=== PATIENT | female | born 1930 | race Caucasian/White ===

== ENCOUNTER 2019-05-15 09:00 | Emergency (ER) | payer MEDICARE ==
[~2019-05-15] VITALS: Ht 154.9 cm; Wt 45.1 kg
--- NOTE | 2019-05-15 09:11 | ED Fall/Injury ---
General Stated Complaint: FALL - RT HIP PAIN Source: patient, EMS Exam Limitations: no limitations History of Present Illness Date Seen by Provider: May 15, 2019 Time Seen by Provider: 09:07 Initial Comments Fell at home this morning injuring her Right hip....unable to move or bear weight. Called 911, given 75mcg Fentanyl, feeling better but still doesn't want to move hip on arrival. Denies Hx of hip fx. Denies other pain or injury. Lives alone at home. Hx dementia. Allergies and Home Medications Allergies Coded Allergies: Sulfa (Sulfonamide Antibiotics) (Verified Allergy, Unknown, 05/15/19) adhesive tape (Verified Allergy, Unknown, 05/15/19) iodine (Verified Allergy, Unknown, 05/15/19) latex (Verified Allergy, Unknown, 05/15/19) Patient Home Medication List Home Medication List Reviewed: Yes Review of Systems Review of Systems Constitutional: no symptoms reported Respiratory: no symptoms reported Cardiovascular: no symptoms reported Gastrointestinal: no symptoms reported Musculoskeletal: No back pain; joint pain; No neck pain Past Aoabckw-Ppfbjt-Fkihba Hx Past Med/Social Hx: Reviewed Nursing Past Med/Soc Hx Physical Exam Vital Signs Vital Signs - First Documented Capillary Refill : Height, Weight, BMI Height: '" Weight: lbs. oz. kg; BMI Method: General Appearance: WD/WN, no apparent distress Cardiovascular: regular rate, rhythm, no edema, no JVD Respiratory: chest non-tender, lungs clear Gastrointestinal: normal bowel sounds, non tender, soft Extremities: other (R hip held in 30 flex. not ext rotated. tenderness R hip joint without gross deformity. no knee, leg, ankle or foot pain.) Neurologic/Psychiatric: no motor/sensory deficits, normal mood/affect Skin: normal color, warm/dry Progress/Results/Core Measures Results/Orders My Orders Orders - ADRIANAVENSTJUDI DE LA ROSA DO Pelvis With Right Hip 2-3 View (05/15/19 09:08) Fentanyl Injection (Sublimaze Injection (05/15/19 10:45) Medications Given in ED Current Medications Medications Dose Ordered Sig/Alice Route Start Time Stop Time Status Last Admin Dose Admin Fentanyl Citrate 25 mcg ONCE ONCE IVP 05/15/19 10:45 05/15/19 10:46 DC 05/15/19 10:52 25 MCG Vital Signs/I&O 05/15/19 05/15/1905/14/20 09:02 09:02 11:48 Temp 37.0 37.0 37.0 Pulse 88 88 75 Resp 16 16 16 B/P (MAP) 168/60 (96) 168/60 (96) 99/41 (96) Pulse Ox 94 94 98 O2 Delivery Nasal Cannula Nasal Cannula Nasal Cannula O2 Flow Rate 2.00 2.00 Diagnostic Imaging Diagonstic Imaging: Xray Plain Films/CT/US/NM/MRI: hip Comments R InterTroch Fx, minimally displaced Departure Impression Primary Impression: Hip fracture, right Qualified Codes: S72.001A - Fracture of unspecified part of neck of right femur, initial encounter for closed fracture Disposition: XFER SHT-TRM HOSP Condition: Stable Transfer Transfer Reason: Exceeds level of care (No Ortho services @ [place] or [place] for the weekend.) Time Spoke to Accepting Phy: 10:00 Transfer Progress Notes Called [place] and left message @ [phone], Benoit Slaughter. Called [facility] @ [address] Horn (ER), will transfer ER to ER for Ortho eval per their protocol. Pt stable, no distress, pain adequately controlled and pt declines further pain medication at this time. JUDI ADDISON DO May 15, 2019 09:11
--- OUTSIDE RECORDS SUMMARY | 2019-05-15 09:23 | XMS REPORT | Continuity of Care Document ---
Author Organization Unknown Address Unknown Phone Unavailable Allergies There is no data. Medications There is no data. Problems Date Dx Coded Attending Type Code Diagnosis Diagnosed By 11/23/2018 MARIALUISA MARKHAM APRN Ot G47.33 OBSTRUCTIVE SLEEP APNEA (ADULT) (PEDIATR 11/25/2018 MARIALUISA MARKHAM APRN Ot G47.33 OBSTRUCTIVE SLEEP APNEA (ADULT) (PEDIATR 11/25/2018 MARIALUISA MARKHAM APRN Ot G47.33 OBSTRUCTIVE SLEEP APNEA (ADULT) (PEDIATR Procedures There is no data. Results There is no data. Encounters ACCT No. Visit Date/Time Discharge Status Pt. Type Provider Facility Loc./Unit Complaint [id number] 11/30/2018 20:00:00 019 23:59:59 CLS Preadmit MARIALUISA MARKHAM APRN [facility] SLEEP CLIVE G47.33
--- NOTE | 2019-05-15 09:46 | Diagnostic Imaging Report ---
INDICATION: Pain after fall. FINDINGS: There is a minimally displaced intertrochanteric fracture of the right femur. There is no other fracture or dislocation. Soft tissues are unremarkable. IMPRESSION: Minimally displaced intertrochanteric fracture of the right femur. Dictated by: Dictated on workstation # [id number]
[2019-05-15] MEDS ORDERED: Potassium (10:08)
[2019-05-15] MEDS ORDERED: SERT100T8 (10:08)
[2019-05-15] MEDS ORDERED: LOSA50TA63 PO (10:08)
[2019-05-15] MEDS ORDERED: aspirin (10:08)
[2019-05-15] MEDS ORDERED: OLAN2.5T27 PO (10:08)
[2019-05-15] MEDS ORDERED: MIRT30TA6 (10:08)
[2019-05-15] MEDS ORDERED: ROSU10TA28 (10:08)
--- NOTE | 2019-05-15 10:25 | NUR ---
Report called to [facility] VEGA
--- NOTE | 2019-05-15 10:36 | NUR ---
Page for [facility] for transfer, Code CRISTHIAN bautista
[2019-05-15] MEDS ORDERED: fentaNYL INJECTION 100 MCG/2 ML AMP IVP ONE (10:45)
--- NOTE | 2019-05-15 10:45 | NUR ---
EMS was arriving
--- NOTE | 2019-05-15 10:47 | NUR ---
[facility] paged out on a 911 call, delay for transfer
--- NOTE | 2019-05-15 11:10 | NUR ---
Patient's dgt called to speak with
--- NOTE | 2019-05-15 11:20 | NUR ---
EMS on scene in ER with add'l patient brought, preparing to go on transfer now. Report to Kristine, Immigration Paralegal.
[2019-05-15 11:48] VITALS: BP 99/41
--- NOTE | 2019-05-15 11:48 | NUR ---
Departing ER for Ariadne [facility] ER-ER transfer. No orthopedic coverage in [place] [facility]. See transfer form and discharge screen.
== END 2019-05-15 11:48 | disposition short-term general hospital (02) ==
LOC: EDUNIT# 09:00 → ER FS 09:01
DX: S72.141A Displaced intertrochanteric fracture of right femur, initial encounter for closed fracture (principal); W19.XXXA Unspecified fall, initial encounter
CPT/HCPCS: 73502

== ENCOUNTER 2019-05-18 15:10 | Inpatient (IN) | payer MEDICARE ==
[~2019-05-18] VITALS: Ht 157.5 cm; Wt 47.0 kg
[~2019-05-18 15:10] MED LIST: LOSA50TA63 PO; MIRT30TA6; OLAN2.5T27 PO; Potassium; ROSU10TA28; SERT100T8; aspirin
[2019-05-18] MEDS ORDERED: ONDANSETRON 4 MG (ZOFRAN) ORAL DISSOLVE TAB PO PRN (15:30)
[2019-05-18] MEDS ORDERED: CALCIUM CARBONATE 500 MG (TUMS) TAB.CHEW PO PRN (15:30)
[2019-05-18] MEDS ORDERED: ENOXAPARIN 40 MG/0.4 ML (LOVENOX) SYR SC SCH (15:30)
[2019-05-18] MEDS ORDERED: diphenhydrAMINE 25 MG TAB (BENADRYL) PO PRN (15:30)
[2019-05-18] MEDS ORDERED: LACTULOSE SYRUP 10GM/15ML (ENULOSE) 30ML UDC PO PRN (15:30)
[2019-05-18] MEDS ORDERED: FLEET ENEMA ADULT 1 EA BTL PR PRN (15:30)
[2019-05-18] MEDS ORDERED: DOCUSATE SODIUM 100 MG (COLACE) CAP PO PRN (15:30)
[2019-05-18] MEDS ORDERED: BISACODYL 10 MG SUPP (DULCOLAX) PR PRN (15:30)
[2019-05-18] MEDS ORDERED: LOPERAMIDE 2 MG (IMODIUM) TABLET PO PRN (15:30)
[2019-05-18] MEDS ORDERED: guaiFENesin/CODEINE (ROBITUSSIN AC) 10ML UDC PO PRN (15:30)
[2019-05-18] MEDS ORDERED: ALPRAZolam 0.25 MG (XANAX) TAB PO PRN (15:30)
--- NOTE | 2019-05-18 15:44 | PM&R Post Admission Assessment ---
PM&R HP Date of Visit: May 18, 2019 Time of Visit: 18:00 History of Present Illness CC: Debility following right femur fracture POD # 2 HPI: This is an 88yoWF clinic patient of Dr Strange who presents to IRF in need of recovery following a right femur fracture and uncomplicated repair by Dr Daniel at [facility] on 05/16/19 after she sustained a fall at home while getting out of bed at night. She lives with her who recently had a toe amputated. She ambulates with a cane most of the time. Patient received 1 unit of blood yesterday and currently she is stable clinically. Daughter is involved in her care. She had a medium BM yesterday and currently she has not urinated since Nunez DC prior to transfer to [facility] from [facility] so may need to bladder scan and replace nunez if she can't void. Patient is very frail but denies pain and overall is ready to begin her recovery. Her Telecommunication Tower Technician is in [place]. 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 They had 5 children and 1 passed and 2 daughters and 2 sons and her daughter who brought her to [facility] lives in [place]. Coreg and Ranexa have both been stopped so will need to evaluate these two meds with Dr Forte tomorrow and he is aware of the consultation request. UTI completing on PO abx in 4 days. Per [facility] notes: MEDICAL: Patienthas a past medical history of Acute angina, Anxiety, CAD (coronary artery disease), Colon polyps, CVD (cerebrovascular disease), Dementia, Dementia, Depression, Diverticulitis, Diverticulosis, Dyspnea on exertion, GERD (gastroesophageal reflux disease), Heart disease, unspecified, Hiatal hernia, HTN (hypertension), Hyperlipidemia, Hyponatremia, Osteopenia, Osteoporosis, and TIA (transient ischemic attack). SURGICAL: Patienthas a past surgical history that includes hx heart catheterization; hx temporal artery biopsy / ligation; hx sigmoidoscopy; hx colonoscopy; hx colon polypectomy; hx appendectomy; hx blepharoplasty; hx cataract removal; and hx hysterectomy. FAMILY: Patient'sfamily history includes Emphysema in her father; Heart Disease in her mother. SOCIAL: reports that she quit smoking about 58 years ago. Her smoking use included cigarettes. She has never used smokeless tobacco. She reports previous alcohol use. She reports that she does not use drugs. Abbey Hilliard a 88 y.o.femaleadmitted for Closed fracture of right femur. I was asked to consult for medical management. Patient lives at home with her who recently had toe amputation. She was walking tohelp her dress the surgical wound but the room was dark, she lost her balance and fell on her right side. She was unable to walk or move her right leg since then because of pain. She was initially brought to [facility] for evaluation. She was noted to have right femur fracture, intertrochanteric and was transferred to [facility]. Patient has been admitted to orthopedic surgery and internal medicine was consultedfor medical management. History obtained from patient and paperwork received from [facility]. Family members were not present to assist with patient's history. Patient reports history of CAD status post 3 stents, last stent about 5 years ago. She also reports history of a "leaky valve".Per records received from outside facility patient also has a history of dementia. Patient denies history of diabetes mellitus and states she was never on any medication for it. She also denies history of congestive heart failure or CKD. Patient reports she is normally very good at taking her medications daily but did not take any of her medicines today. Patient denieschest pain,palpitations, loss of consciousness, shortness of breath, nausea, vomiting, diarrhea, cough, bleeding.She denies history of TIA or stroke. She lives with her and uses a cane occasionally to help her ambulate. Ortho note 05/18/19: Patient resting in bed without family at bedside. She sustained a right intertrochanteric femur fracture and underwent right long TFN on 05/16/[address] Fraser. The patientwas able to work with physical therapy yesterday but did not ambulate. She received one unit PRBC yesterday. Heather mendez 88 y.o.femalewith right intertrochanteric femur fracture s/p right long TFN done 05/16/2019, POD #2. 1. Doing well postoperatively. 2. DVT prophylaxsis with lovenox x 14 days followed by aspirin 325mg BID x 14 days if tolerated. 3. Weight Bearing Status: WBAT RLE 4. PT/OT for mobility, ROM, gait training and ADLs. Please advise home vs SNF vs Inpatient rehab. 5. Pain control with Tylenol, oxycodone, and fentanyl. 6. PRBC completed yesterday In-patient meds: sennosides-docusate sodium, 1 Tablet, BID enoxaparin, 30 mg, q 24 hour naloxone, 0.1 mg, See Admin Notes calcium carbonate + vitamin D, 1 Tablet, Daily cetirizine, 10 mg, Daily OLANZapine, 2.5 mg, Daily BEDTIME pantoprazole, 40 mg, Daily rosuvastatin, 10 mg, Daily BEDTIME sertraline, 50 mg, Daily losartan, 50 mg, Daily sodium chloride, 5 mL, q 12 hour sodium chloride, 5 mL, See Admin Notes sodium chloride 0.9 %, 25 mL, See Admin Notes dextrose 5 % in water, 25 mL, See Admin Notes cefTRIAXone, 1,000 mg, q 24 hour (daily) Hospital Course:Abbey Hilliard a 88 y.o.femalewho was admitted to [facility]/15/2019and found to have a principle diagnosis of right intertrochanteric femur fracture.The injury occurred from a fall while trying to ambulate to her in the fiscal analyst in the dark. She was admitted to the hospital and proceeded to the OR for right long TFN 05/16/[address] Fraser. On postop day #1 the patient was found to have a low hemoglobin and appeared symptomatic with tachycardia and a dropping blood pressure for which she received 1 unit PRBC and tolerated very well. Following surgery she was able to work with physical therapy as WBAT RLE with a walker but did not ambulate until this morning. She has tolerated a regular diet and p.o. medication. Upon admission to the hospital she was found to have a UTI and has been treated with Rocephin with plans to discharge on p.o. antibiotic. The patient is ready to discharge to [facility] inpatient rehab today. 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) Alcohol Use: Denies Use Smoking Status: Never a Smoker Former Smoker, Quit: Feb 17, 1961 Type Used: Cigarettes 2nd Hand Smoke Exposure: No Recent Hopitalizations: No Seasonal Allergies Seasonal Allergies: Yes Past Medical History Surgeries: Appendectomy, Cardiac, Coronary Stent, Hysterectomy, Orthopedic (rigth femur fracture 05/16/19) Cardiac: Angina, Coronary Artery Disease, Heart Attack, High Cholesterol, Hypertension Neurological: Dementia, TIA Hysterectomy Gastrointestinal: Gastroesophageal Reflux, Diverticulosis, Hiatal Hernia Musculoskeletal: Osteoporosis HEENT: Cataract Loss of Vision: Denies Psychosocial: Anxiety, Depression History of Blood Disorders: No Family History Hypertension PM&R Allergy/Meds/Data Review Allergies Coded Allergies: Sulfa (Sulfonamide Antibiotics) (Verified Allergy, Unknown, 05/15/19) adhesive tape (Verified Allergy, Unknown, 05/15/19) iodine (Verified Allergy, Unknown, 05/15/19) latex (Verified Allergy, Unknown, 05/15/19) Home Medications Scheduled Aspirin (Aspirin EC), 81 MG PO DAILY, (Reported) Ca Carbonate/Vitamin D3/Vit K (Calcium + Vit D & K Chew Tab), 1 EACH PO DAILY, (Reported) Cetirizine HCl (Cetirizine HCl), 10 MG PO DAILY, (Reported) Ciprofloxacin HCl (Cipro), 500 MG PO BID, (Reported) Enoxaparin Sodium (Enoxaparin Sodium), 30 MG SQ DAILY, (Reported) Fluticasone Propionate (Flonase Allergy Relief), 2 SPRAY NSEACH DAILY, (Reported) Losartan Potassium (Losartan Potassium), 50 MG PO DAILY, (Reported) Multivitamin (Daily Brian), 1 EACH PO DAILY, (Reported) Nebivolol HCl (Bystolic), 5 MG PO DAILY, (Reported) Olanzapine (Olanzapine), 2.5 MG PO HS, (Reported) Omeprazole (Omeprazole), 20 MG PO DAILY, (Reported) Papaya (Papaya Enzyme), 1 EACH PO DAILY, (Reported) Potassium Gluconate (Potassium Gluconate), 99 MG PO DAILY, (Reported) Ranolazine (Ranexa), 500 MG PO Q12H, (Reported) Rosuvastatin Calcium (Rosuvastatin Calcium), 20 MG PO HS, (Reported) Sertraline HCl (Sertraline HCl), 100 MG PO DAILY, (Reported) Triamcinolone Acetonide (Nasacort), 1 SPRAY NSEACH DAILY, (Reported) Vancomycin HCl (Vancomycin HCl), 250 MG PO Q6H, (Reported) Scheduled PRN Acetaminophen (Tylenol), 650 MG PO Q6H PRN for PAIN-MILD (1-4), (Reported) Albuterol Sulfate (Proair Hfa), 2 PUFF IH Q6H PRN for SHORTNESS OF BREATH, (Re ported) Alprazolam (Xanax), 0.25 MG PO HS PRN for ANXIETY, (Reported) Hydrocodone/Acetaminophen ([place] 10-325 Tablet), 1 TAB PO Q4H PRN for PAIN- MODERATE (5-7), (Reported) Hydrocodone/Acetaminophen (Hydrocodone-Acetamin 5-325 mg), 1 EACH PO Q4H PRN for PAIN-MODERATE (5-7), (Reported) Naloxone HCl (Narcan), 4 MG NS UD PRN for OVERDOSE, (Reported) Nitroglycerin (Nitroglycerin), 0.4 MG SL UD PRN for CHEST PAIN, (Reported) Polyethylene Glycol 3350 (Miralax), 17 GM PO DAILY PRN for CONSTIPATION-2ND LINE, (Reported) Promethazine HCl (Promethazine Tablet), 25 MG PO Q6H PRN for NAUSEA/VOMITING, (Reported) Sennosides/Docusate Sodium (Senna S Tablet), 1 EACH PO Q12H PRN for CONSTIPATION-6TH LINE, (Reported) Discontinued Medications Mirtazapine (Mirtazapine), (Reported) Discontinued Reason: No Longer Taking Rosuvastatin Calcium (Rosuvastatin Calcium), (Reported) Discontinued Reason: Prescription changed Sertraline HCl (Sertraline HCl), (Reported) Discontinued Reason: Prescription changed Sertraline HCl (Sertraline HCl), 50 MG PO DAILY, (Reported) Discontinued Reason: Duplicate Order [Potassium], (Reported) Discontinued Reason: Prescription changed [aspirin], (Reported) Discontinued Reason: Prescription changed Current Medications Current Medications Reviewed Review of Systems Constitutional: see HPI, weakness EENTM: no symptoms reported Respiratory: no symptoms reported Cardiovascular: no symptoms reported Gastrointestinal: constipation Genitourinary: no symptoms reported Musculoskeletal: joint pain (right hip and leg) Skin: no symptoms reported Psychiatric/Neurological: No Symptoms Reported All Other Systems Reviewed Negative Unless Noted: Yes Physical Exam Physical Exam Vital Signs Capillary Refill : Height, Weight, BMI Height: '" Weight: lbs. oz. kg; 18.00 BMI Method: General Appearance: No Apparent Distress, Chronically ill, Thin, Other (frail, fatigued) Eyes: Bilateral Eye Normal Inspection, Bilateral Eye PERRL HEENT: PERRL/EOMI, Normal ENT Inspection, Pharynx Normal Neck: Full Range of Motion, Normal Inspection, Non Tender, Supple, Carotid Bruit Respiratory: Chest Non Tender, Lungs Clear, Normal Breath Sounds, No Accessory Muscle Use, No Respiratory Distress, Decreased Breath Sounds Cardiovascular: Regular Rate, Rhythm, No Edema, No Gallop, No JVD, No Murmur, Normal Peripheral Pulses Gastrointestinal: Normal Bowel Sounds, No Organomegaly, No Pulsatile Mass, Non Tender, Soft Back: Normal Inspection, No CVA Tenderness, No Vertebral Tenderness Extremity: Normal Capillary Refill, Normal Inspection, Normal Range of Motion (except right leg due to op site), Non Tender, No Calf Tenderness, No Pedal Edema Neurologic/Psychiatric: Alert, Oriented x3, No Motor/Sensory Deficits, Normal Mood/Affect, 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 Norm as Tested, Abnormal Gait Skin: Normal Color, Warm/Dry Lymphatic: No Adenopathy PM&R Medical Assessment & Plan REHAB/MEDICAL ASSESSMENT AND PLAN: REHAB IMPAIRMENT GROUP: Right femur fracture ETIOLOGIC DIAGNOSIS: Right femur fracture The comorbidities that impact the patients function and/or functional outcome by: advanced age, dementia, CAD, frail status, TIA hx, HTN, post op anemia acute blood loss REHAB PLAN: The patient is being admitted to our comprehensive inpatient rehabilitation facility and can tolerate the intensity of service consisting of at least: 180 minutes of therapy a day, 5 out of 7 days a week Rehab treatment will consist of: PT OT and ST will focus on ambulatory skills with pain control and building stamina and clearing cognition in order to return home with her The patient/family has a good understanding of our discharge process and will benefit from an interdisciplinary inpatient rehabilitation program. The patient has potential to make improvement and is in need of at least two of the following multidisciplinary therapies including but not limited to physical, occupational, speech, and prosthetics and orthotics. Additionally the patient will need services from respiratory, nutritional services, wound care, psychology, etc. (Customize this to each patient). Given the patients complex condition and risk of further medical complications, rehabilitation services cannot be safely or effectively provided at a lower level of care such as a correction facility. BARRIERS TO DISCHARGE: advanced age, cognitive deficit ESTIMATED LOS: 7 days DISPOSITION: Home with HH RELEVANT CHANGES SINCE PREADMISSION SCREENING: I have compared the patients medical and functional status at the time of the preadmission screening and there are: no changes PROGNOSIS: Good REHABILITATION GOALS: 1. PT OT and ST will focus on ambulatory skills with pain control and building stamina and clearing cognition in order to return home with her All the above goals were reviewed with the patient and he/she is in agreement. By signing this document, I acknowledge that I have personally performed a full physical examination on this patient within 24 hours of admission to this [facility] rehabilitation facility and have determined the patient to be able to tolerate the above course of treatment at an intensive level for a reasonable period of time. I will be completing a detailed individualized Plan of Care for this patient by day #4 of the patients stay based upon the Preadmission Screen, the Post-Admission Evaluation, and the therapy evaluations. Admission Dx/Comorbidities: (1) Right femoral fracture ICD Codes: S72.91XA - Unspecified fracture of right femur, initial encounter for closed fracture (2) Fall ICD Codes: W19.XXXA - Unspecified fall, initial encounter (3) History of TIAs ICD Codes: Z86.73 - Personal history of transient ischemic attack (TIA), and cerebral infarction without residual deficits (4) Dementia ICD Codes: F03.90 - Unspecified dementia without behavioral disturbance (5) Hypertension ICD Codes: I10 - Essential (primary) hypertension (6) Anemia due to acute blood loss ICD Codes: D62 - Acute posthemorrhagic anemia (7) Iron deficiency ICD Codes: E61.1 - Iron deficiency (8) Diverticulosis ICD Codes: K57.90 - Diverticulosis of intestine, part unspecified, without perforation or abscess without bleeding (9) Advanced age ICD Codes: R54 - Age-related physical debility (10) History of UTI ICD Codes: Z87.440 - Personal history of urinary (tract) infections (11) DVT prophylaxis ICD Codes: Z29.9 - Encounter for prophylactic measures, unspecified (12) Anxiety ICD Codes: F41.9 - Anxiety disorder, unspecified (13) Hyponatremia ICD Codes: E87.1 - Hypo-osmolality and hyponatremia (14) GERD (gastroesophageal reflux disease) ICD Codes: K21.9 - Gastro-esophageal reflux disease without esophagitis (15) Hiatal hernia ICD Codes: K44.9 - Diaphragmatic hernia without obstruction or gangrene (16) Hyperlipidemia ICD Codes: E78.5 - Hyperlipidemia, unspecified Assessment/Plan Assessment and Plan Assess & Plan/Chief Complaint Assessment: Right femur fracture POD # 2 Acute blood loss anemia s/p 1 unit of blood transfusion 3 hgb 8.8 this am at [facility] Chronic angina Anxiety CAD (coronary artery disease) Colon polyps CVD (cerebrovascular disease) Dementia Depression Diverticulitis Diverticulosis Dyspnea on exertion GERD (gastroesophageal reflux disease) Heart disease Hiatal hernia HTN Hyperlipidemia Hyponatremia Osteopenia, Osteoporosis TIA (transient ischemic attack) Urinary retention? Plan: IRF protocol Check labs in am Lovenox for DVT PPx Check iron level Pain control Monitor for delirium Home meds Monitor voiding MARTIN LEAL DO May 18, 2019 15:44
[2019-05-18] MEDS ORDERED: NITR0.4T39 SL (16:09)
[2019-05-18] MEDS ORDERED: ACET325T38 PO (16:09)
[2019-05-18] MEDS ORDERED: VANC250C5 PO (16:09)
[2019-05-18] MEDS ORDERED: POTA99TA18 PO (16:09)
[2019-05-18] MEDS ORDERED: RT-ALBUINH IH (16:09)
[2019-05-18] MEDS ORDERED: ENOX30DI4 SQ (16:09)
[2019-05-18] MEDS ORDERED: NALO4SPR NS (16:09)
[2019-05-18] MEDS ORDERED: ROSU20TA32 PO (16:09)
[2019-05-18] MEDS ORDERED: CETI10TA17 PO (16:09)
[2019-05-18] MEDS ORDERED: POLY17PO6 PO (16:09)
[2019-05-18] MEDS ORDERED: PROM25TA14 PO (16:09)
[2019-05-18] MEDS ORDERED: SERT50TA9 PO (16:09)
[2019-05-18] MEDS ORDERED: CIPR-225 PO (16:09)
[2019-05-18] MEDS ORDERED: NEBI5TAB8 PO (16:09)
[2019-05-18] MEDS ORDERED: SENN-145 PO (16:09)
[2019-05-18] MEDS ORDERED: TRIA10.8 NSEACH (16:09)
[2019-05-18] MEDS ORDERED: HYDR-4196 PO (16:09)
[2019-05-18] MEDS ORDERED: OMEP20CA18 PO (16:09)
[2019-05-18] MEDS ORDERED: CA C1TAB66 PO (16:09)
[2019-05-18] MEDS ORDERED: PAPA1TAB10 PO (16:09)
[2019-05-18] MEDS ORDERED: FLUT9.9S NSEACH (16:09)
[2019-05-18] MEDS ORDERED: HYDR-83 PO (16:09)
[2019-05-18] MEDS ORDERED: RANO500T3 PO (16:09)
[2019-05-18] MEDS ORDERED: MULT1TAB65 PO (16:09)
[2019-05-18] MEDS ORDERED: ASPI-983 PO (16:09)
[2019-05-18] MEDS ORDERED: ALPR0.25 PO (16:11)
--- NOTE | 2019-05-18 16:14 | NUR ---
ENTERED THE MED REC USING THE DISCHARGE SUMMARY FROM [facility]: 50MG IS THE STRENGTH SHOWN ON THE DISCHARGE SUMMARY (IN THE SECTION WHERE IT SHOWS MEDS PRIOR TO ADMISSION IT SAYS 50MG) HOWEVER IT SHOWS 100MG IN THE EXT MED HISTORY (AND SEEMS TO BE CURRENT) I AM GOING TO INCLUDE THE 100MG ON THE MED REC PER THE PHARMACISTS ADVICE. I WILL INTERVIEW THE PT AFTER THE MEDS HAVE BEEN CONTINUED AND UPDATE THE MED REC AND NOTES NEEDED Addendum: 05/19/19 at 1439 by KIRILL SALAZAR CPhT ON 05-19-2019 MIRTAZAPINE 30MG WAS ADDED TO THE MED REC- [facility] DISCHARGE ORDERS DID NOT INCLUDE THIS MEDICATION. I HAVE QUESTIONS ABOUT THE TIMING OF THIS MEDICATIONS- THE EXT MED HISTORY SAYS 1 TAB DAILY- THE NURSE RECEIVED INFORMATION FROM THE PT'S DAUGHTER THAT IMPLIED SHE GAVE IT DURING THE DAY- HOWEVER I HAVE TRIED TO CALL THE DAUGHTER TWICE (LEFT A MESSAGE ONCE) TO ASK SPECIFIC QUESTIONS FOR CLARIFICATION, BUT I HAVE NOT HEARD BACK. IF/WHEN I GET DIFFERENT INFORMATION I WILL UPDATE THIS MEDICATION IF NEEDED. I WILL ALSO UPDATE THE MED REC WITH ALL OTHER CHANGES AFTER I SPEAK WITH THE DAUGHTER Addendum: 05/20/19 at 1118 by KIRILL SALAZAR CPhT When I spoke with the pt said indicated I should speak with her daughter to get more information. I was able to get ahold of her today (05-20-2019 @4007) to verify medications. According to Shabana (pts daughter) the discharge orders from [facility] had medications that were outdated. Ranexa- the pt has not had this medication in several years Bystolic- pt had been switched to coreg 3.125mg 1 tab bid in May 2018- however when I spoke with the pts daughter she revealed that she had not given the med to the pt since February 2019 due to pt's weight loss and weakness. Rosuvastatin- This was listed as 20mg on the discharge but the pt has been getting rosuvastatin 10mg since May 2018 and the discharge orders do not say anything about increasing her dose. The following medications were removed from the Med Rec since the pt was not taking them prior to her [facility] stay: Cipro Lovenox Hydrocodone 5-325 and 10-325 Naloxone Promethazine Vancomycin Otc meds that the patients daughter says she takes: Tylenol prn Aspirin 81 Viactiv Zyrtec Flonase Mtv Papaya Enzyme Addendum: 05/21/19 at 1037 by KIRILL SALAZAR CPhT I ALSO REMOVED MIRALAX AND SENNA S THE PT DOES NOT TAKE THESE AT HOME. OLANZAPINE: [facility] HAD HER TAKING 2.5MG HS BUT THE PT WAS TAKING 2.5MG 2 TABS HS BEFORE HER HOSPITAL STAY. I HAVE UPDATED THIS MEDICATION TO REFLECT THAT
[2019-05-18] MEDS ORDERED: SERT100T8 PO (16:22)
[2019-05-18] MEDS ORDERED: RT-ALBUTEROL SULF 2.5 MG/3 ML PRE-MIX VIAL IH PRN (17:00)
[2019-05-18] MEDS ORDERED: SENNA W/DOCUSATE (SENOKOT S) TABLET PO PRN (17:00)
[2019-05-18] MEDS ORDERED: NITROGLYCERIN 0.4 MG SL TABS BTL 25'S SL PRN (17:00)
[2019-05-18] MEDS ORDERED: PROMETHAZINE 25 MG (PHENERGAN) TAB PO PRN (17:00)
[2019-05-18] MEDS ORDERED: polyethylene glycoL POWDER 17 GM (MIRALAX) PACK PO PRN (17:00)
--- NOTE | 2019-05-18 17:45 | NUR ---
Abbey Hgih admitted to room 225-1, with an admitting diagnosis of Right Hip Fracture, on 05/18/19 from [facility]) via private vehicle, accompanied by staff. ABBEY HIGH introduced to surroundings, call light, bed controls, phone, TV, temperature control, lights, meal times, smoking policy, visitor policy, side rail policy, bathrooms and showers. Patient Rights given to patient in the handbook.ABBEY HIGH verbalizes understanding that [facility] is not responsible for the loss or damage to any personal effects or valuables that are kept in the patients posession during their hospitalization. The following Patient Care Plans were discussed with the patient: Discharge Planning, Fractures, Impaired mobility, and Falls. ABBEY HIGH verbalizes understanding of Interdisciplinary Patient Education. Patient received Patient Rights Booklet, which includes Privacy Act Statement and Data Collection Information Summary. Patient bartolome pain, only compliant is tired.
[2019-05-18 18:02] VITALS: BP 152/79
[2019-05-18 18:03] VITALS: BP 152/79
[2019-05-18] MEDS ORDERED: ENOXAPARIN 30 MG/0.3 ML (LOVENOX) SYR SC SCH (18:30)
--- OUTSIDE RECORDS SUMMARY | 2019-05-18 19:21 | XMS REPORT ---
Author Author Abbey ESPINOZA Organization [facility] Address [address] [address] Care Team Providers Care Jailkeeper Name Role Phone OLGAANANTY Unavailable PROBLEMS Type Condition ICD9-CM Code UIX35-PF Code Onset Dates Condition S tatus SNOMED Code Problem Essential hypertension I10 Active 20696016 Problem Acquired hypothyroidism E03.9 Active 901440965 Problem Recurrent major depressive disorder, in full remission F33.42 Active 96312049 Problem Hypercholesteremia E78.00 Active 2 24731957 Problem Type 2 diabetes mellitus wit hout complication, without long-term current use of insulin E11.9 Active 047987515 ALLERGIES No Information ENCOUNTERS Encounter Location Date Diagnosis [place] [address] [place] [id number] [address] [address] [address] Mar Acquired hypothyroidism E03.9 ; Essential hypertension I10 and Recurrent major depressive disorder, in full remission F33.[address] [address] [address] Mar Essential hypertension I10 ; Hypercholesteremia E78.00 ; Type 2 diabetes mellitus without complication, without long-term current use of insulin E11.9 and Acquired hypothyroidism E03.9 IMMUNIZATIONS No Known Immunizations SOCIAL HISTORY Never Assessed REASON FOR VISIT Refill request PLAN OF CARE VITAL SIGNS MEDICATIONS Unknown Medications RESULTS No Results PROCEDURES No Known procedures INSTRUCTIONS MEDICATIONS ADMINISTERED No Known Medications MEDICAL (GENERAL) HISTORY Type Description Date Medical History hypertension Medical History hyperlipidemia Medical History anxiety
--- OUTSIDE RECORDS SUMMARY | 2019-05-18 19:21 | XMS REPORT | Continuity of Care Document ---
Author Organization Unknown Address Unknown Phone Unavailable Allergies Active Description Code Type Severity Reaction Onset Reported/Identified Relationship to Patient Clinical Status Yes adhesive tape [id number] Antwan g Allergy Unknown N/A 05/15/2019 Yes iodine [id number] Drug Allergy Unknown N/A 05/15/2019 Yes latex [id number] Drug Allergy Unknown N/A 05/15/2019 Yes Sulfa (Sulfonamide Antibiotics) Q74029 0491 Drug Allergy Unknown N/A 020 Medications There is no data. Problems Date Dx Coded Attending Type Code Diagnosis Diagnosed By 11/23/2018 MARIALUISA MARKHAM APRN Ot G47.33 OBSTRUCTIVE SLEEP APNEA (ADULT) (PEDIATR 11/25/2018 MARIALUISA MARKHAM APRN Ot G47.33 OBSTRUCTIVE SLEEP APNEA (ADULT) (PEDIATR 11/25/2018 MARIALUISA MARKHAM APRN Ot G47.33 OBSTRUCTIVE SLEEP APNEA (ADULT) (PEDIATR Procedures There is no data. Results Test Result Range LIPID PANEL - 07/29/18 08:41 CHOLESTEROL, TOTAL 152 mg/dL <200 HDL CHOLESTEROL 59 mg/dL >50 TRIGLYCERIDES 94 mg/dL <150 LDL-CHOLESTEROL 75 mg/dL (calc) NRG CHOL/HDLC RATIO 2.6 (calc) <5.0 NON HDL CHOLESTEROL 93 mg/dL (calc) <130 CMP - 07/29/18 08:41 GLUCOSE 77 mg/dL 65-99 UREA NITROGEN (BUN) 19 mg/dL 7-25 CREATININE 0.89 mg/dL 0.60-0.88 eGFR NON-AFR. PORTUGUESE 58 mL/min/1.73m2 > OR = 60 eGFR 68 mL/min/1.73m2 > OR = 60 BUN/CREATININE RATIO 21 (calc) 6-22 SODIUM 138 mmol/L 135-146 POTASSIUM 4.6 mmol/L 3.5-5.3 CHLORIDE 103 mmol/L 98-110 CARBON DIOXIDE 28 mmol/L 20-32 CALCIUM 9.4 mg/dL 8.6-10.4 PROTEIN, TOTAL 6.6 g/dL 6.1-8.1 ALBUMIN 3.8 g/dL 3.6-5.1 GLOBULIN 2.8 g/dL (calc) 1.9-3.7 ALBUMIN/GLOBULIN RATIO 1.4 (calc) 1.0-2. 5 BILIRUBIN, TOTAL 0.6 mg/dL 0.2-1.2 ALKALINE PHOSPHATASE 101 U/L 33-130 AST 29 U/L 10-35 ALT 23 U/L 6-29 CBC w/MANUAL DIFF - 07/29/18 08:41 WHITE BLOOD CELL COUNT 5.4 Thousand/uL 3 .8-10.8 RED BLOOD CELL COUNT 4.29 Million/uL 3.8 0-5.10 HEMOGLOBIN 12.4 g/dL 11.7-15.5 HEMATOCRIT 38.1 % 35.0-45.0 MCV 88.8 fL 80.0-100.0 MCH 28.9 pg 27.0-33.0 MCHC 32.5 g/dL 32.0-36.0 RDW 13.1 % 11.0-15.0 PLATELET COUNT 151 Thousand/uL 140-400 MPV 10.6 fL 7.5-12.5 ABSOLUTE NEUTROPHILS 3548 cells/uL 1500- 7800 ABSOLUTE MONOCYTES 54 cells/uL 200-950 ABSOLUTE EOSINOPHILS 162 cells/uL 15-500 ABSOLUTE BASOPHILS 162 cells/uL 0-200 NEUTROPHILS 65.7 % NRG LYMPHOCYTES 27.3 % NRG MONOCYTES 1.0 % NRG EOSINOPHILS 3.0 % NRG BASOPHILS 3.0 % NRG ABSOLUTE LYMPHOCYTES 1474 cells/uL 850-3 900 COMMENT(S) NRG CBC w/MANUAL DIFF - 10/28/18 09:02 WHITE BLOOD CELL COUNT 7.7 Thousand/uL 3 .8-10.8 RED BLOOD CELL COUNT 4.19 Million/uL 3.8 0-5.10 HEMOGLOBIN 12.1 g/dL 11.7-15.5 HEMATOCRIT 36.9 % 35.0-45.0 MCV 88.1 fL 80.0-100.0 MCH 28.9 pg 27.0-33.0 MCHC 32.8 g/dL 32.0-36.0 RDW 12.9 % 11.0-15.0 PLATELET COUNT 187 Thousand/uL 140-400 MPV 10.5 fL 7.5-12.5 ABSOLUTE NEUTROPHILS 4543 cells/uL 1500- 7800 ABSOLUTE MONOCYTES 385 cells/uL 200-950 ABSOLUTE EOSINOPHILS 462 cells/uL 15-500 ABSOLUTE BASOPHILS 154 cells/uL 0-200 NEUTROPHILS 59.0 % NRG LYMPHOCYTES 28.0 % NRG MONOCYTES 5.0 % NRG EOSINOPHILS 6.0 % NRG BASOPHILS 2.0 % NRG ABSOLUTE LYMPHOCYTES 2156 cells/uL 850-3 900 PLATELET ESTIMATION ADEQUATE ADEQUATE COMMENT(S) NRG CLOSTRIDIUM DIFFICILE TOXINB,QL REAL LONA E PCR - 12/21/18 09:42 CLOSTRIDIUM DIFFICILE TOXINB,QL REAL TIME PCR DETE CTED NOT DETECTED CULTURE, STOOL - 02/03/19 08:48 SALMONELLA AND SHIGELLA, CULTURE SEE NOTE NRG TSH w/ FREE T4 - 04/02/19 10:58 TSH 4.44 mIU/L 0.40-4.50 T4, FREE 1.0 ng/dL 0.8-1.8 LIPID PANEL - 04/02/19 10:58 CHOLESTEROL, TOTAL 187 mg/dL <200 HDL CHOLESTEROL 82 mg/dL > OR = 50 TRIGLYCERIDES 97 mg/dL <150 LDL-CHOLESTEROL 86 mg/dL (calc) NRG CHOL/HDLC RATIO 2.3 (calc) <5.0 NON HDL CHOLESTEROL 105 mg/dL (calc) <13 0 CMP - 04/02/19 10:58 GLUCOSE 78 mg/dL 65-99 UREA NITROGEN (BUN) 15 mg/dL 7-25 CREATININE 0.87 mg/dL 0.60-0.88 eGFR NON-AFR. PORT[place]UESE 59 mL/min/1.73m2 > OR = 60 eGFR 69 mL/min/1.73m2 > OR = 60 BUN/CREATININE RATIO NOT APPLICABLE (calc) 6-22 SODIUM 138 mmol/L 135-146 POTASSIUM 4.7 mmol/L 3.5-5.3 CHLORIDE 100 mmol/L 98-110 CARBON DIOXIDE 29 mmol/L 20-32 CALCIUM 9.5 mg/dL 8.6-10.4 PROTEIN, TOTAL 7.3 g/dL 6.1-8.1 ALBUMIN 4.1 g/dL 3.6-5.1 GLOBULIN 3.2 g/dL (calc) 1.9-3.7 ALBUMIN/GLOBULIN RATIO 1.3 (calc) 1.0-2. 5 BILIRUBIN, TOTAL 0.5 mg/dL 0.2-1.2 ALKALINE PHOSPHATASE 119 U/L 37-153 AST 36 U/L 10-35 ALT 22 U/L 6-29 CBC w/MANUAL DIFF - 04/02/19 10:58 WHITE BLOOD CELL COUNT 6.2 Thousand/uL 3 .8-10.8 RED BLOOD CELL COUNT 4.75 Million/uL 3.8 0-5.10 HEMOGLOBIN 13.6 g/dL 11.7-15.5 HEMATOCRIT 41.7 % 35.0-45.0 MCV 87.8 fL 80.0-100.0 MCH 28.6 pg 27.0-33.0 MCHC 32.6 g/dL 32.0-36.0 RDW 13.7 % 11.0-15.0 PLATELET COUNT 205 Thousand/uL 140-400 MPV 10.4 fL 7.5-12.5 ABSOLUTE NEUTROPHILS 3968 cells/uL 1500- 7800 ABSOLUTE MONOCYTES 310 cells/uL 200-950 ABSOLUTE EOSINOPHILS 186 cells/uL 15-500 ABSOLUTE BASOPHILS 0 cells/uL 0-200 NEUTROPHILS 64.0 % NRG LYMPHOCYTES 28.0 % NRG MONOCYTES 5.0 % NRG EOSINOPHILS 3.0 % NRG BASOPHILS 0 % NRG ABSOLUTE LYMPHOCYTES 1736 cells/uL 850-3 900 PLATELET ESTIMATION ADEQUATE ADEQUATE CBC MORPHOLOGY NORMAL COMMENT(S) NRG Encounters ACCT No. Visit Date/Time Discharge Status Pt. Type Provider Facility Loc./Unit Complaint [id number] 01/15/2019 10:00:00 01/15/2019 23:59: 59 CLS Outpatient RONNIE ESPINOZA [facility] [id number] 04/02/2019 11:00:00 Document Registration [id number] 02/03/2019 09:20:00 Document Registration [id number] 12/21/2018 09:40:00 Document Registration [id number] 10/28/2018 10:40:00 Document Registration [id number] 07/29/2018 08:40:00 Document Registration [id number] 05/15/2019 09:01:00 020 11:48:00 DIS Emergency ADRIANAVENJUDI MESA DO [facility] ER FS FALL - RT HIP P AIN [id number] 11/30/2018 20:00:00 019 23:59:59 CLS Preadmit MARIALUISA MARKHAM ORIENTAL RUG STRETCHER [facility] SLEEP CLIVE G47.33
--- OUTSIDE RECORDS SUMMARY | 2019-05-18 19:21 | XMS REPORT ---
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 Active 32652464 Problem Hypercholesteremia E78.00 Active 2 98549555 Problem Type 2 diabetes mellitus wit hout complication, without long-term current use of insulin E11.9 Active 273093245 ALLERGIES No Information ENCOUNTERS Encounter Location Date Diagnosis [place] [address] [place] [id number] [address] [address] [address] Mar Acquired hypothyroidism E03.9 ; Essential hypertension I10 and Recurrent major depressive disorder, in full remission F33.[address] [address] [address] [address] Mar Essential hypertension I10 ; Hypercholesteremia E78.00 ; Type 2 diabetes mellitus without complication, without long-term current use of insulin E11.9 and Acquired hypothyroidism E03.9 IMMUNIZATIONS No Known Immunizations SOCIAL HISTORY Never Assessed REASON FOR VISIT PLAN OF CARE VITAL SIGNS MEDICATIONS Medication Instructions Dosage Frequency Start Date End Date Duration S tatus Nitroglycerin 0.4 mg Sublingual PRN as directed Apr, 30 days Active RESULTS No Results PROCEDURES No Known procedures INSTRUCTIONS MEDICATIONS ADMINISTERED No Known Medications MEDICAL (GENERAL) HISTORY Type Description Date Medical History hypertension Medical History hyperlipidemia Medical History anxiety
[2019-05-18] MEDS: CIPROFLOXACIN 500 MG (CIPRO) TABLET PO SCH (19:41)
[2019-05-18] MEDS ORDERED: RANOLAZINE ER 500 MG TAB (RANEXA) PO SCH (21:00)
[2019-05-18] MEDS: OLANZapine 2.5 MG (ZyPREXA) TAB PO SCH (22:23)
[2019-05-18] MEDS: SENNA W/DOCUSATE (SENOKOT S) TABLET PO SCH (22:24)
[2019-05-18] MEDS: ROSUVASTATIN 20 MG (CRESTOR) TABLET PO SCH (22:24)
[2019-05-18] MEDS: polyethylene glycoL POWDER 17 GM (MIRALAX) PACK PO SCH (22:25)
[2019-05-19 05:34] LABS: BASOPHILS % (AUTO) 0 % (0-10); EOSINOPHILS # (AUTO) 0.1 10^3/uL (0.0-0.3); EOSINOPHILS % (AUTO) 1 % (0-10); HEMATOCRIT 25 % (35-52); HEMOGLOBIN 8.1 G/DL (11.5-16.0); LYMPHOCYTES # (AUTO) 1.5 X 10^3 (1.0-4.0); LYMPHOCYTES % (AUTO) 16 % (12-44); MEAN CORPUSCULAR HEMOGLOBIN 29 PG (25-34); MEAN CORPUSCULAR HGB CONC 33 G/DL (32-36); MEAN CORPUSCULAR VOLUME 88 FL (80-99); MEAN PLATELET VOLUME 10.1 FL (7.4-10.4); MONOCYTES # (AUTO) 0.6 X 10^3 (0.0-1.0); MONOCYTES % (AUTO) 6 % (0-12); NEUTROPHILS # (AUTO) 7.3 X 10^3 (1.8-7.8); NEUTROPHILS % (AUTO) 77 % (42-75); PLATELET COUNT 128 10^3/uL (130-400); WHITE BLOOD COUNT 9.4 10^3/uL (4.3-11.0)
[2019-05-19 05:50] VITALS: BP 139/70
[2019-05-19 06:10] LABS: ALANINE AMINOTRANSFERASE 19 U/L (0-55); ALBUMIN 3.2 GM/DL (3.2-4.5); ALKALINE PHOSPHATASE 77 U/L (40-136); BILIRUBIN,TOTAL 0.7 MG/DL (0.1-1.0); BUN/CREATININE RATIO 35; CALCIUM 8.4 MG/DL (8.5-10.1); CARBON DIOXIDE 21 MMOL/L (21-32); CHLORIDE 104 MMOL/L (98-107); CREATININE SERUM 0.81 MG/DL (0.60-1.30); GFR ESTIMATED > 60; GLUCOSE 98 MG/DL (70-105); POTASSIUM 4.4 MMOL/L (3.6-5.0); SODIUM 135 MMOL/L (135-145); TOTAL PROTEIN 5.9 GM/DL (6.4-8.2)
[2019-05-19] MEDS: CIPROFLOXACIN 500 MG (CIPRO) TABLET PO SCH ×2 (06:27→17:07)
[2019-05-19 08:00] VITALS: BP 126/73
--- NOTE | 2019-05-19 08:54 | ST Cognitive Linguistic Eval ---
Speech Evaluation-General Medical Diagnosis Right Femur Fracture Onset Date: May 19, 2019 Therapy Diagnosis Therapy Diagnosis: Cognitive-communication Referral Referring Physician: Dr. Zamudio Medical History Pertinent Medical History: CAD, CVA, Dementia, Diverticulitis, GERD, HTN Reviewed History: Yes Social History Current Living Status: Spouse Speech PLF-Current Status Prior Level of Function Patient lived at home with her and was independent for much of her daily needs. Subjective Patient was pleasant and cooperative with the cognitive assessment. Language Eval: Auditory Comprehends Simple Yes/No Ques: Functional Indent/Objects Multiple Valdez: Functional Ident/Pics in Multiple Valdez: Functional Follows 1-Step Commands: Functional Follows Complex Directions: Mild Follows General Conversations: Functional Language Eval: Verbal Language Completes Spontaneous Greeting: Functional Produces Auto, Serial Info: Functional Imitates Simple Words/Phrases: Functional Word Finding: Functional Requests Basic Needs: Functional States Basic Personal Info: Functional Expresses Complex Ideas: Mild Objective Cognitive Domain Attention: WNL Memory: Mild Problem Solving: Mild Executive Functions: WNL Visuospatial Skills: WNL Composite Severity Rating: WNL Clock Drawing Severity Rating: WNL Objective Formal/Standardized Tests [facility] Status ([facility]) Results , Mild Neurocognitive Disorder Oral Motor/Speech Production Within Normal Limits Impression Patient is a pleasant 88 year old female who was admitted to the ARU s/p right femur fracture from a fall. Patient was given the SLUMS at bedside with a score of 24/30 obtained. This score is within the MNCD range of function. The patient will receive cognitive therapy with focus on safety awareness and independence to return home safely. Speech Patient Assess Expression of Ideas/Wants: Exhibits (3) Understanding Verbal Content: Usually Understands (3) Brief Interview-Mental Status: Yes Repetition of Three Words: Three (3) Temporal Orientation: Year: Correct (3) Temporal Orientation: Month: Accurate within 5 days(2) Temporal Orientation: Day: Correct (1) Recall : Wear to say "Sock": Yes,after cueing (1) Recall : Color: No, could not recall (0) Recall : Bed: Yes,after cueing (1) Memory/Recall Ability: Current season, That he or she is in a hsp/hsp unit Speech Short Term Goals Short Term Goals Short Term Goals 1) The patient will complete memory tasks related to her daily needs at 90% or greater with minimal cues. 2) The patient will complete safety awareness tasks related to her daily needs at 90% or greater with minimal cues. 3) The patient will complete problem solving tasks related to her daily needs at 90% or greater with minimal cues. Speech Wind Field Manager Goals Wind Field Manager Goals The patient will improve cognitive-communication necessary for safety and daily living tasks with minimal assist. Speech-Plan Patient/Family Goals Patient/Family Goals: The patient plans on returning to her home where she lives with her . Treatment Plan Speech Therapy Treatment Plan: Continue Plan of Care Treatment Duration: May 28, 2019 Frequency: 5 times per week Estimated Hrs Per Day: .5 hour per day Rehab Potential: Fair Barriers to Learning: Patient has dementia, mild cognitive deficits Pt/Family Agrees to Plan: Yes Safety Risks/Education Teaching Recipient: Patient Teaching Methods: Discussion Response to Teaching: Verbalize Understanding Education Topics Provided: Safety within her room and communication of wants/needs Time Speech Therapy Time In: 08:30 Speech Therapy Time Out: 08:45 Total Billed Time: 15 Billed Treatment Time 1, LAURA Lance May 19, 2019 08:54
[2019-05-19] MEDS ORDERED: NON-FORMULARY MEDICATION 1 EA EA (Fluticasone Propionate (Flonase Allergy Relief) 2 SPRAY) NSEACH SCH (09:00)
[2019-05-19] MEDS ORDERED: OMEPRAZOLE 20 MG (PriLOSEC) CAP NON-FORMULARY PO SCH (09:00)
[2019-05-19] MEDS ORDERED: NON-FORMULARY MEDICATION 1 EA EA (Multivitamin (Daily Vite) 1 EACH) PO SCH (09:00)
[2019-05-19] MEDS ORDERED: NEBIVOLOL 5 MG TAB (NON-FORMULARY) PO SCH (09:00)
[2019-05-19] MEDS ORDERED: TRIAMCINOLONE ACETONIDE NSEACH SCH (09:00)
[2019-05-19] MEDS ORDERED: CARVEDILOL 12.5 MG (COREG) TABLET PO SCH (09:00)
[2019-05-19] MEDS ORDERED: NON-FORMULARY MEDICATION 1 EA EA (Cetirizine HCl 10 MG) PO SCH (09:00)
--- NOTE | 2019-05-19 09:34 | Consultation-Cardiology ---
HPI-Cardiology Cardiology Consultation Date of Consultation 05/19/19 Date of Admission Time Seen by Provider: 09:29 Indication: Hx CAD HPI Patient is an 88 year old female with history of CAD, HTN, HLP. Sustained a fall at home resulting in right femur fracture and underwent repair on . Was transferred to IRF at [facility] for PT. Denies any chest pain, dyspnea, dizziness, or lightheadedness. Denies any syncope. Reports hx of CAD with 2 stents, last one done approx 5 years ago. Was following with plaster whittler from [facility], but unsure of who. c/o right leg pain, no other complaints at this time. 88-year-old lady with history of coronary artery disease, hypertension hyperlipidemia, questionable history of atrial fibrillation, patient reported that she was told at one time in the past that she had atrial fibrillation but not sure who told her about it or when it was done, currently in acute rehabilitation receiving physical therapy, she is a poor historian. Most of the history was obtained by reviewing her record, followed with a plaster whittler in [facility], no records unavailable at this time. 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) Alcohol Use: Denies Use Recreational Drug Use: No Smoking Status: Former Smoker Type Used: Cigarettes 2nd Hand Smoke Exposure: No Recent Foreign Travel: No Recent Infectious Disease Expo: No Recent Hopitalizations: No Physical Abuse Screen: No Sexual Abuse: No Immunizations Up To Date Date of Pneumonia Vaccine: Dec 18, 2018 Past Medical History CAD, HTN, HLP Family Medical History Significant Family History: No Pertinent Family Hx, Hypertension Family Medical Hx Noncontributory Review of Systems-General Review of Systems Constitutional: see HPI; No dizziness, No fever; weakness EENTM: see HPI, no symptoms reported; No blurred vision, No double vision, No vision loss, No epistaxis Respiratory: no symptoms reported; No cough, No dyspnea on exertion, No hemoptysis, No orthopnea Cardiovascular: no symptoms reported, see HPI; No chest pain; Hx of Intervention; No palpitations, No syncope; vascular heart diseas Gastrointestinal: No abdominal pain; constipation Genitourinary: no symptoms reported; No dysuria, No frequency, No hematuria Musculoskeletal: joint pain (right hip and leg) Skin: no symptoms reported Psychiatric/Neurological: No Symptoms Reported All Other Systems Reviewed Negative Unless Noted: Yes Reviewed Test Results Reviewed Test Results Lab Laboratory Tests 05/19/19 05:15: White Blood Count 9.4, Red Blood Count 2.78L, Hemoglobin 8.1L, Hematocrit 25L, Mean Corpuscular Volume 88, Mean Corpuscular Hemoglobin 29, Mean Corpuscular Hemoglobin Concent 33, Red Cell Distribution Width 15.0H, Platelet Count 128L, Mean Platelet Volume 10.1, Neutrophils (%) (Auto) 77H, Lymphocytes (%) (Auto) 1 6, Monocytes (%) (Auto) 6, Eosinophils (%) (Auto) 1, Basophils (%) (Auto) 0, Neutrophils # (Auto) 7.3, Lymphocytes # (Auto) 1.5, Monocytes # (Auto) 0.6, Eosinophils # (Auto) 0.1, Basophils # (Auto) 0.0, Sodium Level 135, Potassium Level 4.4, Chloride Level 104, Carbon Dioxide Level 21, Anion Gap 10, Blood Urea Nitrogen 28H, Creatinine 0.81, Estimat Glomerular Filtration Rate > 60, BUN/Creatinine Ratio 35, Glucose Level 98, Calcium Level 8.4L, Corrected Calcium 9.0, Total Bilirubin 0.7, Aspartate Amino Transf (AST/SGOT) 41H, Alanine Aminotransferase (ALT/SGPT) 19, Alkaline Phosphatase 77, Total Protein 5.9L, Albumin 3.2 Physical Exam Physical Exam Vital Signs Vital Signs - First Documented 05/18/19 18:02 Temp 37.4 Pulse 102 Resp 16 B/P (MAP) 152/79 (103) Pulse Ox 95 O2 Delivery Room Air Capillary Refill : Less Than 3 SecondsLess Than 3 Seconds Height, Weight, BMI Height: '" Weight: lbs. oz. kg; 18.94 BMI Method: General Appearance: No Apparent Distress, Chronically ill, Thin, Other (frail, fatigued) Eyes: Bilateral Eye Normal Inspection, Bilateral Eye PERRL HEENT: PERRL/EOMI, Normal ENT Inspection, Pharynx Normal Neck: Full Range of Motion, Normal Inspection, Non Tender, Supple Respiratory: Chest Non Tender, Lungs Clear, Normal Breath Sounds, No Accessory Muscle Use, No Respiratory Distress Cardiovascular: No Edema, No Gallop, No JVD, No Murmur, Normal Peripheral Pulses, Tachycardia Gastrointestinal: Normal Bowel Sounds, No Organomegaly, No Pulsatile Mass, Non Tender, Soft Back: Normal Inspection, No CVA Tenderness, No Vertebral Tenderness Extremity: Normal Capillary Refill, Normal Inspection, Normal Range of Motion (except right leg due to op site), Non Tender, No Calf Tenderness, No Pedal Edema Neurologic/Psychiatric: Alert, Oriented x3, No Motor/Sensory Deficits, Normal Mood/Affect, home care coordinator II-XII Norm as Tested, Abnormal Gait Skin: Normal Color, Warm/Dry Lymphatic: No Adenopathy A/P-Cardiology Admission Diagnosis Right femur fracture, s/p repair CAD HTN HLP Assessment/Plan Right femur fracture, s/p repair, continue PT/OT. CAD- reports history of 2 stents in the past with most recent one done approx 5 years ago. States previously followed with [facility] plaster whittler who came to [place], but has not seen plaster whittler recently. Patient appears to be clinically stable at this time. Continue to monitor. Tachycardia, unknown etiology, questionable atrial fibrillation, appear to have regular rhythm, I placed her on telemetry and gave her one dose of Lopressor IV, restart Bystolic and monitor tolerance and response. Patient was started on Eliquis 2.5 mg twice daily for possible underlying atrial fibrillation/flutter, continue to monitor on telemetry at this time and monitor tolerance and response Anemia, hemoglobin of 8, questionable chronic anemia versus acute. Starting oral anticoagulation, I will monitor H&H closely EKG showed left bundle branch block, probably chronic, no acute changes. Continue to monitor Hypertension, was on Bystolic as an outpatient, I'll restart the medication monitor tolerance and response HLP- maintained on statin. Continue to monitor. Ex tobaccoism Thank you for allowing us to participate in the management of Ms. High. This is Karena Calle PA-C, as a scribe for Dr. Wells. Patient was seen and evaluated with Karena, examination performed, management plan was discussed, agree with the current scribed note, I made few changes to the note using Italic font Patient was seen at bedside, sitting comfortably in chair, poor historian as described above Noted to be tachycardic, EKG showing left bundle branch block with arrhythmia, questionable atrial fibrillation, I started oral anticoagulation and we'll monitor tolerance and response Restarted beta blockers from her home medication Clinical Quality Measures DVT/VTE Risk/Contraindication: Risk Factor Score Per Nursin RFS Level Per Nursing on Admit: 4+=Very High KARENA JAMES May 19, 2019 9:34 am BERLIN WELLS MD May 19, 2019 1:15 pm
--- NOTE | 2019-05-19 10:00 | NUR ---
HEART RATE 72 AND REGULAR THIS AM, BUT TACHYCARDIA NOTED NOW BY HATTIE AND EKG DONE. PIC OF EKG SENT TO HER. AFEBRILE THIS AM.
[2019-05-19] MEDS: LOSARTAN 50 MG (COZAAR) TAB PO SCH (10:03)
[2019-05-19] MEDS: SENNA W/DOCUSATE (SENOKOT S) TABLET PO SCH ×2 (10:03→20:14)
[2019-05-19] MEDS: MULTIVIT W/MINERALS TAB (THERAGRAN M) PO SCH (10:03)
[2019-05-19] MEDS: PANTOPRAZOLE 20 MG TABLET (PROTONIX) PO SCH (10:03)
[2019-05-19] MEDS: CALCIUM CARB + VIT D 600 MG (CALCARB + D) TAB PO SCH (10:03)
[2019-05-19] MEDS: ASPIRIN E.C. 81 MG (ECOTRIN) TAB PO SCH (10:03)
[2019-05-19] MEDS: LORATADINE (CLARITIN) 10 MG TAB PO SCH (10:03)
[2019-05-19] MEDS: SERTRALINE 100 MG (ZOLOFT) TAB PO SCH (10:03)
[2019-05-19] MEDS: polyethylene glycoL POWDER 17 GM (MIRALAX) PACK PO SCH ×2 (10:04→20:25)
[2019-05-19] MEDS: FLUTICASONE NASAL SPRAY (FLONASE) 16 GM BTL NS SCH (10:11)
--- NOTE | 2019-05-19 10:24 | PM&R Progress Note ---
Subjective HPI/CC On Admission Date Seen by Provider: May 19, 2019 Time Seen by Provider: 10:30 Subjective/Events-last exam Appreciate Cardiology consultation given the fact of a few questions regarding some of her meds of Coreg and Ranexa but now they uncovered new onset AF so placed her on Tely and gave her a dose of Metoprolol IV and will monitor that closely and started Eliquis for CVA PPX and DC Lovenox 30mg dosing she was on for DVT PPx Temp was 100.4 so IS discussed Decreased short term memory noted and ST will continue to work with her to help with that Bystolic was started and holding Coreg Bed alarm now Remeron question of daughter giving it to her in the morning? Pharmacy will evaluate that Urinated for the first time at 0800 and urinated a lot since enrique DOUGLAS when she left [facility] yesterday afternoon at 1500 BM treatment given Midline was placed and Venofer given Conferred with RN Reviewed therapy notes Checked meds and labs Review of Systems General: Fatigue Cardiovascular: Palpitations Musculoskeletal: leg pain Neurological: Weakness Objective Exam Vital Signs Vital Signs Date Time Temp Pulse Resp B/P (MAP) Pulse Ox O2 Delivery O2 Flow Rate FiO2 05/19/19 13:04 95 05/19/19 10:10 Room Air 05/19/19 05:50 38.0 18 139/70 (93) 90 Capillary Refill : Less Than 3 SecondsLess Than 3 Seconds General Appearance: No Apparent Distress, Chronically ill, Thin, Other (frail, fatigued) HEENT: PERRL/EOMI, Normal ENT Inspection, Pharynx Normal Neck: Full Range of Motion, Normal Inspection, Non Tender, Supple Respiratory: Chest Non Tender, Lungs Clear, Normal Breath Sounds, No Accessory Muscle Use, No Respiratory Distress Cardiovascular: No Edema, No Gallop, No JVD, No Murmur, Normal Peripheral Pulses, Tachycardia Gastrointestinal: Normal Bowel Sounds, No Organomegaly, No Pulsatile Mass, Non Tender, Soft Back: Normal Inspection, No CVA Tenderness, No Vertebral Tenderness Extremity: Normal Capillary Refill, Normal Inspection, Normal Range of Motion (except right leg due to op site), Non Tender, No Calf Tenderness, No Pedal Edema Neurologic/Psychiatric: Alert, Oriented x3, No Motor/Sensory Deficits, Normal M ood/Affect, silvering applicator II-XII Norm as Tested, Abnormal Gait Skin: Normal Color, Warm/Dry Lymphatic: No Adenopathy Results/Procedures Lab Laboratory Tests 05/19/19 05:15 Patient resulted labs reviewed. FIM Transfers Therapy Code Descriptions/Definitions Functional [place] Measure: 0=Not Assessed/NA 4=Minimal Assistance 1=Total Assistance 5=Supervision or Setup 2=Maximal Assistance 6=Modified [place] 3=Moderate Assistance 7=Complete IndependenceSCALE: Activities may be completed with or without assistive devices. 0-Dwavatsmew-gjusukj completes the activity by him/herself with no assistance from a helper. 5-Set-up or Clean-up Assistance-helper sets up or cleans up; patient completes activity. [place] assists only prior to or following the activity. 4-Supervision or Touching Assistance-helper provides verbal cues and/or touching/steadying and/or contact guard assistance as patient completes activity. Assistance may be provided throughout the activity or intermittently. 3-Partial/Moderate Assistance-helper does LESS THAN HALF the effort. [place] lifts, holds or supports trunk or limbs, but provides less than half the effort. 2-Substantial/Maximal Assistance-helper does MORE THAN HALF the effort. [place] lifts or holds trunk or limbs and provides more than half the effort. 1-Zxklwrhgq-jtqcjr does ALL the effort. Patient does none of the effort to complete the activity. Or, the assistance of 2 or more helpers is required for the patient to complete the activity. If activity was not attempted, code reason: 7-Patient Refused. 9-Not Applicable-not attempted and the patient did not perform the activity before the current illness, exacerbation or injury. 10-Not Attempted due to Environmental Limitations-(lack of equipment, weather restraints, etc.). 88-Not Attempted due to Medical Conditions or Safety Concerns. Assessment/Plan Assessment and Plan Assess & Plan/Chief Complaint Assessment: Right femur fracture POD # 3 Acute blood loss anemia s/p 1 unit of blood transfusion 05/17/19 hgb 8.[address] [facility] now 8.1 here at [facility] this morning New onset AF w/mild RVR dx by Dr Wells team appreciate their expertise Chronic angina Anxiety CAD (coronary artery disease) Colon polyps CVD (cerebrovascular disease) Dementia Depression Diverticulitis Diverticulosis Dyspnea on exertion GERD (gastroesophageal reflux disease) Heart disease Hiatal hernia HTN Hyperlipidemia Hyponatremia Osteopenia, Osteoporosis TIA (transient ischemic attack) Urinary retention sporadic Plan: IRF protocol Lovenox DC for DVT PPx since placed on Eliquis for CVA PPx due to new onset AF Checked iron level ordered Venofer after midline placed Pain control Monitor for delirium Home meds (1) Right femoral fracture (2) Fall (3) History of TIAs (4) Dementia (5) Hypertension (6) Anemia due to acute blood loss (7) Iron deficiency (8) Diverticulosis (9) Advanced age (10) History of UTI (11) DVT prophylaxis (12) Anxiety (13) Hyponatremia (14) GERD (gastroesophageal reflux disease) (15) Hiatal hernia (16) Hyperlipidemia (17) Atrial fibrillation with rapid ventricular response MARTIN LEAL DO May 19, 2019 10:24
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
--- NOTE | 2019-05-19 11:00 | NUR ---
STARTED ON TELEMETRY
--- NOTE | 2019-05-19 11:06 | Occupational Therapy Eval ---
OT Evaluation-General/PLF Medical Diagnosis Admission Date May 18, 2019 at 17:45 Medical Diagnosis: Right Femur Fracture Onset Date: May 19, 2019 Therapy Diagnosis Therapy Diagnosis: Decreased ADL status Precautions Precautions/Isolations: Fall Prevention, Standard Precautions Safety Interventions: Bed Exit Alarm, Reorient-PRN Weight Bear Status Weight Bearing Restriction: Weight Bearing/Tolerated Location Restriction: R LE Referral Physician: Deborah Zamudio DO Referral Reason: Activity Tolerance, Self Care, Evaluation/Treatment, Strengthening/ROM Medical History Pertinent Medical History: CAD, CVA, Dementia, Diverticulitis, GERD, HTN Additional Medical History See nursing. Current History Pt fell from bedroom (missed a step per pt) and fractured R femur. Nail placed 05/15. Pt admits on 05/17. Reviewed History: Yes Social History Home: Single Level Current Living Status: Spouse Entry Into Home: Ramp ADL-Prior Level of Function SCALE: Activities may be completed with or without assistive devices. 5-Wdjwzvrydu-ewephkr completes the activity by him/herself with no assistance from a helper. 5-Set-up or Clean-up Assistance-helper sets up or cleans up; patient completes activity. [place] assists only prior to or following the activity. 4-Supervision or Touching Assistance-helper provides verbal cues and/or touching/steadying and/or contact guard assistance as patient completes activity. Assistance may be provided throughout the activity or intermittently. 3-Partial/Moderate Assistance-helper does LESS THAN HALF the effort. [place] lifts, holds or supports trunk or limbs, but provides less than half the effort. 2-Substantial/Maximal Assistance-helper does MORE THAN HALF the effort. [place] lifts or holds trunk or limbs and provides more than half the effort. 6-Ddgyugmfm-imkkss does ALL the effort. Patient does none of the effort to complete the activity. Or, the assistance of 2 or more helpers is required for the patient to complete the activity. If activity was not attempted, code reason: 7-Patient Refused. 9-Not Applicable-not attempted and the patient did not perform the activity before the current illness, exacerbation or injury. 10-Not Attempted due to Environmental Limitations-(lack of equipment, weather restraints, etc.). 88-Not Attempted due to Medical Conditions or Safety Concerns. 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 Pt agreeable to OT eval/ treat with plans for bathing. Pt denies pain, states pain only in movement. Mental Status/Objective Patient Orientation: Person, Place, Situation Current Glasses/Contacts: Yes Hearing Aids: No Dentures/Partials: Yes Hand Dominance: Right Upper Extremity ROM WFL BUE Upper Extremity Coordination WFL BUE Upper Extremity Sensation WFL BUE Upper Extremity Strength Decreased BUE ADL-Treatment Eating (QC): 6 (Pt completes drinking with IND. States eating with IND.) Oral Hygiene (QC): 6 (per pt) Shower/Bathe Self (QC): 3 (s/u for sponge bath. Pt completes in recliner. Pt requires assist with bottom and back, denies hair washing. Pt requires mod A sit to stand from recliner during last sit to stand. ) Upper Body Dressing (QC): 5 Lower Body Dressing (QC): 2 (mod A- threading of L foot for breif, pt requires min A to maintain balance in stance to bring breifs up over hips. after break, pt requires max A for pant donning as she is very fatigued. ) On/Off Footwear (QC): 2 (Pt doffs with cues. Pt dons with max A) Toileting Hygiene (QC): 2 (max A. Pt able to complete dick hygiene with min A in stance to right balance. Pt requires max A for bottom hygiene) Other Treatments [id number]: (60) Pt introduced to OT, educated OT roles and ARU. Pt Ox3. Agrees to ADLs, completes bed mob with max A (pt able to bring legs EOB with mod A- legs held in gravity eliminated), max A to EOB. Pt requests toilet (BSC placed to L side). Pt sit to stand with bed raised with CGA, stands to gain balance and takes~4 steps in front of BSC. Pt transfers toilet to chair with min A. Pt completes ADLs (above) in recliner chair. Pt provides own encouraging words to motivate her; pt states she is "slow" multiple times- pt reminded of slow progress through session. Pt provides hx, only states pain upon sock donning/ when pt flexes knee. During this time DO/ scouring train operator chief visit/ IV site placed (- min tx from session). Pt left in room with staff during this time. [id number] (24) Post-midline placement, pt completes remainder of ADLs. Pt requires max A to sit to stand from chair as she is fatigued. Pt requires additional minutes/ breaks for recovery of energy. Pt completes LB (pants) with max A due to fatigue and states eating/ oral hygiene with IND. Pt left in room with warm blankets on and pillows for comfort in chair, call light in reach, all needs met. Education OT Patient Education: Correct positioning, Modified ADL techniques, Purpose of tx/functional activities, Rehab process, Safety issues, Transfer techniques Teaching Recipient: Patient Teaching Methods: Demonstration, Discussion Response to Teaching: Verbalize Understanding, Return Demonstration, Reinforcement Needed OT Short Term Goals Short Term Goals Toileting hygiene: 4 Shower/bathe self: 4 OT Senior Living Goals Senior Living Goals Time Frame: Jun 02, 2019 Eating (QC): 6 Oral Hygiene (QC): 6 Toileting Hygiene (QC): 6 Shower/Bathe Self (QC): 6 Upper Body Dressing (QC): 6 Lower Body Dressing (QC): 6 On/Off Footwear (QC): 6 Additional Goals: 1-Demonstrate ADL Tasks, 2-Verbalize Understanding, 3- ImproveStrength/Deanne 1=Demonstrate adherence to instructed precautions during ADL tasks. 2=Patient will verbalize/demonstrate understanding of assistive devices /modifications for ADL. 3=Patient will improve strength/tolerance for activity to enable patient to perform ADL's. OT Education/Plan Problem List/Assessment Assessment: Decreased Activ Tolerance, Decreased UE Strength, Dependent Transfers, Edema, Impaired Bed Mobility, Impaired Funct Balance, Impaired I ADL's, Impaired Self-Care Skills Discharge Recommendations Plan/Recommendations: Continue POC Therapy Discharge Recommendati: Scheduled Assistance, Home & Family, Post Acute OT Treatment Plan/Plan of Care Treatment,Training & Education: Yes Patient would benefit from OT for education, treatment and training to promote independence in ADL's, mobility, safety and/or upper extremity function for ADL's. Plan of Care: ADL Retraining, Caregiver Training, Functional Mobility, Group Exercise/Act as Ind, UE Funct Exercise/Act Treatment Duration: Jun 02, 2019 Frequency: At least 5 of 7 days/Wk (IRF) Estimated Hrs Per Day: 1.5 hours per day Agreement: Yes Rehab Potential: Fair Time/GCodes Start Time: 10:00 (96113) Stop Time: 11:00 (1152) Total Time Billed (hr/min): 84 Billed Treatment Time [id number](60) 1, EVM, ADL3 [id number] (24) 1, ADL 2 total time: 84 min DAVID AVILES OTR May 19, 2019 11:06
--- NOTE | 2019-05-19 11:13 | Physical Therapy Evaluation ---
PT Evaluation-General Medical Diagnosis Admission Date May 18, 2019 at 17:45 Medical Diagnosis: Right Femur Fracture Onset Date: May 19, 2019 Therapy Diagnosis Therapy Diagnosis: decreased mobility, general weakness Precautions Precautions/Isolations: Fall Prevention, Standard Precautions Weight Bear Status Right Lower Extremity: Right Weight Bearing/Tolerated Left Lower Extremity: Left Full Weight Bearing Referral Physician: Dr. Zamudio Reason for Referral: Evaluation/Treatment Medical History Pertinent Medical History: CAD, CVA, Dementia, Diverticulitis, GERD, HTN Current History Pt. fell at home, sustained R femur fracture with pinning. Reviewed History: Yes Social History Home: Single Level Current Living Status: Spouse Entry Into Home: Ramp Prior Prior Level of Function SCALE: Activities may be completed with or without assistive devices. 3-Adjgutpsaq-fhawapr completes the activity by him/herself with no assistance from a helper. 5-Set-up or Clean-up Assistance-helper sets up or cleans up; patient completes activity. [place] assists only prior to or following the activity. 4-Supervision or Touching Assistance-helper provides verbal cues and/or touching/steadying and/or contact guard assistance as patient completes activity. Assistance may be provided throughout the activity or intermittently. 3-Partial/Moderate Assistance-helper does LESS THAN HALF the effort. [place] lifts, holds or supports trunk or limbs, but provides less than half the effort. 2-Substantial/Maximal Assistance-helper does MORE THAN HALF the effort. [place] lifts or holds trunk or limbs and provides more than half the effort. 2-Wmcqcejya-rosktx does ALL the effort. Patient does none of the effort to complete the activity. Or, the assistance of 2 or more helpers is required for the patient to complete the activity. If activity was not attempted, code reason: 7-Patient Refused. 9-Not Applicable-not attempted and the patient did not perform the activity before the current illness, exacerbation or injury. 10-Not Attempted due to Environmental Limitations-(lack of equipment, weather restraints, etc.). 88-Not Attempted due to Medical Conditions or Safety Concerns. Bed Mobility: 6 Transfers (B,C,W/C): 6 Gait: 6 Stairs: 6 Indoor Mobility (Ambulation): Independent Prior Devices Use: None PT Evaluation-Current Subjective Pt. in bed and agrees to therapy. States she hasn't been able to walk since surgery. Pt. denies pain at present time. Frequently during session patient states "I'm not a quitter but I'd sure like to." Pt/Family Goals home with spouse; children live nearby Objective Patient Orientation: Person, Situation Attachments: SCD's ROM/Strength ROM Upper Extremities See OT ROM Lower Extremities Pt. is guarded with L LE AROM but full motion obtained passively. Limited R hip ROM, WFL R knee and ankle. Strength Upper Extremities See OT Strength Lower Extremities Grossly 3/5 L hip, 3+/5 L knee and ankle; N/t R LE Integumentary/Posture Integumentary bandages covering R hip from recent procedure with swelling evident R LE Bowel Incontinence: No Bladder Incontinence: No Posture kyphotic Neuromuscular (Tone, Coordination, Reflexes) unremarkable Sensory Vision: Functional Hearing: Functional Sensation Right Upper Extremit: Intact Sensation Left Upper Extremity: Intact Sensation Right Lower Extremit: Intact Sensation Left Lower Extremity: Intact Transfers Roll Left to Right (QC): 1 Sit to Lying (QC): 2 Lying to Sitting/Side of Bed(Q: 2 Sit to Stand (QC): 3 Chair/Vvk-op-Ncwah Xfer(QC): 4 Toilet Transfer (QC): 4 Car Transfer (QC): 88 very slow with transfers and needs constant cuing for walker placement and LE movements Gait Does the Patient Walk?: No and Walking Goal IS indicated Mode of Locomotion: Walk Anticipated Mode of Locomotion: Walk Walk 10 feet (QC): 88 Walk 50 ft with 2 Turns(QC): 88 Walk 150 ft (QC): 88 Walking 10ft/uneven surface-QC: 88 Wheelchair Training Does the Pt Use a Wheelchair?: No Wheel 50 ft with 2 turns (QC): 9 Wheel 150 ft (QC): 9 Stairs 1 Step (curb) (QC): 88 4 Steps (QC): 88 12 Steps (QC): 88 Balance Sitting Static: Good Sitting Dynamic: Good Standing Static: Fair Standing Dynamic: Fair Picking up an Object (QC): 88 Assessment/Needs Pt. is an 88 y.o. female with decreased mobility and general weakness following R femur fracture with pinning. Pt. would benefit from skilled PT to improve mobility and strength for return home with spouse. Rehab Potential: Fair PT Senior Living Goals Senior Living Goals PT Volumetric Weigher Goals Time Frame: Jun 09, 2019 Roll Left & Right (QC): 6 Sit to Lying (QC): 6 Lying-Sitting on Side/Bed(QC): 6 Sit to Stand (QC): 6 Chair/Ocs-hi-Ujpjr Xfer(QC): 6 Toilet Transfer (QC): 6 Car Transfer (QC): 6 Does the Patient Walk: Yes Walk 10 feet (QC): 6 Walk 50ft with 2 Turns (QC): 6 Walk 150 ft (QC): 6 Walking 10ft on Uneven Surface: 6 1 Step (curb) (QC): 4 4 Steps (QC): 4 12 Steps (QC): 4 Picking up an Object (QC): 4 Wheel 50 feet with 2 turns (QC: 9 Wheel 150 feet: 9 PT Plan Problem List Problem List: Activity Tolerance, Functional Strength, Safety, Balance, Gait, T ransfer, Bed Mobility, ROM Treatment/Plan Treatment Plan: Continue Plan of Care Treatment Plan: Bed Mobility, Concurrent Therapy, Education, Functional Activity Deanne, Functional Strength, Group Therapy, Gait, Safety, Therapeutic Exercise, Transfers Treatment Duration: Jun 09, 2019 Frequency: 6 times per week Estimated Hrs Per Day: 1.5 hours per day Patient and/or Family Agrees t: Yes Time/GCodes Time In: 845 Time Out: 945 Total Billed Treatment Time: 60 Total Billed Treatment 1, EVC 30', FA 30' KEREN BRANNON PT May 19, 2019 11:13
[2019-05-19] MEDS ORDERED: meTOprolol 5 MG/5 ML (LOPRESSOR) VIAL IV NR (11:15)
--- NOTE | 2019-05-19 12:00 | NUR ---
MIDLINE PUT IN LEFT UPPER ARM BY DAY SURG NURSE. GOOD BLOOD RETURN AND FLUSHES WELL. ECHO DONE.
[2019-05-19 12:15] VITALS: BP 134/74
--- NOTE | 2019-05-19 12:15 | NUR ---
HEART RATE 134 AND BP 134/74. MEDICATED WITH IV LOPRESSOR. 5 MINUTES LATER BP 125/72 AND HR 93. STARTED ON ELIQUIS. STARTED ON VENOFER. PATIENT IS FRAIL AND WEAK. VERY POOR APPETITE. ON ENSURE SUPPLEMENTS. HAD SOFTENERS/LAXATIVES THIS AM - NO RESULTS YET.
[2019-05-19 12:20] VITALS: BP 125/72
[2019-05-19] MEDS: IRON SUCROSE 200 MG/10 ML (VENOFER) VIAL IV SCH (12:32)
[2019-05-19] MEDS: APIXABAN 2.5 MG (ELIQUIS) TABLET PO SCH ×2 (12:32→20:14)
[2019-05-19] MEDS: CATHETER FLUSH 10 ML SYR IV SCH ×2 (12:39→20:25)
[2019-05-19] MEDS: CARVEDILOL 12.5 MG (COREG) TABLET PO SCH ×2 (12:39→20:24)
[2019-05-19] MEDS ORDERED: CATHETER FLUSH 10 ML SYR IV PRN (12:45)
--- NOTE | 2019-05-19 13:21 | Physical Therapy Daily Note ---
PT Daily Note-Current Subjective Pt. rates pain 8/10 in the R distal thigh. Reports it mostly occurs with movement. Pt. up in chair and agrees to therapy, "I'll do what I can." Mental Status Patient Orientation: Person Transfers SCALE: Activities may be completed with or without assistive devices. 1-Ifejfxerll-dnltvnn completes the activity by him/herself with no assistance from a helper. 5-Set-up or Clean-up Assistance-helper sets up or cleans up; patient completes activity. [place] assists only prior to or following the activity. 4-Supervision or Touching Assistance-helper provides verbal cues and/or touching/steadying and/or contact guard assistance as patient completes activity. Assistance may be provided throughout the activity or intermittently. 3-Partial/Moderate Assistance-helper does LESS THAN HALF the effort. [place] lifts, holds or supports trunk or limbs, but provides less than half the effort. 2-Substantial/Maximal Assistance-helper does MORE THAN HALF the effort. [place] lifts or holds trunk or limbs and provides more than half the effort. 4-Qvjudyehn-plibay does ALL the effort. Patient does none of the effort to complete the activity. Or, the assistance of 2 or more helpers is required for the patient to complete the activity. If activity was not attempted, code reason: 7-Patient Refused. 9-Not Applicable-not attempted and the patient did not perform the activity before the current illness, exacerbation or injury. 10-Not Attempted due to Environmental Limitations-(lack of equipment, weather restraints, etc.). 88-Not Attempted due to Medical Conditions or Safety Concerns. Sit to Stand (QC): 3 Weight Bearing Right Lower Extremity: Right Weight Bearing/Tolerated Left Lower Extremity: Left Full Weight Bearing Exercises Seated Therapy Exercises: Ankle pumps, Long arc quads (min A on R), Hamstring Curls, Hip abd/add, Glut set Seated Reps: 20 Standing Reps: 5 worked on TKE on R and weightshifting to R Treatments LE exercises Assessment Current Status: Fair Progress Pt. repeats herself on 3 occasions stating "I just don't know why it hurts right here" as she rubs the R distal thigh despite therapist education of femur fracture. Pt. did fair with LE exercises and continues to require mod A to stand. She has minimal ability to move LE's while standing, especially on the L. Pt. returned to bedside chair, call light in reach and all needs met. PT Casing Tester Goals Assisted Goals PT Assisted Goals Time Frame: Jun 09, 2019 Roll Left & Right (QC): 6 Sit to Lying (QC): 6 Lying-Sitting on Side/Bed(QC): 6 Sit to Stand (QC): 6 Chair/Dje-hv-Ptxby Xfer(QC): 6 Toilet Transfer (QC): 6 Car Transfer (QC): 6 Does the Patient Walk: Yes Walk 10 feet (QC): 6 Walk 50ft with 2 Turns (QC): 6 Walk 150 ft (QC): 6 Walking 10ft on Uneven Surface: 6 1 Step (curb) (QC): 4 4 Steps (QC): 4 12 Steps (QC): 4 Picking up an Object (QC): 4 Wheel 50 feet with 2 turns (QC: 9 Wheel 150 feet: 9 PT Plan Treatment/Plan Treatment Plan: Continue Plan of Care Treatment Plan: Bed Mobility, Concurrent Therapy, Education, Functional Activity Deanne, Functional Strength, Group Therapy, Gait, Safety, Therapeutic Exercise, Transfers Treatment Duration: Jun 09, 2019 Frequency: 6 times per week Estimated Hrs Per Day: 1.5 hours per day Patient and/or Family Agrees t: Yes Time/GCodes Time In: 1300 Time Out: 1326 Total Billed Treatment Time: 26 Total Billed Treatment 1, Ex 16', FA 10' KEREN BRANNON PT May 19, 2019 13:21
--- NOTE | 2019-05-19 13:57 | NUR ---
RD ASSESSMENT PMHx: CAD; HTN; HLP; GERD; GERD; dementia; s/p repair R femur fracture PT INTERACTION: Pt was awake and pleasant during consult for MST score. Note pt has dementia, per chart review. Pt states current appetite is poor and has been for some time. Note avg PO intake <50% x2meal, per chart review. Pt states following a regular diet at home, and has some issues with chewing d/t poor fitting dentures. Pt states no recent issues with n/v/c/d at this time, and states that she doesn't know when her last BM was. Note pt currently on bowel regimen of Miralax BID; and Senna BID, per chart review. Pt states unsure of any recent wt changes, "but I have probably lost some." Note unable to determine recent wt hx, per chart review. Upon visual exam, pt appears very frail with some visible signs of muscle/fat wasting in the temporal region that may or may not be from pt's advanced age. Note pt has BMI of 18.9, which for pt's age is classified at Underweight. Given poor PO intake and visual exam, pt meets criteria for malnutrition per ASPEN guidelines. ABNORMAL NUTRITION-RELATED LAB VALUES LOW: Ca 8.4; Pro 5.9 HIGH: BUN 28; AST 41 Est. kcal needs: 8557-3887 kcal | 30-35 kcal/kg Est. Pro needs: 47-56 g Pro | 1.0-1.2 g Pro/kg PES STATEMENT: Inadequate oral intake (NI-2.1) related to loss of appetite as evidenced by pt interview | avg PO intake <50% x2meal Underweight (NC-3.1) related to inadequate energy intake as evidenced by BMI 18.9 | malnutrition | dementia | estimated intake of food less than estimated needs INTERVENTION: Continue with current diet order of Regular diet. Add Ensure Enlive with meals TID, for increased kcal intake. Provides 350 kcal and 13 g Pro per serving. Will continue to follow and reassess as pt needs, intake, and status change. MONITOR/EVALUATE: PO Intake; Plan of Care; Hydration Status; Weight Status; Lab Values Viky Garcia, MS, RD, LD
[2019-05-19] MEDS ORDERED: MIRT30TA6 PO (14:27)
--- NOTE | 2019-05-19 15:20 | NUR ---
REQUEST FOR INFO FAXED TO DR. MENENDEZ, MAINTENANCE TEAM MEMBER [employer] RECORDS.
[2019-05-19] MEDS ORDERED: ENOXAPARIN 40 MG/0.4 ML (LOVENOX) SYR SC SCH (15:30)
--- NOTE | 2019-05-19 16:20 | Individualized Plan of Care ---
Individualized Plan of Care Rehab Nursing IPOC Order Admission Date May 18, 2019 at 17:45 Current Orders Orders Admission Order(Inpt,Obs,Sdc) (05/18/19 15:30) Vital Signs: Per Unit Policy ( 08,16,00 (05/18/19 15:30) Garcia Cuellar 09,21 (05/18/19 15:30) Sequential Compression Device Q4H (05/18/19 15:30) Principal Architectural Firm-Inpt Rehab Con (05/18/19 15:30) Rehab Nursing Orders-Ipoc (05/18/19 15:30) Physical Therapy Rehab Orders (05/18/19 15:30) Occupational Therapy Rehab Ord (05/18/19 15:30) Speech Therapy Rehab Orders (05/18/19 15:30) Cbc With Automated Diff (05/19/19 06:00) Comprehensive Metabolic Panel (05/19/19 06:00) Intake & Output 06,14,22 (05/18/19 15:30) Precautions (Aru) (05/18/19 15:30) Weekly Weight WEEK (05/18/19 15:30) Rehab-Intensity Of Therapy (05/18/19 15:30) Initiate Admission Nursing Pro .admission (05/18/19 15:30) Alprazolam Tablet (Xanax Tablet) (05/18/19 15:30) Calcium Carbonate Chew Tablet (Antacid C (05/18/19 15:30) Diphenhydramine Tablet (Benadryl Tablet) (05/18/19 15:30) Docusate Sodium Capsule (Colace Capsule) (05/18/19 15:30) Bisacodyl Suppository (Dulcolax Supposit (05/18/19 15:30) Lactulose Oral Solution (Enulose Oral So (05/18/19 15:30) Na Phos/Na Biphos Enema (Fleet Enema Andrzej (05/18/19 15:30) Guaifenesin/Codeine Syrup (Robitussin Ac (05/18/19 15:30) Loperamide Tablet (Imodium Tablet) (05/18/19 15:30) Enoxaparin Injection (Lovenox Injection) (05/18/19 15:30) Melatonin Tablet (Melatonin Tablet) (05/18/19 15:30) Polyethylene Glycol Powder Pkt (Miralax (05/18/19 21:00) Ondansetron Oral Dissolve Tab (Zofran (05/18/19 15:30) Senna S Tablet (Senokot S Tablet) (05/18/19 21:00) Initiate Admission Nursing Pro .admission (05/18/19 15:30) Iron Test (Fe) (05/19/19 06:00) Acetaminophen Tablet/Caplet (Tylenol T (05/18/19 17:00) Albuterol Pre-Mix Nebs (Rt) (Proventil (05/18/19 17:00) Alprazolam Tablet (Xanax Tablet) (05/18/19 17:00) Aspirin Enteric Coated Tablet (Ecotrin T (05/19/19 09:00) Ciprofloxacin Tablet (Cipro Tablet) (05/18/19 18:30) Losartan Tablet (Cozaar Tablet) (05/19/19 09:00) Nebivolol (Non-Formulary) (Bystolic (Non (05/19/19 09:00) Nitroglycerin 0.4 Mg Btl 25's (Nitrostat (05/18/19 17:00) Olanzapine Tablet (Zyprexa Tablet) (05/18/19 21:00) Omeprazole (Non-Formulary) (Prilosec (No (05/19/19 09:00) Polyethylene Glycol Powder Pkt (Miralax (05/18/19 17:00) Promethazine Tablet (Phenergan Tablet) (05/18/19 17:00) Ranolazine Er Tablet (Ranexa Er Tablet) (05/18/19 21:00) Rosuvastatin Tablet (Crestor Tablet) (05/18/19 21:00) Senna S Tablet (Senokot S Tablet) (05/18/19 17:00) Sertraline Tablet (Zoloft Tablet) (05/19/19 09:00) (Nf) Ca Carbonate/Vitamin D3/Vit K (Calc (05/19/19 09:00) (Nf) Cetirizine Hcl (05/19/19 09:00) (Nf) Fluticasone Propionate (Flonase All (05/19/19 09:00) (Nf) Multivitamin (Daily Brian) (05/19/19 09:00) (Nf) Triamcinolone Acetonide (Nasacort) (05/19/19 09:00) Enoxaparin Injection (Lovenox Injection) (05/19/19 15:30) Incentive Spirometry Initial (05/18/19 16:51) Incentive Spirometry (Nursing) Q2H (05/18/19 16:51) Hydrocodone/Apap 10/325 Tablet (Lortab 1 (05/18/19 17:00) Consult Cardiology (05/18/19 16:52) Admission Arrival Bed Request (05/18/19 17:52) Therapeutic Multivitamin Tab (Vitamins, (05/19/19 07:00) Enoxaparin Injection (Lovenox Injection) (05/18/19 18:30) Loratadine Tablet (Claritin Tablet) (05/19/19 09:00) Pantoprazole Tablet (Protonix Tablet) (05/19/19 09:00) Fluticasone Nasal [place] (Flonase Nasal S (05/19/19 09:00) Calcium Carbonate W/Vitamin D3 (Calcarb (05/19/19 08:00) Ensure Enlive (05/19/19 Breakfast) Nursing Communication (Order) (05/18/19 19:43) Physical Therapy Order (05/18/19 19:43) Occupational Therapy Order (05/18/19 19:43) Dressing Order (Intervention) UD (05/18/19 19:43) Follow-Up Appointment (05/18/19 19:43) Nursing Communication (Order) (05/18/19 19:43) Catheter(Uri) To Dependent Maryellen (05/18/19 19:51) Ambulate 08,12,20 (05/19/19 03:15) Sequential Compression Device Q4H (05/19/19 03:15) Dvt/Vte Risk - Notifiy Physici Q4H (05/19/19 03:15) General/Regular (05/19/19 Breakfast) Ekg Tracing (05/19/19 09:47) Venous Access Request Order (05/19/19 10:19) Iron Sucrose Injection (Venofer Injectio (05/19/19 10:30) Metoprolol Tartrate Injection (Lopressor (05/19/19 11:15) Apixaban Tablet (Eliquis Tablet) (05/19/19 11:15) Telemetry (05/19/19 11:13) Telemetry Nursing Assessment ( (05/19/19 11:13) Echo W Doppler/Color Flow (05/19/19 11:47) Carvedilol Tablet (Coreg Tablet) (05/19/19 12:00) Sodium Chloride Flush (Catheter Flush Sy (05/19/19 12:45) Sodium Chloride Flush (Catheter Flush Sy (05/19/19 14:00) Cbc No Diff (05/20/19 05:00) Comprehensive Metabolic Panel (05/20/19 05:00) Patient Visit (05/19/19 ) Pt Eval High Complexity (05/19/19 ) Functional Activities, Ea 15 (05/19/19 ) Exercise Therap, Ea 15 Min (05/19/19 ) Patient Visit (05/19/19 ) Speech Sound Lang Comp (05/19/19 ) Amb Us Guide Vascular Access (05/19/19 ) Rehab Nursing Orders: Ongoing Assess. of Cognitive Status, Ongoing Assess. of Function Status, Bladder Management, Bladder Scan, Bladder Training, Bowel Management, Bowel Training, Disease Management & Educaiton, DVT Prophylaxis, Fall Prevention, Fluid/Electrolyte/Nutrition Mgmt, Infection Prevention, Medication Management & Education, Management of Risks & Complications, Management of Skin Intergrity, Nutrition Management, Pain Management, Patien t/Family Support, Safety Management Intensity of Therapy to be met Patient to be seen: Min.3h per day/5 of 7d PT IPOC Problem List: Activity Tolerance, Functional Strength, Safety, Balance, Gait, Transfer, Bed Mobility, ROM Treatment Plan: Continue Plan of Care Bed Mobility, Concurrent Therapy, Education, Functional Activity Deanne, Functional Strength, Group Therapy, Gait, Safety, Therapeutic Exercise, Transfers Treatment Duration: Jun 09, 2019 Frequency: 6 times per week Estimated Hrs Per Day: 1.5 hours per day OT IPOC Problems: Decreased Activ Tolerance, Decreased UE Strength, Dependent Transfers, Edema, Impaired Bed Mobility, Impaired Funct Balance, Impaired I ADL's, Impaired Self-Care Skills OT Treatment, Training and Edu: Yes Plan of Care: ADL Retraining, Caregiver Training, Functional Mobility, Group Exercise/Act as Ind, UE Funct Exercise/Act Treatment Duration: Jun 02, 2019 Frequency: At least 5 of 7 days/Wk (IRF) Estimated Hrs Per Day: 1.[address] IPOC Speech Therapy Treatment Plan: Continue Plan of Care Treatment Duration: May 28, 2019 Frequency: 5 times per week Estimated Hrs Per Day: .5 hour per day [employer] Architect[employer]/Case Mgmt Principal Architectural Firm/Case Managemen: Discharge Planning Dietitian/Hotel Attendant Dietitian/Hotel Attendant to monitor nutritional status and make changes and/or recommendations as needed and work with speech pathology on dietary upgrades as the occur. Physician IPOC Medical Issues being managed closely and that require the 24 hour availability of a physician: dementia at Complex medical issues with new onset AF dx today by Cardiology requiring IV Lopressor along with Tely and dementia at hig risk for delirium. Medical Issues: Bowel/Bladder Function, DVT Prophylaxis, Falls Precautions, Fluid/Electrolyte/Nutrition Balance, Infection Protection, Pain Management Brief Synthesis of Preadmission Screen, Post-Admission Evaluation, and Therapy Evaluations: PT OT ST will all focus on optimizing cognitive capabilities and teach fall prevention and increase stamina Medical Prognosis: Good Anticipated Length of Stay: 7 days MARTIN LEAL DO May 19, 2019 16:19
[2019-05-19] MEDS: ACETAMINOPHEN 325 MG TABLET PO PRN (17:54)
--- NOTE | 2019-05-19 18:00 | NUR ---
NO BM YET SO WAS MEDICATED WITH DULCOLAX SUPPOSITORY. UP TO COMMODE NOW AND DID EXPEL A BM. VERY FATIGUED THIS EVENING. NEEDED 2 PEOPLE TO GET UP. STATES "NOT USED TO WORKING HARD I DID TODAY". HEART RATE STABLE. HYPOTENSIVE THIS EVEN AFTER STARTED ON COREG AND GETTING IV LOPRESSOR. WILL CONTINUE TO MONITOR.
[2019-05-19 18:12] VITALS: BP 92/48
[2019-05-19] MEDS: ROSUVASTATIN 20 MG (CRESTOR) TABLET PO SCH (20:14)
[2019-05-19] MEDS: OLANZapine 2.5 MG (ZyPREXA) TAB PO SCH (20:14)
[2019-05-20] MEDS: HYDROcodone/APAP 10 MG/325 MG (LORTAB) TAB PO PRN ×2 (00:18→08:32)
[2019-05-20] MEDS: CIPROFLOXACIN 500 MG (CIPRO) TABLET PO SCH ×2 (05:17→18:03)
[2019-05-20] MEDS: CATHETER FLUSH 10 ML SYR IV SCH ×3 (05:19→21:12)
[2019-05-20 05:29] LABS: HEMOGLOBIN 7.3 G/DL (11.5-16.0); MEAN PLATELET VOLUME 9.8 FL (7.4-10.4); RED CELL DISTRIBUTION WIDTH 15.2 % (10.0-14.5); WHITE BLOOD COUNT 10.4 10^3/uL (4.3-11.0)
[2019-05-20 05:39] VITALS: BP 128/67
[2019-05-20 05:51] LABS: ALANINE AMINOTRANSFERASE 23 U/L (0-55); ALBUMIN 3.1 GM/DL (3.2-4.5); ALKALINE PHOSPHATASE 70 U/L (40-136); BILIRUBIN,TOTAL 0.6 MG/DL (0.1-1.0); BUN/CREATININE RATIO 38; CALCIUM 8.2 MG/DL (8.5-10.1); CARBON DIOXIDE 22 MMOL/L (21-32); CHLORIDE 103 MMOL/L (98-107); CREATININE SERUM 0.86 MG/DL (0.60-1.30); GFR ESTIMATED > 60; GLUCOSE 93 MG/DL (70-105); POTASSIUM 4.3 MMOL/L (3.6-5.0); SODIUM 134 MMOL/L (135-145); TOTAL PROTEIN 5.7 GM/DL (6.4-8.2)
[2019-05-20] MEDS: SENNA W/DOCUSATE (SENOKOT S) TABLET PO SCH ×2 (08:31→21:08)
[2019-05-20] MEDS: CALCIUM CARB + VIT D 600 MG (CALCARB + D) TAB PO SCH (08:31)
[2019-05-20] MEDS: ASPIRIN E.C. 81 MG (ECOTRIN) TAB PO SCH (08:31)
[2019-05-20] MEDS: LOSARTAN 50 MG (COZAAR) TAB PO SCH (08:31)
[2019-05-20] MEDS: SERTRALINE 100 MG (ZOLOFT) TAB PO SCH (08:32)
[2019-05-20] MEDS: PANTOPRAZOLE 20 MG TABLET (PROTONIX) PO SCH (08:32)
[2019-05-20] MEDS: LORATADINE (CLARITIN) 10 MG TAB PO SCH (08:32)
[2019-05-20] MEDS: APIXABAN 2.5 MG (ELIQUIS) TABLET PO SCH (08:32)
[2019-05-20] MEDS: FLUTICASONE NASAL SPRAY (FLONASE) 16 GM BTL NS SCH (08:33)
[2019-05-20] MEDS: MULTIVIT W/MINERALS TAB (THERAGRAN M) PO SCH (08:38)
--- NOTE | 2019-05-20 08:44 | PM&R Progress Note ---
Subjective HPI/CC On Admission Date Seen by Provider: May 20, 2019 Time Seen by Provider: 10:45 Subjective/Events-last exam Appreciate Cardiology consultation and we conferred and they have stopped the ASA and Eliquis due to profound anemia and recommended checking the occult blood bowel testing so I placed those orders Temp slight elevation resolved Decreased short term memory noted and ST will continue to work with her to help with that Spoke to pharmacy teacher who reviewed the meds and it was confirmed that she has not been on Ranexa for 3 years but she was being given Remeron 30mg in the morning instead of evening so I did restart that at a lower dose 7.5mg at night to help with appetite Bed alarm tolerated well Voiding well BM x 2 today Midline was placed and Venofer on scheduled every other day Conferred with RN Reviewed therapy notes Checked meds and labs Review of Systems General: Fatigue Musculoskeletal: leg pain Neurological: Weakness, Confusion Objective Exam Vital Signs Vital Signs Date Time Temp Pulse Resp B/P (MAP) Pulse Ox O2 Delivery O2 Flow Rate FiO2 05/20/19 13:00 87 05/20/19 09:00 Room Air 05/20/19 05:39 36.7 18 128/67 (87) 91 Capillary Refill : Less Than 3 SecondsLess Than 3 Seconds General Appearance: No Apparent Distress, Chronically ill, Thin, Other (frail, fatigued) HEENT: PERRL/EOMI, Normal ENT Inspection, Pharynx Normal Neck: Full Range of Motion, Normal Inspection, Non Tender, Supple Respiratory: Chest Non Tender, Lungs Clear, Normal Breath Sounds, No Accessory Muscle Use, No Respiratory Distress Cardiovascular: No Edema, No Gallop, No JVD, No Murmur, Normal Peripheral Pulses, Tachycardia Gastrointestinal: Normal Bowel Sounds, No Organomegaly, No Pulsatile Mass, Non Tender, Soft Back: Normal Inspection, No CVA Tenderness, No Vertebral Tenderness Extremity: Normal Capillary Refill, Normal Inspection, Normal Range of Motion (except right leg due to op site), Non Tender, No Calf Tenderness, No Pedal Edema Neurologic/Psychiatric: Alert, Oriented x3, No Motor/Sensory Deficits, Normal Mood/Affect, humidifier 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 FIM Transfers Therapy Code Descriptions/Definitions Functional [place] Measure: 0=Not Assessed/NA 4=Minimal Assistance 1=Total Assistance 5=Supervision or Setup 2=Maximal Assistance 6=Modified [place] 3=Moderate Assistance 7=Complete IndependenceSCALE: Activities may be completed with or without assistive devices. 4-Noxwsvxobc-rxmrecd completes the activity by him/herself with no assistance from a helper. 5-Set-up or Clean-up Assistance-helper sets up or cleans up; patient completes activity. [place] assists only prior to or following the activity. 4-Supervision or Touching Assistance-helper provides verbal cues and/or touching/steadying and/or contact guard assistance as patient completes acti vity. Assistance may be provided throughout the activity or intermittently. 3-Partial/Moderate Assistance-helper does LESS THAN HALF the effort. [place] lifts, holds or supports trunk or limbs, but provides less than half the effort. 2-Substantial/Maximal Assistance-helper does MORE THAN HALF the effort. [place] lifts or holds trunk or limbs and provides more than half the effort. 0-Tpeqkfhcd-ckqikp does ALL the effort. Patient does none of the effort to complete the activity. Or, the assistance of 2 or more helpers is required for the patient to complete the activity. If activity was not attempted, code reason: 7-Patient Refused. 9-Not Applicable-not attempted and the patient did not perform the activity before the current illness, exacerbation or injury. 10-Not Attempted due to Environmental Limitations-(lack of equipment, weather restraints, etc.). 88-Not Attempted due to Medical Conditions or Safety Concerns. Roll Left to Right (QC): 1 Sit to Lying (QC): 2 Sit to Stand (QC): 3 Chair/Icc-mh-Sejku Xfer(QC): 4 Car Transfer (QC): 88 Gait Training Does the Patient Walk?: No and Walking Goal IS indicated Walk 10 feet (QC): 88 Walk 50 ft with 2 Turns(QC): 88 Walk 150 ft (QC): 88 Walking 10ft/uneven surface-QC: 88 Wheelchair Training Does the Pt Use a Wheelchair?: No Wheel 50 ft with 2 turns (QC): 9 Wheel 150 ft (QC): 9 Stair Training 1 Step (curb) (QC): 88 4 Steps (QC): 88 12 Steps (QC): 88 Balance Picking up an Object (QC): 88 ADL-Treatment Eating (QC): 6 (Pt completes drinking with IND. States eating with IND.) Oral Hygiene (QC): 6 (per pt) Shower/Bathe Self (QC): 3 (s/u for sponge bath. Pt completes in recliner. Pt requires assist with bottom and back, denies hair washing. Pt requires mod A sit to stand from recliner during last sit to stand. ) Upper Body Dressing (QC): 5 Lower Body Dressing (QC): 2 (mod A- threading of L foot for breif, pt requires min A to maintain balance in stance to bring breifs up over hips. after break, pt requires max A for pant donning as she is very fatigued. ) On/Off Footwear (QC): 2 (Pt doffs with cues. Pt dons with max A) Toileting Hygiene (QC): 2 (max A. Pt able to complete dick hygiene with min A in stance to right balance. Pt requires max A for bottom hygiene) Assessment/Plan Assessment and Plan Assess & Plan/Chief Complaint Assessment: Right femur fracture POD # 4 Acute blood loss anemia s/p 1 unit of blood transfusion 3 hgb low requiring holding ASA and Eliquis for now New onset AF w/mild RVR dx by Dr Wells team appreciate their expertise now rate controlled on Coreg Chronic angina Anxiety CAD (coronary artery disease) Colon polyps CVD (cerebrovascular disease) Dementia Depression Diverticulitis Diverticulosis Dyspnea on exertion GERD (gastroesophageal reflux disease) Heart disease Hiatal hernia HTN Hyperlipidemia Hyponatremia Osteopenia, Osteoporosis TIA (transient ischemic attack) Urinary retention sporadic Plan: IRF protocol Lovenox DC for DVT PPx since placed on Eliquis for CVA PPx due to new onset AF but now on hold due to profound anemia may need transfusion tomorrow Checked iron level ordered Venofer after midline placed and confirmed low level Pain control Monitor for delirium Home meds Remeron 7.5mg dose at night starting tonight (1) Right femoral fracture (2) Fall (3) History of TIAs (4) Dementia (5) Hypertension (6) Anemia due to acute blood loss (7) Iron deficiency (8) Diverticulosis (9) Advanced age (10) History of UTI (11) DVT prophylaxis (12) Anxiety (13) Hyponatremia (14) GERD (gastroesophageal reflux disease) (15) Hiatal hernia (16) Hyperlipidemia (17) Atrial fibrillation with rapid ventricular response MARTIN LEAL DO May 20, 2019 08:44
[2019-05-20] MEDS: polyethylene glycoL POWDER 17 GM (MIRALAX) PACK PO SCH ×2 (09:00→21:13)
[2019-05-20] MEDS: CARVEDILOL 12.5 MG (COREG) TABLET PO SCH ×2 (09:00→21:12)
--- NOTE | 2019-05-20 10:05 | Occupational Ther Daily Note ---
OT Current Status-Daily Note Subjective [id number]: Pt seen in bed, agreeable to OT tx session. Pt states min pain at the moment in R hip. [id number]: Pt seen in bed asleep, easily wakes. Hesitantly agreeable to therapy. Pt states mod pain in R medial knee area. Mental Status/Objective Patient Orientation: Person, Place, Situation ADL-Treatment Therapy Code Descriptions/Definitions Functional [place] Measure: 0=Not Assessed/NA 4=Minimal Assistance 1=Total Assistance 5=Supervision or Setup 2=Maximal Assistance 6=Modified [place] 3=Moderate Assistance 7=Complete IndependenceSCALE: Activities may be completed with or without assistive devices. 0-Sctblbdqht-rffwqit completes the activity by him/herself with no assistance from a helper. 5-Set-up or Clean-up Assistance-helper sets up or cleans up; patient completes activity. [place] assists only prior to or following the activity. 4-Supervision or Touching Assistance-helper provides verbal cues and/or touching/steadying and/or contact guard assistance as patient completes activity. Assistance may be provided throughout the activity or intermittently. 3-Partial/Moderate Assistance-helper does LESS THAN HALF the effort. [place] lifts, holds or supports trunk or limbs, but provides less than half the effort. 2-Substantial/Maximal Assistance-helper does MORE THAN HALF the effort. [place] lifts or holds trunk or limbs and provides more than half the effort. 4-Oodxgdtgb-mrryvq does ALL the effort. Patient does none of the effort to complete the activity. Or, the assistance of 2 or more helpers is required for the patient to complete the activity. If activity was not attempted, code reason: 7-Patient Refused. 9-Not Applicable-not attempted and the patient did not perform the activity before the current illness, exacerbation or injury. 10-Not Attempted due to Environmental Limitations-(lack of equipment, weather restraints, etc.). 88-Not Attempted due to Medical Conditions or Safety Concerns. Eating (QC): 6 Oral Hygiene (QC): 6 (completes sitting in front of sink.) Upper Body Dressing (QC): 5 Lower Body Dressing (QC): 3 (Pt threads BLE into both LE garments with CGA on BSC. Pt requires min A to hike over hips and min A for sit to stands/ righting in stance.) Toileting Hygiene (QC): 3 (CGA to min A to right in stance.) Toilet Transfer (QC): 3 (min A) Other Treatment [id number]: Pt completes bed mob with max A, sit to stand from EOB with CGA. Pt requires added assist for sit to stands through session due to fatigue. Pt completes toileting/ transfers to w/c with cues for walker positioning and placement of BUE on walker prior to movement. Pt agrees. Pt positioned in front of sink to complete oral hygiene/ face washing/ hair cap and hair grooming activities with IND/ s/u. Pt requires added time for all activities. Pt requests to remain in w/c, pt then educated on HEP with use of yellow therabands; pt completes 5 reps bilaterally of the following exercises: forward flexion, back flies, external shoulder rotation, and back pulls/ extensions. Pt remains in chair post-session, all needs met, call light within reach. [id number]: Pt completes bed mob with max A. Pt sit to stand with CGA and walks with increased time to w/c with min A. Pt sits in w/c, pushed to therapy gym. Pt completes resistive clothes pins 2x (able to follow multi-step directions with min cues). Pt left in gym with PT post-session. Education OT Patient Education: Correct positioning, Exercise program, Home exercise program, Modified ADL techniques, Safety issues, Transfer techniques, Use of adapted equipment Teaching Recipient: Patient Teaching Methods: Demonstration, Discussion Response to Teaching: Verbalize Understanding, Return Demonstration, Reinforcement Needed OT Short Term Goals Short Term Goals Toileting hygiene: 4 Shower/bathe self: 4 OT Flight Engineer Inspector Goals Flight Engineer Inspector Goals Time Frame: Jun 02, 2019 Eating (QC): 6 (met) Oral Hygiene (QC): 6 (m et) Toileting Hygiene (QC): 6 Shower/Bathe Self (QC): 6 Upper Body Dressing (QC): 6 Lower Body Dressing (QC): 6 On/Off Footwear (QC): 6 Additional Goals: 1-Demonstrate ADL Tasks, 2-Verbalize Understanding, 3- ImproveStrength/Deanne 1=Demonstrate adherence to instructed precautions during ADL tasks. 2=Patient will verbalize/demonstrate understanding of assistive devices/modifications for ADL. 3=Patient will improve strength/tolerance for activity to enable patient to perform ADL's. OT Education/Plan Problem List/Assessment Assessment: Decreased Activ Tolerance, Decreased UE Strength, Dependent Transfers, Edema, Impaired Bed Mobility, Impaired Funct Balance, Impaired I ADL's, Impaired Self-Care Skills Discharge Recommendations Plan/Recommendations: Continue POC Therapy Discharge Recommendati: 24 Hour Supervision, Scheduled Assistance, Home & Family, Post Acute OT Treatment Plan/Plan of Care Treatment,Training & Education: Yes Patient would benefit from OT for education, treatment and training to promote independence in ADL's, mobility, safety and/or upper extremity function for ADL's. Plan of Care: ADL Retraining, Caregiver Training, Functional Mobility, Group Exercise/Act as Ind, UE Funct Exercise/Act Treatment Duration: Jun 02, 2019 Frequency: At least 5 of 7 days/Wk (IRF) Estimated Hrs Per Day: 1.5 hours per day Agreement: Yes Rehab Potential: Fair Time/GCodes Start Time: 09:00 (1300) Stop Time: 10:00 (1315) Total Time Billed (hr/min): 75 Billed Treatment Time [id number]: 1, ADL 3, EX (60) [id number]: 1, EX (15) total: 75 DAVID AVILES OTR May 20, 2019 10:05
--- NOTE | 2019-05-20 10:15 | Cardiology Progress Note ---
Subjective Date Seen by Provider: May 20, 2019 Time Seen by Provider: 09:20 Subjective/Events-last exam Patient is with PT, c/o generalized weakness. Denies any chest pain, dyspnea, dizziness or lightheadedness. Noted to be hypotensive this morning. Review of Systems General: No Chills, No Night Sweats, No Fatigue, No Malaise, No Appetite, No Other HEENT: No Head Aches, No Visual Changes, No Eye Pain, No Ear Pain, No Dysphasia, No Sinus Congestion, No Post Nasal Drip, No Sore Throat, No Other Pulmonary: No Dyspnea, No Cough, No Pleuritic Chest Pain, No Other Cardiovascular: No: Chest Pain, Palpitations, Orthopnea, Paroxysmal Noc. Dyspnea, Edema, Lt Headedness, Other Objective-Cardiology Exam Last Set of Vital Signs Vital Signs 05/20/19 05/20/19 05:39 07:00 Temp 36.7 Pulse 83 Resp 18 B/P (MAP) 128/67 (87) Pulse Ox 91 O2 Delivery Room Air Capillary Refill : Less Than 3 SecondsLess Than 3 Seconds I&O Intake and Output 05/20/19 00:00 Intake Total 1550 ml Output Total 1200 ml Balance 350 ml Intake Oral 1550 ml Output Urine Total 1200 ml # Voids 1 # Bowel Movements 2 General: Alert, Oriented X3, Cooperative HEENT: Atraumatic, PERRLA Neck: Supple, No JVD, No Thyromegaly Lungs: Clear to Auscultation, Normal Air Movement Heart: Normal S1, Normal S2, Other (irregularly irregular) Abdomen: Normal Bowel Sounds, Soft, No Tenderness, No Hepatosplenomegaly, No Masses Extremities: No Clubbing, No Cyanosis, No Edema, Normal Pulses, No Tenderness/Swelling Skin: No Rashes, No Breakdown, No Significant Lesion Neuro: Normal Speech, Cranial Nerves 3-12 NL Psych/Mental Status: Mental Status NL, Mood NL Results Lab Laboratory Tests 05/20/19 05:20 A/P-Cardiology Admission Diagnosis Right femur fracture, s/p repair CAD HTN HLP Assessment/Plan Right femur fracture, s/p repair, continue PT/OT. CAD- history of PCI to RCA. Previously followed with Dr. Grey in [place]. Most recent stress test done September 2016 revealed no ischemia or infarct. Clinincally stable, continue on current medications and continue to monitor. Atrial fibrillation- telemetry reveals rate controlled afib, currently maintained on Coreg and Eliquis. Continue to monitor telemetry. 2D echo done yesterday revealed EF 40-45%, mod TR, no change to previous echo done at outlying facility in 2017. Anemia, hemoglobin of 8, questionable chronic anemia versus acute. Drop in Hgb this morning to 7.3, continue to monitor closely. . Chronic LBBB Hypertension, patient noted to be hypotensive this morning. I will discontinue Cozaar, continue Coreg, continue to monitor. HLP- maintained on statin. Continue to monitor. HTP- PA 50-55mmHg. Ex tobaccoism Patient was seen and evaluated with Karena, examination performed, management plan was discussed, agree with the current scribed note, I made few changes to the note using Italic font Paroxysmal atrial fibrillation, rate is better controlled, questionable history of A. fib in the past. I started her on Eliquis yesterday, it appear that she has worsening of her hemoglobin, will hold for now Monitor H&H and evaluate stool for occult blood She probably will need to be on oral anticoagulation if she can tolerate it on the long-term Clinical Quality Measures DVT/VTE Risk/Contraindication: Risk Factor Score Per Nursin RFS Level Per Nursing on Admit: 4+=Very High KARENA JAMES May 20, 2019 10:15 am BERLIN CHOWDARY MD May 20, 2019 12:10 pm
[2019-05-20] MEDS ORDERED: CARV3.12 PO (11:02)
[2019-05-20] MEDS ORDERED: ROSU10TA28 PO (11:02)
--- NOTE | 2019-05-20 11:03 | Physical Therapy Daily Note ---
PT Daily Note-Current Subjective Pt. says "nothing that I can't stand" re: pain. During session she states "I'm not a quitter but I'd like to." Mental Status Patient Orientation: Person Transfers SCALE: Activities may be completed with or without assistive devices. 2-Sbbzjvyjkm-antyrai completes the activity by him/herself with no assistance from a helper. 5-Set-up or Clean-up Assistance-helper sets up or cleans up; patient completes activity. [place] assists only prior to or following the activity. 4-Supervision or Touching Assistance-helper provides verbal cues and/or touching/steadying and/or contact guard assistance as patient completes activity. Assistance may be provided throughout the activity or intermittently. 3-Partial/Moderate Assistance-helper does LESS THAN HALF the effort. [place] lifts, holds or supports trunk or limbs, but provides less than half the effort. 2-Substantial/Maximal Assistance-helper does MORE THAN HALF the effort. [place] lifts or holds trunk or limbs and provides more than half the effort. 8-Hfzoviysl-duahha does ALL the effort. Patient does none of the effort to complete the activity. Or, the assistance of 2 or more helpers is required for the patient to complete the activity. If activity was not attempted, code reason: 7-Patient Refused. 9-Not Applicable-not attempted and the patient did not perform the activity before the current illness, exacerbation or injury. 10-Not Attempted due to Environmental Limitations-(lack of equipment, weather restraints, etc.). 88-Not Attempted due to Medical Conditions or Safety Concerns. Sit to Lying (QC): 3 Sit to Stand (QC): 3 Chair/Mei-yp-Tmqev Xfer(QC): 3 pt. ranges from min to mod A with sit to stand, requires more assist when fatigued Weight Bearing Right Lower Extremity: Right Weight Bearing/Tolerated Left Lower Extremity: Left Full Weight Bearing Gait Training Does the Patient Walk?: Yes Distance: 2 x 8 ft, 2 x 15 ft Walk 10 feet (QC): 4 Gait Persons Needed: 1 Gait Assistive Device: FWW 2 x 8 ft in // bars, 2 x 15 ft with FWW; therapist assist with advancing FWW and verbal cues for step sequence Exercises Supine Ex: Ankle pumps, Short Arc Quads Supine Reps: 15 Seated Therapy Exercises: Ankle pumps, Long arc quads, Hip abd/add Seated Reps: 15 NuStep Minutes: 12 NuStep Workload: 3 Treatments gait training, LE exercises, transfers Assessment Current Status: Good Progress Pt. able to ambulate short distances this date. She has an antalgic gait on the R and unable to fully straighten knee during stance phase. Pt. needs cuing for full motion with exercises, remains guarded with movement on the R LE although is improved from yesterday. Pt. also needs encouragement to increase activity level. Pt. in bed post session with call light and all needs met. PT Online Marketing Specialist Goals Senior Care Goals PT Online Marketing Specialist Goals Time Frame: Jun 09, 2019 Roll Left & Right (QC): 6 Sit to Lying (QC): 6 Lying-Sitting on Side/Bed(QC): 6 Sit to Stand (QC): 6 Chair/Dyl-gf-Vidsn Xfer(QC): 6 Toilet Transfer (QC): 6 Car Transfer (QC): 6 Does the Patient Walk: Yes Walk 10 feet (QC): 6 Walk 50ft with 2 Turns (QC): 6 Walk 150 ft (QC): 6 Walking 10ft on Uneven Surface: 6 1 Step (curb) (QC): 4 4 Steps (QC): 4 12 Steps (QC): 4 Picking up an Object (QC): 4 Wheel 50 feet with 2 turns (QC: 9 Wheel 150 feet: 9 PT Plan Treatment/Plan Treatment Plan: Continue Plan of Care Treatment Plan: Bed Mobility, Concurrent Therapy, Education, Functional Activity Deanne, Functional Strength, Group Therapy, Gait, Safety, Therapeutic Exercise, Transfers Treatment Duration: Jun 09, 2019 Frequency: 6 times per week Estimated Hrs Per Day: 1.5 hours per day Patient and/or Family Agrees t: Yes Time/GCodes Time In: 1015 Time Out: 1115 Total Billed Treatment Time: 60 Total Billed Treatment 1, GT 25', Ex 20', FA 15' KEREN BRANNON PT May 20, 2019 11:03
--- NOTE | 2019-05-20 12:56 | NUR ---
CM/SS PATIENT CARE CONFERENCE Visited with patient and then with daughter/DPOAHC Benoit Slaughter by phone about Conference summary. Patient admitted 05/18/19, both understand she will be reevaluated next Friday and that no target discharge date has been suggested. Patient will return home with spouse. Family continues to explore more long range plans per radio script writer's previous notes. Barriers are that both patient and her spouse have differing levels of dementia, patient apparently more advanced. Both aged late 80's. Family oversight, monitor, assistance will be required post hospital. Patient seems to have appropriate DME for needs, but will continue to partner with therapy team re same.
--- NOTE | 2019-05-20 13:45 | Speech Therapy Daily Note ---
Speech Daily Progress Note Subjective Date Seen by Provider: May 20, 2019 Time Seen by Provider: 00:30 Patient was resting in her bed after finishing her breakfast when I entered her room. Objective Patient completed a series of problem solving tasks with one word responses at 75% with moderate cues. Assessment Assessment Current Status: Fair Progress Treatment Plan Continue Plan of Care Speech Short Term Goals Short Term Goals Short Term Goals 1) The patient will complete memory tasks related to her daily needs at 90% or greater with minimal cues. 2) The patient will complete safety awareness tasks related to her daily needs at 90% or greater with minimal cues. 3) The patient will complete problem solving tasks related to her daily needs at 90% or greater with minimal cues. Speech Design Studio Consultant Goals Half-Way Goals The patient will improve cognitive-communication necessary for safety and daily living tasks with minimal assist. Speech-Plan Patient/Family Goals Patient/Family Goals: Patient plans on returning to living in her home with her with son living very closely. Treatment Plan Speech Therapy Treatment Plan: Continue Plan of Care Treatment Duration: May 28, 2019 Frequency: 5 times per week Estimated Hrs Per Day: .5 hour per day Rehab Potential: Fair Barriers to Learning: Patient's dementia Pt/Family Agrees to Plan: Yes Safety Risks/Education Teaching Recipient: Patient Teaching Methods: Demonstration, Discussion Response to Teaching: Verbalize Understanding, Return Demonstration Education Topics Provided: Safety within her room and communication of wants/needs Time Speech Therapy Time In: 08:30 Speech Therapy Time Out: 09:00 Total Billed Time: 30 Billed Treatment Time 1KHARI BETHAN[address] ST May 20, 2019 13:45
--- NOTE | 2019-05-20 13:59 | Physical Therapy Daily Note ---
PT Daily Note-Current Subjective Pt. up in w/c in gym, just completed OT and agrees to PT stating "I guess." Mental Status Patient Orientation: Person Transfers SCALE: Activities may be completed with or without assistive devices. 3-Lcfwezcrga-ekhlmrb completes the activity by him/herself with no assistance from a helper. 5-Set-up or Clean-up Assistance-helper sets up or cleans up; patient completes activity. [place] assists only prior to or following the activity. 4-Supervision or Touching Assistance-helper provides verbal cues and/or touching/steadying and/or contact guard assistance as patient completes activity. Assistance may be provided throughout the activity or intermittently. 3-Partial/Moderate Assistance-helper does LESS THAN HALF the effort. [place] lifts, holds or supports trunk or limbs, but provides less than half the effort. 2-Substantial/Maximal Assistance-helper does MORE THAN HALF the effort. [place] lifts or holds trunk or limbs and provides more than half the effort. 9-Efwtqpdls-uaztoe does ALL the effort. Patient does none of the effort to complete the activity. Or, the assistance of 2 or more helpers is required for the patient to complete the activity. If activity was not attempted, code reason: 7-Patient Refused. 9-Not Applicable-not attempted and the patient did not perform the activity before the current illness, exacerbation or injury. 10-Not Attempted due to Environmental Limitations-(lack of equipment, weather restraints, etc.). 88-Not Attempted due to Medical Conditions or Safety Concerns. Sit to Lying (QC): 3 Sit to Stand (QC): 4 Weight Bearing Right Lower Extremity: Right Weight Bearing/Tolerated Left Lower Extremity: Left Full Weight Bearing Gait Training Does the Patient Walk?: Yes Distance: 2 x 8 ft Gait Persons Needed: 1 Gait Assistive Device: Parallel Bars cues needed for step sequence and to increase WB on R LE in order to advance L LE. Slight blocking of R knee during stance phase to improve TKE on R. Treatments gait training in // bars, transfers Assessment Current Status: Good Progress Pt. continues to have difficulty with clearing LE's from floor to ambulate but does improve following verbal cues. She has improved knee extension on R with slight blocking of knee for tactile cuing and more easily advances L LE. Pt. continues to be mod A with getting into bed. Pt. in bed post session with call light and all needs met. PT Skilled Nursing Goals Skilled Nursing Goals PT Skilled Nursing Goals Time Frame: Jun 09, 2019 Roll Left & Right (QC): 6 Sit to Lying (QC): 6 Lying-Sitting on Side/Bed(QC): 6 Sit to Stand (QC): 6 Chair/Bgb-ay-Ggqcu Xfer(QC): 6 Toilet Transfer (QC): 6 Car Transfer (QC): 6 Does the Patient Walk: Yes Walk 10 feet (QC): 6 Walk 50ft with 2 Turns (QC): 6 Walk 150 ft (QC): 6 Walking 10ft on Uneven Surface: 6 1 Step (curb) (QC): 4 4 Steps (QC): 4 12 Steps (QC): 4 Picking up an Object (QC): 4 Wheel 50 feet with 2 turns (QC: 9 Wheel 150 feet: 9 PT Plan Treatment/Plan Treatment Plan: Continue Plan of Care Treatment Plan: Bed Mobility, Concurrent Therapy, Education, Functional Activity Deanne, Functional Strength, Group Therapy, Gait, Safety, Therapeutic Exercise, Transfers Treatment Duration: Jun 09, 2019 Frequency: 6 times per week Estimated Hrs Per Day: 1.5 hours per day Patient and/or Family Agrees t: Yes Time/GCodes Time In: 1315 Time Out: 1330 Total Billed Treatment Time: 15 Total Billed Treatment 1, GT 10' (FA 5') KEREN BRANNON PT May 20, 2019 13:59
[2019-05-20 16:30] VITALS: BP 131/73
[2019-05-20] MEDS: ACETAMINOPHEN 325 MG TABLET PO PRN (21:07)
[2019-05-20] MEDS: MIRTAZAPINE 15 MG (REMERON) TAB PO SCH (21:07)
[2019-05-20] MEDS: ROSUVASTATIN 20 MG (CRESTOR) TABLET PO SCH (21:08)
[2019-05-20] MEDS: OLANZapine 2.5 MG (ZyPREXA) TAB PO SCH (21:08)
[2019-05-21] VITALS (12 sets, daily range): BP systolic 80–142; BP diastolic 44–84
[2019-05-21 05:49] LABS: BASOPHILS % (AUTO) 0 % (0-10); EOSINOPHILS # (AUTO) 0.3 10^3/uL (0.0-0.3); EOSINOPHILS % (AUTO) 3 % (0-10); LYMPHOCYTES # (AUTO) 1.7 X 10^3 (1.0-4.0); LYMPHOCYTES % (AUTO) 19 % (12-44); MEAN CORPUSCULAR HEMOGLOBIN 29 PG (25-34); MEAN CORPUSCULAR HGB CONC 32 G/DL (32-36); MEAN CORPUSCULAR VOLUME 90 FL (80-99); MEAN PLATELET VOLUME 9.9 FL (7.4-10.4); MONOCYTES # (AUTO) 0.6 X 10^3 (0.0-1.0); MONOCYTES % (AUTO) 7 % (0-12); NEUTROPHILS # (AUTO) 6.2 X 10^3 (1.8-7.8); NEUTROPHILS % (AUTO) 71 % (42-75); PLATELET COUNT 171 10^3/uL (130-400); RED CELL DISTRIBUTION WIDTH 14.9 % (10.0-14.5); WHITE BLOOD COUNT 8.8 10^3/uL (4.3-11.0)
[2019-05-21 05:50] LABS: HEMOGLOBIN 6.3 G/DL (11.5-16.0)
[2019-05-21 05:51] LABS: HEMATOCRIT 20 % (35-52)
[2019-05-21] MEDS ORDERED: NS IV 500 ML 500 ML IV SCH (06:00)
[2019-05-21 06:04] LABS: ALANINE AMINOTRANSFERASE 23 U/L (0-55); ALBUMIN 2.7 GM/DL (3.2-4.5); ALKALINE PHOSPHATASE 66 U/L (40-136); BILIRUBIN,TOTAL 0.6 MG/DL (0.1-1.0); BUN/CREATININE RATIO 38; CALCIUM 7.7 MG/DL (8.5-10.1); CARBON DIOXIDE 22 MMOL/L (21-32); CHLORIDE 104 MMOL/L (98-107); GFR ESTIMATED > 60; GLUCOSE 90 MG/DL (70-105); POTASSIUM 3.8 MMOL/L (3.6-5.0); SODIUM 135 MMOL/L (135-145)
--- NOTE | 2019-05-21 08:15 | NUR ---
PT STATES THAT SHE HASN'T HAD MUCH OF AN APPETITE FOR YEARS. PT ASKED IF SHE COULOD HAVE BISCUITS & GRAVY FOR LUNCH ? cALLED DIETARY, & THEY WILL DO THIS
[2019-05-21] MEDS: PANTOPRAZOLE 20 MG TABLET (PROTONIX) PO SCH (09:22)
[2019-05-21] MEDS: CALCIUM CARB + VIT D 600 MG (CALCARB + D) TAB PO SCH (09:22)
[2019-05-21] MEDS: LORATADINE (CLARITIN) 10 MG TAB PO SCH (09:23)
[2019-05-21] MEDS: SERTRALINE 100 MG (ZOLOFT) TAB PO SCH (09:23)
[2019-05-21] MEDS: CARVEDILOL 12.5 MG (COREG) TABLET PO SCH ×2 (09:30→21:03)
[2019-05-21] MEDS: LOSARTAN 50 MG (COZAAR) TAB PO SCH (09:30)
[2019-05-21] MEDS: FLUTICASONE NASAL SPRAY (FLONASE) 16 GM BTL NS SCH (09:31)
[2019-05-21] MEDS: ACETAMINOPHEN 325 MG TABLET PO PRN ×2 (09:34→16:57)
--- NOTE | 2019-05-21 09:48 | Speech Therapy Daily Note ---
Speech Daily Progress Note Subjective Date Seen by Provider: May 21, 2019 Time Seen by Provider: 00:30 Patient was much more alert and reported no pain this morning. Objective Patient completed safety awareness tasks at 80% with moderate cues. Assessment Assessment Current Status: Good Progress Treatment Plan Continue Plan of Care Speech Short Term Goals Short Term Goals Short Term Goals 1) The patient will complete memory tasks related to her daily needs at 90% or greater with minimal cues. 2) The patient will complete safety awareness tasks related to her daily needs at 90% or greater with minimal cues. 3) The patient will complete problem solving tasks related to her daily needs at 90% or greater with minimal cues. Speech Photonics Engineering Technician Goals Photonics Engineering Technician Goals The patient will improve cognitive-communication necessary for safety and daily living tasks with minimal assist. Speech-Plan Patient/Family Goals Patient/Family Goals: Patient plans on returning to her home where she lives with her . She has family support as well. Treatment Plan Speech Therapy Treatment Plan: Continue Plan of Care Treatment Duration: May 28, 2019 Frequency: 5 times per week Estimated Hrs Per Day: .5 hour per day Rehab Potential: Fair Barriers to Learning: Patient's dementia, decreased recall of information Pt/Family Agrees to Plan: Yes Safety Risks/Education Teaching Recipient: Patient Teaching Methods: Demonstration, Discussion Response to Teaching: Verbalize Understanding, Return Demonstration Education Topics Provided: Continued safety and communication of wants/needs Time Speech Therapy Time In: 08:30 Speech Therapy Time Out: 09:00 Total Billed Time: 30 Billed Treatment Time 1KHARI BETHANIA ST May 21, 2019 09:48
--- NOTE | 2019-05-21 09:58 | Cardiology Progress Note ---
Subjective Date Seen by Provider: May 21, 2019 Time Seen by Provider: 09:10 Subjective/Events-last exam Patient sitting up at bedside, c/o weakness. Denies any chest pain or dyspnea. Review of Systems General: No Chills, No Night Sweats; Fatigue, Malaise; No Appetite, No Other HEENT: No Head Aches, No Visual Changes, No Eye Pain, No Ear Pain, No Dysphasia, No Sinus Congestion, No Post Nasal Drip, No Sore Throat, No Other Pulmonary: No Dyspnea, No Cough, No Pleuritic Chest Pain, No Other Cardiovascular: No: Chest Pain, Palpitations, Orthopnea, Paroxysmal Noc. Dyspnea, Edema, Lt Headedness, Other Objective-Cardiology Exam Last Set of Vital Signs Vital Signs 05/21/19 11:54 Temp 37.6 Pulse 81 Resp 16 B/P (MAP) 86/53 Pulse Ox 94 O2 Delivery Room Air O2 Flow Rate 0.00 Capillary Refill : Less Than 3 SecondsLess Than 3 Seconds I&O Intake and Output 05/21/19 00:00 Intake Total 1120 ml Output Total 650 ml Balance 470 ml Intake Oral 1120 ml Output Urine Total 650 ml # Bowel Movements 1 General: Alert, Oriented X3, Cooperative HEENT: Atraumatic, PERRLA Neck: Supple, No JVD, No Thyromegaly Lungs: Clear to Auscultation, Normal Air Movement Heart: Normal S1, Normal S2, Other (irregularly irregular) Abdomen: Normal Bowel Sounds, Soft, No Tenderness, No Hepatosplenomegaly, No Masses Extremities: No Clubbing, No Cyanosis, No Edema, Normal Pulses, No Tenderness/Swelling Skin: No Rashes, No Breakdown, No Significant Lesion Neuro: Normal Speech, Cranial Nerves 3-12 NL Psych/Mental Status: Mental Status NL, Mood NL Results Lab Laboratory Tests 05/21/19 05:30 A/P-Cardiology Admission Diagnosis Right femur fracture, s/p repair CAD HTN HLP Assessment/Plan Right femur fracture, s/p repair, continue PT/OT. CAD- history of PCI to RCA. Previously followed with Dr. Grey in [place]. Most recent stress test done September 2016 revealed no ischemia or infarct. Clinincally stable, continue on current medications and continue to monitor. Atrial fibrillation- telemetry reveals rate controlled afib, currently maintained on Coreg and Eliquis. Continue to monitor telemetry. 2D echo done yesterday revealed EF 40-45%, mod TR, no change to previous echo done at outlying facility in 2017. Anemia, questionable chronic anemia versus acute. Worsening H/H. Eliquis was discontinued yesterday, planning for blood transfusion this morning. Chronic LBBB Hypertension, patient noted to be hypotensive this morning. I will discontinue Cozaar, continue Coreg, continue to monitor. HLP- maintained on statin. Continue to monitor. HTP- PA 50-55mmHg. Ex tobaccoism Patient was seen and evaluated with Karena, examination performed, management plan was discussed, agree with the current scribed note, I made few changes to the note using Italic font Patient is laying down in bed, daily of fatigue and loss of energy, hypotensive Still in atrial fibrillation Anemia is significantly worse, receiving blood transfusion today Discussed with Dr. Zamudio management plan, she will need to have endoscopy Once her bleeding is controlled we will resumeoral anticoagulation Clinical Quality Measures DVT/VTE Risk/Contraindication: Risk Factor Score Per Nursin RFS Level Per Nursing on Admit: 4+=Very High KARENA JAMES May 21, 2019 09:58 BERLIN CHOWDARY MD May 21, 2019 12:00
--- NOTE | 2019-05-21 10:16 | Occupational Ther Daily Note ---
OT Current Status-Daily Note Subjective [id number]: Pt seen in bed. Pt agreeable for toileting/ sponge bath. Pt denies dizziness/ lightheadedness. Pt educated on low hemoglobin and nursing's recommendation of sponge bath rather than shower. Pt agrees. Pt later states 10/10 pain in R leg. [id number]: Pt seen in bed. Pt states no pain while sitting. Pt hesitantly agreeable to OT, states tired and desires nap. Agreeable to bed ex. Mental Status/Objective Patient Orientation: Person, Place, Situation Attachments: Telemetry ADL-Treatment Therapy Code Descriptions/Definitions Functional [place] Measure: 0=Not Assessed/NA 4=Minimal Assistance 1=Total Assistance 5=Supervision or Setup 2=Maximal Assistance 6=Modified [place] 3=Moderate Assistance 7=Complete IndependenceSCALE: Activities may be completed with or without assistive devices. 0-Lqhkvbuemr-lqovlhr completes the activity by him/herself with no assistance from a helper. 5-Set-up or Clean-up Assistance-helper sets up or cleans up; patient completes activity. [place] assists only prior to or following the activity. 4-Supervision or Touching Assistance-helper provides verbal cues and/or touching/steadying and/or contact guard assistance as patient completes activity. Assistance may be provided throughout the activity or intermittently. 3-Partial/Moderate Assistance-helper does LESS THAN HALF the effort. [place] lifts, holds or supports trunk or limbs, but provides less than half the effort. 2-Substantial/Maximal Assistance-helper does MORE THAN HALF the effort. [place] lifts or holds trunk or limbs and provides more than half the effort. 1-Hieyccdlt-mapvnv does ALL the effort. Patient does none of the effort to complete the activity. Or, the assistance of 2 or more helpers is required for the patient to complete the activity. If activity was not attempted, code reason: 7-Patient Refused. 9-Not Applicable-not attempted and the patient did not perform the activity before the current illness, exacerbation or injury. 10-Not Attempted due to Environmental Limitations-(lack of equipment, weather restraints, etc.). 88-Not Attempted due to Medical Conditions or Safety Concerns. Eating (QC): 6 Oral Hygiene (QC): 6 Bathing Location: L Arm, R Arm, L Upper Leg, R Upper Leg, Chest, Abdomen, Per ineal Area Shower/Bathe Self (QC): 3 (Pt requires mod A (assist with bottom/ LE's and min A to right self in stance) Upper Body Dressing (QC): 5 Lower Body Dressing (QC): 3 (mod A- pt able to thread BLE in breifs/ pants (use of riveter hand at times), pt then pulls to hips, requires max A to hand assembler for puller over hips and maintain balance. ) On/Off Footwear: 3 (mod A- pt able to doff with IND, pt dons with min A/ education of sock aide use. ) Toileting Hygiene (QC): 2 (max A bottom hygiene. Pt able to wipe dick area with min A (balance) and max A bottom) Toilet Transfer (QC): 3 (min A for sit to stand and transferring with safety to BSC placed to L side of pt's bed. ) Other Treatment 0900-1000Pt educated on bed mob with leg electric blanket packer. Pt still requires max A to reach EOB, but demonstrates increased IND with mobilizing RLE toward EOB. Pt sit to stand with min A. transfers to BSC with increased time. Pt begins sponge bath on BSC, completes all in recliner. Pt requires multiple attempts for standing, requires rest breaks after ~15 sec in stance, and requires added assist to maintain balance during stance/ LB dressing tasks. Pt educated on AE for LB dressing tasks to conserve energy and increase IND. Pt able to return demonstrate ability to use. Pt sits in recliner, all needs met, LEs slightly elevated per pt comfort, call light in reach. Pt denies pain in rest, stated 10/10 pain in stance/ during movement. [id number]: Pt completes oral hygiene with IND, able to manipulate dentures and complete while in bed with items handed to pt. Pt then educated on HEP with use of diagram; pt able to complete 5 reps bilaterally of 4/4 exercises (shoulder scaption, internal/ external shoulder rotation, and back flies). Pt able to demonstrate once more with use of diagrams with min cues for 1/4 exercises. Pt educated to complete 2x per day, 5 reps bilaterally this weekend. Pt agrees. All needs met, call light in reach, Dr Bradford present end of session. Education OT Patient Education: Correct positioning, Modified ADL techniques, Purpose of tx/functional activities, Safety issues, Transfer techniques, Use of adapted equ ipment Teaching Recipient: Patient Teaching Methods: Demonstration, Discussion Response to Teaching: Verbalize Understanding, Return Demonstration, Reinforcement Needed OT Short Term Goals Short Term Goals Toileting hygiene: 4 Shower/bathe self: 4 OT Running Rigger Goals Running Rigger Goals Time Frame: Jun 02, 2019 Eating (QC): 6 (met) Oral Hygiene (QC): 6 (m et) Toileting Hygiene (QC): 6 Shower/Bathe Self (QC): 6 Upper Body Dressing (QC): 6 Lower Body Dressing (QC): 6 On/Off Footwear (QC): 6 Additional Goals: 1-Demonstrate ADL Tasks, 2-Verbalize Understanding, 3- ImproveStrength/Deanne 1=Demonstrate adherence to instructed precautions during ADL tasks. 2=Patient will verbalize/demonstrate understanding of assistive devices/modifications for ADL. 3=Patient will improve strength/tolerance for activity to enable patient to perform ADL's. OT Education/Plan Problem List/Assessment Assessment: Decreased Activ Tolerance, Decreased UE Strength, Dependent Transfers, Edema, Impaired Bed Mobility, Impaired Funct Balance, Impaired I ADL's, Impaired Self-Care Skills Discharge Recommendations Plan/Recommendations: Continue POC Therapy Discharge Recommendati: 24 Hour Supervision, Scheduled Assistance, Post Acute OT Treatment Plan/Plan of Care Treatment,Training & Education: Yes Patient would benefit from OT for education, treatment and training to promote independence in ADL's, mobility, safety and/or upper extremity function for ADL's. Plan of Care: ADL Retraining, Caregiver Training, Functional Mobility, Group Exercise/Act as Ind, UE Funct Exercise/Act Treatment Duration: Jun 02, 2019 Frequency: At least 5 of 7 days/Wk (IRF) Estimated Hrs Per Day: 1.5 hours per day Agreement: Yes Rehab Potential: Fair Time/GCodes Start Time: 09:00 (1300) Stop Time: 10:00 (1315) Total Time Billed (hr/min): 75 Billed Treatment Time [id number]: 1, ADL 4 (60) [id number]: 1, ADL (15) Total: 75 DAVID AVILES OTR May 21, 2019 10:15
[2019-05-21] MEDS ORDERED: NS IV 500 ML 500 ML ONE (10:28)
--- NOTE | 2019-05-21 11:16 | PM&R Progress Note ---
Subjective HPI/CC On Admission Date Seen by Provider: May 21, 2019 Time Seen by Provider: 11:30 Subjective/Events-last exam Appreciate Cardiology consultation and we conferred and they have stopped the ASA and Eliquis due to profound anemia and recommended checking the occult blood bowel testing so I placed those orders yesterday and today brown stool collected it was + consulted Dr Bradford Decreased short term memory noted and ST will continue to work with her to help with that Remeron started last night Bed alarm tolerated well Voiding well Hgb 6.6 ordered 1 unit and may not get full therapy time today Tely 130's with therapy BM today Midline was placed and Venofer on scheduled every other day Conferred with RN Reviewed therapy notes Checked meds and labs Review of Systems General: Fatigue Cardiovascular: Palpitations Musculoskeletal: leg pain Objective Exam Vital Signs Vital Signs Date Time Temp Pulse Resp B/P (MAP) Pulse Ox O2 Delivery O2 Flow Rate FiO2 05/21/19 21:02 101 142/84 (103) 05/21/19 16:30 37.0 16 96 Room Air 05/21/19 11:54 0.00 Capillary Refill : Less Than 3 SecondsLess Than 3 Seconds General Appearance: No Apparent Distress, Chronically ill, Thin, Other (frail, fatigued) HEENT: PERRL/EOMI, Normal ENT Inspection, Pharynx Normal Neck: Full Range of Motion, Normal Inspection, Non Tender, Supple Respiratory: Chest Non Tender, Lungs Clear, Normal Breath Sounds, No Accessory Muscle Use, No Respiratory Distress Cardiovascular: No Edema, No Gallop, No JVD, No Murmur, Normal Peripheral Pulses, Irregularly Irregular, Tachycardia Gastrointestinal: Normal Bowel Sounds, No Organomegaly, No Pulsatile Mass, Non Tender, Soft Back: Normal Inspection, No CVA Tenderness, No Vertebral Tenderness Extremity: Normal Capillary Refill, Normal Inspection, Normal Range of Motion (except right leg due to op site), Non Tender, No Calf Tenderness, No Pedal Dario a Neurologic/Psychiatric: Alert, Oriented x3, No Motor/Sensory Deficits, Normal Mood/Affect, palliative medicine physician II-XII Norm as Tested, Abnormal Gait Skin: Normal Color, Warm/Dry Lymphatic: No Adenopathy Results/Procedures Lab Laboratory Tests 05/21/19 05:30 Patient resulted labs reviewed. FIM Transfers Therapy Code Descriptions/Definitions Functional [place] Measure: 0=Not Assessed/NA 4=Minimal Assistance 1=Total Assistance 5=Supervision or Setup 2=Maximal Assistance 6=Modified [place] 3=Moderate Assistance 7=Complete IndependenceSCALE: Activities may be completed with or without assistive devices. 1-Thslsznpdq-qschmqg completes the activity by him/herself with no assistance from a helper. 5-Set-up or Clean-up Assistance-helper sets up or cleans up; patient completes activity. [place] assists only prior to or following the activity. 4-Supervision or Touching Assistance-helper provides verbal cues and/or touching/steadying and/or contact guard assistance as patient completes activity. Assistance may be provided throughout the activity or intermittently. 3-Partial/Moderate Assistance-helper does LESS THAN HALF the effort. [place] lifts, holds or supports trunk or limbs, but provides less than half the effort. 2-Substantial/Maximal Assistance-helper does MORE THAN HALF the effort. [place] lifts or holds trunk or limbs and provides more than half the effort. 7-Twfycluxz-boljzz does ALL the effort. Patient does none of the effort to complete the activity. Or, the assistance of 2 or more helpers is required for the patient to complete the activity. If activity was not attempted, code reason: 7-Patient Refused. 9-Not Applicable-not attempted and the patient did not perform the activity before the current illness, exacerbation or injury. 10-Not Attempted due to Environmental Limitations-(lack of equipment, weather restraints, etc.). 88-Not Attempted due to Medical Conditions or Safety Concerns. Roll Left to Right (QC): 1 Sit to Lying (QC): 3 Sit to Stand (QC): 4 Chair/Wks-vl-Wrgut Xfer(QC): 3 Car Transfer (QC): 88 Gait Training Does the Patient Walk?: Yes Distance: 2 x 8 ft Walk 10 feet (QC): 4 Walk 50 ft with 2 Turns(QC): 88 Walk 150 ft (QC): 88 Walking 10ft/uneven surface-QC: 88 Gait Persons Needed: 1 Gait Assistive Device: Parallel Bars Wheelchair Training Does the Pt Use a Wheelchair?: No Wheel 50 ft with 2 turns (QC): 9 Wheel 150 ft (QC): 9 Stair Training 1 Step (curb) (QC): 88 4 Steps (QC): 88 12 Steps (QC): 88 Balance Picking up an Object (QC): 88 ADL-Treatment Eating (QC): 6 Oral Hygiene (QC): 6 (completes sitting in front of sink.) Bathing Location: L Arm, R Arm, L Upper Leg, R Upper Leg, Chest, Abdomen, Perineal Area Shower/Bathe Self (QC): 3 (Pt requires mod A (assist with bottom/ LE's and min A to right self in stance) Upper Body Dressing (QC): 5 Lower Body Dressing (QC): 3 (mod A- pt able to thread BLE in breifs/ pants (use of hoisting laborer at times), pt then pulls to hips, requires max A to plant puller hips and maintain balance. ) On/Off Footwear (QC): 3 (mod A- pt able to doff with IND, pt dons with min A/ education of sock aide use. ) Toileting Hygiene (QC): 2 (max A bottom hygiene. Pt able to wipe dick area with min A (balance) and max A bottom) Toilet Transfer (QC): 3 (min A for sit to stand and transferring with safety to BSC placed to L side of pt's bed. ) Assessment/Plan Assessment and Plan Assess & Plan/Chief Complaint Assessment: Right femur fracture POD # 5 Acute blood loss anemia s/p 1 unit of blood transfusion 3 hgb low requiring holding ASA and Eliquis for now and 1 unit given today New onset AF w/mild RVR dx by Dr Wells team appreciate their expertise now rate controlled on Coreg on Tely Chronic angina Anxiety CAD (coronary artery disease) Colon polyps CVD (cerebrovascular disease) Dementia Depression Diverticulitis Diverticulosis Dyspnea on exertion GERD (gastroesophageal reflux disease) Heart disease Hiatal hernia HTN Hyperlipidemia Hyponatremia Osteopenia, Osteoporosis TIA (transient ischemic attack) Urinary retention sporadic Hemoccult + Plan: IRF protocol Lovenox DC for DVT PPx since placed on Eliquis for CVA PPx due to new onset AF but now on hold due to profound anemia transfusion ordered Checked iron level ordered Venofer after midline placed and confirmed low level Pain control Monitor for delirium Home meds Remeron 7.5mg dose at night started (1) Right femoral fracture (2) Fall (3) History of TIAs (4) Dementia (5) Hypertension (6) Anemia due to acute blood loss (7) Iron deficiency (8) Diverticulosis (9) Advanced age (10) History of UTI (11) DVT prophylaxis (12) Anxiety (13) Hyponatremia (14) GERD (gastroesophageal reflux disease) (15) Hiatal hernia (16) Hyperlipidemia (17) Atrial fibrillation with rapid ventricular response MARTIN LEAL DO May 21, 2019 11:16
[2019-05-21] MEDS: CATHETER FLUSH 10 ML SYR IV SCH ×3 (11:23→21:04)
[2019-05-21] MEDS: IRON SUCROSE 200 MG/10 ML (VENOFER) VIAL IV SCH (11:23)
[2019-05-21] MEDS: polyethylene glycoL POWDER 17 GM (MIRALAX) PACK PO SCH ×2 (11:25→21:05)
--- NOTE | 2019-05-21 11:35 | Physical Therapy Daily Note ---
PT Daily Note-Current Subjective Pt in recliner upon entering room. Pt sleepy, appears lethargic and pale. Pt agrees to therapy tx. Pain Numeric Pain Scale: 3 Location: Right, Lower Location Body Site: Hip Pain Description: Dull Comment: Pt c/o pain occurs during exercises and ambulation Mental Status Patient Orientation: Normal For Age Attachments: IV Transfers SCALE: Activities may be completed with or without assistive devices. 4-Uibuhltbku-onantnp completes the activity by him/herself with no assistance from a helper. 5-Set-up or Clean-up Assistance-helper sets up or cleans up; patient completes activity. [place] assists only prior to or following the activity. 4-Supervision or Touching Assistance-helper provides verbal cues and/or to uching/steadying and/or contact guard assistance as patient completes activity. Assistance may be provided throughout the activity or intermittently. 3-Partial/Moderate Assistance-helper does LESS THAN HALF the effort. [place] lifts, holds or supports trunk or limbs, but provides less than half the effort. 2-Substantial/Maximal Assistance-helper does MORE THAN HALF the effort. [place] lifts or holds trunk or limbs and provides more than half the effort. 2-Ylticanbl-cjpbqc does ALL the effort. Patient does none of the effort to complete the activity. Or, the assistance of 2 or more helpers is required for the patient to complete the activity. If activity was not attempted, code reason: 7-Patient Refused. 9-Not Applicable-not attempted and the patient did not perform the activity before the current illness, exacerbation or injury. 10-Not Attempted due to Environmental Limitations-(lack of equipment, weather restraints, etc.). 88-Not Attempted due to Medical Conditions or Safety Concerns. Sit to Lying (QC): 3 Sit to Stand (QC): 3 Toilet Transfer (QC): 3 (Pt requires MaxA x1 for pericare and pulling up clothing) Pt requires ModA x1 during transfers and bed mobility. Weight Bearing Right Lower Extremity: Right Weight Bearing/Tolerated Left Lower Extremity: Left Full Weight Bearing Gait Training Distance: 5' x2 Gait Persons Needed: 1 (CGA during ambulation) Gait Assistive Device: FWW Pt is CGA w/ FWW for ambulation. D/T critically low hemoglobin, ambulation was not completed outside of pt rm. Pt requires skilled VC's for LE and AD advancement. Exercises Supine Ex: Ankle pumps, Quad Set, Glut sets, Heel Slides (Active Assit R LE), Short Arc Quads (Active Assit R LE) Supine Reps: 15 (15 reps x 2) Seated Therapy Exercises: Ankle pumps, Long arc quads (Active Assit R LE) Seated Reps: 15 (15 reps x 2) Treatments Pt completed seated and supine ex. Other ex completed: core strengthening sitting at EOB and chair for up to 5 mins. Assessment Pt appears sleepy, lethargic and pale at beginning of tx. At end of tx, pt fully alert, skin color has returned and pt is joking w/ STAFF WEAPONS OFFICER. Pt call light w/in reach, all needs met by this STAFF WEAPONS OFFICER. RN in room starting IV at end of tx. PT Implementation Specialist Goals Halfway Goals PT Implementation Specialist Goals Time Frame: Jun 09, 2019 Roll Left & Right (QC): 6 Sit to Lying (QC): 6 Lying-Sitting on Side/Bed(QC): 6 Sit to Stand (QC): 6 Chair/Vfm-tt-Qnrmv Xfer(QC): 6 Toilet Transfer (QC): 6 Car Transfer (QC): 6 Does the Patient Walk: Yes Walk 10 feet (QC): 6 Walk 50ft with 2 Turns (QC): 6 Walk 150 ft (QC): 6 Walking 10ft on Uneven Surface: 6 1 Step (curb) (QC): 4 4 Steps (QC): 4 12 Steps (QC): 4 Picking up an Object (QC): 4 Wheel 50 feet with 2 turns (QC: 9 Wheel 150 feet: 9 PT Plan Problem List Problem List: Activity Tolerance, Functional Strength, Safety, Balance, Gait, Transfer, Bed Mobility Treatment/Plan Treatment Plan: Continue Plan of Care Treatment Plan: Bed Mobility, Concurrent Therapy, Education, Functional Activity Deanne, Functional Strength, Group Therapy, Gait, Safety, Therapeutic Exercise, Transfers Treatment Duration: Jun 09, 2019 Frequency: 6 times per week Estimated Hrs Per Day: 1.5 hours per day Patient and/or Family Agrees t: Yes Safety Risks/Education Patient Education: Transfer Techniques, Correct Positioning, Safety Issues Teaching Recipient: Patient Teaching Methods: Discussion Response to Teaching: Reinforcement Needed Time/GCodes Time In: 1030 Time Out: 1130 Total Billed Treatment Time: 60 Total Billed Treatment 1 visit, FA x1 (15 ), EX x 3 (45) DARLIN EPSTEIN STAFF WEAPONS OFFICER May 21, 2019 11:35
--- NOTE | 2019-05-21 11:40 | NUR ---
Call placed to rn shift mgr RN, Dejah, asking if she gave pt's scheduled 0700 Cipro, & MVI ? Meds were taken out of [facility] in her name, but, not scanned. Left message asking her to call me back.
[2019-05-21] MEDS: SENNA W/DOCUSATE (SENOKOT S) TABLET PO SCH ×2 (11:41→21:04)
--- NOTE | 2019-05-21 13:07 | Physical Therapy Daily Note ---
PT Daily Note-Current Subjective Pt in bed, just finished eating lunch, upon entry. Pt receiving blood at this time. Pt agrees to therapy tx. Pain Numeric Pain Scale: 0-No Pain Location: No Pain Reported Comment: Pt c/o no pain, but feels R LE feels "stiff" Mental Status Patient Orientation: Normal For Age Attachments: IV Transfers SCALE: Activities may be completed with or without assistive devices. 6-Kfgulwteff-lvyedgb completes the activity by him/herself with no assistance from a helper. 5-Set-up or Clean-up Assistance-helper sets up or cleans up; patient completes activity. [place] assists only prior to or following the activity. 4-Supervision or Touching Assistance-helper provides verbal cues and/or touching/steadying and/or contact guard assistance as patient completes activity. Assistance may be provided throughout the activity or intermittently. 3-Partial/Moderate Assistance-helper does LESS THAN HALF the effort. [place] lifts, holds or supports trunk or limbs, but provides less than half the effort. 2-Substantial/Maximal Assistance-helper does MORE THAN HALF the effort. [place] lifts or holds trunk or limbs and provides more than half the effort. 2-Pgtdyirme-gzjakm does ALL the effort. Patient does none of the effort to complete the activity. Or, the assistance of 2 or more helpers is required for the patient to complete the activity. If activity was not attempted, code reason: 7-Patient Refused. 9-Not Applicable-not attempted and the patient did not perform the activity before the current illness, exacerbation or injury. 10-Not Attempted due to Environmental Limitations-(lack of equipment, weather restraints, etc.). 88-Not Attempted due to Medical Conditions or Safety Concerns. Weight Bearing Right Lower Extremity: Right Weight Bearing/Tolerated Left Lower Extremity: Left Full Weight Bearing Exercises Supine Ex: Ankle pumps, Quad Set, Glut sets, Heel Slides (Active Assit w/ R LE), Short Arc Quads (Active Assit w/ R LE) Supine Reps: 15 (15 reps x 2 sets) Treatments D/T pt receiving blood at the time, supine ex completed only. Assessment Current Status: Good Progress Pt in a pleasant mood and willing to "do whatever I can". Pt appears sleepy. Pt in bed, call light and bedside table w/in reach at end of tx. PT Brazer Helper Induction Goals Brazer Helper Induction Goals PT Brazer Helper Induction Goals Time Frame: Jun 09, 2019 Roll Left & Right (QC): 6 Sit to Lying (QC): 6 Lying-Sitting on Side/Bed(QC): 6 Sit to Stand (QC): 6 Chair/Jwk-ql-Mxuxg Xfer(QC): 6 Toilet Transfer (QC): 6 Car Transfer (QC): 6 Does the Patient Walk: Yes Walk 10 feet (QC): 6 Walk 50ft with 2 Turns (QC): 6 Walk 150 ft (QC): 6 Walking 10ft on Uneven Surface: 6 1 Step (curb) (QC): 4 4 Steps (QC): 4 12 Steps (QC): 4 Picking up an Object (QC): 4 Wheel 50 feet with 2 turns (QC: 9 Wheel 150 feet: 9 PT Plan Problem List Problem List: Activity Tolerance, Functional Strength, Safety, Balance, Gait, Transfer, Bed Mobility, ROM Treatment/Plan Treatment Plan: Continue Plan of Care Treatment Plan: Bed Mobility, Concurrent Therapy, Education, Functional Activity Deanne, Functional Strength, Group Therapy, Gait, Safety, Therapeutic Exercise, Transfers Treatment Duration: Jun 09, 2019 Frequency: At least 5 of 7 days/Wk (IRF) Estimated Hrs Per Day: 1.5 hours per day Patient and/or Family Agrees t: Yes Safety Risks/Education Patient Education: Safety Issues Teaching Recipient: Patient Teaching Methods: Discussion Response to Teaching: Verbalize Understanding Time/GCodes Time In: 1245 Time Out: 1300 Total Billed Treatment Time: 15 Total Billed Treatment 1 visit, Ex (15m) DARLIN EPSTEIN YARD ENGINEER May 21, 2019 13:07
[2019-05-21] MEDS: MULTIVIT W/MINERALS TAB (THERAGRAN M) PO SCH (16:49)
[2019-05-21] MEDS: CIPROFLOXACIN 500 MG (CIPRO) TABLET PO SCH ×2 (16:50→16:57)
--- NOTE | 2019-05-21 16:50 | NUR ---
shift superintendent RN, Dejah hasn't called back yet regarding 0700 meds. Did call orientating RN, Edgar, to see if she knew whether the meds had been given ? She didn't know. Addendum: 05/21/19 at 2035 by LAURIE KOENIG RN Did notify Nurse Print Cutter, ALVARADO Whitt of above.
[2019-05-21] MEDS: OLANZapine 2.5 MG (ZyPREXA) TAB PO SCH (21:04)
[2019-05-21] MEDS: MIRTAZAPINE 15 MG (REMERON) TAB PO SCH (21:04)
[2019-05-21] MEDS: ROSUVASTATIN 20 MG (CRESTOR) TABLET PO SCH (21:04)
--- NOTE | 2019-05-21 21:10 | Consultation - Surgery ---
History of Present Illness History of Present Illness Patient Consulted On(nahid/time) 05/21/19 20:51 Date Seen by Provider: May 21, 2019 Time Seen by Provider: 12:36 Reason for Visit: Hx CAD History of Present Illness Consult requested for anemia, occult + from Dr. Zamudio Patient is an 88 year female in rehab after repair right femur fracture. Afib on anticoagulation which is on hold. Not noticed any blood per rectum. Occult + stool. She believes she had a colonoscopy about 2 years ago. Not having any abdominal pain. Denie n/v fever sweats chills shortness of breath or chest pain. Getting transfused 1 unit of prbc currently. Allergies and Home Medications Allergies Coded Allergies: Sulfa (Sulfonamide Antibiotics) (Verified Allergy, Unknown, 05/15/19) adhesive tape (Verified Allergy, Unknown, 05/15/19) iodine (Verified Allergy, Unknown, 05/15/19) latex (Verified Allergy, Unknown, 05/15/19) Home Medications Acetaminophen 325 Mg Tablet, 650 MG PO Q6H PRN for PAIN-MILD (1-4), (Reported) Albuterol Sulfate 1 Puff Puff, 2 PUFF IH Q6H PRN for SHORTNESS OF BREATH, (Reported) 1 PUFF = 90 MCG Alprazolam 0.25 Mg Tablet, 0.25 MG PO HS PRN for ANXIETY, (Reported) Aspirin 81 Mg Tablet.dr, 81 MG PO DAILY, (Reported) Ca Carbonate/Vitamin D3/Vit K 1 Each Tab.chew, 1 EACH PO DAILY, (Reported) Carvedilol 3.125 Mg Tablet, 3.125 MG PO BID, (Reported) Cetirizine HCl 10 Mg Tablet, 10 MG PO DAILY, (Reported) Fluticasone Propionate 9.9 Ml [place].susp, 2 SPRAY NSEACH DAILY PRN for CONGESTION, (Reported) Losartan Potassium 50 Mg Tablet, 50 MG PO DAILY, (Reported) Mirtazapine 30 Mg Tablet, 30 MG PO DAILY, (Reported) Multivitamin 1 Each Tablet, 1 EACH PO DAILY, (Reported) Nitroglycerin 0.4 Mg Tab.subl, 0.4 MG SL UD PRN for CHEST PAIN, (Reported) Olanzapine 2.5 Mg Tablet, 5 MG PO HS, (Reported) TAKES 2 (2.5MG) TABS Omeprazole 20 Mg Capsule.dr, 20 MG PO DAILY, (Reported) Papaya 1 Each Tablet, 1 EACH PO DAILY, (Reported) Potassium Gluconate 99 Mg Tablet.er, 99 MG PO DAILY, (Reported) Rosuvastatin Calcium 10 Mg Tablet, 10 MG PO HS, (Reported) Sertraline HCl 100 Mg Tablet, 100 MG PO DAILY, (Reported) Triamcinolone Acetonide 10.8 Ml [place], 1 SPRAY NSEACH DAILY, (Reported) Patient Home Medication List Home Medication List Reviewed: Yes Past Ebjdqho-Kzgebf-Nickiw Hx Patient Social History Alcohol Use: Denies Use Recreational Drug Use: No Smoking Status: Former Smoker Former Smoker, Quit: Feb 17, 1961 Type Used: Cigarettes 2nd Hand Smoke Exposure: No Recent Foreign Travel: No Contact w/Someone Who Travel: No Recent Infectious Disease Expo: No Recent Hopitalizations: No Physical Abuse Screen: No Sexual Abuse: No Immunizations Up To Date Date of Pneumonia Vaccine: Dec 18, 2018 Seasonal Allergies Seasonal Allergies: Yes Surgeries History of Surgeries: Yes (Temporal Artery Biopsy, Colonoscopy with polypectomy, Blepharoplasty) Surgeries: Appendectomy, Cardiac, Coronary Stent, Hysterectomy, Orthopedic (rigth femur fracture 05/16/19) Respiratory History of Respiratory Disorde: Yes Respiratory Disorders: Asthma Cardiovascular History of Cardiac Disorders: Yes Cardiac Disorders: Angina, Coronary Artery Disease, Heart Attack, High Cholesterol, Hypertension Neurological History of Neurological Disord: Yes Neurological Disorders: Dementia, TIA Reproductive System MANAGER CASINO History: Hysterectomy Genitourinary History of Genitourinary Disor: No Gastrointestinal History of Gastrointestinal Di: Yes Gastrointestinal Disorders: Gastroesophageal Reflux, Diverticulosis, Hiatal Hernia Musculoskeletal History of Musculoskeletal Dis: Yes (Osteopenia) Musculoskeletal Disorders: Osteoporosis Endocrine History of Endocrine Disorders: Yes HEENT History of HEENT Disorders: Yes HEENT Disorders: Cataract Loss of Vision: Denies Cancer History of Cancer: No Psychosocial History of Psychiatric Problem: Yes Behavioral Health Disorders: Anxiety, Depression Integumentary History of Skin or Integumenta: No Blood Transfusions History of Blood Disorders: No Family Medical History Significant Family History: No Pertinent Family Hx, Hypertension Review of Systems-General Constitutional: No fever EENTM: no symptoms reported Respiratory: no symptoms reported; No cough Cardiovascular: No chest pain Gastrointestinal: No abdominal pain Genitourinary: No no symptoms reported Musculoskeletal: other (right hip pain) Skin: No change in color, No change in hair/nails Psychiatric/Neurological: Denies Anxiety, Denies Depressed Physical Exam-General Problems Physical Exam Vital Signs Vital Signs - First Documented 05/18/19 05/21/19 18:02 11:54 Temp 37.4 Pulse 102 Resp 16 B/P (MAP) 152/79 (103) Pulse Ox 95 O2 Delivery Room Air O2 Flow Rate 0.00 Capillary Refill : Less Than 3 SecondsLess Than 3 Seconds General Appearance: no apparent distress HEENT: PERRL/EOMI Neck: full range of motion, supple Respiratory: chest non-tender, no respiratory distress, no accessory muscle use Cardiovascular: irregularly irregular Gastrointestinal: non tender, soft Rectal: deferred Back: no CVA tenderness Extremities: other (right thigh incision appear without infection) Neurologic/Psychiatric: alert (slight confusion), normal mood/affect Skin: normal color, warm/dry Lymphatic: no adenopathy Data Review Labs Laboratory Tests 05/21/19 05:30: White Blood Count 8.8, Red Blood Count 2.17L, Hemoglobin 6.3*L, Hematocrit 20*L, Mean Corpuscular Volume 90, Mean Corpuscular Hemoglobin 29, Mean Corpuscular Hemoglobin Concent 32, Red Cell Distribution Width 14.9H, Platelet Count 171, Mean Platelet Volume 9.9, Neutrophils (%) (Auto) 71, Lymphocytes (%) (Auto) 19, Monocytes (%) (Auto) 7, Eosinophils (%) (Auto) 3, Basophils (%) (Auto) 0, Neutrophils # (Auto) 6.2, Lymphocytes # (Auto) 1.7, Monocytes # (Auto) 0.6, Eosinophils # (Auto) 0.3, Basophils # (Auto) 0.0, Sodium Level 135, Potassium Level 3.8, Chloride Level 104, Carbon Dioxide Level 22, Anion Gap 9, Blood Urea Nitrogen 30H, Creatinine 0.80, Estimat Glomerular Filtration Rate > 60, BUN/Creatinine Ratio 38, Glucose Level 90, Calcium Level 7.7L, Corrected Calcium 8.7, Total Bilirubin 0.6, Aspartate Amino Transf (AST/SGOT) 45H, Alanine Aminotransferase (ALT/SGPT) 23, Alkaline Phosphatase 66, Total Protein 5.0L, Albumin 2.7L 05/21/19 09:35: Stool Occult Blood Immunoassay POSITIVEH Assessment/Plan Assessment/Plan Assessment/Plan anemia occult + stool right femur fracture afib hold anticoagulation Change protonix to 40 mg daily transfusing 1 prbc now, follow hgb transfusing prn if continues to drop may need endoscopy inpatient vs outpatient no surgical intervention at this time will follow. Clinical Quality Measures DVT/VTE Risk/Contraindication: Risk Factor Score Per Nursin RFS Level Per Nursing on Admit: 4+=Very High MIGUE BLANCAS DO May 21, 2019 21:10
[2019-05-22] MEDS: HYDROcodone/APAP 10 MG/325 MG (LORTAB) TAB PO PRN ×2 (01:14→09:42)
[2019-05-22 06:00] VITALS: BP 120/60
[2019-05-22] MEDS: CATHETER FLUSH 10 ML SYR IV SCH ×3 (06:15→21:35)
[2019-05-22] MEDS: CIPROFLOXACIN 500 MG (CIPRO) TABLET PO SCH ×2 (06:15→17:35)
[2019-05-22] MEDS: MULTIVIT W/MINERALS TAB (THERAGRAN M) PO SCH (06:15)
[2019-05-22 08:56] LABS: BASOPHILS # (AUTO) 0.1 10^3/uL (0.0-0.1); BASOPHILS % (AUTO) 1 % (0-10); EOSINOPHILS # (AUTO) 0.3 10^3/uL (0.0-0.3); EOSINOPHILS % (AUTO) 3 % (0-10); HEMATOCRIT 30 % (35-52); HEMOGLOBIN 9.7 G/DL (11.5-16.0); LYMPHOCYTES # (AUTO) 1.2 X 10^3 (1.0-4.0); LYMPHOCYTES % (AUTO) 12 % (12-44); MEAN CORPUSCULAR HEMOGLOBIN 28 PG (25-34); MEAN CORPUSCULAR HGB CONC 32 G/DL (32-36); MEAN CORPUSCULAR VOLUME 87 FL (80-99); MEAN PLATELET VOLUME 9.8 FL (7.4-10.4); MONOCYTES # (AUTO) 0.7 X 10^3 (0.0-1.0); MONOCYTES % (AUTO) 8 % (0-12); NEUTROPHILS # (AUTO) 7.3 X 10^3 (1.8-7.8); NEUTROPHILS % (AUTO) 76 % (42-75); PLATELET COUNT 254 10^3/uL (130-400); RED CELL DISTRIBUTION WIDTH 19.5 % (10.0-14.5); WHITE BLOOD COUNT 9.6 10^3/uL (4.3-11.0)
[2019-05-22] MEDS: SENNA W/DOCUSATE (SENOKOT S) TABLET PO SCH ×2 (09:00→21:33)
[2019-05-22] MEDS: polyethylene glycoL POWDER 17 GM (MIRALAX) PACK PO SCH ×2 (09:00→21:30)
[2019-05-22] MEDS ORDERED: PANTOPRAZOLE 20 MG TABLET (PROTONIX) PO SCH (09:00)
--- NOTE | 2019-05-22 09:15 | Occupational Ther Daily Note ---
OT Current Status-Daily Note Subjective Pt sitting upright in recliner at start of session, agreeable to OT tx. Pt reports she feels very tired this morning, rating pain 7-8/10 in her mid back. ADL-Treatment Therapy Code Descriptions/Definitions Functional [place] Measure: 0=Not Assessed/NA 4=Minimal Assistance 1=Total Assistance 5=Supervision or Setup 2=Maximal Assistance 6=Modified [place] 3=Moderate Assistance 7=Complete IndependenceSCALE: Activities may be completed with or without assistive devices. 4-Qsowtgrkbu-bibtgbr completes the activity by him/herself with no assistance from a helper. 5-Set-up or Clean-up Assistance-helper sets up or cleans up; patient completes activity. [place] assists only prior to or following the activity. 4-Supervision or Touching Assistance-helper provides verbal cues and/or touching/steadying and/or contact guard assistance as patient completes activity. Assistance may be provided throughout the activity or intermittently. 3-Partial/Moderate Assistance-helper does LESS THAN HALF the effort. [place] lifts, holds or supports trunk or limbs, but provides less than half the effort. 2-Substantial/Maximal Assistance-helper does MORE THAN HALF the effort. [place] lifts or holds trunk or limbs and provides more than half the effort. 9-Pdcjeteki-agygff does ALL the effort. Patient does none of the effort to complete the activity. Or, the assistance of 2 or more helpers is required for the patient to complete the activity. If activity was not attempted, code reason: 7-Patient Refused. 9-Not Applicable-not attempted and the patient did not perform the activity before the current illness, exacerbation or injury. 10-Not Attempted due to Environmental Limitations-(lack of equipment, weather restraints, etc.). 88-Not Attempted due to Medical Conditions or Safety Concerns. Oral Hygiene (QC): 5 (set up at tray table. Pt able to open denture tablet and place into denture cup along with her dentures. After they soaked she was able t o brush them and put them back in her mouth.) Bathing Location: L Arm, R Arm, L Upper Leg, R Upper Leg, Chest, Abdomen Shower/Bathe Self (QC): 3 (Sponge bath: Pt able to wash upper body, requiring assist with buttocks during stand at FWW (min A with balance during stand). OT educated pt on using long handled sponge to wash her lower legs/feet. Pt demo'd understanding but still required assistance with drying lower legs.) Upper Body Dressing (QC): 5 (set up ) Lower Body Dressing (QC): 3 (Mod A, pt able to thread legs into pants/underwear using gear machine operator, mod verbal cues. She managed them up to her hips. She required max assist from this point in order to manage pants/underwear the rest of the way up while maintaining her balance.) On/Off Footwear: 3 (Mod A, pt able to doff socks, required mod A donning with education of sock aide.) Other Treatment Pt seated in recliner at start of session. She completed ADLs (see notes above), with frequent rest breaks due to pt stating she is worn out. Pt educated on importance of therapy in order to increase functional endurance and strength, she verbalized understanding. Post OT tx, pt seated in recliner, call light in reach and all needs met. Education OT Patient Education: Correct positioning, Energy conservation, Modified ADL techniques, Progress toward Goal/Update tx plan, Purpose of tx/functional activities, Transfer techniques, Use of adapted equipment Teaching Recipient: Patient Teaching Methods: Discussion Response to Teaching: Verbalize Understanding OT Short Term Goals Short Term Goals Toileting hygiene: 4 Shower/bathe self: 4 OT Dental Technology Advisor Goals Dental Technology Advisor Goals Time Frame: Jun 02, 2019 Eating (QC): 6 (met) Oral Hygiene (QC): 6 (m et) Toileting Hygiene (QC): 6 Shower/Bathe Self (QC): 6 Upper Body Dressing (QC): 6 Lower Body Dressing (QC): 6 On/Off Footwear (QC): 6 Additional Goals: 1-Demonstrate ADL Tasks, 2-Verbalize Understanding, 3- ImproveStrength/Deanne 1=Demonstrate adherence to instructed precautions during ADL tasks. 2=Patient will verbalize/demonstrate understanding of assistive devices/modifications for ADL. 3=Patient will improve strength/tolerance for activity to enable patient to perform ADL's. OT Education/Plan Problem List/Assessment Assessment: Decreased Activ Tolerance, Decreased UE Strength, Impaired Funct Balance, Impaired I ADL's, Impaired Self-Care Skills Discharge Recommendations Plan/Recommendations: Continue POC Treatment Plan/Plan of Care Patient would benefit from OT for education, treatment and training to promote independence in ADL's, mobility, safety and/or upper extremity function for ADL's. Plan of Care: ADL Retraining, Caregiver Training, Functional Mobility, Group Exercise/Act as Ind, UE Funct Exercise/Act Treatment Duration: Jun 02, 2019 Frequency: At least 5 of 7 days/Wk (IRF) Estimated Hrs Per Day: 1.5 hours per day Agreement: Yes Rehab Potential: Fair Time/GCodes Start Time: 07:55 Stop Time: 09:25 Total Time Billed (hr/min): 90 Billed Treatment Time 1, ADL 6 SHELBY KINCAID OT May 22, 2019 09:15
[2019-05-22 09:18] LABS: ALANINE AMINOTRANSFERASE 27 U/L (0-55); ALBUMIN 3.3 GM/DL (3.2-4.5); ALKALINE PHOSPHATASE 83 U/L (40-136); BILIRUBIN,TOTAL 1.1 MG/DL (0.1-1.0); BUN/CREATININE RATIO 33; CALCIUM 8.5 MG/DL (8.5-10.1); CARBON DIOXIDE 23 MMOL/L (21-32); CHLORIDE 103 MMOL/L (98-107); CREATININE SERUM 0.79 MG/DL (0.60-1.30); GFR ESTIMATED > 60; GLUCOSE 93 MG/DL (70-105); POTASSIUM 4.2 MMOL/L (3.6-5.0); SODIUM 136 MMOL/L (135-145); TOTAL PROTEIN 6.1 GM/DL (6.4-8.2)
[2019-05-22 09:41] VITALS: BP 125/59
[2019-05-22] MEDS: CALCIUM CARB + VIT D 600 MG (CALCARB + D) TAB PO SCH (09:41)
[2019-05-22] MEDS: LOSARTAN 50 MG (COZAAR) TAB PO SCH (09:41)
[2019-05-22] MEDS: SERTRALINE 100 MG (ZOLOFT) TAB PO SCH (09:41)
[2019-05-22] MEDS: CARVEDILOL 12.5 MG (COREG) TABLET PO SCH ×2 (09:41→21:34)
[2019-05-22] MEDS: PANTOPRAZOLE 40 MG (PROTONIX) TAB PO SCH (09:42)
[2019-05-22] MEDS: LORATADINE (CLARITIN) 10 MG TAB PO SCH (09:42)
[2019-05-22] MEDS: FLUTICASONE NASAL SPRAY (FLONASE) 16 GM BTL NS SCH (09:42)
--- NOTE | 2019-05-22 10:44 | Cardiology Progress Note ---
Subjective Date Seen by Provider: May 22, 2019 Time Seen by Provider: 10:43 Subjective/Events-last exam Patient was seen at bedside, sitting comfortably, denied any chest pain, complaining of fatigue and feeling cold Review of Systems General: No Chills, No Night Sweats; Fatigue; No Malaise, No Appetite, No Other HEENT: No Head Aches, No Visual Changes, No Eye Pain, No Ear Pain, No Dysphasia, No Sinus Congestion, No Post Nasal Drip, No Sore Throat, No Other Pulmonary: No Dyspnea, No Cough, No Pleuritic Chest Pain, No Other Cardiovascular: No: Chest Pain, Palpitations, Orthopnea, Paroxysmal Noc. Dyspnea, Edema, Lt Headedness, Other Objective-Cardiology Exam Last Set of Vital Signs Vital Signs 05/21/19 05/22/19 05/22/19 05/22/19 11:54 06:00 07:00 09:41 Temp 36.2 Pulse 90 Resp 22 B/P (MAP) 125/59 (81) Pulse Ox 94 O2 Delivery Room Air O2 Flow Rate 0.00 Capillary Refill : Less Than 3 SecondsLess Than 3 Seconds I&O Intake and Output 05/22/19 00:00 Intake Total 1000 ml Output Total 1200 ml Balance -200 ml Intake Oral 1000 ml Output Urine Total 1200 ml # Bowel Movements 2 General: Alert, Oriented X3, Cooperative HEENT: Atraumatic, PERRLA Neck: Supple, No JVD, No Thyromegaly Lungs: Clear to Auscultation, Normal Air Movement Heart: Normal S1, Normal S2, Other (irregularly irregular) Abdomen: Normal Bowel Sounds, Soft, No Tenderness, No Hepatosplenomegaly, No Masses Extremities: No Clubbing, No Cyanosis, No Edema, Normal Pulses, No Tenderness/Swelling Skin: No Rashes, No Breakdown, No Significant Lesion Neuro: Normal Speech, Cranial Nerves 3-12 NL Psych/Mental Status: Mental Status NL, Mood NL Results Lab Laboratory Tests 05/22/19 08:13 A/P-Cardiology Admission Diagnosis Right femur fracture, s/p repair CAD HTN HLP Assessment/Plan Right femur fracture, s/p repair, continue PT/OT. Anemia, stool occult blood is positive, received one unit of packed RBCs, Dr. Bradford consulted. Managed by primary care team. Hold anticoagulation at this time CAD- history of PCI to RCA. Previously followed with Dr. Grey in [place]. Most recent stress test done September 2016 revealed no ischemia or infarct. Clinincally stable, continue on current medications and continue to monitor. Atrial fibrillation- telemetry reveals rate controlled afib, currently maintained on Coreg and Eliquis. Continue to monitor telemetry. 2D echo done yesterday revealed EF 40-45%, mod TR, no change to previous echo done at outlying facility in 2017. Chronic LBBB Hypertension, patient noted to be hypotensive this morning. I will discontinue Cozaar, continue Coreg, continue to monitor. HLP- maintained on statin. Continue to monitor. HTP- PA 50-55mmHg. Ex tobaccoism Clinical Quality Measures DVT/VTE Risk/Contraindication: Risk Factor Score Per Nursin RFS Level Per Nursing on Admit: 4+=Very High BERLIN CHOWDARY MD May 22, 2019 10:44
--- NOTE | 2019-05-22 11:37 | Physical Therapy Daily Note ---
PT Daily Note-Current Subjective Pt. up in recliner and states she is just not feeling well at all and doesnt feel she can get much done today. Pt. agrees to exercise reclined and in sitting position. c/o throughout Rx of needing rest and being so tired as swell as increased pain upon attempt at sit to stand and in stance Pain Numeric Pain Scale: 5-Moderate Pain Location: Right Location Body Site: Hip Pain Description: Ache Appearance pale and frail Mental Status Patient Orientation: Normal For Age Transfers SCALE: Activities may be completed with or without assistive devices. 4-Grshwndzlp-uxbqqqi completes the activity by him/herself with no assistance from a helper. 5-Set-up or Clean-up Assistance-helper sets up or cleans up; patient completes activity. [place] assists only prior to or following the activity. 4-Supervision or Touching Assistance-helper provides verbal cues and/or touc lilian/steadying and/or contact guard assistance as patient completes activity. Assistance may be provided throughout the activity or intermittently. 3-Partial/Moderate Assistance-helper does LESS THAN HALF the effort. [place] lifts, holds or supports trunk or limbs, but provides less than half the effort. 2-Substantial/Maximal Assistance-helper does MORE THAN HALF the effort. [place] lifts or holds trunk or limbs and provides more than half the effort. 8-Lpverijwz-zizxiy does ALL the effort. Patient does none of the effort to complete the activity. Or, the assistance of 2 or more helpers is required for the patient to complete the activity. If activity was not attempted, code reason: 7-Patient Refused. 9-Not Applicable-not attempted and the patient did not perform the activity before the current illness, exacerbation or injury. 10-Not Attempted due to Environmental Limitations-(lack of equipment, weather restraints, etc.). 88-Not Attempted due to Medical Conditions or Safety Concerns. Sit to Stand (QC): 3 (using lift recline chair to stance ) Weight Bearing Right Lower Extremity: Right Weight Bearing/Tolerated Left Lower Extremity: Left Full Weight Bearing Exercises Supine Ex: Ankle pumps, Quad Set, Glut sets, Heel Slides, Hip abd/add Supine Reps: 12 (x3) Seated Therapy Exercises: Ankle pumps, Sit to stand, Long arc quads, Hip abd/add Seated Reps: [address] Wells visited pt. this date and requested BP. seated : BP 127/66, HR 90, standin/48, HR 98, pt. again seated but BPs did not really raise : 112/52, 94/47, 99/53 all about 10 min apart, HR 85, O2 sats all > 90%. Nurse shares that pt. had pain meds and this likely contributed to BP. Assessment Current Status: Fair Progress very limited participation, TRFs, therex and reclining position education completed PT Wedding Coordinator Goals Wedding Coordinator Goals PT Assisted Goals Time Frame: Jun 09, 2019 Roll Left & Right (QC): 6 Sit to Lying (QC): 6 Lying-Sitting on Side/Bed(QC): 6 Sit to Stand (QC): 6 Chair/Ltb-rl-Zlrrr Xfer(QC): 6 Toilet Transfer (QC): 6 Car Transfer (QC): 6 Does the Patient Walk: Yes Walk 10 feet (QC): 6 Walk 50ft with 2 Turns (QC): 6 Walk 150 ft (QC): 6 Walking 10ft on Uneven Surface: 6 1 Step (curb) (QC): 4 4 Steps (QC): 4 12 Steps (QC): 4 Picking up an Object (QC): 4 Wheel 50 feet with 2 turns (QC: 9 Wheel 150 feet: 9 PT Plan Treatment/Plan Treatment Plan: Continue Plan of Care Treatment Plan: Bed Mobility, Concurrent Therapy, Education, Functional Activity Deanne, Functional Strength, Group Therapy, Gait, Safety, Therapeutic Exercise, Transfers Treatment Duration: Jun 09, 2019 Frequency: At least 5 of 7 days/Wk (IRF) Estimated Hrs Per Day: 1.5 hours per day Patient and/or Family Agrees t: Yes Safety Risks/Education Patient Education: Transfer Techniques, Correct Positioning, Disease Process, Safety Issues Teaching Recipient: Patient Teaching Methods: Demonstration, Discussion Response to Teaching: Verbalize Understanding, Return Demonstration, Reinforcement Needed Time/GCodes Time In: 1015 Time Out: 1145 Total Billed Treatment Time: 90 Total Billed Treatment 1,EX35m,FA55m OTONIEL BLANCO [employer]SEM[employer]ER May 22, 2019 11:37
--- NOTE | 2019-05-22 11:38 | PM&R Progress Note ---
Subjective HPI/CC On Admission Date Seen by Provider: May 22, 2019 Time Seen by Provider: 11:45 Subjective/Events-last exam Appreciate Cardiology consultation and we conferred and they have stopped the ASA and Eliquis due to profound anemia and checked the occult blood bowel testing so I placed those orders yesterday and today brown stool collected it was + consulted Dr Bradford and he will monitor this situation closely but no indication for immediate c-scope Decreased short term memory noted and ST will continue to work with her to help with that Remeron started 2 nights ago Bed alarm tolerated well Voiding well Hgb 6.6 yesterday so gave 1 unit of blood and now good hgb level Tely 130's with therapy but currently more rate controlled BM yesterday Midline was placed and Venofer on scheduled every other day until completed Appetite poor and this is chronic Conferred with RN Reviewed therapy notes Checked meds and labs Review of Systems General: Fatigue Musculoskeletal: leg pain Neurological: Weakness, Confusion Objective Exam Vital Signs Vital Signs Date Time Temp Pulse Resp B/P (MAP) Pulse Ox O2 Delivery O2 Flow Rate FiO2 05/22/19 13:00 83 05/22/19 09:41 125/59 (81) 05/22/19 06:00 36.2 22 94 Room Air 05/21/19 11:54 0.00 Capillary Refill : Less Than 3 SecondsLess Than 3 Seconds General Appearance: No Apparent Distress, Chronically ill, Thin, Other (frail, fatigued) HEENT: PERRL/EOMI, Normal ENT Inspection, Pharynx Normal Neck: Full Range of Motion, Normal Inspection, Non Tender, Supple Respiratory: Chest Non Tender, Lungs Clear, Normal Breath Sounds, No Accessory Muscle Use, No Respiratory Distress Cardiovascular: No Edema, No Gallop, No JVD, No Murmur, Normal Peripheral Pulses, Irregularly Irregular, Tachycardia Gastrointestinal: Normal Bowel Sounds, No Organomegaly, No Pulsatile Mass, Non Tender, Soft Back: Normal Inspection, No CVA Tenderness, No Vertebral Tenderness Extremity: Normal Capillary Refill, Normal Inspection, Normal Range of Motion (except right leg due to op site), Non Tender, No Calf Tenderness, No Pedal Edema Neurologic/Psychiatric: Alert, Oriented x3, No Motor/Sensory Deficits, Normal Mood/Affect, still tender II-XII Norm as Tested, Abnormal Gait Skin: Normal Color, Warm/Dry Lymphatic: No Adenopathy Results/Procedures Lab Laboratory Tests 05/22/19 08:13 Patient resulted labs reviewed. FIM Transfers Therapy Code Descriptions/Definitions Functional [place] Measure: 0=Not Assessed/NA 4=Minimal Assistance 1=Total Assistance 5=Supervision or Setup 2=Maximal Assistance 6=Modified [place] 3=Moderate Assistance 7=Complete IndependenceSCALE: Activities may be completed with or without assistive devices. 2-Qzujchdaxo-vopmyvb completes the activity by him/herself with no assistance from a helper. 5-Set-up or Clean-up Assistance-helper sets up or cleans up; patient completes activity. [place] assists only prior to or following the activity. 4-Supervision or Touching Assistance-helper provides verbal cues and/or touching/steadying and/or contact guard assistance as patient completes activity. Assistance may be provided throughout the activity or intermittently. 3-Partial/Moderate Assistance-helper does LESS THAN HALF the effort. [place] lifts, holds or supports trunk or limbs, but provides less than half the effort. 2-Substantial/Maximal Assistance-helper does MORE THAN HALF the effort. [place] lifts or holds trunk or limbs and provides more than half the effort. 3-Gsckwbtli-wzhmsv does ALL the effort. Patient does none of the effort to complete the activity. Or, the assistance of 2 or more helpers is required for the patient to complete the activity. If activity was not attempted, code reason: 7-Patient Refused. 9-Not Applicable-not attempted and the patient did not perform the activity before the current illness, exacerbation or injury. 10-Not Attempted due to Environmental Limitations-(lack of equipment, weather restraints, etc.). 88-Not Attempted due to Medical Conditions or Safety Concerns. Roll Left to Right (QC): 1 Sit to Lying (QC): 3 Sit to Stand (QC): 3 Chair/Rrs-cr-Fmznp Xfer(QC): 3 Car Transfer (QC): 88 Gait Training Does the Patient Walk?: Yes Distance: 5' x2 Walk 10 feet (QC): 4 Walk 50 ft with 2 Turns(QC): 88 Walk 150 ft (QC): 88 Walking 10ft/uneven surface-QC: 88 Gait Persons Needed: 1 (CGA during ambulation) Gait Assistive Device: FWW Wheelchair Training Does the Pt Use a Wheelchair?: No Wheel 50 ft with 2 turns (QC): 9 Wheel 150 ft (QC): 9 Stair Training 1 Step (curb) (QC): 88 4 Steps (QC): 88 12 Steps (QC): 88 Balance Picking up an Object (QC): 88 ADL-Treatment Eating (QC): 6 Oral Hygiene (QC): 5 (set up at tray table. Pt able to open denture tablet and place into denture cup along with her dentures. After they soaked she was able to brush them and put them back in her mouth.) Bathing Location: L Arm, R Arm, L Upper Leg, R Upper Leg, Chest, Abdomen Shower/Bathe Self (QC): 3 (Sponge bath: Pt able to wash upper body, requiring assist with buttocks during stand at FWW (min A with balance during stand). OT educated pt on using long handled sponge to wash her lower legs/feet. Pt demo'd understanding but still required assistance with drying lower legs.) Upper Body Dressing (QC): 5 (set up ) Lower Body Dressing (QC): 3 (Mod A, pt able to thread legs into pants/underwear using larry operator, mod verbal cues. She managed them up to her hips. She required max assist from this point in order to manage pants/underwear the rest of the way up while maintaining her balance.) On/Off Footwear (QC): 3 (Mod A, pt able to doff socks, required mod A donning with education of sock aide.) Toileting Hygiene (QC): 2 (max A bottom hygiene. Pt able to wipe dick area with min A (balance) and max A bottom) Toilet Transfer (QC): 3 (min A for sit to stand and transferring with safety to BSC placed to L side of pt's bed. ) Assessment/Plan Assessment and Plan Assess & Plan/Chief Complaint Assessment: Right femur fracture POD # 6 Acute blood loss anemia s/p 1 unit of blood transfusion 3 hgb low requiring holding ASA and Eliquis for now and 1 unit given yesterday New onset AF w/mild RVR dx by Dr Wells team appreciate their expertise now rate controlled on Coreg on Tely Chronic angina Anxiety CAD (coronary artery disease) Colon polyps CVD (cerebrovascular disease) Dementia Depression Diverticulitis Diverticulosis Dyspnea on exertion GERD (gastroesophageal reflux disease) Heart disease Hiatal hernia HTN Hyperlipidemia Hyponatremia Osteopenia, Osteoporosis TIA (transient ischemic attack) Urinary retention sporadic Hemoccult + consulted Dr Bradford appreciate his monitoring Plan: IRF protocol Lovenox DC for DVT PPx since placed on Eliquis for CVA PPx due to new onset AF but now on hold due to profound anemia transfusion ordered Checked iron level ordered Venofer after midline placed and confirmed low level will complete 5 doses Pain control Monitor for delirium Home meds Remeron 7.5mg dose at night started (1) Right femoral fracture (2) Fall (3) History of TIAs (4) Dementia (5) Hypertension (6) Anemia due to acute blood loss (7) Iron deficiency (8) Diverticulosis (9) Advanced age (10) History of UTI (11) DVT prophylaxis (12) Anxiety (13) Hyponatremia (14) GERD (gastroesophageal reflux disease) (15) Hiatal hernia (16) Hyperlipidemia (17) Atrial fibrillation with rapid ventricular response MARTIN LEAL DO May 22, 2019 11:38
--- NOTE | 2019-05-22 16:46 | Progress Note - Surgery ---
Subjective Date Seen by a Provider: May 22, 2019 Time Seen by a Provider: 16:43 Subjective/Events-last exam Patient sitting in chair. No abdominal pain. Denies any new complaints. Feeling better after getting blood yesterday. Hgb up to 9 range. Denies n/v fever sweats chills shortness of breath or chest pain. Objective Exam Vital Signs Date Time Temp Pulse Resp B/P (MAP) Pulse Ox O2 Delivery O2 Flow Rate FiO2 05/22/19 13:00 83 05/22/19 09:41 125/59 (81) 05/22/19 09:00 Room Air 05/22/19 07:00 90 05/22/19 06:00 36.2 85 22 120/60 (80) 94 Room Air 05/22/19 01:00 80 05/21/19 21:02 101 142/84 (103) 05/21/19 21:00 Room Air 05/21/19 19:00 92 I & O 05/22/19 07:00 Intake Total 1040 ml Output Total 1500 ml Balance -460 ml Capillary Refill : Less Than 3 SecondsLess Than 3 Seconds General Appearance: No Apparent Distress, Chronically ill, Thin, Other (frail, fatigued) HEENT: PERRL/EOMI, Normal ENT Inspection, Pharynx Normal Neck: Full Range of Motion, Normal Inspection, Non Tender, Supple Respiratory: Chest Non Tender, No Accessory Muscle Use, No Respiratory Distress Cardiovascular: Irregularly Irregular, Tachycardia Gastrointestinal: non tender, soft Extremity: Normal Capillary Refill, Normal Inspection, Normal Range of Motion (except right leg due to surgery), Non Tender, No Calf Tenderness, No Pedal Edema Neurologic/Psychiatric: Alert, No Motor/Sensory Deficits, Normal Mood/Affect, nurse transitional II-XII Norm as Tested, Abnormal Gait Skin: Normal Color, Warm/Dry Lymphatic: No Adenopathy Results Lab Laboratory Tests 05/22/19 08:13: White Blood Count 9.6, Red Blood Count 3.50L, Hemoglobin 9.7#L, Hematocrit 30L, Mean Corpuscular Volume 87, Mean Corpuscular Hemoglobin 28, Mean Corpuscular Hemoglobin Concent 32, Red Cell Distribution Width 19.5H, Platelet Count 254, Mean Platelet Volume 9.8, Neutrophils (%) (Auto) 76H, Lymphocytes (%) (Auto) 12, Monocytes (%) (Auto) 8, Eosinophils (%) (Auto) 3, Basophils (%) (Auto) 1, Neutrophils # (Auto) 7.3, Lymphocytes # (Auto) 1.2, Monocytes # (Auto) 0.7, Eosinophils # (Auto) 0.3, Basophils # (Auto) 0.1, Sodium Level 136, Potassium Level 4.2, Chloride Level 103, Carbon Dioxide Level 23, Anion Gap 10, Blood Urea Nitrogen 26H, Creatinine 0.79, Estimat Glomerular Filtration Rate > 60, BUN/Creatinine Ratio 33, Glucose Level 93, Calcium Level 8.5, Corrected Calcium 9.1, Total Bilirubin 1.1H, Aspartate Amino Transf (AST/SGOT) 49H, Alanine Aminotransferase (ALT/SGPT) 27, Alkaline Phosphatase 83, Total Protein 6.1L, Albumin 3.3 Assessment/Plan Assessment/Plan Assessment/Plan anemia occult + stool right femur fracture afib hold anticoagulation protonix to 40 mg daily follow hgb transfusing prn if continues to drop may need endoscopy inpatient vs outpatient no surgical intervention at this time will follow. Clinical Quality Measures DVT/VTE Risk/Contraindication: Risk Factor Score Per Nursin RFS Level Per Nursing on Admit: 4+=Very High MIGUE BLANCAS DO May 22, 2019 16:45
[2019-05-22] MEDS: ACETAMINOPHEN 325 MG TABLET PO PRN (17:35)
[2019-05-22 17:56] VITALS: BP 114/66
[2019-05-22] MEDS: OLANZapine 2.5 MG (ZyPREXA) TAB PO SCH (21:28)
[2019-05-22] MEDS: MIRTAZAPINE 15 MG (REMERON) TAB PO SCH (21:29)
[2019-05-22] MEDS: ROSUVASTATIN 20 MG (CRESTOR) TABLET PO SCH (21:34)
[2019-05-23] MEDS: HYDROcodone/APAP 5 MG/325 MG (LORTAB) TAB PO PRN ×2 (01:24→08:44)
[2019-05-23 05:17] LABS: MEAN PLATELET VOLUME 9.7 FL (7.4-10.4); RED CELL DISTRIBUTION WIDTH 18.9 % (10.0-14.5); WHITE BLOOD COUNT 10.5 10^3/uL (4.3-11.0)
[2019-05-23] MEDS: CATHETER FLUSH 10 ML SYR IV SCH ×3 (05:51→21:24)
[2019-05-23] MEDS: MULTIVIT W/MINERALS TAB (THERAGRAN M) PO SCH (05:51)
[2019-05-23 05:55] VITALS: BP 107/71
[2019-05-23 07:38] VITALS: BP 108/66
[2019-05-23] MEDS: IRON SUCROSE 200 MG/10 ML (VENOFER) VIAL IV SCH (08:43)
[2019-05-23] MEDS: CARVEDILOL 12.5 MG (COREG) TABLET PO SCH (08:44)
[2019-05-23] MEDS: SERTRALINE 100 MG (ZOLOFT) TAB PO SCH (08:44)
[2019-05-23] MEDS: CALCIUM CARB + VIT D 600 MG (CALCARB + D) TAB PO SCH (08:44)
[2019-05-23] MEDS: LORATADINE (CLARITIN) 10 MG TAB PO SCH (08:44)
[2019-05-23] MEDS: FLUTICASONE NASAL SPRAY (FLONASE) 16 GM BTL NS SCH (08:45)
[2019-05-23] MEDS: PANTOPRAZOLE 40 MG (PROTONIX) TAB PO SCH (08:45)
[2019-05-23] MEDS: SENNA W/DOCUSATE (SENOKOT S) TABLET PO SCH ×2 (08:45→21:23)
[2019-05-23] MEDS: polyethylene glycoL POWDER 17 GM (MIRALAX) PACK PO SCH ×2 (08:56→21:25)
[2019-05-23] MEDS: LOSARTAN 50 MG (COZAAR) TAB PO SCH (09:00)
--- NOTE | 2019-05-23 12:07 | PM&R Progress Note ---
Subjective HPI/CC On Admission Date Seen by Provider: May 23, 2019 Time Seen by Provider: 12:00 Subjective/Events-last exam Telemetry maintained Dr Wells consultation is appreciated Rate controlled now Holding all OAC and Lovenox and ASA due to severe anemia with occult + stools Confusion at night noted by nursing staff 05/21/19 BM+ and took laxatives today Lortab decreased dose due to lethargy from taking the full dose pain meds Hgb 9.0 today Conferred with RN Reviewed therapy notes Checked meds and labs Review of Systems General: Fatigue Musculoskeletal: leg pain Neurological: Confusion Objective Exam Vital Signs Vital Signs Date Time Temp Pulse Resp B/P (MAP) Pulse Ox O2 Delivery O2 Flow Rate FiO2 05/23/19 13:00 84 05/23/19 09:00 Room Air 05/23/19 07:38 108/66 (80) 05/23/19 05:55 36.2 16 92 05/22/19 20:20 0.00 Capillary Refill : Less Than 3 SecondsLess Than 3 Seconds General Appearance: No Apparent Distress, Chronically ill, Thin, Other (frail, fatigued) HEENT: PERRL/EOMI, Normal ENT Inspection, Pharynx Normal Neck: Full Range of Motion, Normal Inspection, Non Tender, Supple Respiratory: Chest Non Tender, No Accessory Muscle Use, No Respiratory Distress Cardiovascular: Irregularly Irregular, Tachycardia Gastrointestinal: Normal Bowel Sounds, No Organomegaly, No Pulsatile Mass, Non Tender, Soft Back: Normal Inspection, No CVA Tenderness, No Vertebral Tenderness Extremity: Normal Capillary Refill, Normal Inspection, Normal Range of Motion (except right leg due to surgery), Non Tender, No Calf Tenderness, No Pedal Edema Neurologic/Psychiatric: Alert, No Motor/Sensory Deficits, Normal Mood/Affect, non destructive evaluation specialist II-XII Norm as Tested, Abnormal Gait Skin: Normal Color, Warm/Dry Lymphatic: No Adenopathy Results/Procedures Lab Laboratory Tests 05/23/19 05:00 Patient resulted labs reviewed. FIM Transfers Therapy Code Descriptions/Definitions Functional [place] Measure: 0=Not Assessed/NA 4=Minimal Assistance 1=Total Assistance 5=Supervision or Setup 2=Maximal Assistance 6=Modified [place] 3=Moderate Assistance 7=Complete IndependenceSCALE: Activities may be completed with or without assistive devices. 0-Qohwejqqbu-uuhvtct completes the activity by him/herself with no assistance from a helper. 5-Set-up or Clean-up Assistance-helper sets up or cleans up; patient completes activity. [place] assists only prior to or following the activity. 4-Supervision or Touching Assistance-helper provides verbal cues and/or touching/steadying and/or contact guard assistance as patient completes activity. Assistance may be provided throughout the activity or intermittently. 3-Partial/Moderate Assistance-helper does LESS THAN HALF the effort. [place] lifts, holds or supports trunk or limbs, but provides less than half the effort. 2-Substantial/Maximal Assistance-helper does MORE THAN HALF the effort. [place] lifts or holds trunk or limbs and provides more than half the effort. 2-Mthyygjig-uopfyy does ALL the effort. Patient does none of the effort to complete the activity. Or, the assistance of 2 or more helpers is required for the patient to complete the activity. If activity was not attempted, code reason: 7-Patient Refused. 9-Not Applicable-not attempted and the patient did not perform the activity before the current illness, exacerbation or injury. 10-Not Attempted due to Environmental Limitations-(lack of equipment, weather restraints, etc.). 88-Not Attempted due to Medical Conditions or Safety Concerns. Roll Left to Right (QC): 1 Sit to Lying (QC): 3 Sit to Stand (QC): 3 (using lift recline chair to stance ) Chair/Srm-mt-Ovqmg Xfer(QC): 3 Car Transfer (QC): 88 Gait Training Does the Patient Walk?: Yes Distance: 5' x2 Walk 10 feet (QC): 4 Walk 50 ft with 2 Turns(QC): 88 Walk 150 ft (QC): 88 Walking 10ft/uneven surface-QC: 88 Gait Persons Needed: 1 (CGA during ambulation) Gait Assistive Device: FWW Wheelchair Training Does the Pt Use a Wheelchair?: No Wheel 50 ft with 2 turns (QC): 9 Wheel 150 ft (QC): 9 Stair Training 1 Step (curb) (QC): 88 4 Steps (QC): 88 12 Steps (QC): 88 Balance Picking up an Object (QC): 88 ADL-Treatment Eating (QC): 6 Oral Hygiene (QC): 5 (set up at tray table. Pt able to open denture tablet and place into denture cup along with her dentures. After they soaked she was able to brush them and put them back in her mouth.) Bathing Location: L Arm, R Arm, L Upper Leg, R Upper Leg, Chest, Abdomen Shower/Bathe Self (QC): 3 (Sponge bath: Pt able to wash upper body, requiring assist with buttocks during stand at FWW (min A with balance during stand). OT educated pt on using long handled sponge to wash her lower legs/feet. Pt demo'd understanding but still required assistance with drying lower legs.) Upper Body Dressing (QC): 5 (set up ) Lower Body Dressing (QC): 3 (Mod A, pt able to thread legs into pants/underwear using youth teacher, mod verbal cues. She managed them up to her hips. She required max assist from this point in order to manage pants/underwear the rest of the way up while maintaining her balance.) On/Off Footwear (QC): 3 (Mod A, pt able to doff socks, required mod A donning with education of sock aide.) Toileting Hygiene (QC): 2 (max A bottom hygiene. Pt able to wipe dick area with min A (balance) and max A bottom) Toilet Transfer (QC): 3 (min A for sit to stand and transferring with safety to BSC placed to L side of pt's bed. ) Assessment/Plan Assessment and Plan Assess & Plan/Chief Complaint Assessment: Right femur fracture POD # 7 Acute blood loss anemia s/p 1 unit of blood transfusion 3/20 hgb low requiring holding ASA and Eliquis for now and 1 unit given in IRF New onset AF w/mild RVR dx by Dr Wells team appreciate their expertise now rate controlled on Coreg on Tely Chronic angina Anxiety CAD (coronary artery disease) Colon polyps CVD (cerebrovascular disease) Dementia Depression Diverticulitis Diverticulosis Dyspnea on exertion GERD (gastroesophageal reflux disease) Heart disease Hiatal hernia HTN Hyperlipidemia Hyponatremia Osteopenia, Osteoporosis TIA (transient ischemic attack) Urinary retention sporadic Hemoccult + consulted Dr Bradford appreciate his monitoring Plan: IRF protocol Lovenox DC for DVT PPx since placed on Eliquis for CVA PPx due to new onset AF but now on hold due to profound anemia transfusion ordered Checked iron level ordered Venofer after midline placed and confirmed low level will complete 5 doses Pain control Monitor for delirium Home meds Remeron 7.5mg dose at night started (1) Right femoral fracture (2) Fall (3) History of TIAs (4) Dementia (5) Hypertension (6) Anemia due to acute blood loss (7) Iron deficiency (8) Diverticulosis (9) Advanced age (10) History of UTI (11) DVT prophylaxis (12) Anxiety (13) Hyponatremia (14) GERD (gastroesophageal reflux disease) (15) Hiatal hernia (16) Hyperlipidemia (17) Atrial fibrillation with rapid ventricular response MARTIN LEAL DO May 23, 2019 12:07
--- NOTE | 2019-05-23 12:18 | NUR ---
This nurse, spray technician today, notified Felicitas CHILDERS that patient is now in sinus rhythm
--- NOTE | 2019-05-23 12:57 | Cardiology Progress Note ---
Subjective Date Seen by Provider: May 23, 2019 Time Seen by Provider: 12:56 Subjective/Events-last exam Patient was seen at bedside, feeling better today, still have loss of appetite and generalized weakness Review of Systems General: No Chills, No Night Sweats; Fatigue; No Malaise, No Appetite, No Other HEENT: No Head Aches, No Visual Changes, No Eye Pain, No Ear Pain, No Dysphasia, No Sinus Congestion, No Post Nasal Drip, No Sore Throat, No Other Pulmonary: No Dyspnea, No Cough, No Pleuritic Chest Pain, No Other Cardiovascular: No: Chest Pain, Palpitations, Orthopnea, Paroxysmal Noc. Dyspnea, Edema, Lt Headedness, Other Objective-Cardiology Exam Last Set of Vital Signs Vital Signs 05/22/19 05/23/19 05/23/19 05/23/19 20:20 05:55 07:38 09:00 Temp 36.2 Pulse 94 Resp 16 B/P (MAP) 108/66 (80) Pulse Ox 92 O2 Delivery Room Air O2 Flow Rate 0.00 Capillary Refill : Less Than 3 SecondsLess Than 3 Seconds I&O Intake and Output 05/23/19 00:00 Intake Total 680 ml Output Total 875 ml Balance -195 ml Intake Oral 680 ml Output Urine Total 875 ml # Voids 1 General: Alert, Oriented X3, Cooperative HEENT: Atraumatic, PERRLA Neck: Supple, No JVD, No Thyromegaly Lungs: Clear to Auscultation, Normal Air Movement Heart: Regular Rate, Normal S1, Normal S2 Abdomen: Normal Bowel Sounds, Soft, No Tenderness, No Hepatosplenomegaly, No Masses Extremities: No Clubbing, No Cyanosis, No Edema, Normal Pulses, No Tenderness/Swelling Skin: No Rashes, No Breakdown, No Significant Lesion Neuro: Normal Speech, Cranial Nerves 3-12 NL Psych/Mental Status: Mental Status NL, Mood NL Results Lab Laboratory Tests 05/23/19 05:00 A/P-Cardiology Admission Diagnosis Right femur fracture, s/p repair CAD HTN HLP Assessment/Plan Right femur fracture, s/p repair, continue PT/OT. Anemia, stool occult blood is positive, received one unit of packed RBCs, Dr. Bradford consulted. Managed by primary care team. Hold anticoagulation at this time CAD- history of PCI to RCA. Previously followed with Dr. Grey in [place]. Most recent stress test done September 2016 revealed no ischemia or infarct. Clinincally stable, continue on current medications and continue to monitor. Atrial fibrillation- telemetry reveals rate controlled afib, now she is in sinus rhythm, rate is controlled. I am decreasing Coreg and losartan dose due to hypotension Chronic LBBB Hypertension, was hypotensive yesterday, currently borderline blood pressure, I will decrease Coreg and losartan dose and monitor tolerance and response HLP- maintained on statin. Continue to monitor. HTP- PA 50-55mmHg. Ex tobaccoism Dr. Bearden is covering for me starting tomorrow Clinical Quality Measures DVT/VTE Risk/Contraindication: Risk Factor Score Per Nursin RFS Level Per Nursing on Admit: 4+=Very High BERLIN CHOWDARY MD May 23, 2019 12:57
--- NOTE | 2019-05-23 15:45 | NUR ---
AQUACEL TO RIGHT LATERAL LEG INCISION WAS SATURATED AND LEAKING, CLEANED WITH ALCOHOL WIPE AND [place] DRESSING APPLIED.
[2019-05-23 17:02] VITALS: BP 102/57
--- NOTE | 2019-05-23 20:39 | Progress Note - Surgery ---
Subjective Date Seen by a Provider: May 23, 2019 Time Seen by a Provider: 12:44 Subjective/Events-last exam No new issues. Hgb minimal drop still in 9 range. No abdominal pain. Denies n/v fever sweats chills shortness of breath or chest pain. Objective Exam Vital Signs Date Time Temp Pulse Resp B/P (MAP) Pulse Ox O2 Delivery O2 Flow Rate FiO2 05/23/19 19:46 Room Air 0.00 05/23/19 17:02 37.0 89 16 102/57 (72) 93 Room Air 05/23/19 13:00 84 05/23/19 09:00 Room Air 05/23/19 07:38 94 108/66 (80) 05/23/19 07:00 84 05/23/19 05:55 36.2 81 16 107/71 (83) 92 Room Air 05/23/19 01:00 84 I & O 05/23/19 07:00 Intake Total 490 ml Output Total 275 ml Balance 215 ml Capillary Refill : Less Than 3 SecondsLess Than 3 Seconds General Appearance: No Apparent Distress, Chronically ill, Thin, Other (frail, fatigued) HEENT: PERRL/EOMI, Normal ENT Inspection, Pharynx Normal Neck: Full Range of Motion, Normal Inspection, Non Tender, Supple Respiratory: Chest Non Tender, No Accessory Muscle Use, No Respiratory Distress Cardiovascular: Irregularly Irregular Gastrointestinal: non tender, soft Extremity: Normal Capillary Refill, Normal Inspection, Normal Range of Motion (except right leg due to surgery), Non Tender, No Calf Tenderness, No Pedal Edema Neurologic/Psychiatric: Alert, No Motor/Sensory Deficits, Normal Mood/Affect, quality assurance nurse II-XII Norm as Tested, Abnormal Gait Skin: Normal Color, Warm/Dry Lymphatic: No Adenopathy Results Lab Laboratory Tests 05/23/19 05:00: White Blood Count 10.5, Red Blood Count 3.21L, Hemoglobin 9.0L, Hematocrit 28L, Mean Corpuscular Volume 88, Mean Corpuscular Hemoglobin 28, Mean Corpuscular Hemoglobin Concent 32, Red Cell Distribution Width 18.9H, Platelet Count 262, Mean Platelet Volume 9.7 Assessment/Plan Assessment/Plan Assessment/Plan anemia occult + stool right femur fracture afib hold anticoagulation protonix to 40 mg daily follow hgb transfusing prn if continues to drop may need endoscopy inpatient vs outpatient no surgical intervention at this time will follow. Clinical Quality Measures DVT/VTE Risk/Contraindication: Risk Factor Score Per Nursin RFS Level Per Nursing on Admit: 4+=Very High MIGUE BLANCAS DO May 23, 2019 20:39
[2019-05-23] MEDS: OLANZapine 2.5 MG (ZyPREXA) TAB PO SCH (21:23)
[2019-05-23] MEDS: ROSUVASTATIN 20 MG (CRESTOR) TABLET PO SCH (21:24)
[2019-05-23] MEDS: MIRTAZAPINE 15 MG (REMERON) TAB PO SCH (21:24)
[2019-05-23] MEDS: CARVEDILOL 6.25 MG (COREG) TAB PO SCH (21:24)
[2019-05-24 05:39] LABS: HEMOGLOBIN 9.2 G/DL (11.5-16.0); MEAN PLATELET VOLUME 9.2 FL (7.4-10.4); WHITE BLOOD COUNT 12.2 10^3/uL (4.3-11.0)
[2019-05-24] MEDS: CATHETER FLUSH 10 ML SYR IV SCH ×3 (06:15→22:40)
[2019-05-24] MEDS: MULTIVIT W/MINERALS TAB (THERAGRAN M) PO SCH (06:15)
[2019-05-24 06:18] LABS: ALANINE AMINOTRANSFERASE 26 U/L (0-55); ALBUMIN 3.1 GM/DL (3.2-4.5); ALKALINE PHOSPHATASE 96 U/L (40-136); BILIRUBIN,TOTAL 1.1 MG/DL (0.1-1.0); BUN/CREATININE RATIO 40; CALCIUM 8.8 MG/DL (8.5-10.1); CARBON DIOXIDE 24 MMOL/L (21-32); CHLORIDE 105 MMOL/L (98-107); CREATININE SERUM 0.83 MG/DL (0.60-1.30); GFR ESTIMATED > 60; GLUCOSE 91 MG/DL (70-105); POTASSIUM 4.8 MMOL/L (3.6-5.0); SODIUM 139 MMOL/L (135-145); TOTAL PROTEIN 5.8 GM/DL (6.4-8.2)
[2019-05-24 06:45] VITALS: BP 115/66
--- NOTE | 2019-05-24 09:11 | Speech Therapy Daily Note ---
Speech Daily Progress Note Subjective Date Seen by Provider: May 24, 2019 Time Seen by Provider: 00:30 Patient was sitting up in her recliner after breakfast. She stated she knows how people get depressed so easily. Objective Patient completed a series of safety awareness tasks with q/a related to her daily needs at 80% with mod cues. Assessment Assessment Current Status: Good Progress Treatment Plan Continue Plan of Care Speech Short Term Goals Short Term Goals Short Term Goals 1) The patient will complete memory tasks related to her daily needs at 90% or greater with minimal cues. 2) The patient will complete safety awareness tasks related to her daily needs at 90% or greater with minimal cues. 3) The patient will complete problem solving tasks related to her daily needs at 90% or greater with minimal cues. Speech Senior Care Goals Change Consultant Goals The patient will improve cognitive-communication necessary for safety and daily living tasks with minimal assist. Speech-Plan Patient/Family Goals Patient/Family Goals: Patient plans on returning home with family upon hospital discharge. Treatment Plan Speech Therapy Treatment Plan: Continue Plan of Care Treatment Duration: May 28, 2019 Frequency: 5 times per week Estimated Hrs Per Day: .5 hour per day Rehab Potential: Fair Barriers to Learning: Patient has dementia Pt/Family Agrees to Plan: Yes Safety Risks/Education Teaching Recipient: Patient Teaching Methods: Demonstration, Discussion Response to Teaching: Verbalize Understanding, Return Demonstration Education Topics Provided: Safety within her room and utilizing the call light as needed. Time Speech Therapy Time In: 08:30 Speech Therapy Time Out: 09:00 Total Billed Time: 30 Billed Treatment Time 1, LAURA Noel May 24, 2019 09:11
--- NOTE | 2019-05-24 09:42 | Progress Note - Cardiology ---
Cardiology SOAP Progress Note Subjective: Sitting up at the bedside. States she is feeling better today. Objective: I&O/Vital Signs 05/24/19 05/24/19 05/24/19 06:45 06:59 12:53 Temp 37.4 Pulse 98 99 101 Resp 16 B/P (MAP) 115/66 (82) Pulse Ox 93 O2 Delivery Room Air 05/24/19 00:00 Intake Total 500 ml Output Total 600 ml Balance -100 ml Results/Procedures: Labs Laboratory Tests 05/24/19 05:05: White Blood Count 12.2H, Red Blood Count 3.31L, Hemoglobin 9.2L, Hematocrit 29L, Mean Corpuscular Volume 89, Mean Corpuscular Hemoglobin 28, Mean Corpuscular Hemoglobin Concent 31L, Red Cell Distribution Width 19.0H, Platelet Count 289, Mean Platelet Volume 9.2, Sodium Level 139, Potassium Level 4.8, Chloride Level 105, Carbon Dioxide Level 24, Anion Gap 10, Blood Urea Nitrogen 33H, Creatinine 0.83, Estimat Glomerular Filtration Rate > 60, BUN/Creatinine Ratio 40, Glucose Level 91, Calcium Level 8.8, Corrected Calcium 9.5, Total Bilirubin 1.1H, Aspartate Amino Transf (AST/SGOT) 45H, Alanine Aminotransferase (ALT/SGPT) 26, Alkaline Phosphatase 96, Total Protein 5.8L, Albumin 3.1L A/P: Assessment: Right femur fracture, s/p repair Anemia, stool occult blood is positive, received one unit of packed RBCs, Dr. Bradford consulted - managed by surgical/medical services CAD- history of PCI to RCA. Previously followed with Dr. Grey in [place]. Most recent stress test done September 2016 revealed no ischemia or infarct P.Atrial fibrillation Chronic LBBB Hypertension with recent episode of hypotension - improved following reduction in medications HLP- maintained on statin HTP- PA 50-55mmHg. Ex tobaccoism ALEJANDRA FU May 24, 2019 09:42
--- NOTE | 2019-05-24 10:37 | PM&R Progress Note ---
Subjective HPI/CC On Admission Date Seen by Provider: May 24, 2019 Time Seen by Provider: 10:45 Subjective/Events-last exam Telemetry maintained Dr Wells consultation is appreciated, rate controlled AF now Holding all OAC and Lovenox and ASA due to severe anemia with occult + stools Confusion at night noted by nursing staff which is chronic BM+ Lortab decreased dose due to lethargy from taking the full dose pain meds Incision looks good Conferred with RN Reviewed therapy notes Checked meds and labs Review of Systems General: Fatigue Musculoskeletal: leg pain Neurological: Confusion Objective Exam Vital Signs Vital Signs Date Time Temp Pulse Resp B/P (MAP) Pulse Ox O2 Delivery O2 Flow Rate FiO2 05/24/19 19:00 89 05/24/19 16:30 37.6 14 97/61 (73) 93 Room Air 05/24/19 09:00 0.00 Capillary Refill : Less Than 3 SecondsLess Than 3 Seconds General Appearance: No Apparent Distress, Chronically ill, Thin, Other (frail, fatigued) HEENT: PERRL/EOMI, Normal ENT Inspection, Pharynx Normal Neck: Full Range of Motion, Normal Inspection, Non Tender, Supple Respiratory: Chest Non Tender, No Accessory Muscle Use, No Respiratory Distress Cardiovascular: Irregularly Irregular Gastrointestinal: Normal Bowel Sounds, No Organomegaly, No Pulsatile Mass, Non Tender, Soft Back: Normal Inspection, No CVA Tenderness, No Vertebral Tenderness Extremity: Normal Capillary Refill, Normal Inspection, Normal Range of Motion (except right leg due to surgery), Non Tender, No Calf Tenderness, No Pedal Edema Neurologic/Psychiatric: Alert, No Motor/Sensory Deficits, Normal Mood/Affect, banking services clerk II-XII Norm as Tested, Abnormal Gait Skin: Normal Color, Warm/Dry Lymphatic: No Adenopathy Results/Procedures Lab Laboratory Tests 05/24/19 05:05 Patient resulted labs reviewed. FIM Transfers Therapy Code Descriptions/Definitions Functional [place] Measure: 0=Not Assessed/NA 4=Minimal Assistance 1=Total Assistance 5=Supervision or Setup 2=Maximal Assistance 6=Modified [place] 3=Moderate Assistance 7=Complete IndependenceSCALE: Activities may be completed with or without assistive devices. 8-Lxoubyyjfe-jatpifv completes the activity by him/herself with no assistance from a helper. 5-Set-up or Clean-up Assistance-helper sets up or cleans up; patient completes activity. [place] assists only prior to or following the activity. 4-Supervision or Touching Assistance-helper provides verbal cues and/or touching/steadying and/or contact guard assistance as patient completes activity. Assistance may be provided throughout the activity or intermittently. 3-Partial/Moderate Assistance-helper does LESS THAN HALF the effort. [place] lifts, holds or supports trunk or limbs, but provides less than half the effort. 2-Substantial/Maximal Assistance-helper does MORE THAN HALF the effort. [place] lifts or holds trunk or limbs and provides more than half the effort. 7-Hqimgigpq-xsegco does ALL the effort. Patient does none of the effort to complete the activity. Or, the assistance of 2 or more helpers is required for the patient to complete the activity. If activity was not attempted, code reason: 7-Patient Refused. 9-Not Applicable-not attempted and the patient did not perform the activity before the current illness, exacerbation or injury. 10-Not Attempted due to Environmental Limitations-(lack of equipment, weather restraints, etc.). 88-Not Attempted due to Medical Conditions or Safety Concerns. Roll Left to Right (QC): 1 Sit to Lying (QC): 3 Sit to Stand (QC): 3 (using lift recline chair to stance ) Chair/Yzd-bp-Tkpjt Xfer(QC): 3 Car Transfer (QC): 88 Gait Training Does the Patient Walk?: Yes Distance: 5' x2 Walk 10 feet (QC): 4 Walk 50 ft with 2 Turns(QC): 88 Walk 150 ft (QC): 88 Walking 10ft/uneven surface-QC: 88 Gait Persons Needed: 1 (CGA during ambulation) Gait Assistive Device: FWW Wheelchair Training Does the Pt Use a Wheelchair?: No Wheel 50 ft with 2 turns (QC): 9 Wheel 150 ft (QC): 9 Stair Training 1 Step (curb) (QC): 88 4 Steps (QC): 88 12 Steps (QC): 88 Balance Picking up an Object (QC): 88 ADL-Treatment Eating (QC): 6 Oral Hygiene (QC): 5 (set up at tray table. Pt able to open denture tablet and place into denture cup along with her dentures. After they soaked she was able to brush them and put them back in her mouth.) Bathing Location: L Arm, R Arm, L Upper Leg, R Upper Leg, Chest, Abdomen Shower/Bathe Self (QC): 3 (Sponge bath: Pt able to wash upper body, requiring assist with buttocks during stand at FWW (min A with balance during stand). OT educated pt on using long handled sponge to wash her lower legs/feet. Pt demo'd understanding but still required assistance with drying lower legs.) Upper Body Dressing (QC): 5 (set up ) Lower Body Dressing (QC): 3 (Mod A, pt able to thread legs into pants/underwear using veterinary medicine doctor, mod verbal cues. She managed them up to her hips. She required max assist from this point in order to manage pants/underwear the rest of the way up while maintaining her balance.) On/Off Footwear (QC): 3 (Mod A, pt able to doff socks, required mod A donning with education of sock aide.) Toileting Hygiene (QC): 2 (max A bottom hygiene. Pt able to wipe dick area with min A (balance) and max A bottom) Toilet Transfer (QC): 3 (min A for sit to stand and transferring with safety to BSC placed to L side of pt's bed. ) Assessment/Plan Assessment and Plan Assess & Plan/Chief Complaint Assessment: Right femur fracture POD # 8 Acute blood loss anemia s/p 1 unit of blood transfusion 3 hgb low requiring holding ASA and Eliquis for now and 1 unit given in IRF New onset AF w/mild RVR dx by Dr Wells team appreciate their expertise now rate controlled on Coreg on Tely Chronic angina Anxiety CAD (coronary artery disease) Colon polyps CVD (cerebrovascular disease) Dementia Depression Diverticulitis Diverticulosis Dyspnea on exertion GERD (gastroesophageal reflux disease) Heart disease Hiatal hernia HTN Hyperlipidemia Hyponatremia Osteopenia, Osteoporosis TIA (transient ischemic attack) Urinary retention sporadic Hemoccult + consulted Dr Bradford appreciate his monitoring Plan: IRF protocol Lovenox DC for DVT PPx since placed on Eliquis for CVA PPx due to new onset AF but now on hold due to profound anemia transfusion ordered Checked iron level ordered Venofer after midline placed and confirmed low level will complete 5 doses Pain control Monitor for delirium Home meds Remeron 7.5mg dose at night started (1) Right femoral fracture (2) Fall (3) History of TIAs (4) Dementia (5) Hypertension (6) Anemia due to acute blood loss (7) Iron deficiency (8) Diverticulosis (9) Advanced age (10) History of UTI (11) DVT prophylaxis (12) Anxiety (13) Hyponatremia (14) GERD (gastroesophageal reflux disease) (15) Hiatal hernia (16) Hyperlipidemia (17) Atrial fibrillation with rapid ventricular response MARTIN LEAL DO May 24, 2019 10:37
--- NOTE | 2019-05-24 10:44 | Occupational Ther Daily Note ---
OT Current Status-Daily Note Subjective Pt seen in chair post-speech session. Pt states she would love a shower, states she "didn't know where (she) was yesterday, or what (she) should be doing." Pt oriented to person on this date, able to state she was in the hospital in [place] and came for a stroke. Pt easily able to state she fell and broke hip once redirected with min cues. Nursing and ICU notified for showering (due to telemetry). Mental Status/Objective Patient Orientation: Person Attachments: Telemetry ADL-Treatment Therapy Code Descriptions/Definitions Functional [place] Measure: 0=Not Assessed/NA 4=Minimal Assistance 1=Total Assistance 5=Supervision or Setup 2=Maximal Assistance 6=Modified [place] 3=Moderate Assistance 7=Complete IndependenceSCALE: Activities may be completed with or without assistive devices. 3-Ojvrssgwof-ewoxcwn completes the activity by him/herself with no assistance from a helper. 5-Set-up or Clean-up Assistance-helper sets up or cleans up; patient completes activity. [place] assists only prior to or following the activity. 4-Supervision or Touching Assistance-helper provides verbal cues and/or touching/steadying and/or contact guard assistance as patient completes activity. Assistance may be provided throughout the activity or intermittently. 3-Partial/Moderate Assistance-helper does LESS THAN HALF the effort. [place] lifts, holds or supports trunk or limbs, but provides less than half the effort. 2-Substantial/Maximal Assistance-helper does MORE THAN HALF the effort. [place] lifts or holds trunk or limbs and provides more than half the effort. 9-Isnxvsgjw-zhmnnj does ALL the effort. Patient does none of the effort to complete the activity. Or, the assistance of 2 or more helpers is required for the patient to complete the activity. If activity was not attempted, code reason: 7-Patient Refused. 9-Not Applicable-not attempted and the patient did not perform the activity before the current illness, exacerbation or injury. 10-Not Attempted due to Environmental Limitations-(lack of equipment, weather restraints, etc.). 88-Not Attempted due to Medical Conditions or Safety Concerns. Bathing Location: L Arm, R Arm, L Upper Leg, R Upper Leg, L Lower Leg (including foot), R Lower Leg (including foot), Chest, Abdomen, Perineal Area Shower/Bathe Self (QC): 3 (Pt transfers to nd with min A (use of w/c and gb). pt sits on sc throughout shower, notifies OT of bottom hygiene need and stands (mod A bottom hygiene, pt utilzies hands on gb for balance, CGA for dick hygiene). Pt dries in shower.) Upper Body Dressing (QC): 5 (s/u) Lower Body Dressing (QC): 3 (mod A- pt able to thread BLE into undergarments, requires assist to pipe puller hips (requires multiple sit to stands and attempts due to decreased standing endurance/ balance) ) On/Off Footwear: 3 (min A due to sock aide cues) Toileting Hygiene (QC): 3 (Mod A.) Other Treatment Pt agrees to shower. Pt prepped and completes ADLs as above. Pt returns in w/c to chair. Pt attempts to sit to stand 3x during undergarment donning, requires multiple rest breaks. Pt able to stand for max of ~20 sec, increasing need of assist with sit to stands through session due to fatigue. Pt sits in recliner with CGA and cues for walker positioning. Pt educated on benefits of RLE elevation, elevated with pillows. Pt educated on retrograde massage for decreasing edema in RLE. Pt left with PT in room, call light in reach, all needs met. Education OT Patient Education: Correct positioning, Energy conservation, Modified ADL techniques, Purpose of tx/functional activities, Rehab process, Safety issues, Transfer techniques, Use of adapted equipment Teaching Recipient: Patient Teaching Methods: Demonstration, Discussion Response to Teaching: Verbalize Understanding, Return Demonstration, Reinforcement Needed OT Short Term Goals Short Term Goals Toileting hygiene: 4 Shower/bathe self: 4 OT Manager Internship Goals Assisted Goals Time Frame: Jun 02, 2019 Eating (QC): 6 (met) Oral Hygiene (QC): 6 (m et) Toileting Hygiene (QC): 6 Shower/Bathe Self (QC): 6 Upper Body Dressing (QC): 6 Lower Body Dressing (QC): 6 On/Off Footwear (QC): 6 Additional Goals: 1-Demonstrate ADL Tasks, 2-Verbalize Understanding, 3-ImproveStrength/Deanne 1=Demonstrate adherence to instructed precautions during ADL tasks. 2=Patient will verbalize/demonstrate understanding of assistive devices/modifications for ADL. 3=Patient will improve strength/tolerance for activity to enable patient to perform ADL's. OT Education/Plan Problem List/Assessment Assessment: Decreased Activ Tolerance, Decreased UE Strength, Dependent Transfers, Edema, Impaired Bed Mobility, Impaired Cognition, Impaired Funct Balance, Impaired I ADL's, Impaired Self-Care Skills Discharge Recommendations Plan/Recommendations: Continue POC Therapy Discharge Recommendati: 24 Hour Supervision Treatment Plan/Plan of Care Treatment,Training & Education: Yes Patient would benefit from OT for education, treatment and training to promote independence in ADL's, mobility, safety and/or upper extremity function for ADL's. Plan of Care: ADL Retraining, Caregiver Training, Functional Mobility, Group Exercise/Act as Ind, UE Funct Exercise/Act Treatment Duration: Jun 02, 2019 Frequency: At least 5 of 7 days/Wk (IRF) Estimated Hrs Per Day: 1.5 hours per day Agreement: Yes Rehab Potential: Fair Time/GCodes Start Time: 09:00 Stop Time: 10:15 Total Time Billed (hr/min): 75 Billed Treatment Time 1, ADL 5 (75) DAVID AVILES OTR May 24, 2019 10:44
--- NOTE | 2019-05-24 11:20 | Physical Therapy Daily Note ---
PT Daily Note-Current Subjective Pt in recliner, R LE slightly elevated to decrease swelling, upon arrival. Pt finished OT session and agrees to PT session. Pain Numeric Pain Scale: 3 Location: Right Location Body Site: Hip Pain Description: Dull Comment: Pt c/o swelling in R LE Mental Status Patient Orientation: Person, Place, Time, Situation Attachments: IV Transfers SCALE: Activities may be completed with or without assistive devices. 6-Gaeisrwpyz-fstxmep completes the activity by him/herself with no assistance from a helper. 5-Set-up or Clean-up Assistance-helper sets up or cleans up; patient completes activity. Maynard assists only prior to or following the activity. 4-Supervision or Touching Assistance-helper provides verbal cues and/or touching/steadying and/or contact guard assistance as patient completes activity. Assistance may be provided throughout the activity or intermittently. 3-Partial/Moderate Assistance-helper does LESS THAN HALF the effort. Maynard lifts, holds or supports trunk or limbs, but provides less than half the effort. 2-Substantial/Maximal Assistance-helper does MORE THAN HALF the effort. Maynard lifts or holds trunk or limbs and provides more than half the effort. 7-Mkktumtar-fdirrt does ALL the effort. Patient does none of the effort to complete the activity. Or, the assistance of 2 or more helpers is required for the patient to complete the activity. If activity was not attempted, code reason: 7-Patient Refused. 9-Not Applicable-not attempted and the patient did not perform the activity before the current illness, exacerbation or injury. 10-Not Attempted due to Environmental Limitations-(lack of equipment, weather restraints, etc.). 88-Not Attempted due to Medical Conditions or Safety Concerns. Pt refuses to do transfers during this tx. Weight Bearing Right Lower Extremity: Right Weight Bearing/Tolerated Left Lower Extremity: Left Full Weight Bearing Gait Training Pt refuses to ambulate during this tx. Exercises Supine Ex: Ankle pumps, Quad Set, Glut sets, Heel Slides (ActiveA for R LE ), Short Arc Quads (ActiveA for R LE) Supine Reps: 15 (15 reps x 3) Treatments Supine ex completed in recliner. Pt refused to ambulate or transfer during this tx. RN came in and changed 1 dressing on R LE. Dr Zamudio came in and spoke w/ pt. Pt resting in recliner, R LE slightly elevated to help decrease swelling, call light and bedside table w/in reach and all needs met at end of tx. Assessment Current Status: Fair Progress Pt requires several rest breaks between supine ex sets. Pt requires VC's and encouragement to stay on task completing ex. Pt states the following several times throughout therapy tx: "I'm having a [employer] today" and "I'm having a pitty libertarian, even though I don't need too." Pt talked about family throughout tx and would cry a little. PT Prison Goals Prison Goals PT Prison Goals Time Frame: Jun 09, 2019 Roll Left & Right (QC): 6 Sit to Lying (QC): 6 Lying-Sitting on Side/Bed(QC): 6 Sit to Stand (QC): 6 Chair/Okb-vi-Dndew Xfer(QC): 6 Toilet Transfer (QC): 6 Car Transfer (QC): 6 Does the Patient Walk: Yes Walk 10 feet (QC): 6 Walk 50ft with 2 Turns (QC): 6 Walk 150 ft (QC): 6 Walking 10ft on Uneven Surface: 6 1 Step (curb) (QC): 4 4 Steps (QC): 4 12 Steps (QC): 4 Picking up an Object (QC): 4 Wheel 50 feet with 2 turns (QC: 9 Wheel 150 feet: 9 PT Plan Problem List Problem List: Activity Tolerance, Functional Strength, Safety, Balance, Gait, Transfer, Bed Mobility, ROM Treatment/Plan Treatment Plan: Continue Plan of Care Treatment Plan: Bed Mobility, Concurrent Therapy, Education, Functional Activity Deanne, Functional Strength, Group Therapy, Gait, Safety, Therapeutic Exercise, Transfers Treatment Duration: Jun 09, 2019 Frequency: At least 5 of 7 days/Wk (IRF) Estimated Hrs Per Day: 1.5 hours per day Patient and/or Family Agrees t: Yes Safety Risks/Education Patient Education: Correct Positioning, Safety Issues Teaching Recipient: Patient Response to Teaching: Verbalize Understanding Time/GCodes Time In: 1015 Time Out: 1115 Total Billed Treatment Time: 60 Total Billed Treatment 1, EX x3 (45m), FA x1 (15m) DARLIN EPSTEIN ARE[employer] FIELD WORKER May 24, 2019 11:20
[2019-05-24] MEDS: LOSARTAN 25 MG (COZAAR) TAB PO SCH (12:05)
[2019-05-24] MEDS: HYDROcodone/APAP 5 MG/325 MG (LORTAB) TAB PO PRN ×2 (12:05→16:01)
[2019-05-24] MEDS: PANTOPRAZOLE 40 MG (PROTONIX) TAB PO SCH (12:05)
[2019-05-24] MEDS: LORATADINE (CLARITIN) 10 MG TAB PO SCH (12:06)
[2019-05-24] MEDS: CARVEDILOL 6.25 MG (COREG) TAB PO SCH ×2 (12:06→20:36)
[2019-05-24] MEDS: CALCIUM CARB + VIT D 600 MG (CALCARB + D) TAB PO SCH (12:06)
[2019-05-24] MEDS: SENNA W/DOCUSATE (SENOKOT S) TABLET PO SCH ×2 (12:06→20:36)
--- NOTE | 2019-05-24 12:07 | Progress Note - Cardiology ---
Cardiology SOAP Progress Note Subjective: Gen weakness and malaise No cp or palp or syncope Shortness of breath with mild activity No focal weakness or seizure No n/v/d Objective: I&O/Vital Signs 05/24/19 05/24/19 05/24/19 01:00 06:45 06:59 Temp 37.4 Pulse 98 98 99 Resp 16 B/P (MAP) 115/66 (82) Pulse Ox 93 O2 Delivery Room Air 05/24/19 00:00 Intake Total 500 ml Output Total 600 ml Balance -100 ml Constitutional: AAO x 3, other (thin-appearing) Respiratory: No accessory muscle use; other (fair to good bilat air entry, diminished at the bases) Cardiovascular: irregularly irregular, S1 and S2, systolic murmur (soft OFELIA at card base) Gastrointestional: No tender; soft; No guarding, No rebound; audible bowel sounds Extremities: No clubbing, No cyanosis, No significant edema Neurologic/Psychiatric: oriented x 3, other (able to move all limbs equally) Skin: No rash on exposed areas, No ulcerations on exposed areas Results/Procedures: Labs Laboratory Tests 05/24/19 05:05: White Blood Count 12.2H, Red Blood Count 3.31L, Hemoglobin 9.2L, Hematocrit 29L, Mean Corpuscular Volume 89, Mean Corpuscular Hemoglobin 28, Mean Corpuscular He moglobin Concent 31L, Red Cell Distribution Width 19.0H, Platelet Count 289, Mean Platelet Volume 9.2, Sodium Level 139, Potassium Level 4.8, Chloride Level 105, Carbon Dioxide Level 24, Anion Gap 10, Blood Urea Nitrogen 33H, Creatinine 0.83, Estimat Glomerular Filtration Rate > 60, BUN/Creatinine Ratio 40, Glucose Level 91, Calcium Level 8.8, Corrected Calcium 9.5, Total Bilirubin 1.1H, Aspartate Amino Transf (AST/SGOT) 45H, Alanine Aminotransferase (ALT/SGPT) 26, Alkaline Phosphatase 96, Total Protein 5.8L, Albumin 3.1L Laboratory Tests 05/23/19 05:00 05/24/19 05:05 A/P: Assessment: Right femur fracture, s/p repair Anemia, stool occult blood is positive, received one unit of packed RBCs, Dr. Bradford consulted - managed by surgical/medical services CAD- history of PCI to RCA. Previously followed with Dr. Grey in [place]. Most recent stress test done September 2016 revealed no ischemia or infarct P.Atrial fibrillation Chronic LBBB Hypertension with recent episode of hypotension - improved following reduction in medications HLP- maintained on statin HTP- PA 50-55mmHg. Ex tobaccoism Plan: * I reviewed her records and interviewed and examined her * Management somewhat complex due to opposing issues: needs OAC for stroke prophylaxis, but has had significant GI bleed that has resulted in considerable anemia and OAC is being held at the rec of Dr Bradford * Resume OAC when ok with the surg svce * Monitor labs closely LILLIAN BUNN MD FACP FACC CCDS May 24, 2019 12:07
[2019-05-24] MEDS: SERTRALINE 100 MG (ZOLOFT) TAB PO SCH (12:14)
[2019-05-24] MEDS: FLUTICASONE NASAL SPRAY (FLONASE) 16 GM BTL NS SCH (12:15)
[2019-05-24] MEDS: polyethylene glycoL POWDER 17 GM (MIRALAX) PACK PO SCH ×2 (12:54→22:40)
--- NOTE | 2019-05-24 13:51 | Progress Note - Surgery ---
Subjective Date Seen by a Provider: May 24, 2019 Time Seen by a Provider: 13:46 Subjective/Events-last exam Patient doing okay she states. Not having any blood in stools that she notices. Patient slight discomfort in the left hip. RIght hip no issues. Tolerating diet. Hgb 9.3 (stable). Denies n/v fever sweats chills shortness of breath or chest pain. Objective Exam Vital Signs Date Time Temp Pulse Resp B/P (MAP) Pulse Ox O2 Delivery O2 Flow Rate FiO2 05/24/19 12:53 101 05/24/19 06:59 99 05/24/19 06:45 37.4 98 16 115/66 (82) 93 Room Air 05/24/19 01:00 98 05/23/19 19:46 Room Air 0.00 05/23/19 19:00 95 05/23/19 17:02 37.0 89 16 102/57 (72) 93 Room Air I & O 05/24/19 07:00 Intake Total 940 ml Output Total 1000 ml Balance -60 ml Capillary Refill : Less Than 3 SecondsLess Than 3 Seconds General Appearance: No Apparent Distress, Chronically ill, Thin, Other (frail, fatigued) HEENT: PERRL/EOMI, Normal ENT Inspection, Pharynx Normal Neck: Full Range of Motion, Normal Inspection, Non Tender, Supple Respiratory: Chest Non Tender, No Accessory Muscle Use, No Respiratory Distress Cardiovascular: Irregularly Irregular Gastrointestinal: non tender, soft Extremity: Normal Capillary Refill, Normal Inspection, Normal Range of Motion (except right leg due to surgery), Non Tender, No Calf Tenderness, No Pedal Edema Neurologic/Psychiatric: Alert, No Motor/Sensory Deficits, Normal Mood/Affect, claims service representative II-XII Norm as Tested, Abnormal Gait Skin: Normal Color, Warm/Dry Lymphatic: No Adenopathy Results Lab Laboratory Tests 05/24/19 05:05: White Blood Count 12.2H, Red Blood Count 3.31L, Hemoglobin 9.2L, Hematocrit 29L, Mean Corpuscular Volume 89, Mean Corpuscular Hemoglobin 28, Mean Corpuscular Hemoglobin Concent 31L, Red Cell Distribution Width 19.0H, Platelet Count 289, Mean Platelet Volume 9.2, Sodium Level 139, Potassium Level 4.8, Chloride Level 105, Carbon Dioxide Level 24, Anion Gap 10, Blood Urea Nitrogen 33H, Creatinine 0.83, Estimat Glomerular Filtration Rate > 60, BUN/Creatinine Ratio 40, Glucose Level 91, Calcium Level 8.8, Corrected Calcium 9.5, Total Bilirubin 1.1H, Aspartate Amino Transf (AST/SGOT) 45H, Alanine Aminotransferase (ALT/SGPT) 26, Alkaline Phosphatase 96, Total Protein 5.8L, Albumin 3.1L Assessment/Plan Assessment/Plan Assessment/Plan anemia occult + stool right femur fracture afib hold anticoagulation protonix to 40 mg daily follow hgb transfusing prn has been stable if continues to drop may need endoscopy inpatient vs outpatient no surgical intervention at this time will follow. Clinical Quality Measures DVT/VTE Risk/Contraindication: Risk Factor Score Per Nursin RFS Level Per Nursing on Admit: 4+=Very High MIGUE BLANCAS DO May 24, 2019 13:51
--- NOTE | 2019-05-24 13:52 | Physical Therapy Daily Note ---
PT Daily Note-Current Subjective Pt in recliner resting. Lunch tray on bedside table, no food touched. Pt states "I'm finished." Pt agrees to participate in therapy tx, but states "I'm sleepy and just blah." Pain Numeric Pain Scale: 0-No Pain Location: No Pain Reported Mental Status Patient Orientation: Person, Place, Time, Situation Attachments: IV Transfers SCALE: Activities may be completed with or without assistive devices. 8-Mdznbfscuf-geintko completes the activity by him/herself with no assistance from a helper. 5-Set-up or Clean-up Assistance-helper sets up or cleans up; patient completes activity. Crandall assists only prior to or following the activity. 4-Supervision or Touching Assistance-helper provides verbal cues and/or touching/steadying and/or contact guard assistance as patient completes activity . Assistance may be provided throughout the activity or intermittently. 3-Partial/Moderate Assistance-helper does LESS THAN HALF the effort. Crandall lifts, holds or supports trunk or limbs, but provides less than half the effort. 2-Substantial/Maximal Assistance-helper does MORE THAN HALF the effort. Crandall lifts or holds trunk or limbs and provides more than half the effort. 4-Dkrbgabme-bjoiyh does ALL the effort. Patient does none of the effort to complete the activity. Or, the assistance of 2 or more helpers is required for the patient to complete the activity. If activity was not attempted, code reason: 7-Patient Refused. 9-Not Applicable-not attempted and the patient did not perform the activity before the current illness, exacerbation or injury. 10-Not Attempted due to Environmental Limitations-(lack of equipment, weather restraints, etc.). 88-Not Attempted due to Medical Conditions or Safety Concerns. Sit to Stand (QC): 3 (Using lift recliner chair to stance) Toilet Transfer (QC): 3 (Pt requires ModA x1 for transfer d/t fatigue) Pt requires MaxA x1 w/ pericare after using the commode. Weight Bearing Right Lower Extremity: Right Weight Bearing/Tolerated Left Lower Extremity: Left Full Weight Bearing Gait Training Distance: 5' Gait Persons Needed: 1 Gait Assistive Device: FWW Pt requires skilled VC's for LE and FWW advancement from lift chair to commode and back. Treatments Pt requires 2 seated rest breaks after using the commode. Stand, pericare, seated rest break. Stand, pull up depends, seated rest break. Once returned to lift chair, pt R LE slightly elevated to help decrease swelling. Bedside table, call light and all needs met at end of tx. Assessment Current Status: Fair Progress Pt "sleepy and feels blah". Pt did not eat anything on lunch tray, but encouraged to finish Boost. No tearful episodes during this tx. PT Bus Person Goals Alf Goals PT Bus Person Goals Time Frame: Jun 09, 2019 Roll Left & Right (QC): 6 Sit to Lying (QC): 6 Lying-Sitting on Side/Bed(QC): 6 Sit to Stand (QC): 6 Chair/Azo-tg-Qitxm Xfer(QC): 6 Toilet Transfer (QC): 6 Car Transfer (QC): 6 Does the Patient Walk: Yes Walk 10 feet (QC): 6 Walk 50ft with 2 Turns (QC): 6 Walk 150 ft (QC): 6 Walking 10ft on Uneven Surface: 6 1 Step (curb) (QC): 4 4 Steps (QC): 4 12 Steps (QC): 4 Picking up an Object (QC): 4 Wheel 50 feet with 2 turns (QC: 9 Wheel 150 feet: 9 PT Plan Problem List Problem List: Activity Tolerance, Functional Strength, Safety, Balance, Gait, Transfer Treatment/Plan Treatment Plan: Continue Plan of Care Treatment Plan: Bed Mobility, Concurrent Therapy, Education, Functional Activity Deanne, Functional Strength, Group Therapy, Gait, Safety, Therapeutic Exercise, Transfers Treatment Duration: Jun 09, 2019 Frequency: At least 5 of 7 days/Wk (IRF) Estimated Hrs Per Day: 1.5 hours per day Patient and/or Family Agrees t: Yes Safety Risks/Education Patient Education: Gait Training, Transfer Techniques, Correct Positioning, Safety Issues Teaching Recipient: Patient Teaching Methods: Discussion Response to Teaching: Verbalize Understanding, Reinforcement Needed Time/GCodes Time In: 1316 Time Out: 1336 Total Billed Treatment Time: 20 Total Billed Treatment 1, FA (20m) DARLIN EPSTEIN LABORER [employer]ATCH[employer] May 24, 2019 13:52
[2019-05-24 16:30] VITALS: BP 97/61
[2019-05-24] MEDS: ROSUVASTATIN 20 MG (CRESTOR) TABLET PO SCH (20:35)
[2019-05-24] MEDS: MELATONIN 3 MG TABLET PO PRN (20:36)
[2019-05-24] MEDS: OLANZapine 2.5 MG (ZyPREXA) TAB PO SCH (20:36)
[2019-05-24] MEDS: MIRTAZAPINE 15 MG (REMERON) TAB PO SCH (20:36)
[2019-05-25] MEDS: CATHETER FLUSH 10 ML SYR IV SCH ×3 (05:36→21:22)
[2019-05-25] MEDS: MULTIVIT W/MINERALS TAB (THERAGRAN M) PO SCH (05:36)
[2019-05-25 06:00] VITALS: BP 120/65
[2019-05-25 08:00] VITALS: BP 131/69
[2019-05-25] MEDS: CALCIUM CARB + VIT D 600 MG (CALCARB + D) TAB PO SCH (08:45)
[2019-05-25] MEDS: LORATADINE (CLARITIN) 10 MG TAB PO SCH (08:46)
[2019-05-25] MEDS: PANTOPRAZOLE 40 MG (PROTONIX) TAB PO SCH (08:46)
[2019-05-25] MEDS: SERTRALINE 100 MG (ZOLOFT) TAB PO SCH (08:46)
[2019-05-25] MEDS: SENNA W/DOCUSATE (SENOKOT S) TABLET PO SCH ×2 (08:46→21:18)
[2019-05-25] MEDS: CARVEDILOL 6.25 MG (COREG) TAB PO SCH ×2 (08:47→21:22)
[2019-05-25] MEDS: FLUTICASONE NASAL SPRAY (FLONASE) 16 GM BTL NS SCH (08:47)
[2019-05-25] MEDS: LOSARTAN 25 MG (COZAAR) TAB PO SCH (08:48)
[2019-05-25] MEDS: polyethylene glycoL POWDER 17 GM (MIRALAX) PACK PO SCH ×2 (08:49→21:23)
[2019-05-25] MEDS: IRON SUCROSE 200 MG/10 ML (VENOFER) VIAL IV SCH (08:49)
--- NOTE | 2019-05-25 08:56 | ST Dysphagia Evaluation ---
Speech Evaluation-General Medical Diagnosis Right Femur Fracture Onset Date: May 19, 2019 Therapy Diagnosis Therapy Diagnosis: Oropharyngeal Dysphagia Precautions Precautions: Aspiration Referral Referring Physician: Dr. Zamudio Medical History Pertinent Medical History: CAD, CVA, Dementia, Diverticulitis, GERD, HTN Reviewed History: Yes Social History Current Living Status: Spouse Speech PLF/Current-Dysphagia Prior Level of Function Patient lived at home with her with her son living very close. She was able to eat what she wanted prior to hospital admission. Subjective Patient was sleepy and required frequent encouragement for oral intake. Cognitive Status Patient Orientation: Person, Confused Patient has dementia. Oral Motor Skills Denture Type: Full- Upper & Lower Current Food Consistancy: Regular Ability to Follow Directions: Fair Oral Expression Ability: Mild Impairment Voice Voice Phonatory-Based Quality: Weak Voice Pitch: Normal Voice Loudness: Moderately Soft/Quiet Face Facial Symmetry: Symmetrical Oral-Facial Assessment Oral-Facial Dentition: Normal Labial Seal Description: Weak Puff Cheeks: Reduced Strength Lingual Protrusion: Abnormal Weak Lingual ROM: Abnormal Weak Lingual Strength: Abnormal Weak Pharynx Velopharyngeal Move.: Normal Volitional Dry Swallow: Yes Voluntary Cough: Yes Can Clear Throat Volitionally: Yes Dysphagia Evaluation Consistencies Presented: Regular, Thin Liquid, Mechanical Soft Oral Phase: Unable to Form Bolus, Reduced Oral Transit For regular consistency. Pharyngeal phase is within normal range of function. Dietary Recommendations: Mechanical Soft Liquid Recommendations: Thin Swallowing Precautions: Alternate Liquids/Solids, Decreased Bolus 1/2 Tsp, Liquids from Straw, Small Bites and Sips, Sitting Upright 90 Degrees, Sitting 90 Degrees 30 Post Intake Dysphagia Evaluation Summary Patient is a frail 88 year old woman who was admitted to the ARU s/p femur fracture due to a fall. Patient was reported to have difficulty swallowing regular textured foods, ie: meat, bread. Patient completed the Bedside Dysphagia Evaluation today with presentation of thin liquids via small sips through a straw without difficulty or s/s of aspiration. Patient was presented 1/2 tsp bite size of puree, mechanical soft and regular. Puree and mechanical soft textures were within functional limits at the oral phase. Regular texture at the oral phase were noted to be excessive mastication with multiple swallows needed to clear. Patient is recommended to be downgraded to Dysphagia II with thin. This information was provided to her nurse. Patient will receive dysphagia therapy for safest intake. Speech Short Term Goals Short Term Goals Short Term Goals 1) The patient will complete memory tasks related to her daily needs at 90% or greater with minimal cues. 2) The patient will complete safety awareness tasks related to her daily needs at 90% or greater with minimal cues. 3) The patient will complete problem solving tasks related to her daily needs at 90% or greater with minimal cues. 4) The patient will tolerate least restrictive diet without s/s of aspiration at 80% or greater with minimal cues. 4) The patient/caregiver will utilize compensatory strategies as trained for safe oral intake with 90% or greater with minimal cues. Speech Group Home Goals Hog Driver Goals The patient will improve cognitive-communication necessary for safety and daily living tasks with minimal assist. The patient will maintain adequate nutrition/hydration via safe effective swallow function. Speech-Plan Patient/Family Goals Patient/Family Goals: Patient plans on returning to her prior living situation, however the team will discuss the safest discharge location. Treatment Plan Speech Therapy Treatment Plan: Continue Plan of Care Treatment Duration: May 28, 2019 Frequency: 5 times per week Estimated Hrs Per Day: .5 hour per day Rehab Potential: Fair Barriers to Learning: Patient has dementia Pt/Family Agrees to Plan: Yes Safety Risks/Education Teaching Recipient: Patient Teaching Methods: Demonstration, Discussion Response to Teaching: Verbalize Understanding, Return Demonstration Education Topics Provided: Safety of oral intake, diet level Time Speech Therapy Time In: 08:15 Speech Therapy Time Out: 08:45 Total Billed Time: 30 Billed Treatment Time MartAUGIE BETHANIA ST May 25, 2019 08:56
[2019-05-25] MEDS: HYDROcodone/APAP 5 MG/325 MG (LORTAB) TAB PO PRN (09:53)
--- NOTE | 2019-05-25 10:00 | NUR ---
Cash FU HERE. IMFORMED OF RVR THIS AM. CARDIZEM WILL BE ADDED TO REGIMEN. PATIENT STATES NO PAIN IF "NOT MOVING". REMAINS VERY FRAIL AND TIRED, BUT A GOOD SENSE OF HUMOR. OKAY'D WITH DR. BLANCAS, PER REQUEST OF CARDIOLOGY, TO RESTART ANTICOAGULANT. RIGHT THIGH SWOLLEN AND WILL CHANGE NICOLETTE HOSE TO THIGH HIGH. STILL VERY POOR APPETITE. SWALLOW TEST WAS DONE AND DIET CHANGED TO DYSPHAGIA 2.
--- NOTE | 2019-05-25 10:09 | Occupational Ther Daily Note ---
OT Current Status-Daily Note Subjective [id number]: Pt seen in bed. Pt asleep, easily wakes. Pt expresses she is "almost in tears," due to pain. Nursing notified. Pt agreeable to OT tx session with plans to dress/ toilet. 3543-6691: Pt seen in chair. Pt not eating lunch, pt expresses she's not hungry. Pt agrees to attempt later on. Pt staters pain is "there, but not horrible." Mental Status/Objective Patient Orientation: Person, Situation ADL-Treatment Therapy Code Descriptions/Definitions Functional [place] Measure: 0=Not Assessed/NA 4=Minimal Assistance 1=Total Assistance 5=Supervision or Setup 2=Maximal Assistance 6=Modified [place] 3=Moderate Assistance 7=Complete IndependenceSCALE: Activities may be completed with or without assistive devices. 8-Ubehsabjev-phcbfcx completes the activity by him/herself with no assistance from a helper. 5-Set-up or Clean-up Assistance-helper sets up or cleans up; patient completes activity. [place] assists only prior to or following the activity. 4-Supervision or Touching Assistance-helper provides verbal cues and/or touching/steadying and/or contact guard assistance as patient completes activity. Assistance may be provided throughout the activity or intermittently. 3-Partial/Moderate Assistance-helper does LESS THAN HALF the effort. [place] lifts, holds or supports trunk or limbs, but provides less than half the effort. 2-Substantial/Maximal Assistance-helper does MORE THAN HALF the effort. [place] lifts or holds trunk or limbs and provides more than half the effort. 9-Vazxqelfk-lueisq does ALL the effort. Patient does none of the effort to complete the activity. Or, the assistance of 2 or more helpers is required for the patient to complete the activity. If activity was not attempted, code reason: 7-Patient Refused. 9-Not Applicable-not attempted and the patient did not perform the activity before the current illness, exacerbation or injury. 10-Not Attempted due to Environmental Limitations-(lack of equipment, weather restraints, etc.). 88-Not Attempted due to Medical Conditions or Safety Concerns. Eating (QC): 6 Upper Body Dressing (QC): 5 (s/u) Lower Body Dressing (QC): 3 (min A. Pt able to thread BLE into brief and pants with SBA and multiple breaks. Pt requires min A to pull through hooker hips and maintain stance.) On/Off Footwear: 3 (pt requires TD for nicolette hose- notified nursing of continued swelling of RLE (hip) and decreased movement of pt. Pt requires cues for use of sock aide, able to thread onto sock aide and don with min A.) Toileting Hygiene (QC): 3 (min A for thoroughness and min A for stance during hygiene) Toilet Transfer (QC): 3 (min A to sit to stand and maintain balance.) Other Treatment [id number]: Pt completes bed mob with max A, cues for leg placement. Pt sits EOB with max A. Pt sit to stand with SBA from high bed. Pt transfers to toilet, com pletes toileting and dressing on toilet as above. Pt requires max breaks during activities due to fatigue and decreased strength. Pt transfers to chair placed beside commode. Pt requires rest break after transfer. Pt sits and adjusts self in chair, positioned upright with pillows for successful feeding, and LE's elevated with RLE elevated higher with pillow. All needs met, call light in reach, pt left with nursing and dietary. [id number]: Pt seen in chair. Agrees to therapy gym exercises. Pt sit to stand C GA with recliner elevated. Walks 10 feet to w/c. Pt sits with good control. Pt's NICOLETTE hose required assist to bring toward hip, as only placed to knees. Pt sit to stand from w/c level with min A. Stands at walker with CGA as she pulls pants down, good static balance while OT brings NICOLETTE hose to hips. Pt requires rest, sit to stand min A and pulls pants up over hips with min A. Pt educated on benefits of NICOLETTE hose. Pt acknowledges. Pt pushed to therapy gym in w/c, completes arm arc exercises (12 reps bilaterally, crossing midline and meeting bilateral hands above head to transfer from hand to hand. Pt requires rest in between reps. Pt left with PT in therapy gym. Education OT Patient Education: Correct positioning, Modified ADL techniques, Transfer techniques, Use of adapted equipment Teaching Recipient: Patient Teaching Methods: Demonstration, Discussion Response to Teaching: Verbalize Understanding, Return Demonstration, Reinforcement Needed OT Short Term Goals Short Term Goals Toileting hygiene: 4 Shower/bathe self: [address] Project Manager Goals Jail Goals Time Frame: Jun 02, 2019 Eating (QC): 6 (met) Oral Hygiene (QC): 6 (m et) Toileting Hygiene (QC): 6 Shower/Bathe Self (QC): 6 Upper Body Dressing (QC): 6 Lower Body Dressing (QC): 6 On/Off Footwear (QC): 6 Additional Goals: 1-Demonstrate ADL Tasks, 2-Verbalize Understanding, 3- ImproveStrength/Deanne 1=Demonstrate adherence to instructed precautions during ADL tasks. 2=Patient will verbalize/demonstrate understanding of assistive devices/modifications for ADL. 3=Patient will improve strength/tolerance for activity to enable patient to perform ADL's. OT Education/Plan Problem List/Assessment Assessment: Decreased Activ Tolerance, Decreased UE Strength, Dependent Espinoza sfers, Edema, Impaired Bed Mobility, Impaired Cognition, Impaired Funct Balance, Impaired I ADL's, Impaired Self-Care Skills Discharge Recommendations Plan/Recommendations: Continue POC Therapy Discharge Recommendati: 24 Hour Supervision Treatment Plan/Plan of Care Treatment,Training & Education: Yes Patient would benefit from OT for education, treatment and training to promote independence in ADL's, mobility, safety and/or upper extremity function for ADL's. Plan of Care: ADL Retraining, Caregiver Training, Functional Mobility, Group Exercise/Act as Ind, UE Funct Exercise/Act Treatment Duration: Jun 02, 2019 Frequency: At least 5 of 7 days/Wk (IRF) Estimated Hrs Per Day: 1.5 hours per day Agreement: Yes Rehab Potential: Fair Time/GCodes Start Time: 09:00 (1300) Stop Time: 10:00 (1315) Total Time Billed (hr/min): 75 Billed Treatment Time [id number]: 1, ADL 4 (60) 1020-7282: 1, ADL (15) DAVID AVILES OTR May 25, 2019 10:09
--- NOTE | 2019-05-25 10:11 | Progress Note - Cardiology ---
Cardiology SOAP Progress Note Subjective: Sitting in recliner. States she has SOB which comes and goes, c/o feeling of fast heartbeat with exertion. No c/o CP, syncope or near syncope. Objective: I&O/Vital Signs 05/26/19 05/26/19 05/26/19 05/26/19 01:00 06:00 06:44 09:16 Temp 37.0 37.6 Pulse 89 87 87 86 Resp 22 16 B/P (MAP) 97/59 (72) 112/65 (81) Pulse Ox 94 91 O2 Delivery Room Air Room Air 05/26/19 00:00 Intake Total 600 ml Balance 600 ml Constitutional: AAO x 3, other (thin-appearing) Respiratory: No accessory muscle use; other (fair to good bilat air entry, diminished at the bases) Cardiovascular: irregularly irregular, S1 and S2, systolic murmur (soft OFELIA at card base) Gastrointestional: No tender; soft; No guarding, No rebound; audible bowel sounds Extremities: No clubbing, No cyanosis, No significant edema Neurologic/Psychiatric: oriented x 3, other (able to move all limbs equally) Skin: No rash on exposed areas, No ulcerations on exposed areas Results/Procedures: Labs Laboratory Tests 05/26/19 04:55: White Blood Count 11.7H, Red Blood Count 2.86L, Hemoglobin 8.0L, Hematocrit 26L, Mean Corpuscular Volume 90, Mean Corpuscular Hemoglobin 28, Mean Corpuscular Hemoglobin Concent 31L, Red Cell Distribution Width 18.9H, Platelet Count 306, Mean Platelet Volume 9.2 A/P: Assessment: Right femur fracture, s/p repair Anemia, stool occult blood is positive, received one unit of packed RBCs, Dr. Bradford consulted - managed by surgical/medical services CAD- history of PCI to RCA. Previously followed with Dr. Grey in [place]. Most recent stress test done September 2016 revealed no ischemia or infarct P.Atrial fibrillation Chronic LBBB Hypertension with recent episode of hypotension - improved following reduction in medications HLP- maintained on statin HTP- PA 50-55mmHg. Ex tobaccoism Plan: * Management somewhat complex due to opposing issues: needs OAC for stroke prophylaxis, but has had significant GI bleed that has resulted in considerable anemia and OAC is being held at the rec of Dr Bradford * Resume OAC when ok with the surg svce * HR not well controlled (102 at rest at time of examination). Coreg reduced recently d/t hypotension, which did resolve following reduction of dose. Will start Cardizem CD for rate control which will not have as much of an effect of BP. * Monitor labs closely ALEJANDRA FU May 25, 2019 10:11
--- NOTE | 2019-05-25 10:14 | NUR ---
"RD ASSESSMENT PMHx: CAD; HTN; HLP; GERD; dementia; s/p R femur fracture PT INTERACTION: Pt was awake and pleasant during follow-up. Pt states she has been eating poorly since last assessment. Note avg PO intake of 28% x4 days, per chart review. Pt states no issues with nausea, vomiting, constipation, or diarrhea since last assessment. Note last BM was 4/6 and pt currently on bowel regimen of Senna BID; and Colace BID, per chart review. ABNORMAL NUTRITION-RELATED LAB VALUES LOW: Pro 5.8; alb 3.1 HIGH: BUN 33; bili 1.1; AST 45 Est. kcal needs: 8516-6956 kcal | 30-35 kcal/kg Est. Pro needs: 47-56 g Pro | 1.0-1.2 g Pro/kg PES STATEMENT: Inadequate oral intake (NI-2.1) related to loss of appetite as evidenced by pt interview | avg PO intake 28% x4d Underweight (NC-3.1) related to inadequate energy intake as evidenced by BMI 18.9 | malnutrition | dementia | estimated intake of food less than estimated needs INTERVENTION: Continue with current diet order of Regular diet. Encouraged pt to eat when able. Add Ensure Enlive to meals TID, for increased kcal intake. Provides 350 kcal and 13 g Pro per serving. Will continue to follow and reassess as pt needs, intake, and status change. MONITOR/EVALUATE: PO Intake; Plan of Care; Hydration Status; Weight Status; Lab Values Viky Garcia, MS, RD, LD"
[2019-05-25] MEDS ORDERED: dilTIAZem120 MG (CARDIZEM CD) CAP PO NR (10:15)
--- NOTE | 2019-05-25 11:21 | Physical Therapy Daily Note ---
PT Daily Note-Current Subjective Patient agrees to PT. Pain Numeric Pain Scale: 5-Moderate Pain Location: Right Location Body Site: Hip Pain Description: Acute Mental Status Patient Orientation: Person, Time, Situation Transfers SCALE: Activities may be completed with or without assistive devices. 0-Omlssivijn-jfchpoc completes the activity by him/herself with no assistance from a helper. 5-Set-up or Clean-up Assistance-helper sets up or cleans up; patient completes activity. [place] assists only prior to or following the activity. 4-Supervision or Touching Assistance-helper provides verbal cues and/or touching/steadying and/or contact guard assistance as patient completes activity. Assistance may be provided throughout the activity or intermittently. 3-Partial/Moderate Assistance-helper does LESS THAN HALF the effort. [place] lifts, holds or supports trunk or limbs, but provides less than half the effort. 2-Substantial/Maximal Assistance-helper does MORE THAN HALF the effort. [place] lifts or holds trunk or limbs and provides more than half the effort. 8-Atyccxeis-eawbgv does ALL the effort. Patient does none of the effort to complete the activity. Or, the assistance of 2 or more helpers is required for the patient to complete the activity. If activity was not attempted, code reason: 7-Patient Refused. 9-Not Applicable-not attempted and the patient did not perform the activity before the current illness, exacerbation or injury. 10-Not Attempted due to Environmental Limitations-(lack of equipment, weather restraints, etc.). 88-Not Attempted due to Medical Conditions or Safety Concerns. Sit to Stand (QC): 4 SBA to CGA for sit to stand transfers Weight Bearing Right Lower Extremity: Right Weight Bearing/Tolerated Left Lower Extremity: Left Full Weight Bearing Gait Training Does the Patient Walk?: Yes Distance: 30' x 4; 50' x 1 Walk 10 feet (QC): 4 Walk 50 ft with 2 Turns(QC): 4 Walk 150 ft (QC): 88 Gait Assistive Device: FWW very slow, antalgic, decreased step length pattern (trunk and bilateral knee flexed posture) Exercises Supine Ex: Ankle pumps, Quad Set, Heel Slides Supine Reps: 10 (in recliner) Seated Therapy Exercises: Ankle pumps, Long arc quads Seated Reps: 15 (4 sets during recovery periods with gait training) Assessment Patient requires time to complete all functional tasks. Patient improving slowly and appears to self limit. PT to increase activity as tolerated by patient. PT Scrap Metal Collector Goals Mcc Goals PT Scrap Metal Collector Goals Time Frame: Jun 09, 2019 Roll Left & Right (QC): 6 Sit to Lying (QC): 6 Lying-Sitting on Side/Bed(QC): 6 Sit to Stand (QC): 6 Chair/Otj-yq-Jkiaz Xfer(QC): 6 Toilet Transfer (QC): 6 Car Transfer (QC): 6 Does the Patient Walk: Yes Walk 10 feet (QC): 6 Walk 50ft with 2 Turns (QC): 6 Walk 150 ft (QC): 6 Walking 10ft on Uneven Surface: 6 1 Step (curb) (QC): 4 4 Steps (QC): 4 12 Steps (QC): 4 Picking up an Object (QC): 4 Wheel 50 feet with 2 turns (QC: 9 Wheel 150 feet: 9 PT Plan Treatment/Plan Treatment Plan: Continue Plan of Care Treatment Plan: Bed Mobility, Concurrent Therapy, Education, Functional Activity Deanne, Functional Strength, Group Therapy, Gait, Safety, Therapeutic Exercise, Transfers Treatment Duration: Jun 09, 2019 Frequency: At least 5 of 7 days/Wk (IRF) Estimated Hrs Per Day: 1.5 hours per day Patient and/or Family Agrees t: Yes Time/GCodes Time In: 1015 Time Out: 1115 Total Billed Treatment Time: 60 Total Billed Treatment 1 visit GT x 3 45 min EX 15 min SUSSY GUY PT May 25, 2019 11:21
--- NOTE | 2019-05-25 11:26 | PM&R Progress Note ---
Subjective HPI/CC On Admission Date Seen by Provider: May 25, 2019 Time Seen by Provider: 10:30 Subjective/Events-last exam Telemetry maintained 4th dose of Venofer given today Sofia BAH evaluated her swallowing to have deficiency so changed to DYS2 Eliquis is restarted due to no bloody stools and hgb stable Frail status and won't eat much Right thigh edema noted so will change NICOLETTE's to thigh high AF at times is 120bpm Conferred with RN Reviewed therapy notes Checked meds and labs Review of Systems General: Fatigue Pulmonary: Dyspnea Objective Exam Vital Signs Vital Signs Date Time Temp Pulse Resp B/P (MAP) Pulse Ox O2 Delivery O2 Flow Rate FiO2 05/25/19 16:49 37.4 91 16 121/71 (88) 91 Room Air 05/24/19 21:00 0.00 Capillary Refill : Less Than 3 SecondsLess Than 3 Seconds General Appearance: No Apparent Distress, Chronically ill, Thin, Other (frail, fatigued) HEENT: PERRL/EOMI, Normal ENT Inspection, Pharynx Normal Neck: Full Range of Motion, Normal Inspection, Non Tender, Supple Respiratory: Chest Non Tender, Lungs Clear, Normal Breath Sounds, No Accessory Muscle Use, No Respiratory Distress Cardiovascular: No Edema, No Gallop, No JVD, No Murmur, Normal Peripheral Pulses, Irregularly Irregular Gastrointestinal: Normal Bowel Sounds, No Organomegaly, No Pulsatile Mass, Non Tender, Soft Back: Normal Inspection, No CVA Tenderness, No Vertebral Tenderness Extremity: Normal Capillary Refill, Normal Inspection, Normal Range of Motion (except right leg due to surgery), Non Tender, No Calf Tenderness, No Pedal [place] ma Neurologic/Psychiatric: Alert, No Motor/Sensory Deficits, Normal Mood/Affect, government clerk II-XII Norm as Tested, Abnormal Gait Skin: Normal Color, Warm/Dry Lymphatic: No Adenopathy Results/Procedures Lab Patient resulted labs reviewed. FIM Transfers Therapy Code Descriptions/Definitions Functional [place] Measure: 0=Not Assessed/NA 4=Minimal Assistance 1=Total Assistance 5=Supervision or Setup 2=Maximal Assistance 6=Modified [place] 3=Moderate Assistance 7=Complete IndependenceSCALE: Activities may be completed with or without assistive devices. 5-Lnelryryfp-vjpppxt completes the activity by him/herself with no assistance from a helper. 5-Set-up or Clean-up Assistance-helper sets up or cleans up; patient completes activity. [place] assists only prior to or following the activity. 4-Supervision or Touching Assistance-helper provides verbal cues and/or touching/steadying and/or contact guard assistance as patient completes activity. Assistance may be provided throughout the activity or intermittently. 3-Partial/Moderate Assistance-helper does LESS THAN HALF the effort. [place] lifts, holds or supports trunk or limbs, but provides less than half the effort. 2-Substantial/Maximal Assistance-helper does MORE THAN HALF the effort. [place] lifts or holds trunk or limbs and provides more than half the effort. 7-Ochrfgfby-ldijzz does ALL the effort. Patient does none of the effort to complete the activity. Or, the assistance of 2 or more helpers is required for the patient to complete the activity. If activity was not attempted, code reason: 7-Patient Refused. 9-Not Applicable-not attempted and the patient did not perform the activity before the current illness, exacerbation or injury. 10-Not Attempted due to Environmental Limitations-(lack of equipment, weather restraints, etc.). 88-Not Attempted due to Medical Conditions or Safety Concerns. Roll Left to Right (QC): 1 Sit to Lying (QC): 3 Sit to Stand (QC): 4 Chair/Ssm-zo-Qgqoa Xfer(QC): 3 Car Transfer (QC): 88 Gait Training Does the Patient Walk?: Yes Distance: 30' x 4; 50' x 1 Walk 10 feet (QC): 4 Walk 50 ft with 2 Turns(QC): 4 Walk 150 ft (QC): 88 Walking 10ft/uneven surface-QC: 88 Gait Persons Needed: 1 Gait Assistive Device: FWW Wheelchair Training Does the Pt Use a Wheelchair?: No Wheel 50 ft with 2 turns (QC): 9 Wheel 150 ft (QC): 9 Stair Training 1 Step (curb) (QC): 88 4 Steps (QC): 88 12 Steps (QC): 88 Balance Picking up an Object (QC): 88 ADL-Treatment Eating (QC): 6 Oral Hygiene (QC): 5 (set up at tray table. Pt able to open denture tablet and place into denture cup along with her dentures. After they soaked she was able to brush them and put them back in her mouth.) Bathing Location: L Arm, R Arm, L Upper Leg, R Upper Leg, L Lower Leg (including foot), R Lower Leg (including foot), Chest, Abdomen, Perineal Area Shower/Bathe Self (QC): 3 (Pt transfers to wi with min A (use of w/c and gb). pt sits on sc throughout shower, notifies OT of bottom hygiene need and stands (mod A bottom hygiene, pt utilzies hands on gb for balance, CGA for dick hygiene). Pt dries in shower.) Upper Body Dressing (QC): 5 (s/u) Lower Body Dressing (QC): 3 (min A. Pt able to thread BLE into brief and pants with SBA and multiple breaks. Pt requires min A to tie puller hips and maintain stance.) On/Off Footwear (QC): 3 (pt requires TD for nicolette hose- notified nursing of continued swelling of RLE (hip) and decreased movement of pt. Pt requires cues for use of sock aide, able to thread onto sock aide and don with min A.) Toileting Hygiene (QC): 3 (min A for thoroughness and min A for stance during hygiene) Toilet Transfer (QC): 3 (min A to sit to stand and maintain balance.) Assessment/Plan Assessment and Plan Assess & Plan/Chief Complaint Assessment: Right femur fracture POD # 9 Acute blood loss anemia s/p 1 unit of blood transfusion 05/17/19 hgb low requiring holding ASA and Eliquis for now and 1 unit given in IRF New onset AF w/mild RVR dx by Dr Wells team appreciate their expertise now rate controlled on Coreg on Tely Chronic angina Anxiety CAD (coronary artery disease) Colon polyps CVD (cerebrovascular disease) Dementia Depression Diverticulitis Diverticulosis Dyspnea on exertion GERD (gastroesophageal reflux disease) Heart disease Hiatal hernia HTN Hyperlipidemia Hyponatremia Osteopenia, Osteoporosis TIA (transient ischemic attack) Urinary retention sporadic Hemoccult + consulted Dr Bradford appreciate his monitoring now restarted OAC Plan: IRF protocol Lovenox DC for DVT PPx since placed on Eliquis for CVA PPx due to new onset AF but now on hold due to profound anemia transfusion ordered but now restarted OAC Eliquis 05/25/19 Checked iron level ordered Venofer after midline placed and confirmed low level will complete 5 doses Pain control Monitor for delirium Home meds Remeron 7.5mg dose at night started (1) Right femoral fracture (2) Fall (3) History of TIAs (4) Dementia (5) Hypertension (6) Anemia due to acute blood loss (7) Iron deficiency (8) Diverticulosis (9) Advanced age (10) History of UTI (11) DVT prophylaxis (12) Anxiety (13) Hyponatremia (14) GERD (gastroesophageal reflux disease) (15) Hiatal hernia (16) Hyperlipidemia (17) Atrial fibrillation with rapid ventricular response MARTIN LEAL DO May 25, 2019 11:26
--- NOTE | 2019-05-25 11:43 | Progress Note - Cardiology ---
Cardiology SOAP Progress Note Subjective: Gen weakness and malaise No cp or palp or syncope No shortness of breath at rest No n/v/d Objective: I&O/Vital Signs 05/25/19 05/25/19 05/25/19 01:00 06:00 06:43 Temp 37.4 Pulse 89 95 92 Resp 24 B/P (MAP) 120/65 (83) Pulse Ox 92 O2 Delivery Room Air 05/25/19 00:00 Intake Total 650 ml Output Total 600 ml Balance 50 ml Constitutional: AAO x 3, other (thin-appearing) Respiratory: No accessory muscle use; other (fair to good bilat air entry, diminished at the bases) Cardiovascular: irregularly irregular, S1 and S2, systolic murmur (soft OFELIA at card base) Gastrointestional: No tender; soft; No guarding, No rebound; audible bowel sounds Extremities: No clubbing, No cyanosis, No significant edema Neurologic/Psychiatric: oriented x 3, other (able to move all limbs equally) Skin: No rash on exposed areas, No ulcerations on exposed areas Results/Procedures: Labs Laboratory Tests 05/24/19 05:05 A/P: Assessment: Right femur fracture, s/p repair Anemia, stool occult blood is positive, received one unit of packed RBCs, Dr. Bradford consulted - managed by Surgical and [facility] S[facility] CAD- history of PCI to RCA. Previously followed with Dr. Grey in [place]. Most recent stress test done September 2016 revealed no ischemia or infarct P.Atrial fibrillation Chronic LBBB Hypertension with recent episode of hypotension - improved following reduction in medications HLP- maintained on statin HTP- PA 50-55mmHg. Ex tobaccoism Plan: * Multiple issues addressed * Management somewhat complex due to opposing issues: needs OAC for stroke prophylaxis, but has had significant GI bleed that has resulted in considerable anemia * OAC now resumed by Dr Zamudio * HR not well controlled (102 at rest at time of examination). Coreg reduced recently d/t hypotension, which did resolve following reduction of dose. Will start Cardizem CD for rate control which will not have as much of an effect of BP. * Monitor labs closely LILLIAN BUNN MD FACP FAC CCDS May 25, 2019 11:43
[2019-05-25] MEDS: APIXABAN 2.5 MG (ELIQUIS) TABLET PO SCH ×2 (11:48→21:18)
--- NOTE | 2019-05-25 13:39 | Physical Therapy Daily Note ---
PT Daily Note-Current Subjective Patient just complete with OT. Agrees to PT. Mental Status Patient Orientation: Person, Time, Situation Transfers SCALE: Activities may be completed with or without assistive devices. 2-Jtlfjnakxi-fgvllbe completes the activity by him/herself with no assistance from a helper. 5-Set-up or Clean-up Assistance-helper sets up or cleans up; patient completes activity. [place] assists only prior to or following the activity. 4-Supervision or Touching Assistance-helper provides verbal cues and/or touch ing/steadying and/or contact guard assistance as patient completes activity. Assistance may be provided throughout the activity or intermittently. 3-Partial/Moderate Assistance-helper does LESS THAN HALF the effort. [place] lifts, holds or supports trunk or limbs, but provides less than half the effort. 2-Substantial/Maximal Assistance-helper does MORE THAN HALF the effort. [place] lifts or holds trunk or limbs and provides more than half the effort. 6-Facuuslim-sgyvvw does ALL the effort. Patient does none of the effort to complete the activity. Or, the assistance of 2 or more helpers is required for the patient to complete the activity. If activity was not attempted, code reason: 7-Patient Refused. 9-Not Applicable-not attempted and the patient did not perform the activity before the current illness, exacerbation or injury. 10-Not Attempted due to Environmental Limitations-(lack of equipment, weather restraints, etc.). 88-Not Attempted due to Medical Conditions or Safety Concerns. Sit to Lying (QC): 3 Sit to Stand (QC): 4 Weight Bearing Right Lower Extremity: Right Weight Bearing/Tolerated Left Lower Extremity: Left Full Weight Bearing Gait Training Does the Patient Walk?: Yes Distance: 150' Walk 10 feet (QC): 4 Walk 50 ft with 2 Turns(QC): 4 Walk 150 ft (QC): 4 Gait Assistive Device: FWW slow, step to gait sequence with flexed trunk and knee posture Assessment Patient returned to bed upon complete of PT. Patient progressing with treatment plan. PT Fixed Capital Clerk Goals Halfway Goals PT Fixed Capital Clerk Goals Time Frame: Jun 09, 2019 Roll Left & Right (QC): 6 Sit to Lying (QC): 6 Lying-Sitting on Side/Bed(QC): 6 Sit to Stand (QC): 6 Chair/Xij-ax-Jdact Xfer(QC): 6 Toilet Transfer (QC): 6 Car Transfer (QC): 6 Does the Patient Walk: Yes Walk 10 feet (QC): 6 Walk 50ft with 2 Turns (QC): 6 Walk 150 ft (QC): 6 Walking 10ft on Uneven Surface: 6 1 Step (curb) (QC): 4 4 Steps (QC): 4 12 Steps (QC): 4 Picking up an Object (QC): 4 Wheel 50 feet with 2 turns (QC: 9 Wheel 150 feet: 9 PT Plan Treatment/Plan Treatment Plan: Continue Plan of Care Treatment Plan: Bed Mobility, Concurrent Therapy, Education, Functional Activity Deanne, Functional Strength, Group Therapy, Gait, Safety, Therapeutic Exercise, Transfers Treatment Duration: Jun 09, 2019 Frequency: At least 5 of 7 days/Wk (IRF) Estimated Hrs Per Day: 1.5 hours per day Patient and/or Family Agrees t: Yes Time/GCodes Time In: 1315 Time Out: 1333 Total Billed Treatment Time: 18 Total Billed Treatment 1 visit GT 18 min SUSSY GUY PT May 25, 2019 13:39
[2019-05-25 16:49] VITALS: BP 121/71
--- NOTE | 2019-05-25 18:00 | NUR ---
SLEPT THIS AFTERNOON. HAS EATEN VERY POORLY TODAY. ONLY TAKING SIPS OF ENSURE.
[2019-05-25] MEDS: OLANZapine 2.5 MG (ZyPREXA) TAB PO SCH (21:17)
[2019-05-25] MEDS: ROSUVASTATIN 20 MG (CRESTOR) TABLET PO SCH (21:17)
[2019-05-25] MEDS: MIRTAZAPINE 15 MG (REMERON) TAB PO SCH (21:18)
--- NOTE | 2019-05-25 22:31 | Progress Note - Surgery ---
Subjective Date Seen by a Provider: May 25, 2019 Time Seen by a Provider: 12:48 Subjective/Events-last exam Patient sitting in chair. She states she's doing fine. Not abdominal pain. Tolerating diet. Denies blood per rectum. Denies n/v fever sweats chills shortness of breath or chest pain. Objective Exam Vital Signs Date Time Temp Pulse Resp B/P (MAP) Pulse Ox O2 Delivery O2 Flow Rate FiO2 05/25/19 19:00 95 05/25/19 16:49 37.4 91 16 121/71 (88) 91 Room Air 05/25/19 12:29 83 05/25/19 09:00 Room Air 05/25/19 08:00 37.2 108 131/69 (89) 05/25/19 06:43 92 05/25/19 06:00 37.4 95 24 120/65 (83) 92 Room Air 05/25/19 01:00 89 I & O 05/25/19 07:00 Intake Total 1050 ml Output Total 600 ml Balance 450 ml Capillary Refill : Less Than 3 SecondsLess Than 3 Seconds General Appearance: No Apparent Distress, Chronically ill, Thin, Other (frail, fatigued) HEENT: PERRL/EOMI, Normal ENT Inspection, Pharynx Normal Neck: Full Range of Motion, Normal Inspection, Non Tender, Supple Respiratory: Chest Non Tender, Lungs Clear, Normal Breath Sounds, No Accessory Muscle Use, No Respiratory Distress Cardiovascular: Irregularly Irregular Gastrointestinal: non tender, soft Extremity: Normal Capillary Refill, Normal Inspection, Normal Range of Motion (except right leg due to surgery), Non Tender, No Calf Tenderness, No Pedal Edema Neurologic/Psychiatric: Alert, No Motor/Sensory Deficits, Normal Mood/Affect, shade bander II-XII Norm as Tested Skin: Normal Color, Warm/Dry Lymphatic: No Adenopathy Assessment/Plan Assessment/Plan Assessment/Plan anemia occult + stool right femur fracture afib cbc in am, hgb has been stable, could try to add anticoagulation if needed, but if drops again would dc protonix to 40 mg daily follow hgb transfusing prn has been stable if continues to drop may need endoscopy inpatient vs outpatient, no surgical intervention at this time will follow. Clinical Quality Measures DVT/VTE Risk/Contraindication: Risk Factor Score Per Nursin RFS Level Per Nursing on Admit: 4+=Very High MIGUE BLANCAS DO May 25, 2019 22:31
[2019-05-26 05:21] LABS: MEAN PLATELET VOLUME 9.2 FL (7.4-10.4); RED CELL DISTRIBUTION WIDTH 18.9 % (10.0-14.5); WHITE BLOOD COUNT 11.7 10^3/uL (4.3-11.0)
[2019-05-26 06:00] VITALS: BP 97/59
[2019-05-26] MEDS: CATHETER FLUSH 10 ML SYR IV SCH ×3 (06:02→20:02)
[2019-05-26] MEDS: MULTIVIT W/MINERALS TAB (THERAGRAN M) PO SCH (06:02)
[2019-05-26] MEDS: FLUTICASONE NASAL SPRAY (FLONASE) 16 GM BTL NS SCH (08:13)
[2019-05-26] MEDS: SENNA W/DOCUSATE (SENOKOT S) TABLET PO SCH ×2 (08:14→20:02)
[2019-05-26] MEDS: SERTRALINE 100 MG (ZOLOFT) TAB PO SCH (08:14)
[2019-05-26] MEDS: CALCIUM CARB + VIT D 600 MG (CALCARB + D) TAB PO SCH (08:14)
[2019-05-26] MEDS: dilTIAZem120 MG (CARDIZEM CD) CAP PO SCH (08:15)
[2019-05-26] MEDS: PANTOPRAZOLE 40 MG (PROTONIX) TAB PO SCH (08:16)
[2019-05-26] MEDS: APIXABAN 2.5 MG (ELIQUIS) TABLET PO SCH (08:16)
[2019-05-26] MEDS: LOSARTAN 25 MG (COZAAR) TAB PO SCH (08:16)
[2019-05-26] MEDS: polyethylene glycoL POWDER 17 GM (MIRALAX) PACK PO SCH ×2 (08:17→20:02)
[2019-05-26] MEDS: CARVEDILOL 6.25 MG (COREG) TAB PO SCH (08:18)
[2019-05-26] MEDS: LORATADINE (CLARITIN) 10 MG TAB PO SCH (08:18)
--- NOTE | 2019-05-26 08:41 | Physical Therapy Daily Note ---
PT Daily Note-Current Subjective Pt. denies pain, agrees to therapy but states "you're making me do things my body doesn't want to do." Mental Status Patient Orientation: Person Transfers SCALE: Activities may be completed with or without assistive devices. 4-Tehnnpqhpz-yywtjki completes the activity by him/herself with no assistance from a helper. 5-Set-up or Clean-up Assistance-helper sets up or cleans up; patient completes activity. [place] assists only prior to or following the activity. 4-Supervision or Touching Assistance-helper provides verbal cues and/or touching/steadying and/or contact guard assistance as patient completes activity. Assistance may be provided throughout the activity or intermittently. 3-Partial/Moderate Assistance-helper does LESS THAN HALF the effort. [place] lifts, holds or supports trunk or limbs, but provides less than half the effort. 2-Substantial/Maximal Assistance-helper does MORE THAN HALF the effort. [place] lifts or holds trunk or limbs and provides more than half the effort. 9-Zhynovira-ukiwfb does ALL the effort. Patient does none of the effort to complete the activity. Or, the assistance of 2 or more helpers is required for the patient to complete the activity. If activity was not attempted, code reason: 7-Patient Refused. 9-Not Applicable-not attempted and the patient did not perform the activity before the current illness, exacerbation or injury. 10-Not Attempted due to Environmental Limitations-(lack of equipment, weather restraints, etc.). 88-Not Attempted due to Medical Conditions or Safety Concerns. Lying to Sitting/Side of Bed(Q: 4 Sit to Stand (QC): 4 Toilet Transfer (QC): 3 Weight Bearing Right Lower Extremity: Right Weight Bearing/Tolerated Left Lower Extremity: Left Full Weight Bearing Gait Training Does the Patient Walk?: Yes Distance: x12 ft, x 10 ft Walk 10 feet (QC): 4 Gait Persons Needed: 1 Gait Assistive Device: FWW very slow gait speed, occasional assist needed to move walker and constant cuing for gait sequence Exercises Seated Therapy Exercises: Ankle pumps, Long arc quads, Hip flexion, Hip abd/add Seated Reps: 20 Treatments LE exercises, gait, toileting Assessment Current Status: Fair Progress Pt. continues to have significant difficulty moving the R LE during transfers and is very slow, kyphotic with gait. Pt. needs encouragement to continue activities with therapist. Pt. up in bedside chair post session with call light and all needs met. PT Internal Controls Analyst Goals Detention Goals PT Detention Goals Time Frame: Jun 09, 2019 Roll Left & Right (QC): 6 Sit to Lying (QC): 6 Lying-Sitting on Side/Bed(QC): 6 Sit to Stand (QC): 6 Chair/Ktz-vh-Jewta Xfer(QC): 6 Toilet Transfer (QC): 6 Car Transfer (QC): 6 Does the Patient Walk: Yes Walk 10 feet (QC): 6 Walk 50ft with 2 Turns (QC): 6 Walk 150 ft (QC): 6 Walking 10ft on Uneven Surface: 6 1 Step (curb) (QC): 4 4 Steps (QC): 4 12 Steps (QC): 4 Picking up an Object (QC): 4 Wheel 50 feet with 2 turns (QC: 9 Wheel 150 feet: 9 PT Plan Treatment/Plan Treatment Plan: Continue Plan of Care Treatment Plan: Bed Mobility, Concurrent Therapy, Education, Functional Activity Deanne, Functional Strength, Group Therapy, Gait, Safety, Therapeutic Exercise, Transfers Treatment Duration: Jun 09, 2019 Frequency: At least 5 of 7 days/Wk (IRF) Estimated Hrs Per Day: 1.5 hours per day Patient and/or Family Agrees t: Yes Time/GCodes Time In: 820 Time Out: 900 Total Billed Treatment Time: 40 Total Billed Treatment 1, Ex 15', GT 10', FA 15' KEREN BRANNON PT May 26, 2019 08:41
[2019-05-26 09:16] VITALS: BP 112/65
--- NOTE | 2019-05-26 09:24 | Progress Note - Cardiology ---
Cardiology SOAP Progress Note Subjective: Sitting up in her recliner at the bedside. States she feels tired this morning. No c/o CP, palpitations, syncope, near syncope or dyspnea. Objective: I&O/Vital Signs 05/31/19 05/31/19 05:32 08:15 Temp 37.4 Pulse 70 Resp 16 B/P (MAP) 115/60 (78) Pulse Ox 95 O2 Delivery Room Air Room Air 05/31/19 00:00 Intake Total 900 ml Output Total 300 ml Balance 600 ml Constitutional: AAO x 3, other (thin-appearing) Respiratory: No accessory muscle use; other (fair to good bilat air entry, diminished at the bases) Cardiovascular: irregularly irregular, S1 and S2, systolic murmur (soft OFELIA at card base) Gastrointestional: No tender; soft; No guarding, No rebound; audible bowel sounds Extremities: No clubbing, No cyanosis, No significant edema Neurologic/Psychiatric: oriented x 3, other (able to move all limbs equally) Skin: No rash on exposed areas, No ulcerations on exposed areas Results/Procedures: Labs Laboratory Tests 05/31/19 05:40: White Blood Count 6.8, Red Blood Count 3.13L, Hemoglobin 8.9L, Hematocrit 28L, Mean Corpuscular Volume 90, Mean Corpuscular Hemoglobin 28, Mean Corpuscular Hemoglobin Concent 31L, Red Cell Distribution Width 18.5H, Platelet Count 373, Mean Platelet Volume 9.8, Neutrophils (%) (Auto) 74, Lymphocytes (%) (Auto) 16, Monocytes (%) (Auto) 6, Eosinophils (%) (Auto) 3, Basophils (%) (Auto) 1, Neutrophils # (Auto) 5.1, Lymphocytes # (Auto) 1.1, Monocytes # (Auto) 0.4, Eosinophils # (Auto) 0.2, Basophils # (Auto) 0.1, Sodium Level 138, Potassium Level 3.9, Chloride Level 103, Carbon Dioxide Level 23, Anion Gap 12, Blood Urea Nitrogen 13, Creatinine 0.64, Estimat Glomerular Filtration Rate > 60, BUN/Creatinine Ratio 20, Glucose Level 51*L, Calcium Level 8.2L, Corrected Calcium 9.2, Total Bilirubin 0.6, Aspartate Amino Transf (AST/SGOT) 39H, Alanine Aminotransferase (ALT/SGPT) 32, Alkaline Phosphatase 136, Total Protein 5.5L, Albumin 2.7L 05/31/19 08:01: Glucometer 72 A/P: Assessment: Right femur fracture, s/p repair Anemia, stool occult blood is positive, received one unit of packed RBCs, Dr. Bradford consulted - managed by Surgical and [facility] Svces CAD- history of PCI to RCA. Previously followed with Dr. Grey in [place]. Most recent stress test done September 2016 revealed no ischemia or infarct P.Atrial fibrillation Chronic LBBB Hypertension with recent episode of hypotension - improved following reduction in medications HLP- maintained on statin HTP- PA 50-55mmHg. Ex tobaccoism Plan: * Multiple issues addressed * Management somewhat complex due to opposing issues: needs OAC for stroke prophylaxis, but has had significant GI bleed that has resulted in considerable anemia * OAC remains on hold * Worsening H/H - management per medical/surgical services * HR improved with the addition of long-acting diltiazem * Monitor labs closely ALEJANDRA FU May 26, 2019 09:24
--- NOTE | 2019-05-26 10:41 | Occupational Ther Daily Note ---
OT Current Status-Daily Note Subjective Pt sitting in chair, reports fatigue, but agrees to therapy. Pt reports pain in right hip, but does not rate. ADL-Treatment Pt declined shower, but agrees to sponge bath. Pt doffed shirt with SBA and increased time. Pt bathed upper body with SBA. Sit to stand with min assist. Pt requires assist to pull pants down over hips, but able to use adaptive equipment to doff over feet. Pt able to wash bilateral upper legs and dick area. Assist for lower legs/feet and buttocks. Don t-shirt with set up. Pt donned sweatshirt with min assist to pull down in back. Pt uses plastic extruding machine operator for LE dressing. Requires assist to thread right LE into pants, but able to thread left LE. Sit to stand with min assist. Pt requires assist to pull pants up over hips secondary to fatigue. Doffs socks with dressing stick with SBA. Min assist to don socks using sock aid. Pt combed hair with set up. Pt moves very slowly and requires much increased time for bathing and dressing tasks. Pt takes multiple rest breaks throughout session. Pt sitting in recliner with needs met after session. Therapy Code Descriptions/Definitions Functional [place] Measure: 0=Not Assessed/NA 4=Minimal Assistance 1=Total Assistance 5=Supervision or Setup 2=Maximal Assistance 6=Modified [place] 3=Moderate Assistance 7=Complete IndependenceSCALE: Activities may be completed with or without assistive devices. 7-Lhyiaexqsy-tajcekh completes the activity by him/herself with no assistance from a helper. 5-Set-up or Clean-up Assistance-helper sets up or cleans up; patient completes activity. [place] assists only prior to or following the activity. 4-Supervision or Touching Assistance-helper provides verbal cues and/or touching/steadying and/or contact guard assistance as patient completes activity. Assistance may be provided throughout the activity or intermittently. 3-Partial/Moderate Assistance-helper does LESS THAN HALF the effort. [place] lifts, holds or supports trunk or limbs, but provides less than half the effort. 2-Substantial/Maximal Assistance-helper does MORE THAN HALF the effort. [place] lifts or holds trunk or limbs and provides more than half the effort. 2-Qjubwhktx-wirrqp does ALL the effort. Patient does none of the effort to complete the activity. Or, the assistance of 2 or more helpers is required for the patient to complete the activity. If activity was not attempted, code reason: 7-Patient Refused. 9-Not Applicable-not attempted and the patient did not perform the activity b efore the current illness, exacerbation or injury. 10-Not Attempted due to Environmental Limitations-(lack of equipment, weather restraints, etc.). 88-Not Attempted due to Medical Conditions or Safety Concerns. Shower/Bathe Self (QC): 3 Upper Body Dressing (QC): 3 Lower Body Dressing (QC): 2 On/Off Footwear: 3 Education OT Patient Education: Modified ADL techniques Teaching Recipient: Patient Teaching Methods: Demonstration, Discussion Response to Teaching: Return Demonstration, Reinforcement Needed OT Short Term Goals Short Term Goals Toileting hygiene: 4 Shower/bathe self: 4 OT Mcc Goals Tank Furnace Operator Goals Time Frame: Jun 02, 2019 Eating (QC): 6 (met) Oral Hygiene (QC): 6 (m et) Toileting Hygiene (QC): 6 Shower/Bathe Self (QC): 6 Upper Body Dressing (QC): 6 Lower Body Dressing (QC): 6 On/Off Footwear (QC): 6 Additional Goals: 1-Demonstrate ADL Tasks, 2-Verbalize Understanding, 3- ImproveStrength/Deanne 1=Demonstrate adherence to instructed precautions during ADL tasks. 2=Patient will verbalize/demonstrate understanding of assistive devices /modifications for ADL. 3=Patient will improve strength/tolerance for activity to enable patient to perform ADL's. OT Education/Plan Discharge Recommendations Plan/Recommendations: Continue POC Treatment Plan/Plan of Care Patient would benefit from OT for education, treatment and training to promote independence in ADL's, mobility, safety and/or upper extremity function for ADL's. Plan of Care: ADL Retraining, Caregiver Training, Functional Mobility, Group Exercise/Act as Ind, UE Funct Exercise/Act Treatment Duration: Jun 02, 2019 Frequency: At least 5 of 7 days/Wk (IRF) Estimated Hrs Per Day: 1.5 hours per day Agreement: Yes Rehab Potential: Fair Time/GCodes Start Time: 09:00 Stop Time: 10:15 Total Time Billed (hr/min): 75 Billed Treatment Time 1 visit, ADLx5(75minutes) CAITIE WHITE OT May 26, 2019 10:41
--- NOTE | 2019-05-26 11:49 | Physical Therapy Daily Note ---
PT Daily Note-Current Subjective Pt. in bedside chair, agrees to therapy but states "I really don't want to do this." Pt. has no c/o pain but "I'm just not as good as I was yesterday." Transfers SCALE: Activities may be completed with or without assistive devices. 1-Ixnbtmjbvr-xgfnfie completes the activity by him/herself with no assistance from a helper. 5-Set-up or Clean-up Assistance-helper sets up or cleans up; patient completes activity. [place] assists only prior to or following the activity. 4-Supervision or Touching Assistance-helper provides verbal cues and/or touching/steadying and/or contact guard assistance as patient completes activity. Assistance may be provided throughout the activity or intermittently. 3-Partial/Moderate Assistance-helper does LESS THAN HALF the effort. [place] lifts, holds or supports trunk or limbs, but provides less than half the effort. 2-Substantial/Maximal Assistance-helper does MORE THAN HALF the effort. [place] lifts or holds trunk or limbs and provides more than half the effort. 3-Wugoacbdn-dabdgv does ALL the effort. Patient does none of the effort to complete the activity. Or, the assistance of 2 or more helpers is required for the patient to complete the activity. If activity was not attempted, code reason: 7-Patient Refused. 9-Not Applicable-not attempted and the patient did not perform the activity before the current illness, exacerbation or injury. 10-Not Attempted due to Environmental Limitations-(lack of equipment, weather restraints, etc.). 88-Not Attempted due to Medical Conditions or Safety Concerns. Sit to Stand (QC): 4 Weight Bearing Right Lower Extremity: Right Weight Bearing/Tolerated Left Lower Extremity: Left Full Weight Bearing Gait Training Does the Patient Walk?: Yes Distance: 2 x 20 ft Walk 10 feet (QC): 4 Gait Persons Needed: 1 Gait Assistive Device: FWW very slow gait, leans on walker and needs several cues for step sequence and to increase distance Treatments gait Assessment Current Status: Fair Progress Pt. continues to require constant encouragement for activity. She attempts to stop after 10 ft of ambulation but is able to continue with encouragement. Pt. required seated rest after 20 ft and did better with return to bedside chair. Pt. up in chair with call light and all needs met. PT Water Commissioner Goals Senior Care Goals PT Water Commissioner Goals Time Frame: Jun 09, 2019 Roll Left & Right (QC): 6 Sit to Lying (QC): 6 Lying-Sitting on Side/Bed(QC): 6 Sit to Stand (QC): 6 Chair/Qqv-we-Rtwmx Xfer(QC): 6 Toilet Transfer (QC): 6 Car Transfer (QC): 6 Does the Patient Walk: Yes Walk 10 feet (QC): 6 Walk 50ft with 2 Turns (QC): 6 Walk 150 ft (QC): 6 Walking 10ft on Uneven Surface: 6 1 Step (curb) (QC): 4 4 Steps (QC): 4 12 Steps (QC): 4 Picking up an Object (QC): 4 Wheel 50 feet with 2 turns (QC: 9 Wheel 150 feet: 9 PT Plan Treatment/Plan Treatment Plan: Continue Plan of Care Treatment Plan: Bed Mobility, Concurrent Therapy, Education, Functional Activity Deanne, Functional Strength, Group Therapy, Gait, Safety, Therapeutic Exercise, Transfers Treatment Duration: Jun 09, 2019 Frequency: At least 5 of 7 days/Wk (IRF) Estimated Hrs Per Day: 1.5 hours per day Patient and/or Family Agrees t: Yes Time/GCodes Time In: 1120 Time Out: 1140 Total Billed Treatment Time: 20 Total Billed Treatment 1, GT 20' KEREN BRANNON PT May 26, 2019 11:49
--- NOTE | 2019-05-26 12:27 | PM&R Progress Note ---
Subjective HPI/CC On Admission Date Seen by Provider: May 26, 2019 Time Seen by Provider: 11:00 Subjective/Events-last exam Telemetry maintained 4th dose of Venofer given then midline infiltrated so will DC that and Venofer Sofia BAH evaluated her swallowing to have deficiency so changed to DYS2 but still having difficulty Eliquis is restarted due to no bloody stools and hgb stable Frail status and won't eat much which is causing a slow recovery and high risk for decompensation so she will need to go to [facility] 05/25/19 AF at times is 120bpm Conferred with RN Reviewed therapy notes Checked meds and labs Review of Systems General: Fatigue Musculoskeletal: leg pain Objective Exam Vital Signs Vital Signs Date Time Temp Pulse Resp B/P (MAP) Pulse Ox O2 Delivery O2 Flow Rate FiO2 05/26/19 17:46 37.4 89 16 102/64 (77) 92 Room Air 05/24/19 21:00 0.00 Capillary Refill : Less Than 3 SecondsLess Than 3 Seconds General Appearance: No Apparent Distress, Chronically ill, Thin, Other (frail, fatigued) HEENT: PERRL/EOMI, Normal ENT Inspection, Pharynx Normal Neck: Full Range of Motion, Normal Inspection, Non Tender, Supple Respiratory: Chest Non Tender, Lungs Clear, Normal Breath Sounds, No Accessory Muscle Use, No Respiratory Distress Cardiovascular: Irregularly Irregular Gastrointestinal: Normal Bowel Sounds, No Organomegaly, No Pulsatile Mass, Non Tender, Soft Back: Normal Inspection, No CVA Tenderness, No Vertebral Tenderness Extremity: Normal Capillary Refill, Normal Inspection, Normal Range of Motion (except right leg due to surgery), Non Tender, No Calf Tenderness, No Pedal Edema Neurologic/Psychiatric: Alert, No Motor/Sensory Deficits, Normal Mood/Affect, weekend anchor II-XII Norm as Tested Skin: Normal Color, Warm/Dry Lymphatic: No Adenopathy Results/Procedures Lab Laboratory Tests 05/26/19 04:55 Patient resulted labs reviewed. FIM Transfers Therapy Code Descriptions/Definitions Functional [place] Measure: 0=Not Assessed/NA 4=Minimal Assistance 1=Total Assistance 5=Supervision or Setup 2=Maximal Assistance 6=Modified [place] 3=Moderate Assistance 7=Complete IndependenceSCALE: Activities may be completed with or without assistive devices. 5-Wlnmrvnbyo-tawfvic completes the activity by him/herself with no assistance from a helper. 5-Set-up or Clean-up Assistance-helper sets up or cleans up; patient completes activity. [place] assists only prior to or following the activity. 4-Supervision or Touching Assistance-helper provides verbal cues and/or joyce tonny/steadying and/or contact guard assistance as patient completes activity. Assistance may be provided throughout the activity or intermittently. 3-Partial/Moderate Assistance-helper does LESS THAN HALF the effort. [place] lifts, holds or supports trunk or limbs, but provides less than half the effort. 2-Substantial/Maximal Assistance-helper does MORE THAN HALF the effort. [place] lifts or holds trunk or limbs and provides more than half the effort. 5-Wfcyhmddt-chfcuu does ALL the effort. Patient does none of the effort to complete the activity. Or, the assistance of 2 or more helpers is required for the patient to complete the activity. If activity was not attempted, code reason: 7-Patient Refused. 9-Not Applicable-not attempted and the patient did not perform the activity b efore the current illness, exacerbation or injury. 10-Not Attempted due to Environmental Limitations-(lack of equipment, weather restraints, etc.). 88-Not Attempted due to Medical Conditions or Safety Concerns. Roll Left to Right (QC): 1 Sit to Lying (QC): 3 Sit to Stand (QC): 4 Chair/Tjl-xl-Vhsnw Xfer(QC): 3 Car Transfer (QC): 88 Gait Training Does the Patient Walk?: Yes Distance: 2 x 20 ft Walk 10 feet (QC): 4 Walk 50 ft with 2 Turns(QC): 4 Walk 150 ft (QC): 4 Walking 10ft/uneven surface-QC: 88 Gait Persons Needed: 1 Gait Assistive Device: FWW Wheelchair Training Does the Pt Use a Wheelchair?: No Wheel 50 ft with 2 turns (QC): 9 Wheel 150 ft (QC): 9 Stair Training 1 Step (curb) (QC): 88 4 Steps (QC): 88 12 Steps (QC): 88 Balance Picking up an Object (QC): 88 ADL-Treatment Eating (QC): 6 Oral Hygiene (QC): 5 (set up at tray table. Pt able to open denture tablet and place into denture cup along with her dentures. After they soaked she was able to brush them and put them back in her mouth.) Bathing Location: L Arm, R Arm, L Upper Leg, R Upper Leg, L Lower Leg (including foot), R Lower Leg (including foot), Chest, Abdomen, Perineal Area Shower/Bathe Self (QC): 3 Upper Body Dressing (QC): 3 Lower Body Dressing (QC): 2 On/Off Footwear (QC): 3 Toileting Hygiene (QC): 3 (min A for thoroughness and min A for stance during hygiene) Toilet Transfer (QC): 3 (min A to sit to stand and maintain balance.) Assessment/Plan Assessment and Plan Assess & Plan/Chief Complaint Assessment: Right femur fracture POD # 10 Acute blood loss anemia s/p 1 unit of blood transfusion 05/17/19 hgb low requiring holding ASA and Eliquis for now and 1 unit given in IRF New onset AF w/mild RVR dx by Dr Wells team appreciate their expertise now rate controlled on Coreg on Tely Chronic angina Anxiety CAD (coronary artery disease) Colon polyps CVD (cerebrovascular disease) Dementia Depression Diverticulitis Diverticulosis Dyspnea on exertion GERD (gastroesophageal reflux disease) Heart disease Hiatal hernia HTN Hyperlipidemia Hyponatremia Osteopenia, Osteoporosis TIA (transient ischemic attack) Urinary retention sporadic Hemoccult + consulted Dr Bradford appreciate his monitoring now restarted OAC Dysphagia Plan: IRF protocol Lovenox DC for DVT PPx since placed on Eliquis for CVA PPx due to new onset AF but now on hold due to profound anemia transfusion ordered but now restarted OAC Eliquis 05/25/19 Checked iron level ordered Venofer after midline placed and confirmed low level completed 4 doses before midline infiltrated Pain control Monitor for delirium Home meds Remeron 7.5mg dose at night started (1) Right femoral fracture (2) Fall (3) History of TIAs (4) Dementia (5) Hypertension (6) Anemia due to acute blood loss (7) Iron deficiency (8) Diverticulosis (9) Advanced age (10) History of UTI (11) DVT prophylaxis (12) Anxiety (13) Hyponatremia (14) GERD (gastroesophageal reflux disease) (15) Hiatal hernia (16) Hyperlipidemia (17) Atrial fibrillation with rapid ventricular response MARTIN LEAL DO May 26, 2019 12:27
--- NOTE | 2019-05-26 12:52 | Progress Note - Cardiology ---
Cardiology SOAP Progress Note Subjective: No cp or palp or syncope or shortness of breath at rest Gen weakness, more today than yesterday No focal weakness No n/v/d Objective: I&O/Vital Signs 05/26/19 05/26/19 05/26/19 05/26/19 01:00 06:00 06:44 09:16 Temp 37.0 37.6 Pulse 89 87 87 86 Resp 22 16 B/P (MAP) 97/59 (72) 112/65 (81) Pulse Ox 94 91 O2 Delivery Room Air Room Air 05/26/19 12:34 Pulse 85 05/26/19 00:00 Intake Total 600 ml Balance 600 ml Constitutional: AAO x 3, other (thin-appearing) Respiratory: No accessory muscle use; other (fair to good bilat air entry, diminished at the bases) Cardiovascular: irregularly irregular, S1 and S2, systolic murmur (soft OFELIA at card base) Gastrointestional: No tender; soft; No guarding, No rebound; audible bowel sounds Extremities: No clubbing, No cyanosis, No significant edema Neurologic/Psychiatric: oriented x 3, other (able to move all limbs equally) Skin: No rash on exposed areas, No ulcerations on exposed areas Results/Procedures: Labs Laboratory Tests 05/26/19 04:55: White Blood Count 11.7H, Red Blood Count 2.86L, Hemoglobin 8.0L, Hematocrit 26L, Mean Corpuscular Volume 90, Mean Corpuscular Hemoglobin 28, Mean Corpuscular Hemoglobin Concent 31L, Red Cell Distribution Width 18.9H, Platelet Count 306, Mean Platelet Volume 9.2 Laboratory Tests 05/26/19 04:55 A/P: Assessment: Worsening weakness, likely due to worsening anemia (after apixaban was resumed on 05/25/19) Anemia, stool occult blood was positive, received one unit of packed RBCs, Dr. Bradford consulted - [facility]- history of PCI to RCA. Previously followed with Dr. Grey in [place]. Most recent stress test done September 2016 revealed no ischemia or infarct P.Atrial fibrillation Chronic LBBB Hypertension with recent episode of hypotension - improved following reduction in medications HLP- maintained on statin HTP- PA 50-55mmHg. Ex tobaccoism Plan: * Multiple issues addressed * Stop apixaban again because anemia is worsening. Consider w/u for GI blood loss so that source can be identified SHELDON and treated. Apixaban should then be resumed * Lower carvedilol due to borderline hypotension * HR improved with the addition of long-acting diltiazem, continue * Monitor labs closely LILLIAN BUNN MD FACP [facility] May 26, 2019 12:52
--- NOTE | 2019-05-26 13:16 | Progress Note - Surgery ---
Subjective Date Seen by a Provider: May 26, 2019 Time Seen by a Provider: 10:41 Subjective/Events-last exam Doing well, but feels fatigued. No abdominal pain and tolerating diet. Hgb 8 Patient no new issues or concerns. Objective Exam Vital Signs Date Time Temp Pulse Resp B/P (MAP) Pulse Ox O2 Delivery O2 Flow Rate FiO2 05/26/19 12:34 85 05/26/19 09:16 37.6 86 16 112/65 (81) 91 Room Air 05/26/19 06:44 87 05/26/19 06:00 37.0 87 22 97/59 (72) 94 Room Air 05/26/19 01:00 89 05/25/19 19:30 Room Air 05/25/19 19:00 95 05/25/19 16:49 37.4 91 16 121/71 (88) 91 Room Air I & O 05/26/19 07:00 Intake Total 980 ml Balance 980 ml Capillary Refill : Less Than 3 SecondsLess Than 3 Seconds General Appearance: No Apparent Distress, Chronically ill, Thin, Other (frail, fatigued) HEENT: PERRL/EOMI, Normal ENT Inspection, Pharynx Normal Neck: Full Range of Motion, Normal Inspection, Non Tender, Supple Respiratory: Chest Non Tender, No Accessory Muscle Use, No Respiratory Distress Cardiovascular: Irregularly Irregular Gastrointestinal: non tender, soft Extremity: Normal Capillary Refill, Normal Inspection, Normal Range of Motion (except right leg due to surgery), Non Tender, No Calf Tenderness, No Pedal Edema Neurologic/Psychiatric: Alert, No Motor/Sensory Deficits, Normal Mood/Affect, insurance examiner II-XII Norm as Tested Skin: Normal Color, Warm/Dry Lymphatic: No Adenopathy Results Lab Laboratory Tests 05/26/19 04:55: White Blood Count 11.7H, Red Blood Count 2.86L, Hemoglobin 8.0L, Hematocrit 26L, Mean Corpuscular Volume 90, Mean Corpuscular Hemoglobin 28, Mean Corpuscular Hemoglobin Concent 31L, Red Cell Distribution Width 18.9H, Platelet Count 306, Mean Platelet Volume 9.2 Assessment/Plan Assessment/Plan Assessment/Plan anemia occult + stool right femur fracture afib cbc in am, hgb has been stable, anticoagulation , but if drops again would dc protonix to 40 mg daily follow hgb transfusing prn has been stable if continues to drop may need endoscopy inpatient vs outpatient, no surgical intervention at this time Discussed with Dr. Zamudio, feels to frail to do endoscopy, so try and wait. Will sign off at this time, call if needed. Clinical Quality Measures DVT/VTE Risk/Contraindication: Risk Factor Score Per Nursin RFS Level Per Nursing on Admit: 4+=Very High MIGUE BLANCAS DO May 26, 2019 13:16
--- NOTE | 2019-05-26 13:30 | Physical Therapy Daily Note ---
PT Daily Note-Current Subjective Pt. in bedside chair, says "I guess...but I want to stay warm" re: therapy. Mental Status Patient Orientation: Person Transfers SCALE: Activities may be completed with or without assistive devices. 3-Mqzsmuroju-jadpobt completes the activity by him/herself with no assistance from a helper. 5-Set-up or Clean-up Assistance-helper sets up or cleans up; patient completes activity. [place] assists only prior to or following the activity. 4-Supervision or Touching Assistance-helper provides verbal cues and/or touching/steadying and/or contact guard assistance as patient completes activity. Assistance may be provided throughout the activity or intermittently. 3-Partial/Moderate Assistance-helper does LESS THAN HALF the effort. [place] lifts, holds or supports trunk or limbs, but provides less than half the effort. 2-Substantial/Maximal Assistance-helper does MORE THAN HALF the effort. [place] lifts or holds trunk or limbs and provides more than half the effort. 8-Zixrnqbqf-dtadpa does ALL the effort. Patient does none of the effort to complete the activity. Or, the assistance of 2 or more helpers is required for the patient to complete the activity. If activity was not attempted, code reason: 7-Patient Refused. 9-Not Applicable-not attempted and the patient did not perform the activity before the current illness, exacerbation or injury. 10-Not Attempted due to Environmental Limitations-(lack of equipment, weather restraints, etc.). 88-Not Attempted due to Medical Conditions or Safety Concerns. Sit to Lying (QC): 3 Sit to Stand (QC): 4 cues to straighten in bed Weight Bearing Right Lower Extremity: Right Weight Bearing/Tolerated Left Lower Extremity: Left Full Weight Bearing Gait Training Does the Patient Walk?: Yes Distance: 10 ft Walk 10 feet (QC): 4 Gait Persons Needed: 1 Gait Assistive Device: FWW very slow gait speed, frequent cues for sequence Exercises Supine Ex: Ankle pumps, Short Arc Quads Supine Reps: 20 Treatments gait, transfers, LE exercise Assessment Current Status: Fair Progress Pt. remains very slow with gait and mod A with sit to supine. She has significant difficulty/unwillingness to move L LE. Pt. is progressing very slowly with therapy, often self-limits activity. Pt. in bed post session with SCDs in place, call light and all needs met. PT Lacquer Machine Feeder Goals Senior Living Goals PT Senior Living Goals Time Frame: Jun 09, 2019 Roll Left & Right (QC): 6 Sit to Lying (QC): 6 Lying-Sitting on Side/Bed(QC): 6 Sit to Stand (QC): 6 Chair/Mkn-oj-Qzcnk Xfer(QC): 6 Toilet Transfer (QC): 6 Car Transfer (QC): 6 Does the Patient Walk: Yes Walk 10 feet (QC): 6 Walk 50ft with 2 Turns (QC): 6 Walk 150 ft (QC): 6 Walking 10ft on Uneven Surface: 6 1 Step (curb) (QC): 4 4 Steps (QC): 4 12 Steps (QC): 4 Picking up an Object (QC): 4 Wheel 50 feet with 2 turns (QC: 9 Wheel 150 feet: 9 PT Plan Treatment/Plan Treatment Plan: Continue Plan of Care Treatment Plan: Bed Mobility, Concurrent Therapy, Education, Functional Activity Deanne, Functional Strength, Group Therapy, Gait, Safety, Therapeutic Exercise, Transfers Treatment Duration: Jun 09, 2019 Frequency: At least 5 of 7 days/Wk (IRF) Estimated Hrs Per Day: 1.5 hours per day Patient and/or Family Agrees t: Yes Time/GCodes Time In: 1320 Time Out: 1337 Total Billed Treatment Time: 17 Total Billed Treatment 1, FA 17' KEREN BRANNON PT May 26, 2019 13:30
--- NOTE | 2019-05-26 15:04 | Speech Therapy Daily Note ---
Speech Daily Progress Note Subjective Date Seen by Provider: May 26, 2019 Time Seen by Provider: 00:30 Patient was resting in her bed when I entered her room. She was able to sit up and have a snack. Objective Patient utilized compensatory strategies for safe intake of food/drink at 80% with moderate cues. Assessment Assessment Current Status: Good Progress Treatment Plan Continue Plan of Care Speech Short Term Goals Short Term Goals Short Term Goals 1) The patient will complete memory tasks related to her daily needs at 90% or greater with minimal cues. 2) The patient will complete safety awareness tasks related to her daily needs at 90% or greater with minimal cues. 3) The patient will complete problem solving tasks related to her daily needs at 90% or greater with minimal cues. 4) The patient will tolerate least restrictive diet without s/s of aspiration at 80% or greater with minimal cues. 4) The patient/caregiver will utilize compensatory strategies as trained for safe oral intake with 90% or greater with minimal cues. Speech Assisted Goals Auto Wheel Alignment Specialist Goals The patient will improve cognitive-communication necessary for safety and daily living tasks with minimal assist. The patient will maintain adequate nutrition/hydration via safe effective swallow function. Speech-Plan Patient/Family Goals Patient/Family Goals: Patient plans on returning home where she lives with her , however her discharge plan will be determined at a later time. Treatment Plan Speech Therapy Treatment Plan: Continue Plan of Care Treatment Duration: May 28, 2019 Frequency: 5 times per week Estimated Hrs Per Day: .5 hour per day Rehab Potential: Fair Barriers to Learning: Patient is confused, has dementia Pt/Family Agrees to Plan: Yes Safety Risks/Education Teaching Recipient: Patient Teaching Methods: Demonstration, Discussion Response to Teaching: Verbalize Understanding, Return Demonstration Education Topics Provided: Continued need for intake and safety of intake. Time Speech Therapy Time In: 14:30 Speech Therapy Time Out: 15:00 Total Billed Time: 30 Billed Treatment Time [address] May 26, 2019 15:04
--- NOTE | 2019-05-26 15:50 | NUR ---
NOTED UPON ASSESSMENT OF MIDLINE IN LEFT UPPER ARM PATIENT EXPERIENCING ERYTHEMA, WARMTH, EDEMA & PAIN. RESPIRATORY SUPPORT TECHNICIAN NOTIFIED, PICC RN NOTIFIED, HOWEVER WAS NOT AVAILABLE. DR. LEAL NOTIFIED, ORDERS RECEIVED TO D/C MIDLINE & IV VENOFER. MIDLINE PULLED, PT TOLERATED WELL, CATHETER INTACT, WARM COMPRESS APPLIED. WILL CONTINUE TO MONITOR.
[2019-05-26 17:46] VITALS: BP 102/64
--- NOTE | 2019-05-26 19:27 | NUR ---
NURSING PROFESSIONAL FIGHTER NOTIFIED AND ASSESSED SITE WHERE MIDLINE PREVIOUSLY WAS (LEFT UPPER ARM). AREA OF EDEMA WAS MARKED & WARM, MOIST COMPRESSES APPLIED.
[2019-05-26] MEDS: OLANZapine 2.5 MG (ZyPREXA) TAB PO SCH (20:01)
[2019-05-26] MEDS: ROSUVASTATIN 20 MG (CRESTOR) TABLET PO SCH (20:01)
[2019-05-26] MEDS: CARVEDILOL 3.125 MG (COREG) TABLET PO SCH (20:02)
[2019-05-26] MEDS: MIRTAZAPINE 15 MG (REMERON) TAB PO SCH (20:02)
[2019-05-26] MEDS ORDERED: CARVEDILOL 6.25 MG (COREG) TAB PO SCH (21:00)
[2019-05-27] MEDS: CATHETER FLUSH 10 ML SYR IV SCH (05:32)
[2019-05-27 05:49] VITALS: BP 137/75
[2019-05-27] MEDS: MULTIVIT W/MINERALS TAB (THERAGRAN M) PO SCH (06:02)
[2019-05-27] MEDS: CALCIUM CARB + VIT D 600 MG (CALCARB + D) TAB PO SCH (09:00)
[2019-05-27] MEDS: SERTRALINE 100 MG (ZOLOFT) TAB PO SCH (09:00)
[2019-05-27] MEDS: CARVEDILOL 3.125 MG (COREG) TABLET PO SCH ×2 (09:00→21:04)
[2019-05-27] MEDS: LORATADINE (CLARITIN) 10 MG TAB PO SCH (09:00)
[2019-05-27] MEDS: PANTOPRAZOLE 40 MG (PROTONIX) TAB PO SCH (09:00)
[2019-05-27] MEDS: dilTIAZem120 MG (CARDIZEM CD) CAP PO SCH (09:00)
[2019-05-27] MEDS: FLUTICASONE NASAL SPRAY (FLONASE) 16 GM BTL NS SCH (09:00)
[2019-05-27] MEDS: LOSARTAN 25 MG (COZAAR) TAB PO SCH (09:01)
[2019-05-27] MEDS: SENNA W/DOCUSATE (SENOKOT S) TABLET PO SCH ×2 (09:01→19:53)
[2019-05-27] MEDS: polyethylene glycoL POWDER 17 GM (MIRALAX) PACK PO SCH ×2 (09:01→19:53)
--- NOTE | 2019-05-27 09:48 | Occupational Ther Daily Note ---
OT Current Status-Daily Note Subjective [id number]: Pt seen in recliner. Pt alert/ oriented to person and place. Pt requires cues for situation. Pt denies pain, stating, "I've never had pain with this." Pt agreeable to tx. [id number]: Pt seen in del cid post-PT session. Pt agrees to OT tx session, stating agreement to denture care. Pt denies pain but states very fatigued. [id number]: Pt seen in recliner chair, pt states some pain in medial thigh. Pt agrees to tx session. Mental Status/Objective Patient Orientation: Person, Place Attachments: Telemetry ADL-Treatment Therapy Code Descriptions/Definitions Functional Boundary Measure: 0=Not Assessed/NA 4=Minimal Assistance 1=Total Assistance 5=Supervision or Setup 2=Maximal Assistance 6=Modified Boundary 3=Moderate Assistance 7=Complete IndependenceSCALE: Activities may be completed with or without assistive devices. 7-Aqholmlylo-cowhlkj completes the activity by him/herself with no assistance from a helper. 5-Set-up or Clean-up Assistance-helper sets up or cleans up; patient completes activity. [place] assists only prior to or following the activity. 4-Supervision or Touching Assistance-helper provides verbal cues and/or touching/steadying and/or contact guard assistance as patient completes activity. Assistance may be provided throughout the activity or intermittently. 3-Partial/Moderate Assistance-helper does LESS THAN HALF the effort. [place] lifts, holds or supports trunk or limbs, but provides less than half the effort. 2-Substantial/Maximal Assistance-helper does MORE THAN HALF the effort. [place] l ifts or holds trunk or limbs and provides more than half the effort. 1-Joookgtkw-kmxdjj does ALL the effort. Patient does none of the effort to complete the activity. Or, the assistance of 2 or more helpers is required for the patient to complete the activity. If activity was not attempted, code reason: 7-Patient Refused. 9-Not Applicable-not attempted and the patient did not perform the activity before the current illness, exacerbation or injury. 10-Not Attempted due to Environmental Limitations-(lack of equipment, weather restraints, etc.). 88-Not Attempted due to Medical Conditions or Safety Concerns. Eating (QC): 6 (IND) Oral Hygiene (QC): 6 (pt completes at sink in w/c with IND.) Shower/Bathe Self (QC): 7 (Denied, plans to complete tomorrow.) Upper Body Dressing (QC): 5 (s/u) Lower Body Dressing (QC): 4 (CGA in stance. Pt completes threading BLE with SBA edge of chair and completes with increased time.) On/Off Footwear: 5 (s/u on sock aide (L foot). Pt completes R foot with mod I.) Toileting Hygiene (QC): 4 (CGA in stance. S/u for wipes.) Toilet Transfer (QC): 4 (CGA and use of walker/ grab bars/ commode placed over toilet.) Other Treatment [id number]: Pt states no pain. Agreeable to changing clothes. Clothing gathered for pt, pt completes as QC's demonstrate above. Pt educated on increased ADL progress with use of AE. Pt agrees, able to state correct use of AE 2/3 times (requires cues for dressing stick). Pt completes all tasks with increased time. Pt able to maintain stance at 2WW while OT pulls thigh high NICOLETTE hose up to groin with one break in between. Pt able to stand for max of ~1 min during tasks prior to requesting rest break. Pt left in recliner with all needs met, call light in reach. [id number]: Pt pushed to sink from hallway in w/c. Completes oral care with IND. Becomes tearful at sink, stating she is "throwing myself a pitty libertarian." Pt walks from w/c by sink to recliner chair with CGA with 2WW (min A sit to stand), sits with control. Pt returns to recliner and becomes tearful once more, stating she has had "bits of depression," but is typically able to redirect self at home. Pt expresses depressed mood due to inability to talk with family, stating is unable to understand her over the phone. Pt given paper to be able to write thoughts down/ write to . Pt denies writing at this time. Pt and OT discuss hobbies/ interests. Pt states she enjoys painting/ drawing, but "no crafts." Pt agrees to complete painting task next therapy session, stating she would enjoy that. Pt unable to marketing automation specialist/ pinch magazine wrapper, requires assist. Pt flips through magazine for inspiration for paintings, stating she enjoys magazines and baking. Pt left in room with call light in reach, all needs met, pt educated on BURR FILER tx at 1130 this am. Pt nods though stating she wants a nap. [id number]: Pt sit to stand from lifted recliner. Pt ambulates to/ from commode placed in bathroom. Pt able to have BM and urinate. Requires rest between pulling up brief/ pants. Requires increased time for ADL, washes hands in front of sink with CGA. Pt returns to recliner chair, all needs met, call light in reach. Pt given emery board for nail care. Education OT Patient Education: Correct positioning, Energy conservation, Modified ADL techniques, Progress toward Goal/Update tx plan, Purpose of tx/functional activities, Use of adapted equipment Teaching Recipient: Patient Teaching Methods: Demonstration, Discussion Response to Teaching: Verbalize Understanding, Return Demonstration OT Short Term Goals Short Term Goals Toileting hygiene: 4 Shower/bathe self: 4 OT Usp Goals Adapted Physical Education Teacher Goals Time Frame: Jun 02, 2019 Eating (QC): 6 (met) Oral Hygiene (QC): 6 (m et) Toileting Hygiene (QC): 6 Shower/Bathe Self (QC): 6 Upper Body Dressing (QC): 6 Lower Body Dressing (QC): 6 On/Off Footwear (QC): 6 Additional Goals: 1-Demonstrate ADL Tasks, 2-Verbalize Understanding, 3- ImproveStrength/Deanne 1=Demonstrate adherence to instructed precautions during ADL tasks. 2=Patient will verbalize/demonstrate understanding of assistive devices/modifications for ADL. 3=Patient will improve strength/tolerance for activity to enable patient to perform ADL's. OT Education/Plan Problem List/Assessment Assessment: Decreased Activ Tolerance, Decreased UE Strength, Dependent Transfers, Edema, Impaired Bed Mobility, Impaired Cognition, Impaired Funct Balance, Impaired I ADL's, Impaired Self-Care Skills Discharge Recommendations Plan/Recommendations: Continue POC Therapy Discharge Recommendati: 24 Hour Supervision Treatment Plan/Plan of Care Treatment,Training & Education: Yes Patient would benefit from OT for education, treatment and training to promote independence in ADL's, mobility, safety and/or upper extremity function for ADL's. Plan of Care: ADL Retraining, Caregiver Training, Functional Mobility, Group Exercise/Act as Ind, UE Funct Exercise/Act Treatment Duration: Jun 02, 2019 Frequency: At least 5 of 7 days/Wk (IRF) Estimated Hrs Per Day: 1.5 hours per day Agreement: Yes Rehab Potential: Fair Time/GCodes Start Time: 09:00 ([id number]) Stop Time: 09:45 ([id number]) Total Time Billed (hr/min): 90 Billed Treatment Time [id number]: 1, ADL 3 (45) [id number]: 1, ADL, FA (30) [id number]: 1, ADL (15) Total: 90 DAVID AVILES OTR May 27, 2019 09:48
--- NOTE | 2019-05-27 10:47 | Physical Therapy Daily Note ---
PT Daily Note-Current Subjective Pt up in chair, agreeable. Denies pain. "I'm just wiped out today". Mental Status Patient Orientation: Person, Place Transfers SCALE: Activities may be completed with or without assistive devices. 0-Aztbrkgwzr-qehocxl completes the activity by him/herself with no assistance from a helper. 5-Set-up or Clean-up Assistance-helper sets up or cleans up; patient completes activity. [place] assists only prior to or following the activity. 4-Supervision or Touching Assistance-helper provides verbal cues and/or touching/steadying and/or contact guard assistance as patient completes activity. Assistance may be provided throughout the activity or intermittently. 3-Partial/Moderate Assistance-helper does LESS THAN HALF the effort. [place] lifts, holds or supports trunk or limbs, but provides less than half the effort. 2-Substantial/Maximal Assistance-helper does MORE THAN HALF the effort. [place] lifts or holds trunk or limbs and provides more than half the effort. 4-Mkufmpgax-foacvm does ALL the effort. Patient does none of the effort to complete the activity. Or, the assistance of 2 or more helpers is required for the patient to complete the activity. If activity was not attempted, code reason: 7-Patient Refused. 9-Not Applicable-not attempted and the patient did not perform the activity before the current illness, exacerbation or injury. 10-Not Attempted due to Environmental Limitations-(lack of equipment, weather restraints, etc.). 88-Not Attempted due to Medical Conditions or Safety Concerns. Sit to Lying (QC): 4 Lying to Sitting/Side of Bed(Q: 3 Sit to Stand (QC): 4 Weight Bearing Right Lower Extremity: Right Weight Bearing/Tolerated Left Lower Extremity: Left Full Weight Bearing Gait Training Does the Patient Walk?: Yes Distance: 25' x 2 Walk 10 feet (QC): 4 Walk 50 ft with 2 Turns(QC): 88 Walk 150 ft (QC): 88 Walking 10ft/uneven surface-QC: 88 Gait Persons Needed: 1 Gait Assistive Device: FWW Very slow, shuffling gait with kyphotic posture, decreased stance time on (R) LE. Exercises Supine Ex: Ankle pumps, Quad Set, Glut sets, Heel Slides, Short Arc Quads, Resisted flex/ext (HS curl with RTB), Hip abd/add Supine Reps: 20 Seated Therapy Exercises: Ankle pumps, Long arc quads Seated Reps: 10 Assist PRN on (R) LE with supine exercises. Treatments Gait training with FWW, LE ther ex for functional strengthening. Hand off to OT post treatment. Assessment Current Status: Good Progress Pt tolerated fair-well. Pt tends to self limit but agreeable to continue with encouragement. Mild improvement in gait distance. Initially guarding with (R) LE exercises but greatly improved with reps. PT Devops Goals Devops Goals PT Group Home Goals Time Frame: Jun 09, 2019 Roll Left & Right (QC): 6 Sit to Lying (QC): 6 Lying-Sitting on Side/Bed(QC): 6 Sit to Stand (QC): 6 Chair/Xic-js-Gcsel Xfer(QC): 6 Toilet Transfer (QC): 6 Car Transfer (QC): 6 Does the Patient Walk: Yes Walk 10 feet (QC): 6 Walk 50ft with 2 Turns (QC): 6 Walk 150 ft (QC): 6 Walking 10ft on Uneven Surface: 6 1 Step (curb) (QC): 4 4 Steps (QC): 4 12 Steps (QC): 4 Picking up an Object (QC): 4 Wheel 50 feet with 2 turns (QC: 9 Wheel 150 feet: 9 PT Plan Problem List Problem List: Activity Tolerance, Functional Strength, Safety, Balance, Gait, Transfer, Bed Mobility, ROM Treatment/Plan Treatment Plan: Continue Plan of Care Treatment Plan: Bed Mobility, Concurrent Therapy, Education, Functional Activity Deanne, Functional Strength, Group Therapy, Gait, Safety, Therapeutic Exercise, Transfers Treatment Duration: Jun 09, 2019 Frequency: At least 5 of 7 days/Wk (IRF) Estimated Hrs Per Day: 1.5 hours per day Patient and/or Family Agrees t: Yes Safety Risks/Education Patient Education: Gait Training Teaching Recipient: Patient Teaching Methods: Discussion Response to Teaching: Reinforcement Needed Discharge Recommendations Barriers to Progress decreased functional activity tolerance Time/GCodes Time In: 0952 Time Out: 1039 Total Billed Treatment Time: 47 Total Billed Treatment 1, GT x 20', Ex x 27' LILLI SHERIDAN DPOctavia May 27, 2019 10:47
--- NOTE | 2019-05-27 12:06 | PM&R Progress Note ---
Subjective HPI/CC On Admission Date Seen by Provider: May 27, 2019 Time Seen by Provider: 10:30 Subjective/Events-last exam Telemetry maintained and monitoring PAF RVR 4th dose of Venofer completed and doing well and needs no more additional supplement for now DYS2 but still having difficulty but improving Eliquis is restarted due to no bloody stools and hgb stable and she seems to be tolerating that well Frail status and won't eat much which is causing a slow recovery and high risk for decompensation so she will need to go to [facility] at [facility] 05/27/19 this am No falls but high risk very slow moving Conferred with RN Reviewed therapy notes Checked meds and labs Review of Systems General: Fatigue Musculoskeletal: leg pain Neurological: Confusion Objective Exam Vital Signs Vital Signs Date Time Temp Pulse Resp B/P (MAP) Pulse Ox O2 Delivery O2 Flow Rate FiO2 05/28/19 12:20 80 05/28/19 06:15 36.4 6 122/65 (84) 93 Room Air 05/24/19 21:00 0.00 Capillary Refill : Less Than 3 SecondsLess Than 3 Seconds General Appearance: No Apparent Distress, Chronically ill, Thin, Other (frail, fatigued) HEENT: PERRL/EOMI, Normal ENT Inspection, Pharynx Normal Neck: Full Range of Motion, Normal Inspection, Non Tender, Supple Respiratory: Chest Non Tender, Lungs Clear, Normal Breath Sounds, No Accessory Muscle Use, No Respiratory Distress Cardiovascular: Irregularly Irregular Gastrointestinal: Normal Bowel Sounds, No Organomegaly, No Pulsatile Mass, Non Tender, Soft Back: Normal Inspection, No CVA Tenderness, No Vertebral Tenderness Extremity: Normal Capillary Refill, Normal Inspection, Normal Range of Motion (except right leg due to surgery), Non Tender, No Calf Tenderness, No Pedal Edema Neurologic/Psychiatric: Alert, No Motor/Sensory Deficits, Normal Mood/Affect, 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 FIM Transfers Therapy Code Descriptions/Definitions Functional [place] Measure: 0=Not Assessed/NA 4=Minimal Assistance 1=Total Assistance 5=Supervision or Setup 2=Maximal Assistance 6=Modified [place] 3=Moderate Assistance 7=Complete IndependenceSCALE: Activities may be completed with or without assistive devices. 0-Nzcucslwxg-nudnbas completes the activity by him/herself with no assistance from a helper. 5-Set-up or Clean-up Assistance-helper sets up or cleans up; patient completes activity. [place] assists only prior to or following the activity. 4-Supervision or Touching Assistance-helper provides verbal cues and/or touching/steadying and/or contact guard assistance as patient completes ac tivity. Assistance may be provided throughout the activity or intermittently. 3-Partial/Moderate Assistance-helper does LESS THAN HALF the effort. [place] lifts, holds or supports trunk or limbs, but provides less than half the effort. 2-Substantial/Maximal Assistance-helper does MORE THAN HALF the effort. [place] lifts or holds trunk or limbs and provides more than half the effort. 0-Aiojzyyqq-aqdmfw does ALL the effort. Patient does none of the effort to complete the activity. Or, the assistance of 2 or more helpers is required for the patient to complete the activity. If activity was not attempted, code reason: 7-Patient Refused. 9-Not Applicable-not attempted and the patient did not perform the activity before the current illness, exacerbation or injury. 10-Not Attempted due to Environmental Limitations-(lack of equipment, weather restraints, etc.). 88-Not Attempted due to Medical Conditions or Safety Concerns. Roll Left to Right (QC): 1 Sit to Lying (QC): 4 Sit to Stand (QC): 4 Chair/Gep-gl-Suadb Xfer(QC): 3 Car Transfer (QC): 88 Gait Training Does the Patient Walk?: Yes Distance: 25' x 2 Walk 10 feet (QC): 4 Walk 50 ft with 2 Turns(QC): 88 Walk 150 ft (QC): 88 Walking 10ft/uneven surface-QC: 88 Gait Persons Needed: 1 Gait Assistive Device: FWW Wheelchair Training Does the Pt Use a Wheelchair?: No Wheel 50 ft with 2 turns (QC): 9 Wheel 150 ft (QC): 9 Stair Training 1 Step (curb) (QC): 88 4 Steps (QC): 88 12 Steps (QC): 88 Balance Picking up an Object (QC): 88 ADL-Treatment Eating (QC): 6 (IND) Oral Hygiene (QC): 6 (pt completes at sink in w/c with IND.) Bathing Location: L Arm, R Arm, L Upper Leg, R Upper Leg, L Lower Leg (including foot), R Lower Leg (including foot), Chest, Abdomen, Perineal Area Shower/Bathe Self (QC): 7 (Denied, plans to complete tomorrow.) Upper Body Dressing (QC): 5 (s/u) Lower Body Dressing (QC): 4 (CGA in stance. Pt completes threading BLE with SBA edge of chair and completes with increased time.) On/Off Footwear (QC): 5 (s/u on sock aide (L foot). Pt completes R foot with mod I.) Toileting Hygiene (QC): 3 (min A for thoroughness and min A for stance during hygiene) Toilet Transfer (QC): 3 (min A to sit to stand and maintain balance.) Assessment/Plan Assessment and Plan Assess & Plan/Chief Complaint Assessment: Right femur fracture POD # 11 Acute blood loss anemia s/p 1 unit of blood transfusion 05/17/19 hgb low requiring holding ASA and Eliquis for now and 1 unit given in IRF but now restarted OAC New onset AF w/mild RVR dx by Dr Wells team appreciate their expertise now rate controlled on Coreg on Tely Chronic angina Anxiety CAD (coronary artery disease) Colon polyps CVD (cerebrovascular disease) Dementia Depression Diverticulitis Diverticulosis Dyspnea on exertion GERD (gastroesophageal reflux disease) Heart disease Hiatal hernia HTN Hyperlipidemia Hyponatremia Osteopenia, Osteoporosis TIA (transient ischemic attack) Urinary retention sporadic Hemoccult + consulted Dr Bradford appreciate his monitoring now restarted OAC Dysphagia Plan: IRF protocol Lovenox DC for DVT PPx since placed on Eliquis for CVA PPx due to new onset AF but now on hold due to profound anemia transfusion ordered but now restarted OAC Eliquis 05/25/19 Checked iron level ordered Venofer after midline placed and confirmed low level completed 4 doses before midline infiltrated Pain control Monitor for delirium Home meds Remeron 7.5mg dose at night started (1) Right femoral fracture (2) Fall (3) History of TIAs (4) Dementia (5) Hypertension (6) Anemia due to acute blood loss (7) Iron deficiency (8) Diverticulosis (9) Advanced age (10) History of UTI (11) DVT prophylaxis (12) Anxiety (13) Hyponatremia (14) GERD (gastroesophageal reflux disease) (15) Hiatal hernia (16) Hyperlipidemia (17) Atrial fibrillation with rapid ventricular response MARTIN LEAL DO May 27, 2019 12:06
--- NOTE | 2019-05-27 12:42 | Progress Note - Cardiology ---
Cardiology SOAP Progress Note Subjective: Malaise is better today, compared to yesterday No cp or palp or syncope or shortness of breath No n/v/d Objective: I&O/Vital Signs 05/27/19 05/27/19 05/27/19 01:00 05:49 07:00 Temp 37.7 Pulse 87 89 94 Resp 19 B/P (MAP) 137/75 (95) Pulse Ox 90 O2 Delivery Room Air 05/27/19 00:00 Intake Total 200 ml Balance 200 ml Constitutional: AAO x 3, other (thin-appearing) Respiratory: No accessory muscle use; other (fair to good bilat air entry, diminished at the bases) Cardiovascular: irregularly irregular, S1 and S2, systolic murmur (soft OFELIA at card base) Gastrointestional: No tender; soft; No guarding, No rebound; audible bowel sounds Extremities: No clubbing, No cyanosis, No significant edema Neurologic/Psychiatric: oriented x 3, other (able to move all limbs equally) Skin: No rash on exposed areas, No ulcerations on exposed areas Results/Procedures: Labs Laboratory Tests 05/26/19 04:55 A/P: Assessment: Worsening weakness, likely due to worsening anemia (after apixaban was resumed on 05/25/19) Anemia, stool occult blood was positive, received one unit of packed RBCs, Dr. Bradford consulted - [facility]- history of PCI to RCA. Previously followed with Dr. Grey in [place]. Most recent stress test done September 2016 revealed no ischemia or infarct P.Atrial fibrillation Chronic LBBB Hypertension with recent episode of hypotension - improved following reduction in medications HLP- maintained on statin HTP- PA 50-55mmHg. Ex tobaccoism Plan: * As documented in previous note, we stopped apixaban again because anemia is worsening. Consider w/u for GI blood loss so that source can be identified SHELDON and treated. Apixaban should then be resumed * Meanwhile, add low-dose ASA because of h/o CAD and AF * Incresase long-acting diltiazem for better vent rate control * Monitor labs closely LILLIAN BUNN MD FACP FAC CCDS May 27, 2019 12:42
[2019-05-27] MEDS ORDERED: FAMOTIDINE 20 MG (PEPCID) TABLET PO PRN (13:00)
[2019-05-27] MEDS ORDERED: ASPIRIN E.C. 81 MG (ECOTRIN) TAB PO NR (13:00)
--- NOTE | 2019-05-27 13:17 | Speech Therapy Daily Note ---
Speech Daily Progress Note Subjective Date Seen by Provider: May 27, 2019 Time Seen by Provider: 00:30 Patient was resting in her recliner. She stated she was freezing. I got her a warm blanket which she really liked. Objective Patient takes small sips and bites as directed at 90%. She does require frequent encouragement for intake. Assessment Assessment Current Status: Fair Progress Treatment Plan Continue Plan of Care Speech Short Term Goals Short Term Goals Short Term Goals 1) The patient will complete memory tasks related to her daily needs at 90% or greater with minimal cues. 2) The patient will complete safety awareness tasks related to her daily needs at 90% or greater with minimal cues. 3) The patient will complete problem solving tasks related to her daily needs at 90% or greater with minimal cues. 4) The patient will tolerate least restrictive diet without s/s of aspiration at 80% or greater with minimal cues. 4) The patient/caregiver will utilize compensatory strategies as trained for safe oral intake with 90% or greater with minimal cues. Speech Usp Goals Helicopter Dispatcher Goals The patient will improve cognitive-communication necessary for safety and daily living tasks with minimal assist. The patient will maintain adequate nutrition/hydration via safe effective swallow function. Speech-Plan Patient/Family Goals Patient/Family Goals: Patient plans on returning home with family. Her discharge will be determined as her needs are best suited. Treatment Plan Speech Therapy Treatment Plan: Continue Plan of Care Treatment Duration: May 28, 2019 Frequency: 5 times per week Estimated Hrs Per Day: .5 hour per day Rehab Potential: Fair Barriers to Learning: Patient's decreased cognition, status of confusion Pt/Family Agrees to Plan: Yes Safety Risks/Education Teaching Recipient: Patient Teaching Methods: Demonstration, Discussion Response to Teaching: Verbalize Understanding, Return Demonstration Education Topics Provided: Continued safety of oral intake and increased intake Time Speech Therapy Time In: 11:30 Speech Therapy Time Out: 12:00 Total Billed Time: 30 Billed Treatment Time 1, LAURA Grayson May 27, 2019 13:17
--- NOTE | 2019-05-27 13:17 | NUR ---
RD ASSESSMENT PMHx: CAD; HTN; HLP; GERD; s/p R femur fracture PT INTERACTION: Pt was awake and pleasant during nutrition follow-up. Pt states she is still eating poorly since last assessment. Pt states she is tolerating the nutrition supplementation sometimes. "There are times I drink it well and other times I just don't feel like drinking it." Note avg PO intake <25% of meals, per chart review. Pt states no issues with nausea, vomiting, constipation or diarrhea since last assessment. Note last BM was 05/25 and pt currently on bowel regimen of Senna BID; and Miralax BID, per chart review. When discussing foods she does prefer, pt stated she would like some khmer fries. I stated that under her current diet order, she could not have those and told her if there were foods she did prefer, I would try to make sure she got them. ABNORMAL NUTRITION-RELATED LAB VALUES LOW: Pro 5.8; alb 3.1 HIGH: BUN 33; bili 1.1; AST 45 Est. kcal needs: 9423-7079 kcal | 30-35 kcal/kg Est. Pro needs: 47-56 g Pro | 1.0-1.2 g Pro/kg PES STATEMENT: Inadequate oral intake (NI-2.1) related to loss of appetite as evidenced by pt interview | avg PO intake 28% x4d Underweight (NC-3.1) related to inadequate energy intake as evidenced by BMI 18.9 | malnutrition | dementia | estimated intake of food less than estimated needs INTERVENTION: Continue with current diet order of Regular diet. Encouraged pt to eat when able. with current supplementation order of Ensure Enlive with meals TID, for increased kcal intake. Provides 350 kcal and 13 g Pro per serving. Will continue to follow and reassess as pt needs, intake, and status change. MONITOR/EVALUATE: PO Intake; Plan of Care; Hydration Status; Weight Status; Lab Values Viky Garcia, MS, RD, LD
--- NOTE | 2019-05-27 14:01 | Physical Therapy Daily Note ---
PT Daily Note-Current Subjective Pt up in chair, agreeable. "I will do what I can". Pt reports that "The doctor said that I am still anemic and losing so he's trying to figure that out". Mental Status Patient Orientation: Person, Place Transfers SCALE: Activities may be completed with or without assistive devices. 7-Gmswzvhvve-naeatpc completes the activity by him/herself with no assistance from a helper. 5-Set-up or Clean-up Assistance-helper sets up or cleans up; patient completes activity. [place] assists only prior to or following the activity. 4-Supervision or Touching Assistance-helper provides verbal cues and/or touching/steadying and/or contact guard assistance as patient completes activity. Assistance may be provided throughout the activity or intermittently. 3-Partial/Moderate Assistance-helper does LESS THAN HALF the effort. [place] lifts, holds or supports trunk or limbs, but provides less than half the effort. 2-Substantial/Maximal Assistance-helper does MORE THAN HALF the effort. [place] lifts or holds trunk or limbs and provides more than half the effort. 3-Aqqiznoma-ucennk does ALL the effort. Patient does none of the effort to complete the activity. Or, the assistance of 2 or more helpers is required for the patient to complete the activity. If activity was not attempted, code reason: 7-Patient Refused. 9-Not Applicable-not attempted and the patient did not perform the activity b efore the current illness, exacerbation or injury. 10-Not Attempted due to Environmental Limitations-(lack of equipment, weather restraints, etc.). 88-Not Attempted due to Medical Conditions or Safety Concerns. Sit to Lying (QC): 3 Sit to Stand (QC): 4 Weight Bearing Right Lower Extremity: Right Weight Bearing/Tolerated Left Lower Extremity: Left Full Weight Bearing Gait Training Does the Patient Walk?: Yes Distance: 20' Walk 10 feet (QC): 4 Walk 50 ft with 2 Turns(QC): 88 Walk 150 ft (QC): 88 Walking 10ft/uneven surface-QC: 88 Gait Persons Needed: 1 Gait Assistive Device: FWW Very slow, shuffling gait with decreased stance time on (R) LE. Kyphotic posture. Treatments Gait training, transfer training. Pt returned to bed with all needs met. Assessment Current Status: No Treatment/Other Tests, Fair Progress Pt tolerated fair-well. Poor functional activity tolerance. PT Custodial Goals Custodial Goals PT Custodial Goals Time Frame: Jun 09, 2019 Roll Left & Right (QC): 6 Sit to Lying (QC): 6 Lying-Sitting on Side/Bed(QC): 6 Sit to Stand (QC): 6 Chair/Okj-wt-Qbsdg Xfer(QC): 6 Toilet Transfer (QC): 6 Car Transfer (QC): 6 Does the Patient Walk: Yes Walk 10 feet (QC): 6 Walk 50ft with 2 Turns (QC): 6 Walk 150 ft (QC): 6 Walking 10ft on Uneven Surface: 6 1 Step (curb) (QC): 4 4 Steps (QC): 4 12 Steps (QC): 4 Picking up an Object (QC): 4 Wheel 50 feet with 2 turns (QC: 9 Wheel 150 feet: 9 PT Plan Problem List Problem List: Activity Tolerance, Functional Strength, Safety, Balance, Gait, Transfer, Bed Mobility, ROM Treatment/Plan Treatment Plan: Continue Plan of Care Treatment Plan: Bed Mobility, Concurrent Therapy, Education, Functional Activity Deanne, Functional Strength, Group Therapy, Gait, Safety, Therapeutic Exercise, Transfers Treatment Duration: Jun 09, 2019 Frequency: At least 5 of 7 days/Wk (IRF) Estimated Hrs Per Day: 1.5 hours per day Patient and/or Family Agrees t: Yes Safety Risks/Education Patient Education: Gait Training, Transfer Techniques Teaching Recipient: Patient Teaching Methods: Discussion Response to Teaching: Reinforcement Needed Time/GCodes Time In: 1329 Time Out: 1357 Total Billed Treatment Time: 28 Total Billed Treatment 1, GT x 20', FA x 8' LILLI SHERIDAN DPT May 27, 2019 14:01
[2019-05-27 17:07] VITALS: BP 120/66
--- NOTE | 2019-05-27 17:07 | NUR ---
CM/SS WEEKLY TEAM CONFERENCE SUMMARY Met with patient to review conference Summary and patient's anticipated discharge for 06/02/19. Patient stated she wasn't doing as well as she wants to, encouraged her that she has several more days with therapy. She has visibly progressed from admission to date, ambulating better with FWW. Patient states she was taking care of her at home, and described that as cooking breakfast, dinner, supper, cleaning the floors, doing the laundry. She also confirmed that her son moved in behind them 'about 6 months ago' and had started coming over in the a.m. to prepare breakfast for them. Patient conversed well, she commented she was unable to remember numbers like she used to and definitely worked with numbers at [facility] in [facility]. Barriers to discharge home were whether patient would get strong enough to be able to safely continue recuperation at home, especially if her spouse desired the former pattern of her doing tasks for him. Team proposes a goal of return home with increased family monitor and support, likely the son who resides on the property. Daughter Benoit Slaughter has routinely gone to her parent's home 4 days weekly; however, she resides in [facility] and has travel time to consider to [facility]. Attempted to contact Benoit, no answer. HHC services likely limited in [facility] area. Will followup tomorrow to discuss and explore options.
[2019-05-27] MEDS: OLANZapine 2.5 MG (ZyPREXA) TAB PO SCH (21:04)
[2019-05-27] MEDS: ROSUVASTATIN 20 MG (CRESTOR) TABLET PO SCH (21:04)
[2019-05-27] MEDS: MIRTAZAPINE 15 MG (REMERON) TAB PO SCH (21:05)
[2019-05-27] MEDS: HYDROcodone/APAP 5 MG/325 MG (LORTAB) TAB PO PRN (21:06)
[2019-05-28 06:15] VITALS: BP 122/65
[2019-05-28] MEDS: MULTIVIT W/MINERALS TAB (THERAGRAN M) PO SCH (06:17)
[2019-05-28 06:40] LABS: BASOPHILS # (AUTO) 0.1 10^3/uL (0.0-0.1); BASOPHILS % (AUTO) 1 % (0-10); EOSINOPHILS # (AUTO) 0.3 10^3/uL (0.0-0.3); EOSINOPHILS % (AUTO) 2 % (0-10); HEMATOCRIT 29 % (35-52); HEMOGLOBIN 9.1 G/DL (11.5-16.0); LYMPHOCYTES # (AUTO) 1.5 X 10^3 (1.0-4.0); LYMPHOCYTES % (AUTO) 14 % (12-44); MEAN CORPUSCULAR HEMOGLOBIN 28 PG (25-34); MEAN CORPUSCULAR HGB CONC 31 G/DL (32-36); MEAN CORPUSCULAR VOLUME 91 FL (80-99); MEAN PLATELET VOLUME 9.2 FL (7.4-10.4); MONOCYTES # (AUTO) 0.6 X 10^3 (0.0-1.0); MONOCYTES % (AUTO) 5 % (0-12); NEUTROPHILS # (AUTO) 8.1 X 10^3 (1.8-7.8); NEUTROPHILS % (AUTO) 78 % (42-75); PLATELET COUNT 340 10^3/uL (130-400); RED CELL DISTRIBUTION WIDTH 18.8 % (10.0-14.5); WHITE BLOOD COUNT 10.4 10^3/uL (4.3-11.0)
[2019-05-28 06:54] LABS: CHLORIDE 102 MMOL/L (98-107); POTASSIUM 4.1 MMOL/L (3.6-5.0); SODIUM 134 MMOL/L (135-145)
[2019-05-28 06:55] LABS: CALCIUM 8.3 MG/DL (8.5-10.1)
[2019-05-28 06:56] LABS: GLUCOSE 73 MG/DL (70-105)
[2019-05-28 06:57] LABS: CARBON DIOXIDE 23 MMOL/L (21-32)
[2019-05-28 07:00] LABS: CREATININE SERUM 0.69 MG/DL (0.60-1.30); GFR ESTIMATED > 60
[2019-05-28 07:01] LABS: BUN/CREATININE RATIO 35
[2019-05-28 07:02] LABS: MAGNESIUM 1.6 MG/DL (1.6-2.4)
[2019-05-28] MEDS: polyethylene glycoL POWDER 17 GM (MIRALAX) PACK PO SCH ×2 (07:59→21:03)
[2019-05-28] MEDS: SENNA W/DOCUSATE (SENOKOT S) TABLET PO SCH ×2 (08:00→21:04)
[2019-05-28] MEDS ORDERED: dilTIAZem120 MG (CARDIZEM CD) CAP PO SCH (09:00)
[2019-05-28] MEDS: SERTRALINE 100 MG (ZOLOFT) TAB PO SCH (10:08)
[2019-05-28] MEDS: CALCIUM CARB + VIT D 600 MG (CALCARB + D) TAB PO SCH (10:08)
[2019-05-28] MEDS: ASPIRIN E.C. 81 MG (ECOTRIN) TAB PO SCH (10:08)
[2019-05-28] MEDS: LOSARTAN 25 MG (COZAAR) TAB PO SCH (10:08)
[2019-05-28] MEDS: PANTOPRAZOLE 40 MG (PROTONIX) TAB PO SCH (10:08)
[2019-05-28] MEDS: CARVEDILOL 3.125 MG (COREG) TABLET PO SCH ×2 (10:09→21:01)
[2019-05-28] MEDS: FLUTICASONE NASAL SPRAY (FLONASE) 16 GM BTL NS SCH (10:09)
[2019-05-28] MEDS: LORATADINE (CLARITIN) 10 MG TAB PO SCH (10:09)
--- NOTE | 2019-05-28 10:17 | Occupational Ther Daily Note ---
OT Current Status-Daily Note Subjective [id number]: Pt seen in bed, states "some stiffness" in medial thigh. Pt agreeable to OT tx session. [id number] (45): Pt seen post-PT session. Pt agreeable to OT tx session. Pt denies pain at this moment. Mental Status/Objective Attachments: Telemetry ADL-Treatment Therapy Code Descriptions/Definitions Functional [place] Measure: 0=Not Assessed/NA 4=Minimal Assistance 1=Total Assistance 5=Supervision or Setup 2=Maximal Assistance 6=Modified [place] 3=Moderate Assistance 7=Complete IndependenceSCALE: Activities may be completed with or without assistive devices. 6-Hgvfunfamc-vtwvhbd completes the activity by him/herself with no assistance from a helper. 5-Set-up or Clean-up Assistance-helper sets up or cleans up; patient completes activity. [place] assists only prior to or following the activity. 4-Supervision or Touching Assistance-helper provides verbal cues and/or touching/steadying and/or contact guard assistance as patient completes activity. Assistance may be provided throughout the activity or intermittently. 3-Partial/Moderate Assistance-helper does LESS THAN HALF the effort. [place] lifts, holds or supports trunk or limbs, but provides less than half the effort. 2-Substantial/Maximal Assistance-helper does MORE THAN HALF the effort. [place] lifts or holds trunk or limbs and provides more than half the effort. 9-Ycaznfifg-qvungk does ALL the effort. Patient does none of the effort to complete the activity. Or, the assistance of 2 or more helpers is required for the patient to complete the activity. If activity was not attempted, code reason: 7-Patient Refused. 9-Not Applicable-not attempted and the patient did not perform the activity before the current illness, exacerbation or injury. 10-Not Attempted due to Environmental Limitations-(lack of equipment, weather restraints, etc.). 88-Not Attempted due to Medical Conditions or Safety Concerns. Eating (QC): 6 (IND, states decreased desire to eat today. States drank coffee) Oral Hygiene (QC): 7 (states will complete after lunch on this date.) Bathing Location: L Arm, R Arm, L Upper Leg, R Upper Leg, L Lower Leg (including foot), R Lower Leg (including foot), Chest, Abdomen, Buttocks, Perineal Area Shower/Bathe Self (QC): 4 (CGA sc transfer (cues for use of gb) and CGA in stance for bottom/ dick hygiene) Upper Body Dressing (QC): 6 (IND) Lower Body Dressing (QC): 3 (min A due to fatigue. Pt able to don brief with AE, min A donning pants. Pt requires CGA in stance to pull to hips.) On/Off Footwear: 4 (Pt requires cues for use of sock aide, though able to thread B socks on sock aide and don.) Toileting Hygiene (QC): 4 (CGA) Toilet Transfer (QC): 4 (CGA) Other Treatment [id number]: Pt completes bed mob with Max A. Pt sit to stand with min A throughout session from differring heights. Pt ambulates to toilet, completes toileting and ambulates to bench with CGA and cues for 2WW/ gb and hand positioning. Pt completes ADLs as above. requires breaks throughout due to fatigue. Pt states she isn't able to dress herself, pt educated on ability to complete yesterday and what she has done so far, pt states, "Huh, I guess I can. " Pt ambulates from w/c in bathroom to recliner, able to position self to comfort. Pt's legs elevated, all needs met, call light in reach. Nursing notified of NICOLETTE deven donned throughout the night and dressing dampening. [id number] (45): Pt propelled in w/c and s/u for fine motor/ mental processing activity. Pt maintains arm positioning at table (~75*), maintains grasp of small items in R hand as she is able to steadily trace items across canvas. Pt chooses among choices, skilled cues to complete problem solving tasks, requires mod A for opening small bottles. Pt states similar sentences and conversations 4x through session. Pt requires min cues throughout for activity continuation, pt expresses fatigue after 30 min of activity, able to participate 5 additional minutes before assist to bed. Pt completes sit to stand min A and transfers CGA to bed. Max A sit to supine and covered with blankets/ positioned for comfort. Pt expresses desire for nap, left supine with HOB slightly elevated, all needs met, call light on torso. Education OT Patient Education: Correct positioning, Modified ADL techniques, Progress toward Goal/Update tx plan, Purpose of tx/functional activities, Transfer techniques, Use of adapted equipment Teaching Recipient: Patient Teaching Methods: Demonstration, Discussion Response to Teaching: Verbalize Understanding, Return Demonstration, Reinforcement Needed OT Short Term Goals Short Term Goals Toileting hygiene: 4 Shower/bathe self: 4 OT Supervisor Electronics Processing Goals Supervisor Electronics Processing Goals Time Frame: Jun 02, 2019 Eating (QC): 6 (met) Oral Hygiene (QC): 6 (m et) Toileting Hygiene (QC): 6 Shower/Bathe Self (QC): 6 Upper Body Dressing (QC): 6 Lower Body Dressing (QC): 6 On/Off Footwear (QC): 6 Additional Goals: 1-Demonstrate ADL Tasks, 2-Verbalize Understanding, 3- ImproveStrength/Deanne 1=Demonstrate adherence to instructed precautions during ADL tasks. 2=Patient will verbalize/demonstrate understanding of assistive devices/modifications for ADL. 3=Patient will improve strength/tolerance for activity to enable patient to perform ADL's. OT Education/Plan Problem List/Assessment Assessment: Decreased Activ Tolerance, Dependent Transfers, Edema, Impaired Bed Mobility, Impaired Cognition, Impaired Funct Balance, Impaired I ADL's, Impaired Self-Care Skills Discharge Recommendations Plan/Recommendations: Continue POC Therapy Discharge Recommendati: 24 Hour Supervision, Post Acute OT Treatment Plan/Plan of Care Treatment,Training & Education: Yes Patient would benefit from OT for education, treatment and training to promote independence in ADL's, mobility, safety and/or upper extremity function for ADL's. Plan of Care: ADL Retraining, Caregiver Training, Functional Mobility, Group Exercise/Act as Ind, UE Funct Exercise/Act Treatment Duration: Jun 02, 2019 Frequency: At least 5 of 7 days/Wk (IRF) Estimated Hrs Per Day: 1.5 hours per day Agreement: Yes Rehab Potential: Fair Time/GCodes Start Time: 09:00 (1340) Stop Time: 10:00 (1425) Total Time Billed (hr/min): 105 Billed Treatment Time 2060-1451: 1, ADL 4 (60) 2400-3358: 1, FA 2, ADL (45) Total: 105 DAVID AVILES OTR May 28, 2019 10:17
--- NOTE | 2019-05-28 10:39 | PM&R Progress Note ---
Subjective HPI/CC On Admission Date Seen by Provider: May 28, 2019 Time Seen by Provider: 10:45 Subjective/Events-last exam Telemetry maintained so will inquire with cardiology about DC it or not today NH placement pending BP was a bit [place]ak[place] today but no significant issues Swallowing ok Sandra is restarted due to no bloody stools and hgb stable Frail status and won't eat much which is causing a slow recovery and high risk for decompensation so she will need to go to NH BM 05/28/19 Conferred with RN Reviewed therapy notes Checked meds and labs Review of Systems General: Fatigue Pulmonary: Dyspnea Musculoskeletal: leg pain Neurological: Confusion Objective Exam Vital Signs Vital Signs Date Time Temp Pulse Resp B/P (MAP) Pulse Ox O2 Delivery O2 Flow Rate FiO2 05/28/19 12:20 80 05/28/19 06:15 36.4 6 122/65 (84) 93 Room Air 05/24/19 21:00 0.00 Capillary Refill : Less Than 3 SecondsLess Than 3 Seconds General Appearance: No Apparent Distress, Chronically ill, Thin, Other (frail, fatigued) HEENT: PERRL/EOMI, Normal ENT Inspection, Pharynx Normal Neck: Full Range of Motion, Normal Inspection, Non Tender, Supple Respiratory: Chest Non Tender, Lungs Clear, Normal Breath Sounds, No Accessory Muscle Use, No Respiratory Distress Cardiovascular: Irregularly Irregular Gastrointestinal: Normal Bowel Sounds, No Organomegaly, No Pulsatile Mass, Non Tender, Soft Back: Normal Inspection, No CVA Tenderness, No Vertebral Tenderness Extremity: Normal Capillary Refill, Normal Inspection, Normal Range of Motion (except right leg due to surgery), Non Tender, No Calf Tenderness, No Pedal Edema Neurologic/Psychiatric: Alert, No Motor/Sensory Deficits, Normal Mood/Affect, 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 FIM Transfers Therapy Code Descriptions/Definitions Functional [place] Measure: 0=Not Assessed/NA 4=Minimal Assistance 1=Total Assistance 5=Supervision or Setup 2=Maximal Assistance 6=Modified [place] 3=Moderate Assistance 7=Complete IndependenceSCALE: Activities may be completed with or without assistive devices. 2-Rmurqtmlcp-vqqxvzg completes the activity by him/herself with no assistance from a helper. 5-Set-up or Clean-up Assistance-helper sets up or cleans up; patient completes activity. [place] assists only prior to or following the activity. 4-Supervision or Touching Assistance-helper provides verbal cues and/or touching/steadying and/or contact guard assistance as patient completes activity. Assistance may be provided throughout the activity or intermittently. 3-Partial/Moderate Assistance-helper does LESS THAN HALF the effort. [place] lifts, holds or supports trunk or limbs, but provides less than half the effort. 2-Substantial/Maximal Assistance-helper does MORE THAN HALF the effort. [place] lifts or holds trunk or limbs and provides more than half the effort. 8-Tqfsebnhc-cyzpqq does ALL the effort. Patient does none of the effort to complete the activity. Or, the assistance of 2 or more helpers is required for the patient to complete the activity. If activity was not attempted, code reason: 7-Patient Refused. 9-Not Applicable-not attempted and the patient did not perform the activity before the current illness, exacerbation or injury. 10-Not Attempted due to Environmental Limitations-(lack of equipment, weather restraints, etc.). 88-Not Attempted due to Medical Conditions or Safety Concerns. Roll Left to Right (QC): 1 Sit to Lying (QC): 3 Sit to Stand (QC): 4 Chair/Kjv-hc-Twbda Xfer(QC): 3 Car Transfer (QC): 88 Gait Training Does the Patient Walk?: Yes Distance: 20' Walk 10 feet (QC): 4 Walk 50 ft with 2 Turns(QC): 88 Walk 150 ft (QC): 88 Walking 10ft/uneven surface-QC: 88 Gait Persons Needed: 1 Gait Assistive Device: FWW Wheelchair Training Does the Pt Use a Wheelchair?: No Wheel 50 ft with 2 turns (QC): 9 Wheel 150 ft (QC): 9 Stair Training 1 Step (curb) (QC): 88 4 Steps (QC): 88 12 Steps (QC): 88 Balance Picking up an Object (QC): 88 ADL-Treatment Eating (QC): 6 (IND, states decreased desire to eat today. States drank coffee) Oral Hygiene (QC): 7 (states will complete after lunch on this date.) Bathing Location: L Arm, R Arm, L Upper Leg, R Upper Leg, L Lower Leg (including foot), R Lower Leg (including foot), Chest, Abdomen, Buttocks, Pe rineal Area Shower/Bathe Self (QC): 4 (CGA sc transfer (cues for use of gb) and CGA in stance for bottom/ dick hygiene) Upper Body Dressing (QC): 6 (IND) Lower Body Dressing (QC): 3 (min A due to fatigue. Pt able to don brief with AE, min A donning pants. Pt requires CGA in stance to pull to hips.) On/Off Footwear (QC): 4 (Pt requires cues for use of sock aide, though able to thread B socks on sock aide and don.) Toileting Hygiene (QC): 4 (CGA) Toilet Transfer (QC): 4 (CGA) Assessment/Plan Assessment and Plan Assess & Plan/Chief Complaint Assessment: Right femur fracture POD # 12 Acute blood loss anemia s/p 1 unit of blood transfusion 05/17/19 hgb low requiring holding ASA and Eliquis for now and 1 unit given in IRF now restarted on OAC New onset AF w/mild RVR dx by Dr Wells team appreciate their expertise now rate controlled on Coreg on Tely Chronic angina Anxiety CAD (coronary artery disease) Colon polyps CVD (cerebrovascular disease) Dementia Depression Diverticulitis Diverticulosis Dyspnea on exertion GERD (gastroesophageal reflux disease) Heart disease Hiatal hernia HTN Hyperlipidemia Hyponatremia Osteopenia, Osteoporosis TIA (transient ischemic attack) Urinary retention sporadic Hemoccult + consulted Dr Bradford appreciate his monitoring now restarted OAC Dysphagia Plan: IRF protocol Lovenox DC for DVT PPx since placed on Eliquis for CVA PPx due to new onset AF but now on hold due to profound anemia transfusion ordered but now restarted OAC Eliquis 05/25/19 Checked iron level ordered Venofer after midline placed and confirmed low level completed 4 doses before midline infiltrated Pain control Monitor for delirium Home meds Remeron 7.5mg dose at night started DC Tely? (1) Right femoral fracture (2) Fall (3) History of TIAs (4) Dementia (5) Hypertension (6) Anemia due to acute blood loss (7) Iron deficiency (8) Diverticulosis (9) Advanced age (10) History of UTI (11) DVT prophylaxis (12) Anxiety (13) Hyponatremia (14) GERD (gastroesophageal reflux disease) (15) Hiatal hernia (16) Hyperlipidemia (17) Atrial fibrillation with rapid ventricular response MARTIN LEAL DO May 28, 2019 10:39
--- NOTE | 2019-05-28 11:04 | Physical Therapy Daily Note ---
PT Daily Note-Current Subjective Pt up in chair, agreeable to LE exercises. Pt with eyes closed throughout most of session but conversing, following direction. Reports "They already took the wind out of my sails this morning. I'm just so tired." Denies pain. Mental Status Patient Orientation: Person, Place, Time, Situation Transfers SCALE: Activities may be completed with or without assistive devices. 1-Aqmalflqyb-vcdvxor completes the activity by him/herself with no assistance from a helper. 5-Set-up or Clean-up Assistance-helper sets up or cleans up; patient completes activity. [place] assists only prior to or following the activity. 4-Supervision or Touching Assistance-helper provides verbal cues and/or touching/steadying and/or contact guard assistance as patient completes ac tivity. Assistance may be provided throughout the activity or intermittently. 3-Partial/Moderate Assistance-helper does LESS THAN HALF the effort. [place] lifts, holds or supports trunk or limbs, but provides less than half the effort. 2-Substantial/Maximal Assistance-helper does MORE THAN HALF the effort. [place] lifts or holds trunk or limbs and provides more than half the effort. 3-Qqpddhpit-ygbnao does ALL the effort. Patient does none of the effort to complete the activity. Or, the assistance of 2 or more helpers is required for the patient to complete the activity. If activity was not attempted, code reason: 7-Patient Refused. 9-Not Applicable-not attempted and the patient did not perform the activity before the current illness, exacerbation or injury. 10-Not Attempted due to Environmental Limitations-(lack of equipment, weather restraints, etc.). 88-Not Attempted due to Medical Conditions or Safety Concerns. Weight Bearing Right Lower Extremity: Right Weight Bearing/Tolerated Left Lower Extremity: Left Full Weight Bearing Exercises Supine Ex: Ankle pumps, Quad Set, Glut sets, Heel Slides, Hip abd/add Supine Reps: 20 Seated Therapy Exercises: Long arc quads, Hip flexion, Hamstring Curls Seated Reps: 20 Pt moving very slowly throughout all reps on (B) LE, min A PRN on (R) LE. Treatments Reclined and seated LE functional strengthening exercises. Pt moves very slowly when completing exercises but good performance with all. Up in chair with needs met post treatment. Assessment Current Status: Fair Progress Pt continues with poor functional activity tolerance, moves very slowly with exercises and functional mobility. PT Staff Forester Goals Detention Goals PT Detention Goals Time Frame: Jun 09, 2019 Roll Left & Right (QC): 6 Sit to Lying (QC): 6 Lying-Sitting on Side/Bed(QC): 6 Sit to Stand (QC): 6 Chair/Atv-rv-Rdzdf Xfer(QC): 6 Toilet Transfer (QC): 6 Car Transfer (QC): 6 Does the Patient Walk: Yes Walk 10 feet (QC): 6 Walk 50ft with 2 Turns (QC): 6 Walk 150 ft (QC): 6 Walking 10ft on Uneven Surface: 6 1 Step (curb) (QC): 4 4 Steps (QC): 4 12 Steps (QC): 4 Picking up an Object (QC): 4 Wheel 50 feet with 2 turns (QC: 9 Wheel 150 feet: 9 PT Plan Problem List Problem List: Activity Tolerance, Functional Strength, Safety, Balance, Gait, Transfer, Bed Mobility, ROM Treatment/Plan Treatment Plan: Continue Plan of Care Treatment Plan: Bed Mobility, Concurrent Therapy, Education, Functional Activity Deanne, Functional Strength, Group Therapy, Gait, Safety, Therapeutic Exercise, Transfers Treatment Duration: Jun 09, 2019 Frequency: At least 5 of 7 days/Wk (IRF) Estimated Hrs Per Day: 1.5 hours per day Patient and/or Family Agrees t: Yes Discharge Recommendations Barriers to Progress Poor functional activity tolerance Time/GCodes Time In: 1020 Time Out: 1105 Total Billed Treatment Time: 45 Total Billed Treatment 1, Ex x 45' LILLI SHERIDAN DPOctavia May 28, 2019 11:04
--- NOTE | 2019-05-28 13:44 | Speech Therapy Daily Note ---
Speech Daily Progress Note Subjective Date Seen by Provider: May 28, 2019 Time Seen by Provider: 00:30 Patient was resting in her recliner waiting on her lunch to be served when I entered her room. Objective Patient continues to utilize compensatory strategies of alternating food/drink 2:1, small sips/bites and sitting up for all intake as directed at 85% with min to mod verbal cues. Assessment Assessment Current Status: Good Progress Treatment Plan Continue Plan of Care Speech Short Term Goals Short Term Goals Short Term Goals 1) The patient will complete memory tasks related to her daily needs at 90% or greater with minimal cues. 2) The patient will complete safety awareness tasks related to her daily needs at 90% or greater with minimal cues. 3) The patient will complete problem solving tasks related to her daily needs at 90% or greater with minimal cues. 4) The patient will tolerate least restrictive diet without s/s of aspiration at 80% or greater with minimal cues. 4) The patient/caregiver will utilize compensatory strategies as trained for safe oral intake with 90% or greater with minimal cues. Speech Senior Living Goals Data Processing Manager Goals The patient will improve cognitive-communication necessary for safety and daily living tasks with minimal assist. The patient will maintain adequate nutrition/hydration via safe effective swallow function. Speech-Plan Patient/Family Goals Patient/Family Goals: Patient plans on returning to her home upon discharge where she has family. Treatment Plan Speech Therapy Treatment Plan: Continue Plan of Care Treatment Duration: May 28, 2019 Frequency: 5 times per week Estimated Hrs Per Day: .5 hour per day Rehab Potential: Fair Barriers to Learning: Patient requires frequent reminders to eat/drink due to dementia, decreased retention of information. Pt/Family Agrees to Plan: Yes Safety Risks/Education Teaching Recipient: Patient Teaching Methods: Demonstration, Discussion Response to Teaching: Verbalize Understanding, Return Demonstration Education Topics Provided: Continued safety with oral intake Time Speech Therapy Time In: 11:30 Speech Therapy Time Out: 12:00 Total Billed Time: 30 Billed Treatment Time 1TO[address] May 28, 2019 13:43
--- NOTE | 2019-05-28 13:51 | NUR ---
CM/SS CONCURRENT DOCUMENTATION Visited with patient's daughter, Benoit Slaughter, by phone this a.m. and reviewed conference Summary and post hospital recommended plan. Benoit was in agreement to proposed discharge home 06/02/19. Next steps: Explore HHC agencies in [facility] service area, possibly [place], [place]. Recommending RN and PT/OT. Benoit indicates no new DME is needed with exception of hip kit. HHC PT/OT may need to assess bathtub set up, it is described as an 8-10" low entrance tub. Benoit continues to go to her parent's home 3 days weekly, she will update her brother today about him providing more monitor and assistance for both patient and spouse. Benoit reports that her dad has a hoveround he uses at times, but also ambulates and that he goes outside on the ramp a few times daily. She also describes that patient does a few household things, but not as much as she self-reported. Family agreement to provide supervision, monitor and assistance for patient once home will relieve that barrier to discharge as long as she is safely ambulating with FWW. Followup next week.
--- NOTE | 2019-05-28 14:22 | Physical Therapy Daily Note ---
PT Daily Note-Current Subjective Pt in chair, agreeable with encouragement. Mental Status Patient Orientation: Person, Place, Time, Situation Transfers SCALE: Activities may be completed with or without assistive devices. 0-Gtnqnevvss-smxhsll completes the activity by him/herself with no assistance from a helper. 5-Set-up or Clean-up Assistance-helper sets up or cleans up; patient completes activity. [place] assists only prior to or following the activity. 4-Supervision or Touching Assistance-helper provides verbal cues and/or t ouching/steadying and/or contact guard assistance as patient completes activity. Assistance may be provided throughout the activity or intermittently. 3-Partial/Moderate Assistance-helper does LESS THAN HALF the effort. [place] lifts, holds or supports trunk or limbs, but provides less than half the effort. 2-Substantial/Maximal Assistance-helper does MORE THAN HALF the effort. [place] lifts or holds trunk or limbs and provides more than half the effort. 6-Hhbycnpxy-xjkfbi does ALL the effort. Patient does none of the effort to complete the activity. Or, the assistance of 2 or more helpers is required for the patient to complete the activity. If activity was not attempted, code reason: 7-Patient Refused. 9-Not Applicable-not attempted and the patient did not perform the activity before the current illness, exacerbation or injury. 10-Not Attempted due to Environmental Limitations-(lack of equipment, weather restraints, etc.). 88-Not Attempted due to Medical Conditions or Safety Concerns. Sit to Stand (QC): 4 Weight Bearing Right Lower Extremity: Right Weight Bearing/Tolerated Left Lower Extremity: Left Full Weight Bearing Gait Training Does the Patient Walk?: Yes Distance: 20', 30', 20' Walk 10 feet (QC): 4 Gait Persons Needed: 1 Gait Assistive Device: FWW Pt ambulated with slow gait speed, shuffling with decreased stance time on (R) LE. Seated recovery breaks required between trials. Treatments Gait training with FWW. Returned to up in chair with OT post treatment. Assessment Current Status: Fair Progress Pt tolerated fair. Fatigues very quickly, encouragement required to increase activity. PT Repairer Sash And Door Goals Repairer Sash And Door Goals PT Repairer Sash And Door Goals Time Frame: Jun 09, 2019 Roll Left & Right (QC): 6 Sit to Lying (QC): 6 Lying-Sitting on Side/Bed(QC): 6 Sit to Stand (QC): 6 Chair/Fez-kf-Wlkym Xfer(QC): 6 Toilet Transfer (QC): 6 Car Transfer (QC): 6 Does the Patient Walk: Yes Walk 10 feet (QC): 6 Walk 50ft with 2 Turns (QC): 6 Walk 150 ft (QC): 6 Walking 10ft on Uneven Surface: 6 1 Step (curb) (QC): 4 4 Steps (QC): 4 12 Steps (QC): 4 Picking up an Object (QC): 4 Wheel 50 feet with 2 turns (QC: 9 Wheel 150 feet: 9 PT Plan Problem List Problem List: Activity Tolerance, Functional Strength, Safety, Balance, Gait, Transfer, Bed Mobility, ROM Treatment/Plan Treatment Plan: Continue Plan of Care Treatment Plan: Bed Mobility, Concurrent Therapy, Education, Functional Activity Deanne, Functional Strength, Group Therapy, Gait, Safety, Therapeutic Exercise, Transfers Treatment Duration: Jun 09, 2019 Frequency: At least 5 of 7 days/Wk (IRF) Estimated Hrs Per Day: 1.5 hours per day Patient and/or Family Agrees t: Yes Safety Risks/Education Patient Education: Gait Training Teaching Recipient: Patient Teaching Methods: Discussion Response to Teaching: Reinforcement Needed Time/GCodes Time In: 1315 Time Out: 1340 Total Billed Treatment Time: 25 Total Billed Treatment 1, GT x 25' LILLI SHERIDAN DPT May 28, 2019 14:22
[2019-05-28 16:27] VITALS: BP 104/73
--- NOTE | 2019-05-28 19:20 | NUR ---
bedside report received from ERIKA CHILDERS, assume care of pt
--- NOTE | 2019-05-28 19:30 | NUR ---
called regarding telemetry, orders received to discontinue telemetry.
[2019-05-28 20:58] VITALS: BP 145/73
[2019-05-28] MEDS: MIRTAZAPINE 15 MG (REMERON) TAB PO SCH (21:01)
[2019-05-28] MEDS: ROSUVASTATIN 20 MG (CRESTOR) TABLET PO SCH (21:01)
[2019-05-28] MEDS: OLANZapine 2.5 MG (ZyPREXA) TAB PO SCH (21:01)
--- NOTE | 2019-05-28 21:01 | NUR ---
pt refused miralax & Senokot, denies need of pain med, tried to get pt to reposition but pt refused, side rails up, bed alarm on.
[2019-05-29 06:41] VITALS: BP 132/77
[2019-05-29] MEDS: MULTIVIT W/MINERALS TAB (THERAGRAN M) PO SCH (06:47)
--- NOTE | 2019-05-29 08:28 | Physical Therapy Daily Note ---
PT Daily Note-Current Subjective "I'm so tired." "I don't know if I can do anything." Agrees to PT with encouragement. Transfers SCALE: Activities may be completed with or without assistive devices. 7-Ymdcqfqhvv-tjpxwmt completes the activity by him/herself with no assistance from a helper. 5-Set-up or Clean-up Assistance-helper sets up or cleans up; patient completes activity. [place] assists only prior to or following the activity. 4-Supervision or Touching Assistance-helper provides verbal cues and/or touching/steadying and/or contact guard assistance as patient completes activity. Assistance may be provided throughout the activity or intermittently. 3-Partial/Moderate Assistance-helper does LESS THAN HALF the effort. [place] lifts, holds or supports trunk or limbs, but provides less than half the effort. 2-Substantial/Maximal Assistance-helper does MORE THAN HALF the effort. [place] lifts or holds trunk or limbs and provides more than half the effort. 1-Alebotztt-waqbmz does ALL the effort. Patient does none of the effort to complete the activity. Or, the assistance of 2 or more helpers is required for the patient to complete the activity. If activity was not attempted, code reason: 7-Patient Refused. 9-Not Applicable-not attempted and the patient did not perform the activity before the current illness, exacerbation or injury. 10-Not Attempted due to Environmental Limitations-(lack of equipment, weather restraints, etc.). 88-Not Attempted due to Medical Conditions or Safety Concerns. Lying to Sitting/Side of Bed(Q: 3 (min assist with legs and skilled cues for sequencing. ) Sit to Stand (QC): 3 (min assist with skilled cues for hand placement. ) Toilet Transfer (QC): 3 Weight Bearing Right Lower Extremity: Right Weight Bearing/Tolerated Left Lower Extremity: Left Full Weight Bearing Gait Training Distance: 30 ft, 30 ft, 25 ft and 15 ft Gait Assistive Device: FWW slow gait with decreased step length and decreased step through; slow gait with cues to stay on task. Treatments Functional gait training; pt toileted with assist to manage clothing with cues to initiate task and complete. Pt able to provide her own pericare. Pt in recliner post treatment with needs met and chair alarm activated. Assessment Requires encouragement to participate and heavy cues during session. Progressing with gait and mobility. PT Hand I Cutter Goals Hand I Cutter Goals PT Intermediate Goals Time Frame: Jun 09, 2019 Roll Left & Right (QC): 6 Sit to Lying (QC): 6 Lying-Sitting on Side/Bed(QC): 6 Sit to Stand (QC): 6 Chair/Wkl-rg-[place] Xfer(QC): 6 Toilet Transfer (QC): 6 Car Transfer (QC): 6 Does the Patient Walk: Yes Walk 10 feet (QC): 6 Walk 50ft with 2 Turns (QC): 6 Walk 150 ft (QC): 6 Walking 10ft on Uneven Surface: 6 1 Step (curb) (QC): 4 4 Steps (QC): 4 12 Steps (QC): 4 Picking up an Object (QC): 4 Wheel 50 feet with 2 turns (QC: 9 Wheel 150 feet: 9 PT Plan Problem List Problem List: Activity Tolerance, Functional Strength, Safety Treatment/Plan Treatment Plan: Continue Plan of Care Treatment Plan: Bed Mobility, Concurrent Therapy, Education, Functional Activity Deanne, Functional Strength, Group Therapy, Gait, Safety, Therapeutic Exercise, Transfers Treatment Duration: Jun 09, 2019 Frequency: At least 5 of 7 days/Wk (IRF) Estimated Hrs Per Day: 1.5 hours per day Patient and/or Family Agrees t: Yes Safety Risks/Education Patient Education: Transfer Techniques, Safety Issues Teaching Recipient: Patient Teaching Methods: Discussion Response to Teaching: Reinforcement Needed Discharge Recommendations Therapy Discharge Recommendati: Post Acute PT Time/GCodes Time In: 740 Time Out: 812 Total Billed Treatment Time: 32 Total Billed Treatment visit GT 32 JUAN CRUZ PT May 29, 2019 08:28
[2019-05-29] MEDS: polyethylene glycoL POWDER 17 GM (MIRALAX) PACK PO SCH ×2 (08:33→20:12)
[2019-05-29] MEDS: SENNA W/DOCUSATE (SENOKOT S) TABLET PO SCH ×2 (08:33→20:12)
[2019-05-29] MEDS: PANTOPRAZOLE 40 MG (PROTONIX) TAB PO SCH (09:05)
[2019-05-29] MEDS: CARVEDILOL 3.125 MG (COREG) TABLET PO SCH ×2 (09:06→20:10)
[2019-05-29] MEDS: FLUTICASONE NASAL SPRAY (FLONASE) 16 GM BTL NS SCH (09:06)
[2019-05-29] MEDS: CALCIUM CARB + VIT D 600 MG (CALCARB + D) TAB PO SCH (09:06)
[2019-05-29] MEDS: LORATADINE (CLARITIN) 10 MG TAB PO SCH (09:06)
[2019-05-29] MEDS: SERTRALINE 100 MG (ZOLOFT) TAB PO SCH (09:06)
[2019-05-29] MEDS: ASPIRIN E.C. 81 MG (ECOTRIN) TAB PO SCH (09:06)
[2019-05-29] MEDS: LOSARTAN 25 MG (COZAAR) TAB PO SCH (09:06)
--- NOTE | 2019-05-29 13:23 | Progress Note - Cardiology ---
Cardiology SOAP Progress Note Subjective: No cp or palp or syncope No shortness of breath at rest Gen weakness and malaise No n/v/d Poor appetite. Low oral intake Objective: I&O/Vital Signs 05/29/19 06:41 Temp 37.4 Pulse 84 Resp 20 B/P (MAP) 132/77 (95) Pulse Ox 98 O2 Delivery Room Air 05/29/19 00:00 Intake Total 650 ml Output Total 1000 ml Balance -350 ml Constitutional: AAO x 3, other (thin-appearing) Respiratory: No accessory muscle use; other (fair to good bilat air entry, diminished at the bases) Cardiovascular: irregularly irregular, S1 and S2, systolic murmur (soft OFELIA at card base) Gastrointestional: No tender; soft; No guarding, No rebound; audible bowel sounds Extremities: No clubbing, No cyanosis, No significant edema Neurologic/Psychiatric: oriented x 3, other (able to move all limbs equally) Skin: No rash on exposed areas, No ulcerations on exposed areas Results/Procedures: Labs Laboratory Tests 05/28/19 06:30 A/P: Assessment: Gen weakness Anemia, stool occult blood was positive, received one unit of packed RBCs, Dr. Bradford consulted - managed by [facility]. Worsening anemia (after apixaban was resumed on 05/25/19) CAD- history of PCI to RCA. Previously followed with Dr. Grey in [place]. Most recent stress test done September 2016 revealed no ischemia or infarct P.Atrial fibrillation Chronic LBBB Hypertension with recent episode of hypotension - improved following reduction in medications HLP- maintained on statin HTP- PA 50-55mmHg. Ex tobaccoism Plan: * Complex managment due to multiple issues, including the opposing issues of needing OAC for stroke prophylaxis and holding OAC for GI bleed * H&H better yesterday. Repeat tomorrow. If hold stable, consider restarting Eliquis * Advised to increase oral intake to improve gen weakness * Monitor labs closely LILLIAN BUNN MD FACP FAC CCDS May 29, 2019 13:23
--- NOTE | 2019-05-29 14:43 | PM&R Progress Note ---
Subjective HPI/CC On Admission Date Seen by Provider: May 29, 2019 Time Seen by Provider: 12:15 Subjective/Events-last exam Telemetry DC NH placement pending BP is stable Swallowing ok Sandra will be restarted tomorrow due to no bloody stools and hgb stable at 9.1 Frail status and won't eat much which is causing a slow recovery and high risk for decompensation so she will need to go to NH BM 05/28/19 Patient appears to be a hospice candidate due to frail status BMI 18 and refuses to eat Conferred with RN Reviewed therapy notes Checked meds and labs Review of Systems General: Fatigue Musculoskeletal: leg pain Neurological: Confusion Objective Exam Vital Signs Vital Signs Date Time Temp Pulse Resp B/P (MAP) Pulse Ox O2 Delivery O2 Flow Rate FiO2 05/29/19 16:08 37.0 69 14 130/71 (90) 94 Room Air 05/24/19 21:00 0.00 Capillary Refill : Less Than 3 SecondsLess Than 3 Seconds General Appearance: No Apparent Distress, Chronically ill, Thin, Other (frail, fatigued) HEENT: PERRL/EOMI, Normal ENT Inspection, Pharynx Normal Neck: Full Range of Motion, Normal Inspection, Non Tender, Supple Respiratory: Chest Non Tender, Lungs Clear, Normal Breath Sounds, No Accessory Muscle Use, No Respiratory Distress Cardiovascular: Irregularly Irregular Gastrointestinal: Normal Bowel Sounds, No Organomegaly, No Pulsatile Mass, Non Tender, Soft Back: Normal Inspection, No CVA Tenderness, No Vertebral Tenderness Extremity: Normal Capillary Refill, Normal Inspection, Normal Range of Motion (except right leg due to surgery), Non Tender, No Calf Tenderness, No Pedal Edema Neurologic/Psychiatric: Alert, No Motor/Sensory Deficits, Normal 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 FIM Transfers Therapy Code Descriptions/Definitions Functional [place] Measure: 0=Not Assessed/NA 4=Minimal Assistance 1=Total Assistance 5=Supervision or Setup 2=Maximal Assistance 6=Modified [place] 3=Moderate Assistance 7=Complete IndependenceSCALE: Activities may be completed with or without assistive devices. 4-Bzeskbobhp-klttwgs completes the activity by him/herself with no assistance from a helper. 5-Set-up or Clean-up Assistance-helper sets up or cleans up; patient completes activity. [place] assists only prior to or following the activity. 4-Supervision or Touching Assistance-helper provides verbal cues and/or touching/steadying and/or contact guard assistance as patient completes activity. Assistance may be provided throughout the activity or intermittently. 3-Partial/Moderate Assistance-helper does LESS THAN HALF the effort. [place] lifts, holds or supports trunk or limbs, but provides less than half the effort. 2-Substantial/Maximal Assistance-helper does MORE THAN HALF the effort. [place] lifts or holds trunk or limbs and provides more than half the effort. 0-Gvkfyzqrq-howdzy does ALL the effort. Patient does none of the effort to complete the activity. Or, the assistance of 2 or more helpers is required for the patient to complete the activity. If activity was not attempted, code reason: 7-Patient Refused. 9-Not Applicable-not attempted and the patient did not perform the activity before the current illness, exacerbation or injury. 10-Not Attempted due to Environmental Limitations-(lack of equipment, weather restraints, etc.). 88-Not Attempted due to Medical Conditions or Safety Concerns. Roll Left to Right (QC): 1 Sit to Lying (QC): 3 Sit to Stand (QC): 3 (min assist with skilled cues for hand placement. ) Chair/Jan-rh-Zigoq Xfer(QC): 3 Car Transfer (QC): 88 Gait Training Does the Patient Walk?: Yes Distance: 30 ft, 30 ft, 25 ft and 15 ft Walk 10 feet (QC): 4 Walk 50 ft with 2 Turns(QC): 88 Walk 150 ft (QC): 88 Walking 10ft/uneven surface-QC: 88 Gait Persons Needed: 1 Gait Assistive Device: FWW Wheelchair Training Does the Pt Use a Wheelchair?: No Wheel 50 ft with 2 turns (QC): 9 Wheel 150 ft (QC): 9 Stair Training 1 Step (curb) (QC): 88 4 Steps (QC): 88 12 Steps (QC): 88 Balance Picking up an Object (QC): 88 ADL-Treatment Eating (QC): 6 (IND, states decreased desire to eat today. States drank coffee) Oral Hygiene (QC): 7 (states will complete after lunch on this date.) Bathing Location: L Arm, R Arm, L Upper Leg, R Upper Leg, L Lower Leg (including foot), R Lower Leg (including foot), Chest, Abdomen, Buttocks, Perineal Area Shower/Bathe Self (QC): 4 (CGA sc transfer (cues for use of gb) and CGA in stance for bottom/ dick hygiene) Upper Body Dressing (QC): 6 (IND) Lower Body Dressing (QC): 3 (min A due to fatigue. Pt able to don brief with AE, min A donning pants. Pt requires CGA in stance to pull to hips.) On/Off Footwear (QC): 4 (Pt requires cues for use of sock aide, though able to thread B socks on sock aide and don.) Toileting Hygiene (QC): 4 (CGA) Toilet Transfer (QC): 4 (CGA) Assessment/Plan Assessment and Plan Assess & Plan/Chief Complaint Assessment: Right femur fracture POD # 13 Acute blood loss anemia s/p 1 unit of blood transfusion 3/ hgb low requiring holding ASA and Eliquis for now and 1 unit given in IRF and will restart on OAC if hgb remains stable per Cardiology New onset AF w/mild RVR dx by Dr Wells team appreciate their expertise now rate controlled on Coreg and telemetry DC Chronic angina Anxiety CAD (coronary artery disease) Colon polyps CVD (cerebrovascular disease) Dementia Depression Diverticulitis Diverticulosis Dyspnea on exertion GERD (gastroesophageal reflux disease) Heart disease Hiatal hernia HTN Hyperlipidemia Hyponatremia Osteopenia, Osteoporosis TIA (transient ischemic attack) Urinary retention sporadic Hemoccult + consulted Dr Bradford appreciate his monitoring Dysphagia Plan: IRF protocol Lovenox DC for DVT PPx since placed on Eliquis for CVA PPx due to new onset AF but now on hold due to profound anemia transfusion ordered but will restart OAC Eliquis soon Checked iron level ordered Venofer after midline placed and confirmed low level completed 4 doses before midline infiltrated Pain control Monitor for delirium Home meds Remeron 7.5mg dose at night started DC Tely (1) Right femoral fracture (2) Fall (3) History of TIAs (4) Dementia (5) Hypertension (6) Anemia due to acute blood loss (7) Iron deficiency (8) Diverticulosis (9) Advanced age (10) History of UTI (11) DVT prophylaxis (12) Anxiety (13) Hyponatremia (14) GERD (gastroesophageal reflux disease) (15) Hiatal hernia (16) Hyperlipidemia (17) Atrial fibrillation with rapid ventricular response MARTIN LEAL DO May 29, 2019 14:43
[2019-05-29 16:08] VITALS: BP 130/71
[2019-05-29] MEDS: OLANZapine 2.5 MG (ZyPREXA) TAB PO SCH (20:10)
[2019-05-29] MEDS: MIRTAZAPINE 15 MG (REMERON) TAB PO SCH (20:10)
[2019-05-29] MEDS: MELATONIN 3 MG TABLET PO PRN (20:10)
[2019-05-29] MEDS: ROSUVASTATIN 20 MG (CRESTOR) TABLET PO SCH (20:11)
[2019-05-30 05:02] VITALS: BP 132/53
[2019-05-30] MEDS: MULTIVIT W/MINERALS TAB (THERAGRAN M) PO SCH (06:02)
[2019-05-30 06:22] LABS: BASOPHILS # (AUTO) 0.1 10^3/uL (0.0-0.1); BASOPHILS % (AUTO) 1 % (0-10); EOSINOPHILS # (AUTO) 0.2 10^3/uL (0.0-0.3); EOSINOPHILS % (AUTO) 2 % (0-10); HEMATOCRIT 29 % (35-52); LYMPHOCYTES # (AUTO) 1.1 X 10^3 (1.0-4.0); LYMPHOCYTES % (AUTO) 12 % (12-44); MEAN CORPUSCULAR HEMOGLOBIN 29 PG (25-34); MEAN CORPUSCULAR HGB CONC 32 G/DL (32-36); MEAN CORPUSCULAR VOLUME 91 FL (80-99); MEAN PLATELET VOLUME 9.5 FL (7.4-10.4); MONOCYTES # (AUTO) 0.5 X 10^3 (0.0-1.0); MONOCYTES % (AUTO) 5 % (0-12); NEUTROPHILS # (AUTO) 7.3 X 10^3 (1.8-7.8); NEUTROPHILS % (AUTO) 80 % (42-75); PLATELET COUNT 360 10^3/uL (130-400); RED CELL DISTRIBUTION WIDTH 18.6 % (10.0-14.5)
[2019-05-30] MEDS: CARVEDILOL 3.125 MG (COREG) TABLET PO SCH ×2 (08:11→20:21)
[2019-05-30] MEDS: SERTRALINE 100 MG (ZOLOFT) TAB PO SCH (08:11)
[2019-05-30] MEDS: PANTOPRAZOLE 40 MG (PROTONIX) TAB PO SCH (08:11)
[2019-05-30] MEDS: CALCIUM CARB + VIT D 600 MG (CALCARB + D) TAB PO SCH (08:11)
[2019-05-30] MEDS: ASPIRIN E.C. 81 MG (ECOTRIN) TAB PO SCH (08:11)
[2019-05-30] MEDS: LORATADINE (CLARITIN) 10 MG TAB PO SCH (08:11)
[2019-05-30] MEDS: LOSARTAN 25 MG (COZAAR) TAB PO SCH (08:11)
[2019-05-30] MEDS: SENNA W/DOCUSATE (SENOKOT S) TABLET PO SCH ×2 (08:13→20:22)
[2019-05-30] MEDS: polyethylene glycoL POWDER 17 GM (MIRALAX) PACK PO SCH ×2 (08:13→20:22)
[2019-05-30] MEDS: FLUTICASONE NASAL SPRAY (FLONASE) 16 GM BTL NS SCH (08:15)
--- NOTE | 2019-05-30 12:57 | PM&R Progress Note ---
Subjective HPI/CC On Admission Date Seen by Provider: May 30, 2019 Time Seen by Provider: 13:00 Subjective/Events-last exam Telemetry DC 2 days ago and she feels good about that NH placement pending BP is stable Swallowing ok now but doesn't like to eat in general Eliquis will be restarted due to no bloody stools and hgb stable at 9.1 Frail status and won't eat much which is causing a slow recovery and high risk for decompensation so she will need to go to NH BM regular Patient appears to be a hospice candidate due to frail status BMI 18 and refuses to eat Conferred with RN Reviewed therapy notes Checked meds and labs Review of Systems General: Fatigue Musculoskeletal: leg pain Neurological: Confusion Objective Exam Vital Signs Vital Signs Date Time Temp Pulse Resp B/P (MAP) Pulse Ox O2 Delivery O2 Flow Rate FiO2 05/30/19 17:06 36.4 85 18 128/70 (89) 92 Room Air 05/24/19 21:00 0.00 Capillary Refill : Less Than 3 SecondsLess Than 3 Seconds General Appearance: No Apparent Distress, Chronically ill, Thin, Other (frail, fatigued) HEENT: PERRL/EOMI, Normal ENT Inspection, Pharynx Normal Neck: Full Range of Motion, Normal Inspection, Non Tender, Supple Respiratory: Chest Non Tender, Lungs Clear, Normal Breath Sounds, No Accessory Muscle Use, No Respiratory Distress Cardiovascular: Irregularly Irregular Gastrointestinal: Normal Bowel Sounds, No Organomegaly, No Pulsatile Mass, Non Tender, Soft Back: Normal Inspection, No CVA Tenderness, No Vertebral Tenderness Extremity: Normal Capillary Refill, Normal Inspection, Normal Range of Motion (except right leg due to surgery), Non Tender, No Calf Tenderness, No Pedal Edema Neurologic/Psychiatric: Alert, No Motor/Sensory Deficits, Normal Mood/Affect, rubber block layer II-XII Norm as Tested Skin: Normal Color, Warm/Dry Lymphatic: No Adenopathy Results/Procedures Lab Laboratory Tests 05/30/19 06:10 Patient resulted labs reviewed. FIM Transfers Therapy Code Descriptions/Definitions Functional [place] Measure: 0=Not Assessed/NA 4=Minimal Assistance 1=Total Assistance 5=Supervision or Setup 2=Maximal Assistance 6=Modified [place] 3=Moderate Assistance 7=Complete IndependenceSCALE: Activities may be completed with or without assistive devices. 3-Fdwcfwmtrd-vvubtnb completes the activity by him/herself with no assistance from a helper. 5-Set-up or Clean-up Assistance-helper sets up or cleans up; patient completes activity. [place] assists only prior to or following the activity. 4-Supervision or Touching Assistance-helper provides verbal cues and/or touching/steadying and/or contact guard assistance as patient completes activity. Assistance may be provided throughout the activity or intermittently. 3-Partial/Moderate Assistance-helper does LESS THAN HALF the effort. [place] lifts, holds or supports trunk or limbs, but provides less than half the effort. 2-Substantial/Maximal Assistance-helper does MORE THAN HALF the effort. [place] lifts or holds trunk or limbs and provides more than half the effort. 4-Sbubtoyfs-vhgnrc does ALL the effort. Patient does none of the effort to complete the activity. Or, the assistance of 2 or more helpers is required for the patient to complete the activity. If activity was not attempted, code reason: 7-Patient Refused. 9-Not Applicable-not attempted and the patient did not perform the activity before the current illness, exacerbation or injury. 10-Not Attempted due to Environmental Limitations-(lack of equipment, weather r estraints, etc.). 88-Not Attempted due to Medical Conditions or Safety Concerns. Roll Left to Right (QC): 1 Sit to Lying (QC): 3 Sit to Stand (QC): 3 (min assist with skilled cues for hand placement. ) Chair/Kjb-ph-Xdcyf Xfer(QC): 3 Car Transfer (QC): 88 Gait Training Does the Patient Walk?: Yes Distance: 30 ft, 30 ft, 25 ft and 15 ft Walk 10 feet (QC): 4 Walk 50 ft with 2 Turns(QC): 88 Walk 150 ft (QC): 88 Walking 10ft/uneven surface-QC: 88 Gait Persons Needed: 1 Gait Assistive Device: FWW Wheelchair Training Does the Pt Use a Wheelchair?: No Wheel 50 ft with 2 turns (QC): 9 Wheel 150 ft (QC): 9 Stair Training 1 Step (curb) (QC): 88 4 Steps (QC): 88 12 Steps (QC): 88 Balance Picking up an Object (QC): 88 ADL-Treatment Eating (QC): 6 (IND, states decreased desire to eat today. States drank coffee) Oral Hygiene (QC): 7 (states will complete after lunch on this date.) Bathing Location: L Arm, R Arm, L Upper Leg, R Upper Leg, L Lower Leg (including foot), R Lower Leg (including foot), Chest, Abdomen, Buttocks, Perineal Area Shower/Bathe Self (QC): 4 (CGA sc transfer (cues for use of gb) and CGA in stance for bottom/ dick hygiene) Upper Body Dressing (QC): 6 (IND) Lower Body Dressing (QC): 3 (min A due to fatigue. Pt able to don brief with AE, min A donning pants. Pt requires CGA in stance to pull to hips.) On/Off Footwear (QC): 4 (Pt requires cues for use of sock aide, though able to thread B socks on sock aide and don.) Toileting Hygiene (QC): 4 (CGA) Toilet Transfer (QC): 4 (CGA) Assessment/Plan Assessment and Plan Assess & Plan/Chief Complaint Assessment: Right femur fracture POD # 14 Acute blood loss anemia s/p 1 unit of blood transfusion 3 hgb low requiring holding ASA and Eliquis for now and 1 unit given in IRF and will restart on OAC if hgb remains stable per Cardiology New onset AF w/mild RVR dx by Dr Wells team appreciate their expertise now rate controlled on Coreg and telemetry DC Chronic angina Anxiety CAD (coronary artery disease) Colon polyps CVD (cerebrovascular disease) Dementia Depression Diverticulitis Diverticulosis Dyspnea on exertion GERD (gastroesophageal reflux disease) Heart disease Hiatal hernia HTN Hyperlipidemia Hyponatremia Osteopenia, Osteoporosis TIA (transient ischemic attack) Urinary retention sporadic Hemoccult + consulted Dr Bradford appreciate his monitoring Dysphagia Plan: IRF protocol Lovenox DC for DVT PPx since placed on Eliquis for CVA PPx due to new onset AF but now on hold due to profound anemia transfusion ordered but will restart OAC Eliquis soon Checked iron level ordered Venofer after midline placed and confirmed low level completed 4 doses before midline infiltrated Pain control Monitor for delirium Home meds Remeron 7.5mg dose at night started DC [place] (1) Right femoral fracture (2) Fall (3) History of TIAs (4) Dementia (5) Hypertension (6) Anemia due to acute blood loss (7) Iron deficiency (8) Diverticulosis (9) Advanced age (10) History of UTI (11) DVT prophylaxis (12) Anxiety (13) Hyponatremia (14) GERD (gastroesophageal reflux disease) (15) Hiatal hernia (16) Hyperlipidemia (17) Atrial fibrillation with rapid ventricular response MARTIN LEAL DO May 30, 2019 12:57
--- NOTE | 2019-05-30 13:21 | Progress Note - Cardiology ---
Cardiology SOAP Progress Note Subjective: Gen weakness and malaise No focal weakness No palp or syncope or cp Short of breath / tired with mild exertion No n/v/d Objective: I&O/Vital Signs 05/30/19 05/30/19 05:02 09:00 Temp 36.6 Pulse 82 Resp 16 B/P (MAP) 132/53 (79) Pulse Ox 93 O2 Delivery Room Air Room Air 05/30/19 00:00 Intake Total 200 ml Balance 200 ml Constitutional: AAO x 3, other (thin-appearing) Respiratory: No accessory muscle use; other (fair to good bilat air entry, diminished at the bases) Cardiovascular: irregularly irregular, S1 and S2, systolic murmur (soft OFELIA at card base) Gastrointestional: No tender; soft; No guarding, No rebound; audible bowel sounds Extremities: No clubbing, No cyanosis, No significant edema Neurologic/Psychiatric: oriented x 3, other (able to move all limbs equally) Skin: No rash on exposed areas, No ulcerations on exposed areas Results/Procedures: Labs Laboratory Tests 05/30/19 06:10: White Blood Count 9.0, Red Blood Count 3.15L, Hemoglobin 9.0L, Hematocrit 29L, Mean Corpuscular Volume 91, Mean Corpuscular Hemoglobin 29, Mean Corpuscular Hemoglobin Concent 32, Red Cell Distribution Width 18.6H, Platelet Count 360, Mean Platelet Volume 9.5, Neutrophils (%) (Auto) 80H, Lymphocytes (%) (Auto) 12, Monocytes (%) (Auto) 5, Eosinophils (%) (Auto) 2, Basophils (%) (Auto) 1, Neutrophils # (Auto) 7.3, Lymphocytes # (Auto) 1.1, Monocytes # (Auto) 0.5, Eosinophils # (Auto) 0.2, Basophils # (Auto) 0.1 Laboratory Tests 05/30/19 06:10 A/P: Assessment: Gen weakness Anemia, stool occult blood was positive, received one unit of packed RBCs, Dr. Bradford consulted - managed by [facility]. Worsening anemia (after apixaban was resumed on 05/25/19) CAD- history of PCI to RCA. Previously followed with Dr. Grey in [place]. Most recent stress test done September 2016 revealed no ischemia or infarct P.Atrial fibrillation Chronic LBBB Hypertension with recent episode of hypotension - improved following reduction in medications HLP- maintained on statin HTP- PA 50-55mmHg. Ex tobaccoism Plan: * Complex managment due to multiple issues, including the opposing issues of needing OAC for stroke prophylaxis and holding OAC for GI bleed * H&H low but holding. If endoscopy is not being performed in the near future, then consider resuming OAC * Again advised to increase oral intake to improve gen weakness * Monitor labs closely LILLIAN BUNN MD FACP FACC CCDS May 30, 2019 13:21
[2019-05-30 17:06] VITALS: BP 128/70
[2019-05-30] MEDS: ACETAMINOPHEN 325 MG TABLET PO PRN (19:01)
[2019-05-30] MEDS: ROSUVASTATIN 20 MG (CRESTOR) TABLET PO SCH (20:21)
[2019-05-30] MEDS: MIRTAZAPINE 15 MG (REMERON) TAB PO SCH (20:21)
[2019-05-30] MEDS: OLANZapine 2.5 MG (ZyPREXA) TAB PO SCH (20:21)
[2019-05-31 05:32] VITALS: BP 115/60
[2019-05-31] MEDS: MULTIVIT W/MINERALS TAB (THERAGRAN M) PO SCH (06:31)
[2019-05-31 07:21] LABS: BASOPHILS # (AUTO) 0.1 10^3/uL (0.0-0.1); BASOPHILS % (AUTO) 1 % (0-10); EOSINOPHILS # (AUTO) 0.2 10^3/uL (0.0-0.3); EOSINOPHILS % (AUTO) 3 % (0-10); HEMATOCRIT 28 % (35-52); HEMOGLOBIN 8.9 G/DL (11.5-16.0); LYMPHOCYTES # (AUTO) 1.1 X 10^3 (1.0-4.0); LYMPHOCYTES % (AUTO) 16 % (12-44); MEAN CORPUSCULAR HEMOGLOBIN 28 PG (25-34); MEAN CORPUSCULAR HGB CONC 31 G/DL (32-36); MEAN CORPUSCULAR VOLUME 90 FL (80-99); MEAN PLATELET VOLUME 9.8 FL (7.4-10.4); MONOCYTES # (AUTO) 0.4 X 10^3 (0.0-1.0); MONOCYTES % (AUTO) 6 % (0-12); NEUTROPHILS # (AUTO) 5.1 X 10^3 (1.8-7.8); NEUTROPHILS % (AUTO) 74 % (42-75); PLATELET COUNT 373 10^3/uL (130-400); RED CELL DISTRIBUTION WIDTH 18.5 % (10.0-14.5); WHITE BLOOD COUNT 6.8 10^3/uL (4.3-11.0)
[2019-05-31 07:33] LABS: ALBUMIN 2.7 GM/DL (3.2-4.5)
[2019-05-31 07:34] LABS: CHLORIDE 103 MMOL/L (98-107); POTASSIUM 3.9 MMOL/L (3.6-5.0); SODIUM 138 MMOL/L (135-145)
[2019-05-31 07:35] LABS: CALCIUM 8.2 MG/DL (8.5-10.1)
[2019-05-31 07:36] LABS: TOTAL PROTEIN 5.5 GM/DL (6.4-8.2)
[2019-05-31 07:37] LABS: CARBON DIOXIDE 23 MMOL/L (21-32)
[2019-05-31 07:38] LABS: BILIRUBIN,TOTAL 0.6 MG/DL (0.1-1.0)
[2019-05-31 07:39] LABS: ALKALINE PHOSPHATASE 136 U/L (40-136)
[2019-05-31 07:40] LABS: CREATININE SERUM 0.64 MG/DL (0.60-1.30); GFR ESTIMATED > 60
[2019-05-31 07:41] LABS: BUN/CREATININE RATIO 20
[2019-05-31 07:43] LABS: ALANINE AMINOTRANSFERASE 32 U/L (0-55); GLUCOSE 51 MG/DL (70-105)
[2019-05-31] MEDS: PANTOPRAZOLE 40 MG (PROTONIX) TAB PO SCH (09:17)
[2019-05-31] MEDS: ASPIRIN E.C. 81 MG (ECOTRIN) TAB PO SCH (09:17)
[2019-05-31] MEDS: polyethylene glycoL POWDER 17 GM (MIRALAX) PACK PO SCH ×2 (09:17→21:41)
[2019-05-31] MEDS: LOSARTAN 25 MG (COZAAR) TAB PO SCH (09:17)
[2019-05-31] MEDS: CARVEDILOL 3.125 MG (COREG) TABLET PO SCH ×2 (09:17→21:40)
[2019-05-31] MEDS: CALCIUM CARB + VIT D 600 MG (CALCARB + D) TAB PO SCH (09:17)
[2019-05-31] MEDS: SERTRALINE 100 MG (ZOLOFT) TAB PO SCH (09:17)
[2019-05-31] MEDS: LORATADINE (CLARITIN) 10 MG TAB PO SCH (09:17)
[2019-05-31] MEDS: SENNA W/DOCUSATE (SENOKOT S) TABLET PO SCH ×2 (09:18→21:41)
[2019-05-31] MEDS: FLUTICASONE NASAL SPRAY (FLONASE) 16 GM BTL NS SCH (09:19)
--- NOTE | 2019-05-31 10:15 | Occupational Ther Daily Note ---
OT Current Status-Daily Note Subjective Pt alert, lying in bed. Pt declined to eat any breakfast and just wanted Ensure to drink. Offered apple juice and pt preferred this over OJ. No c/o pain only increased fatigue. Nrsg stated that pt had low BS this morning. Mental Status/Objective Patient Orientation: Person, Place, Time, Situation ADL-Treatment Pt declines shower, agrees to sponge bath. Min A for supine to EOB. CGA to ambulate to bathroom using FWW and transfer with FWW/grabbars to toilet. CGA to manipulate clothing for toileting. Pt threaded lower body clothing over B LE's after set up then hiked pants over hips with CGA. Pt stated that she was almost too tired to stand. Pt used dressing stick to doff socks and sock aide to don. Pt sat at sink to complete upper body bathing and donning/doffing shirt. Completed oral care and grooming, independently. Therapy Code Descriptions/Definitions Functional [place] Measure: 0=Not Assessed/NA 4=Minimal Assistance 1=Total Assistance 5=Supervision or Setup 2=Maximal Assistance 6=Modified [place] 3=Moderate Assistance 7=Complete IndependenceSCALE: Activities may be completed with or without assistive devices. 6-Racpccjign-qqtchzj completes the activity by him/herself with no assistance from a helper. 5-Set-up or Clean-up Assistance-helper sets up or cleans up; patient completes activity. [place] assists only prior to or following the activity. 4-Supervision or Touching Assistance-helper provides verbal cues and/or touching/steadying and/or contact guard assistance as patient completes activity. Assistance may be provided throughout the activity or intermittently. 3-Partial/Moderate Assistance-helper does LESS THAN HALF the effort. [place] lifts, holds or supports trunk or limbs, but provides less than half the effort. 2-Substantial/Maximal Assistance-helper does MORE THAN HALF the effort. [place] lifts or holds trunk or limbs and provides more than half the effort. 5-Vrttdhalq-hvxnyz does ALL the effort. Patient does none of the effort to complete the activity. Or, the assistance of 2 or more helpers is required for the patient to complete the activity. If activity was not attempted, code reason: 7-Patient Refused. 9-Not Applicable-not attempted and the patient did not perform the activity before the current illness, exacerbation or injury. 10-Not Attempted due to Environmental Limitations-(lack of equipment, weather restraints, etc.). 88-Not Attempted due to Medical Conditions or Safety Concerns. Oral Hygiene (QC): 6 Shower/Bathe Self (QC): 4 Upper Body Dressing (QC): 5 Lower Body Dressing (QC): 4 On/Off Footwear: 5 Toileting Hygiene (QC): 4 Toilet Transfer (QC): 4 Other Treatment Pt transported via w/c to therapy gym to complete UE gross and fine motor tasks to increase overall UE strength and activity tolerance for daily functional tasks. Resistive pegs (100) with each hand. Medium resistive theraputty, finding small items and manipulating with hands. PT took over care of pt. All needs met. OT Short Term Goals Short Term Goals Toileting hygiene: 4 Shower/bathe self: 4 OT Fpc Goals [employer] Goals Time Frame: Jun 02, 2019 Eating (QC): 6 (met) Oral Hygiene (QC): 6 (m et) Toileting Hygiene (QC): 6 Shower/Bathe Self (QC): 6 Upper Body Dressing (QC): 6 Lower Body Dressing (QC): 6 On/Off Footwear (QC): 6 Additional Goals: 1-Demonstrate ADL Tasks, 2-Verbalize Understanding, 3-ImproveStrength/[place] 1=Demonstrate adherence to instructed precautions during ADL tasks. 2=Patient will verbalize/demonstrate understanding of assistive devices/modifications for ADL. 3=Patient will improve strength/tolerance for activity to enable patient to perform ADL's. OT Education/Plan Problem List/Assessment Assessment: Decreased Activ Tolerance, Decreased UE Strength, Impaired Self- Care Skills Discharge Recommendations Plan/Recommendations: Continue POC Treatment Plan/Plan of Care Patient would benefit from OT for education, treatment and training to promote independence in ADL's, mobility, safety and/or upper extremity function for ADL's. Plan of Care: ADL Retraining, Caregiver Training, Functional Mobility, Group Exercise/Act as Ind, UE Funct Exercise/Act Treatment Duration: Jun 02, 2019 Frequency: At least 5 of 7 days/Wk (IRF) Estimated Hrs Per Day: 1.5 hours per day Agreement: Yes Rehab Potential: Fair Time/GCodes Start Time: 09:00 Stop Time: 10:15 Total Time Billed (hr/min): 75 Billed Treatment Time 1 visit-ADL 3 (50 min) EX 2 (25 min) JUAN LAURENT May 31, 2019 10:15
--- NOTE | 2019-05-31 10:32 | PM&R Progress Note ---
Subjective HPI/CC On Admission Date Seen by Provider: May 31, 2019 Time Seen by Provider: 10:30 Subjective/Events-last exam Telemetry DC 3 days ago Will go home with family Friday BP is stable Swallowing ok now but doesn't like to eat in general Hgb 8.9 today Low sugar at 51 due to no eating for the past 2 days Frail status and won't eat much which is causing a slow recovery and high risk for decompensation and overall prognosis is very poor BM regular Patient appears to be a hospice candidate due to frail status BMI 18 and refuses to eat Conferred with RN Reviewed therapy notes Checked meds and labs Review of Systems General: Fatigue Musculoskeletal: leg pain Neurological: Confusion Objective Exam Vital Signs Vital Signs Date Time Temp Pulse Resp B/P (MAP) Pulse Ox O2 Delivery O2 Flow Rate FiO2 05/31/19 08:15 Room Air 05/31/19 05:32 37.4 70 16 115/60 (78) 95 Capillary Refill : Less Than 3 SecondsLess Than 3 Seconds General Appearance: No Apparent Distress, Chronically ill, Thin, Other (frail, fatigued) HEENT: PERRL/EOMI, Normal ENT Inspection, Pharynx Normal Neck: Full Range of Motion, Normal Inspection, Non Tender, Supple Respiratory: Chest Non Tender, Lungs Clear, Normal Breath Sounds, No Accessory Muscle Use, No Respiratory Distress Cardiovascular: Irregularly Irregular Gastrointestinal: Normal Bowel Sounds, No Organomegaly, No Pulsatile Mass, Non Tender, Soft Back: Normal Inspection, No CVA Tenderness, No Vertebral Tenderness Extremity: Normal Capillary Refill, Normal Inspection, Normal Range of Motion (except right leg due to surgery), Non Tender, No Calf Tenderness, No Pedal Edema Neurologic/Psychiatric: Alert, No Motor/Sensory Deficits, Normal 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 FIM Transfers Therapy Code Descriptions/Definitions Functional [place] Measure: 0=Not Assessed/NA 4=Minimal Assistance 1=Total Assistance 5=Supervision or Setup 2=Maximal Assistance 6=Modified [place] 3=Moderate Assistance 7=Complete IndependenceSCALE: Activities may be completed with or without assistive devices. 0-Nwmpxiwehn-zgqkrig completes the activity by him/herself with no assistance from a helper. 5-Set-up or Clean-up Assistance-helper sets up or cleans up; patient completes activity. [place] assists only prior to or following the activity. 4-Supervision or Touching Assistance-helper provides verbal cues and/or touching/steadying and/or contact guard assistance as patient completes activity. Assistance may be provided throughout the activity or intermittently. 3-Partial/Moderate Assistance-helper does LESS THAN HALF the effort. [place] lifts, holds or supports trunk or limbs, but provides less than half the effort. 2-Substantial/Maximal Assistance-helper does MORE THAN HALF the effort. [place] lifts or holds trunk or limbs and provides more than half the effort. 3-Fcacjdbkz-cxogvk does ALL the effort. Patient does none of the effort to complete the activity. Or, the assistance of 2 or more helpers is required for the patient to complete the activity. If activity was not attempted, code reason: 7-Patient Refused. 9-Not Applicable-not attempted and the patient did not perform the activity before the current illness, exacerbation or injury. 10-Not Attempted due to Environmental Limitations-(lack of equipment, weather restraints, etc.). 88-Not Attempted due to Medical Conditions or Safety Concerns. Roll Left to Right (QC): 1 Sit to Lying (QC): 3 Sit to Stand (QC): 3 (min assist with skilled cues for hand placement. ) Chair/Rjy-uf-Aqyxk Xfer(QC): 3 Car Transfer (QC): 88 Gait Training Does the Patient Walk?: Yes Distance: 30 ft, 30 ft, 25 ft and 15 ft Walk 10 feet (QC): 4 Walk 50 ft with 2 Turns(QC): 88 Walk 150 ft (QC): 88 Walking 10ft/uneven surface-QC: 88 Gait Persons Needed: 1 Gait Assistive Device: FWW Wheelchair Training Does the Pt Use a Wheelchair?: No Wheel 50 ft with 2 turns (QC): 9 Wheel 150 ft (QC): 9 Stair Training 1 Step (curb) (QC): 88 4 Steps (QC): 88 12 Steps (QC): 88 Balance Picking up an Object (QC): 88 ADL-Treatment Eating (QC): 6 (IND, states decreased desire to eat today. States drank coffee) Oral Hygiene (QC): 7 (states will complete after lunch on this date.) Bathing Location: L Arm, R Arm, L Upper Leg, R Upper Leg, L Lower Leg ( including foot), R Lower Leg (including foot), Chest, Abdomen, Buttocks, Perineal Area Shower/Bathe Self (QC): 4 (CGA sc transfer (cues for use of gb) and CGA in stance for bottom/ dick hygiene) Upper Body Dressing (QC): 6 (IND) Lower Body Dressing (QC): 3 (min A due to fatigue. Pt able to don brief with AE, min A donning pants. Pt requires CGA in stance to pull to hips.) On/Off Footwear (QC): 4 (Pt requires cues for use of sock aide, though able to thread B socks on sock aide and don.) Toileting Hygiene (QC): 4 (CGA) Toilet Transfer (QC): 4 (CGA) Assessment/Plan Assessment and Plan Assess & Plan/Chief Complaint Assessment: Right femur fracture POD # 15 Acute blood loss anemia s/p 1 unit of blood transfusion 3 hgb low requiring holding ASA and Eliquis for now and 1 unit given in IRF and will restart on OAC if hgb remains stable per Cardiology New onset AF w/mild RVR dx by Dr Wells team appreciate their expertise now rate controlled on Coreg and telemetry DC Chronic angina Anxiety CAD (coronary artery disease) Colon polyps CVD (cerebrovascular disease) Dementia Depression Diverticulitis Diverticulosis Dyspnea on exertion GERD (gastroesophageal reflux disease) Heart disease Hiatal hernia HTN Hyperlipidemia Hyponatremia Osteopenia, Osteoporosis TIA (transient ischemic attack) Urinary retention sporadic Hemoccult + consulted Dr Bradford appreciate his monitoring Dysphagia Hypoglycemia due to starvation status since she refuses to eat Plan: IRF protocol Lovenox DC for DVT PPx since placed on Eliquis for CVA PPx due to new onset AF but now on hold due to profound anemia transfusion ordered but will restart OAC Eliquis soon Checked iron level ordered Venofer after midline placed and confirmed low level completed 4 doses before midline infiltrated Pain control Monitor for delirium Home meds Remeron 7.5mg dose at night started DC home Wed poor prognosis (1) Right femoral fracture (2) Fall (3) History of TIAs (4) Dementia (5) Hypertension (6) Anemia due to acute blood loss (7) Iron deficiency (8) Diverticulosis (9) Advanced age (10) History of UTI (11) DVT prophylaxis (12) Anxiety (13) Hyponatremia (14) GERD (gastroesophageal reflux disease) (15) Hiatal hernia (16) Hyperlipidemia (17) Atrial fibrillation with rapid ventricular response MARTIN LEAL DO May 31, 2019 10:32
--- NOTE | 2019-05-31 11:30 | Physical Therapy Daily Note ---
PT Daily Note-Current Subjective Pt. states several times that therapy is so very hard for her to do. States that at home she mainly sits and walks some, crochets and does some kitchen work. visits and instructs pt. to concentrate on nutrition. Pt. rates pain at 4/10 in right hip sayda with exercise Pain Numeric Pain Scale: 4 Location: Right Location Body Site: Hip Pain Description: Ache, Pressure Mental Status Patient Orientation: Normal For Age Transfers SCALE: Activities may be completed with or without assistive devices. 1-Gkcnnoyxzq-pwcfzhx completes the activity by him/herself with no assistance from a helper. 5-Set-up or Clean-up Assistance-helper sets up or cleans up; patient completes activity. Gilbert assists only prior to or following the activity. 4-Supervision or Touching Assistance-helper provides verbal cues and/or touching/steadying and/or contact guard assistance as patient completes activ ity. Assistance may be provided throughout the activity or intermittently. 3-Partial/Moderate Assistance-helper does LESS THAN HALF the effort. Gilbert lifts, holds or supports trunk or limbs, but provides less than half the effort. 2-Substantial/Maximal Assistance-helper does MORE THAN HALF the effort. Gilbert lifts or holds trunk or limbs and provides more than half the effort. 8-Kfgkbclgm-xdutjx does ALL the effort. Patient does none of the effort to complete the activity. Or, the assistance of 2 or more helpers is required for the patient to complete the activity. If activity was not attempted, code reason: 7-Patient Refused. 9-Not Applicable-not attempted and the patient did not perform the activity before the current illness, exacerbation or injury. 10-Not Attempted due to Environmental Limitations-(lack of equipment, weather restraints, etc.). 88-Not Attempted due to Medical Conditions or Safety Concerns. Roll Left & Right (QC): 5 Sit to Lying (QC): 4 Lying to Sitting/Side of Bed(Q: 4 Sit to Stand (QC): 5 Chair/Egk-lz-Wkxyz Xfer(QC): 4 Weight Bearing Right Lower Extremity: Right Weight Bearing/Tolerated Left Lower Extremity: Left Full Weight Bearing Gait Training Does the Patient Walk?: Yes Walk 10 feet (QC): 5 Walk 50 ft with 2 Turns(QC): 4 Gait Persons Needed: 1 Gait Assistive Device: FWW slow and needs w/c behind for support Exercises Supine Ex: Ankle pumps, Quad Set, Rolling, Glut sets, Heel Slides, Short Arc Quads, Scooting, Hip abd/add Supine Reps: 12 (x2) Seated Therapy Exercises: Ankle pumps, Sit to stand, Long arc quads Seated Reps: 15 NuStep Minutes: 9 NuStep Workload: 2 Assessment Current Status: Good Progress pt. states the Rx is very taxing but she tolerated well and as this HUB BORER reviews the progress of her therapy she has made slow steady progress. PT Management Technician Goals Long-Term Goals PT Management Technician Goals Time Frame: Jun 09, 2019 Roll Left & Right (QC): 6 Sit to Lying (QC): 6 Lying-Sitting on Side/Bed(QC): 6 Sit to Stand (QC): 6 Chair/Sfd-yj-Fxoyl Xfer(QC): 6 Toilet Transfer (QC): 6 Car Transfer (QC): 6 Does the Patient Walk: Yes Walk 10 feet (QC): 6 Walk 50ft with 2 Turns (QC): 6 Walk 150 ft (QC): 6 Walking 10ft on Uneven Surface: 6 1 Step (curb) (QC): 4 4 Steps (QC): 4 12 Steps (QC): 4 Picking up an Object (QC): 4 Wheel 50 feet with 2 turns (QC: 9 Wheel 150 feet: 9 PT Plan Treatment/Plan Treatment Plan: Continue Plan of Care Treatment Plan: Bed Mobility, Concurrent Therapy, Education, Functional Activity Deanne, Functional Strength, Group Therapy, Gait, Safety, Therapeutic Exercise, Transfers Treatment Duration: Jun 09, 2019 Frequency: At least 5 of 7 days/Wk (IRF) Estimated Hrs Per Day: 1.5 hours per day Patient and/or Family Agrees t: Yes Safety Risks/Education Patient Education: Gait Training, Transfer Techniques, Correct Positioning, Disease Process, Safety Issues Teaching Recipient: Patient Teaching Methods: Demonstration, Discussion Response to Teaching: Verbalize Understanding, Return Demonstration, Reinforcement Needed Time/GCodes Time In: 1025 Time Out: 1125 Total Billed Treatment Time: 60 Total Billed Treatment 1,EX25m,FA15m,GT20m OTONIEL BLANCO HUB BORER May 31, 2019 11:30
--- NOTE | 2019-05-31 12:18 | Progress Note - Cardiology ---
Cardiology SOAP Progress Note Subjective: Sitting up in recliner at the bedside. States she is tired this morning. No c/o CP, dyspnea or palpitations. Objective: I&O/Vital Signs 06/01/19 06/01/19 06/01/19 06:00 08:10 08:55 Temp 36.8 Pulse 67 75 Resp 20 B/P (MAP) 90/47 (61) 120/63 (82) Pulse Ox 94 95 O2 Delivery Room Air Room Air Room Air 06/01/19 00:00 Intake Total 200 ml Balance 200 ml Constitutional: AAO x 3, other (thin-appearing) Respiratory: No accessory muscle use; other (fair to good bilat air entry, diminished at the bases) Cardiovascular: irregularly irregular, S1 and S2, systolic murmur (soft OFELIA at card base) Gastrointestional: No tender; soft; No guarding, No rebound; audible bowel shanice nds Extremities: No clubbing, No cyanosis, No significant edema Neurologic/Psychiatric: oriented x 3, other (able to move all limbs equally) Skin: No rash on exposed areas, No ulcerations on exposed areas Results/Procedures: Labs A/P: Assessment: Gen weakness Anemia, stool occult blood was positive, received one unit of packed RBCs, Dr. Bradford consulted - managed by [facility]. Worsening anemia (after apixaban was resumed on 05/25/19) CAD- history of PCI to RCA. Previously followed with Dr. Grey in [place]. Most recent stress test done September 2016 revealed no ischemia or infarct P.Atrial fibrillation Chronic LBBB Hypertension with recent episode of hypotension - improved following reduction in medications HLP- maintained on statin HTP- PA 50-55mmHg. Ex tobaccoism Plan: * Complex managment due to multiple issues, including the opposing issues of needing OAC for stroke prophylaxis and holding OAC for GI bleed * H&H low but holding. If endoscopy is not being performed in the near future, then consider resuming OAC * Again advised to increase oral intake to improve gen weakness * Monitor labs closely ALEJANDRA FU May 31, 2019 12:18
--- NOTE | 2019-05-31 13:37 | Speech Therapy Daily Note ---
Speech Daily Progress Note Subjective Date Seen by Provider: May 31, 2019 Time Seen by Provider: 00:30 Patient was alert, resting in her chair. She stated she was tired from therapy, however she participated well with therapy. Objective Patient continues to utilize compensatory strategies as trained with all oral intake at 80-90% given minimal cuing. Assessment Assessment Current Status: Good Progress Treatment Plan Continue Plan of Care Speech Short Term Goals Short Term Goals Short Term Goals 1) The patient will complete memory tasks related to her daily needs at 90% or greater with minimal cues. 2) The patient will complete safety awareness tasks related to her daily needs at 90% or greater with minimal cues. 3) The patient will complete problem solving tasks related to her daily needs at 90% or greater with minimal cues. 4) The patient will tolerate least restrictive diet without s/s of aspiration at 80% or greater with minimal cues. 4) The patient/caregiver will utilize compensatory strategies as trained for safe oral intake with 90% or greater with minimal cues. Speech Fci Goals Fci Goals The patient will improve cognitive-communication necessary for safety and daily living tasks with minimal assist. The patient will maintain adequate nutrition/hydration via safe effective swallow function. Speech-Plan Patient/Family Goals Patient/Family Goals: Patient plans on returning home with her family upon discharge. Treatment Plan Speech Therapy Treatment Plan: Continue Plan of Care Treatment Duration: May 28, 2019 Frequency: 5 times per week Estimated Hrs Per Day: .5 hour per day Rehab Potential: Fair Barriers to Learning: Patient's dementia Pt/Family Agrees to Plan: Yes Safety Risks/Education Teaching Recipient: Patient Teaching Methods: Demonstration, Discussion Response to Teaching: Verbalize Understanding, Return Demonstration Education Topics Provided: Continued safety overall Time Speech Therapy Time In: 11:30 Speech Therapy Time Out: 12:00 Total Billed Time: 30 Billed Treatment Time 1, TOÑO LAURA Menjivar May 31, 2019 13:37
--- NOTE | 2019-05-31 14:24 | Physical Therapy Daily Note ---
PT Daily Note-Current Subjective Pt. states she is ready to go to the bathroom and get back in bed for a nap. At one point pt. states "Im not sure Im going to be getting out of here". This after therapist notes pt. did not eat any of her meal and nutrition is a focus right now for her recovery Pain Location: No Pain Reported Appearance frail Mental Status Patient Orientation: Person Transfers SCALE: Activities may be completed with or without assistive devices. 8-Mfhoekocih-gntscvm completes the activity by him/herself with no assistance from a helper. 5-Set-up or Clean-up Assistance-helper sets up or cleans up; patient completes activity. [place] assists only prior to or following the activity. 4-Supervision or Touching Assistance-helper provides verbal cues and/or touching/steadying and/or contact guard assistance as patient completes activity. Assistance may be provided throughout the activity or intermittently. 3-Partial/Moderate Assistance-helper does LESS THAN HALF the effort. Brandywine lifts, holds or supports trunk or limbs, but provides less than half the effort. 2-Substantial/Maximal Assistance-helper does MORE THAN HALF the effort. [place] lifts or holds trunk or limbs and provides more than half the effort. 9-Zipbkabpl-hjdeny does ALL the effort. Patient does none of the effort to complete the activity. Or, the assistance of 2 or more helpers is required for the patient to complete the activity. If activity was not attempted, code reason: 7-Patient Refused. 9-Not Applicable-not attempted and the patient did not perform the activity before the current illness, exacerbation or injury. 10-Not Attempted due to Environmental Limitations-(lack of equipment, weather restraints, etc.). 88-Not Attempted due to Medical Conditions or Safety Concerns. sit to stand all min to CGA toilet and recliner Weight Bearing Right Lower Extremity: Right Weight Bearing/Tolerated Left Lower Extremity: Left Full Weight Bearing Gait Training Does the Patient Walk?: Yes Walk 10 feet (QC): 4 Walk 50 ft with 2 Turns(QC): 4 Gait Persons Needed: 1 Gait Assistive Device: FWW pt. ambulated 40ft, 15 ft CGA, slow, fatiguing pt Exercises Supine Ex: Ankle pumps, Quad Set, Heel Slides, Hip abd/add Supine Reps: 10 Treatments required min assist in bthrm for managing robe only Assessment Current Status: Fair Progress frail and weak but gait and TRFs slightly improved, appears depressed. Perhaps confused as she mentioned that her family would be here any time when in fact there are no visitors here during Covid restrictions PT Port Patrol Officer Goals Port Patrol Officer Goals PT Port Patrol Officer Goals Time Frame: Jun 09, 2019 Roll Left & Right (QC): 6 Sit to Lying (QC): 6 Lying-Sitting on Side/Bed(QC): 6 Sit to Stand (QC): 6 Chair/Krv-vq-Asaga Xfer(QC): 6 Toilet Transfer (QC): 6 Car Transfer (QC): 6 Does the Patient Walk: Yes Walk 10 feet (QC): 6 Walk 50ft with 2 Turns (QC): 6 Walk 150 ft (QC): 6 Walking 10ft on Uneven Surface: 6 1 Step (curb) (QC): 4 4 Steps (QC): 4 12 Steps (QC): 4 Picking up an Object (QC): 4 Wheel 50 feet with 2 turns (QC: 9 Wheel 150 feet: 9 PT Plan Treatment/Plan Treatment Plan: Continue Plan of Care Treatment Plan: Bed Mobility, Concurrent Therapy, Education, Functional Activity Deanne, Functional Strength, Group Therapy, Gait, Safety, Therapeutic Exercise, Transfers Treatment Duration: Jun 09, 2019 Frequency: At least 5 of 7 days/Wk (IRF) Estimated Hrs Per Day: 1.5 hours per day Patient and/or Family Agrees t: Yes Safety Risks/Education Patient Education: Gait Training, Transfer Techniques, Correct Positioning, Disease Process, Safety Issues Teaching Recipient: Patient Teaching Methods: Demonstration, Discussion Response to Teaching: Verbalize Understanding, Return Demonstration, Reinforcement Needed Time/GCodes Time In: 1405 Time Out: 1420 Total Billed Treatment Time: 15 Total Billed Treatment 1,FA15m OTONIEL BLANCO CHAIN MAKER MACHINE May 31, 2019 14:24
--- NOTE | 2019-05-31 14:29 | Progress Note - Cardiology ---
Cardiology SOAP Progress Note Subjective: No cp or palp or syncope Weakness and malaise as before No focal weakness No shortness of breath at rest No n/v/d Objective: I&O/Vital Signs 05/31/19 05/31/19 05:32 08:15 Temp 37.4 Pulse 70 Resp 16 B/P (MAP) 115/60 (78) Pulse Ox 95 O2 Delivery Room Air Room Air 05/31/19 00:00 Intake Total 900 ml Output Total 300 ml Balance 600 ml Constitutional: AAO x 3, other (thin-appearing) Respiratory: No accessory muscle use; other (fair to good bilat air entry, diminished at the bases) Cardiovascular: irregularly irregular, S1 and S2, systolic murmur (soft OFELIA at card base) Gastrointestional: No tender; soft; No guarding, No rebound; audible bowel sounds Extremities: No clubbing, No cyanosis, No significant edema Neurologic/Psychiatric: oriented x 3, other (able to move all limbs equally) Skin: No rash on exposed areas, No ulcerations on exposed areas Results/Procedures: Labs Laboratory Tests 05/31/19 05:40: White Blood Count 6.8, Red Blood Count 3.13L, Hemoglobin 8.9L, Hematocrit 28L, Mean Corpuscular Volume 90, Mean Corpuscular Hemoglobin 28, Mean Corpuscular Hemoglobin Concent 31L, Red Cell Distribution Width 18.5H, Platelet Count 373, Mean Platelet Volume 9.8, Neutrophils (%) (Auto) 74, Lymphocytes (%) (Auto) 16, Monocytes (%) (Auto) 6, Eosinophils (%) (Auto) 3, Basophils (%) (Auto) 1, Neutrophils # (Auto) 5.1, Lymphocytes # (Auto) 1.1, Monocytes # (Auto) 0.4, Eosinophils # (Auto) 0.2, Basophils # (Auto) 0.1, Sodium Level 138, Potassium Level 3.9, Chloride Level 103, Carbon Dioxide Level 23, Anion Gap 12, Blood Urea Nitrogen 13, Creatinine 0.64, Estimat Glomerular Filtration Rate > 60, BUN/Creatinine Ratio 20, Glucose Level 51*L, Calcium Level 8.2L, Corrected Calcium 9.2, Total Bilirubin 0.6, Aspartate Amino Transf (AST/SGOT) 39H, Alanine Aminotransferase (ALT/SGPT) 32, Alkaline Phosphatase 136, Total Protein 5.5L, Albumin 2.7L 05/31/19 08:01: Glucometer 72 Laboratory Tests 05/30/19 06:10 05/31/19 05:40 A/P: Assessment: Gen weakness Anemia, stool occult blood was positive, received one unit of packed RBCs, Dr. Bradford consulted - managed by [facility]. Worsening anemia (after apixaban was resumed on 05/25/19) CAD- history of PCI to RCA. Previously followed with Dr. Grey in [place]. Most recent stress test done September 2016 revealed no ischemia or infarct P.Atrial fibrillation Chronic LBBB Hypertension with recent episode of hypotension - improved following reduction in medications HLP- maintained on statin HTP- PA 50-55mmHg. Ex tobaccoism Plan: * Complex management due to multiple issues, including the opposing issues of needing OAC for stroke prophylaxis and holding OAC for GI bleed * H&H low but holding. If endoscopy is not being performed in the near future, then consider resuming OAC Repeat CBC * I discussed her CV issues with her * Monitor labs closely LILLIAN BUNN MD FACP FACC CCDS May 31, 2019 14:29
--- NOTE | 2019-05-31 14:36 | NUR ---
"RD ASSESSMENT PMHx: CAD; HTN; HLP; GERD; s/p R femur fracture PT INTERACTION: Pt was awake and pleasant during nutrition follow-up. Pt states she has still been eating poorly since last assessment. Note avg PO intake <25% x4d, per chart review. Pt states tolerating nutritional supplementation. Pt states no issues with n/v/c/d since last assessment. Note last BM was 05/30 and pt currently on bowel regimen of Senna BID; and Miralax BID, per chart review. Pt states no current issues with chewing/swallowing food. ABNORMAL NUTRITION-RELATED LAB VALUES LOW: glu 51; Ca 8.2; Pro 5.5; alb 2.7 HIGH: AST 39 Est. kcal needs: 1549-6934 kcal | 30-35 kcal/kg Est. Pro needs: 47-56 g Pro | 1.0-1.2 g Pro/kg PES STATEMENT: Inadequate oral intake (NI-2.1) related to loss of appetite as evidenced by pt interview | avg PO intake 28% x4d Underweight (NC-3.1) related to inadequate energy intake as evidenced by BMI 18.9 | malnutrition | dementia | estimated intake of food less than estimated needs INTERVENTION: Continue with current diet order of DYS2 Mechanically Altered diet. Pt may benefit from review with Speech Therapy and swallow evaluation. Pt states she has no issues with chewing/swallowing at this time. PO intake may improve if diet is advanced. Continue with current supplementation order of Ensure Enlive with meals TID. Provides 350 kcal and 13 g Pro per serving. Will continue to follow and reassess as pt needs, intake, and status change. MONITOR/EVALUATE: PO Intake; Plan of Care; Hydration Status; Weight Status; Lab Values Viky Garcia, MS, RD, LD"
--- NOTE | 2019-05-31 14:57 | NUR ---
CM/SS CONCURRENT DOCUMENTATION Patient EMR reviewed, visited with assigned Unit RN. Daughter Benoit Slaughter had called RN this a.m. and junior copywriter attempted to return call multiple times, left messages. Benoit likely at work and not available for phone talk. Will need to explore whether family still intend to take patient home and provide adequate supportive care. Patient with very poor intake and reporting weakness. HHC: Explored agencies identified by Benoit [facility] ([place]) is not taking any new patients at this time. Their hospital and [facility] agency will be under new ownership as of this Friday, with [facility] [place]. [facility] indicates [facility] is in network; however no referral made with intake until confirming that patient will be returning home and exact services needed. Await orders re same. Requesting RN/PT/OT. Post op removable site enclosures to be removed prior to discharging.
--- NOTE | 2019-05-31 15:24 | NUR ---
CM/SS CONCURRENT DOCUMENTATION, DISCHARGE PLANNING Return call from daughter Benoit Slaughter. She will be here to hop picker patient Friday at 1100. Benoit has had her work hours cut back, she will be with her parents M-W-F and her brother will be with them the other times. Discussed patient's continued lack of food interest and poor intake, Benoit still has lb that her mother will eat better once home. Benoit inquired about [facility] in-home services, not available without Medicaid. [facility] and patient has had this in the past for 5 hours weekly but not currently. Benoit indicates she will move forward to research Medicaid application, Division of Assets option. Discharge Friday as planned.
[2019-05-31 16:18] VITALS: BP 113/68
[2019-05-31] MEDS: ROSUVASTATIN 20 MG (CRESTOR) TABLET PO SCH (21:39)
[2019-05-31] MEDS: OLANZapine 2.5 MG (ZyPREXA) TAB PO SCH (21:40)
[2019-05-31] MEDS: MIRTAZAPINE 15 MG (REMERON) TAB PO SCH (21:40)
[2019-05-31] MEDS: ACETAMINOPHEN 325 MG TABLET PO PRN (21:40)
[2019-05-31] MEDS: ALPRAZolam 0.25 MG (XANAX) TAB PO PRN (21:40)
[2019-06-01 06:00] VITALS: BP 90/47
[2019-06-01] MEDS: MULTIVIT W/MINERALS TAB (THERAGRAN M) PO SCH (06:05)
[2019-06-01 08:10] VITALS: BP 120/63
[2019-06-01] MEDS: ASPIRIN E.C. 81 MG (ECOTRIN) TAB PO SCH (08:31)
[2019-06-01] MEDS: CALCIUM CARB + VIT D 600 MG (CALCARB + D) TAB PO SCH (08:31)
[2019-06-01] MEDS: SERTRALINE 100 MG (ZOLOFT) TAB PO SCH (08:31)
[2019-06-01] MEDS: LORATADINE (CLARITIN) 10 MG TAB PO SCH (08:31)
[2019-06-01] MEDS: CARVEDILOL 3.125 MG (COREG) TABLET PO SCH ×2 (08:31→20:46)
[2019-06-01] MEDS: SENNA W/DOCUSATE (SENOKOT S) TABLET PO SCH ×2 (08:32→19:22)
[2019-06-01] MEDS: LOSARTAN 25 MG (COZAAR) TAB PO SCH (08:32)
[2019-06-01] MEDS: PANTOPRAZOLE 40 MG (PROTONIX) TAB PO SCH (08:32)
[2019-06-01] MEDS: FLUTICASONE NASAL SPRAY (FLONASE) 16 GM BTL NS SCH (08:34)
[2019-06-01] MEDS: polyethylene glycoL POWDER 17 GM (MIRALAX) PACK PO SCH ×2 (08:34→19:22)
--- NOTE | 2019-06-01 09:52 | Progress Note - Cardiology ---
Cardiology SOAP Progress Note Subjective: Completed with shower. C/O gen weakness. No c/o CP, palpitations, syncope or near syncope. Objective: I&O/Vital Signs 06/01/19 06/01/19 06/01/19 06:00 08:10 08:55 Temp 36.8 Pulse 67 75 Resp 20 B/P (MAP) 90/47 (61) 120/63 (82) Pulse Ox 94 95 O2 Delivery Room Air Room Air Room Air 06/01/19 00:00 Intake Total 200 ml Balance 200 ml Constitutional: AAO x 3, other (thin-appearing) Respiratory: No accessory muscle use; other (fair to good bilat air entry, diminished at the bases) Cardiovascular: irregularly irregular, S1 and S2, systolic murmur (soft OFELIA at card base) Gastrointestional: No tender; soft; No guarding, No rebound; audible bowel sounds Extremities: No clubbing, No cyanosis, No significant edema Neurologic/Psychiatric: oriented x 3, other (able to move all limbs equally) Skin: No rash on exposed areas, No ulcerations on exposed areas A/P: Assessment: Gen weakness Anemia, stool occult blood was positive, received one unit of packed RBCs, Dr. Bradford consulted - managed by [facility]. Worsening anemia (after apixaban was resumed on 05/25/19) CAD- history of PCI to RCA. Previously followed with Dr. Grey in [place]. Most recent stress test done September 2016 revealed no ischemia or infarct P.Atrial fibrillation Chronic LBBB Hypertension with recent episode of hypotension - improved following reduction in medications HLP- maintained on statin HTP- PA 50-55mmHg. Ex tobaccoism Plan: * Complex management due to multiple issues, including the opposing issues of needing OAC for stroke prophylaxis and holding OAC for GI bleed * H&H low but holding. If endoscopy is not being performed in the near future, then consider resuming OAC Repeat CBC * We have discussed her CV issues with her * Monitor labs closely ALEJANDRA FU Jun 01, 2019 09:52
--- NOTE | 2019-06-01 10:08 | Occupational Ther Daily Note ---
OT Current Status-Daily Note Subjective [id number]: Pt seen in recliner chair. Pt agreeable to OT tx session, states no pain currently. later through tx states difficulty/ pain in R hip. [id number]: Pt seen in recliner. Pt agrees to OT, stating, "I'm tired, but I'll work, I'm no quitter." Pt denies pain. Mental Status/Objective Patient Orientation: Person, Place, Situation ADL-Treatment Therapy Code Descriptions/Definitions Functional [place] Measure: 0=Not Assessed/NA 4=Minimal Assistance 1=Total Assistance 5=Supervision or Setup 2=Maximal Assistance 6=Modified [place] 3=Moderate Assistance 7=Complete IndependenceSCALE: Activities may be completed with or without assistive devices. 4-Hddbqxaqsb-lylwlom completes the activity by him/herself with no assistance from a helper. 5-Set-up or Clean-up Assistance-helper sets up or cleans up; patient completes activity. [place] assists only prior to or following the activity. 4-Supervision or Touching Assistance-helper provides verbal cues and/or touching/steadying and/or contact guard assistance as patient completes activity. Assistance may be provided throughout the activity or intermittently. 3-Partial/Moderate Assistance-helper does LESS THAN HALF the effort. [place] lifts, holds or supports trunk or limbs, but provides less than half the effort. 2-Substantial/Maximal Assistance-helper does MORE THAN HALF the effort. [place] lifts or holds trunk or limbs and provides more than half the effort. 6-Ppimcoflb-avihca does ALL the effort. Patient does none of the effort to complete the activity. Or, the assistance of 2 or more helpers is required for the patient to complete the activity. If activity was not attempted, code reason: 7-Patient Refused. 9-Not Applicable-not attempted and the patient did not perform the activity before the current illness, exacerbation or injury. 10-Not Attempted due to Environmental Limitations-(lack of equipment, weather restraints, etc.). 88-Not Attempted due to Medical Conditions or Safety Concerns. Eating (QC): 6 Oral Hygiene (QC): 3 (completes while seated in recliner upon second entry. Pt requires min A for denture adhesive (was dried/ set up in the tube).) Bathing Location: L Arm, R Arm, L Upper Leg, R Upper Leg, L Lower Leg (including foot), R Lower Leg (including foot), Chest, Abdomen, Buttocks, Perineal Area Shower/Bathe Self (QC): 4 (SBA in stance for bottom/ dick hygiene.) Upper Body Dressing (QC): 6 Lower Body Dressing (QC): 4 (SBA in stance to cake puller hips (pt completes all doffing/ donning wihtout use of AE.)) On/Off Footwear: 4 (SBA to complete sock donning (no use of AE for doff/ donning). Pt is max A for NICOLETTE hose- does not plan to wear at d/c.) Toileting Hygiene (QC): 4 (min A in stance after BM. CGA in stance with showering. ) Toilet Transfer (QC): 3 (Pt compeltes transfer to standard toilet with use of gbs. Pt sit to stand with use of gbs and walker and min A. ) Other Treatment Pt states fair weekend, but "Had a bad day yesterday," stating she didn't know where she was or where her possessions were. Pt completes sit to stand from high surfaces with SBA, low surfaces with Raissa to CGA. Pt utilizes toilet and has BM, nursing notified of pt's bottom wound appearance. Pt completes showering and ADLs as above. Pt states she's, "Running out of energy," after ~45 min of work. Pt finishes dressing tasks (increased IND from mod I and CGA to IND and CGA without use of AE). Pt returns to recliner, states increased fatigue, all needs met, call light in reach, NICOLETTE hose donned and legs elevated. [id number] (20): Pt completes denture cleaning while sitting in recliner chair. Pt educated on continued HEP- pt requires cues for positioning of arms with picture demonstration. Pt completes 5 reps bilaterally of the following exercises: shoulder scaption, external shoulder rotation, bicep curls. Pt unable to complete back flies with full range with resistance band, pt completes 10 reps of back flies without resistance. Pt educated on completing AROM each day to increase ROM/ increase movement. Pt agrees. Pt given HEP with instructions written on page for successful completion at home, pt agrees she will complete at home. Pt left in recliner with all needs met, call light in reach. Education OT Patient Education: Correct positioning, Exercise program, Home exercise program, Modified ADL techniques, Progress toward Goal/Update tx plan, Purpose of tx/functional activities, Safety issues Teaching Recipient: Patient Teaching Methods: Demonstration, Discussion Response to Teaching: Verbalize Understanding, Return Demonstration OT Short Term Goals Short Term Goals Toileting hygiene: 4 Shower/bathe self: 4 OT Big 6 Dealer Goals Nursing Home Goals Time Frame: Jun 02, 2019 Eating (QC): 6 (met) Oral Hygiene (QC): 6 (m et) Toileting Hygiene (QC): 6 Shower/Bathe Self (QC): 6 Upper Body Dressing (QC): 6 (met) Lower Body Dressing (QC): 6 On/Off Footwear (QC): 6 Additional Goals: 1-Demonstrate ADL Tasks, 2-Verbalize Understanding, 3- ImproveStrength/Deanne 1=Demonstrate adherence to instructed precautions during ADL tasks. 2=Patient will verbalize/demonstrate understanding of assistive devices/modifications for ADL. 3=Patient will improve strength/tolerance for activity to enable patient to perform ADL's. OT Education/Plan Problem List/Assessment Assessment: Decreased Activ Tolerance, Decreased Safety Aware, Decreased UE Strength, Dependent Transfers, Edema, Impaired Cognition, Impaired Funct Balance, Impaired I ADL's, Impaired Self-Care Skills Discharge Recommendations Plan/Recommendations: Continue POC Therapy Discharge Recommendati: 24 Hour Supervision, Post Acute OT Treatment Plan/Plan of Care Treatment,Training & Education: Yes Patient would benefit from OT for education, treatment and training to promote independence in ADL's, mobility, safety and/or upper extremity function for ADL's. Plan of Care: ADL Retraining, Caregiver Training, Functional Mobility, Group Exercise/Act as Ind, UE Funct Exercise/Act Treatment Duration: Jun 02, 2019 Frequency: At least 5 of 7 days/Wk (IRF) Estimated Hrs Per Day: 1.5 hours per day Agreement: Yes Rehab Potential: Fair Time/GCodes Start Time: 09:00 (1325) Stop Time: 10:00 (1340) Total Time Billed (hr/min): 80 Billed Treatment Time [id number]: 1, ADL 4 (60) 5286-0005: 1, ADL (20) Total: 80 DAVID AVILES OTR Jun 01, 2019 10:08
--- NOTE | 2019-06-01 10:21 | PM&R Progress Note ---
Subjective HPI/CC On Admission Date Seen by Provider: Jun 01, 2019 Time Seen by Provider: 10:30 Subjective/Events-last exam Will go home with family Friday BP is stable Swallowing ok now but doesn't like to eat in general and that is acute on chronic issue Hgb 8.9 last check Low sugar due to starvation sporadic Frail status and won't eat much which is causing a slow recovery and high risk for decompensation and overall prognosis is very poor BM regular Patient appears to be a hospice candidate due to frail status BMI 18 and refuses to eat Conferred with RN Reviewed therapy notes Checked meds and labs Review of Systems General: Fatigue Neurological: Weakness, Numbness Objective Exam Vital Signs Vital Signs Date Time Temp Pulse Resp B/P (MAP) Pulse Ox O2 Delivery O2 Flow Rate FiO2 06/02/19 09:12 Room Air 06/02/19 05:58 36.5 86 18 130/76 (94) 95 Capillary Refill : Less Than 3 SecondsLess Than 3 Seconds General Appearance: No Apparent Distress, Chronically ill, Thin, Other (frail, fatigued) HEENT: PERRL/EOMI, Normal ENT Inspection, Pharynx Normal Neck: Full Range of Motion, Normal Inspection, Non Tender, Supple Respiratory: Chest Non Tender, Lungs Clear, Normal Breath Sounds, No Accessory Muscle Use, No Respiratory Distress Cardiovascular: Irregularly Irregular Gastrointestinal: Normal Bowel Sounds, No Organomegaly, No Pulsatile Mass, Non Tender, Soft Back: Normal Inspection, No CVA Tenderness, No Vertebral Tenderness Extremity: Normal Capillary Refill, Normal Inspection, Normal Range of Motion (except right leg due to surgery), Non Tender, No Calf Tenderness, No Pedal Edema Neurologic/Psychiatric: Alert, No Motor/Sensory Deficits, Normal Mood/Affect, supervisor accounting clerks II-XII Norm as Tested Skin: Normal Color, Warm/Dry Lymphatic: No Adenopathy Results/Procedures Lab Patient resulted labs reviewed. FIM Transfers Therapy Code Descriptions/Definitions Functional [place] Measure: 0=Not Assessed/NA 4=Minimal Assistance 1=Total Assistance 5=Supervision or Setup 2=Maximal Assistance 6=Modified [place] 3=Moderate Assistance 7=Complete IndependenceSCALE: Activities may be completed with or without assistive devices. 1-Mazkbtwlln-uqghccl completes the activity by him/herself with no assistance from a helper. 5-Set-up or Clean-up Assistance-helper sets up or cleans up; patient completes activity. [place] assists only prior to or following the activity. 4-Supervision or Touching Assistance-helper provides verbal cues and/or touching/steadying and/or contact guard assistance as patient completes activity. Assistance may be provided throughout the activity or intermittently. 3-Partial/Moderate Assistance-helper does LESS THAN HALF the effort. [place] lifts, holds or supports trunk or limbs, but provides less than half the effort. 2-Substantial/Maximal Assistance-helper does MORE THAN HALF the effort. [place] lifts or holds trunk or limbs and provides more than half the effort. 4-Pgvcnstkr-qjachn does ALL the effort. Patient does none of the effort to complete the activity. Or, the assistance of 2 or more helpers is required for the patient to complete the activity. If activity was not attempted, code reason: 7-Patient Refused. 9-Not Applicable-not attempted and the patient did not perform the activity before the current illness, exacerbation or injury. 10-Not Attempted due to Environmental Limitations-(lack of equipment, weather restraints, etc.). 88-Not Attempted due to Medical Conditions or Safety Concerns. Roll Left to Right (QC): 5 Sit to Lying (QC): 4 Sit to Stand (QC): 5 Chair/Hqm-cq-Uvsqg Xfer(QC): 4 Car Transfer (QC): 88 Gait Training Does the Patient Walk?: Yes Distance: 30 ft, 30 ft, 25 ft and 15 ft Walk 10 feet (QC): 4 Walk 50 ft with 2 Turns(QC): 4 Walk 150 ft (QC): 88 Walking 10ft/uneven surface-QC: 88 Gait Persons Needed: 1 Gait Assistive Device: FWW Wheelchair Training Does the Pt Use a Wheelchair?: No Wheel 50 ft with 2 turns (QC): 9 Wheel 150 ft (QC): 9 Stair Training 1 Step (curb) (QC): 88 4 Steps (QC): 88 12 Steps (QC): 88 Balance Picking up an Object (QC): 88 ADL-Treatment Eating (QC): 6 Oral Hygiene (QC): 6 (completes in front of sink with IND in chair. ) Bathing Location: L Arm, R Arm, L Upper Leg, R Upper Leg, L Lower Leg (including foot), R Lower Leg (including foot), Chest, Abdomen, Buttocks, Perineal Area Shower/Bathe Self (QC): 4 (SBA in stance for bottom/ dick hygiene.) Upper Body Dressing (QC): 6 Lower Body Dressing (QC): 4 (SBA in stance to pull socket assembler hips (pt completes all doffing/ donning wihtout use of AE.)) On/Off Footwear (QC): 4 (SBA to complete sock donning (no use of AE for doff/ donning). Pt is max A for NICOLETTE hose- does not plan to wear at d/c.) Toileting Hygiene (QC): 4 (min A in stance after BM. CGA in stance with showering. ) Toilet Transfer (QC): 3 (Pt compeltes transfer to standard toilet with use of gbs. Pt sit to stand with use of gbs and walker and min A. ) Assessment/Plan Assessment and Plan Assess & Plan/Chief Complaint Assessment: Right femur fracture POD # 16 Acute blood loss anemia s/p 1 unit of blood transfusion 3 hgb low requiring holding ASA and Eliquis for now and 1 unit given in IRF and will restart on OAC if hgb remains stable per Cardiology New onset AF w/mild RVR dx by Dr Wells team appreciate their expertise now rate controlled on Coreg and telemetry DC Chronic angina Anxiety CAD (coronary artery disease) Colon polyps CVD (cerebrovascular disease) Dementia Depression Diverticulitis Diverticulosis Dyspnea on exertion GERD (gastroesophageal reflux disease) Heart disease Hiatal hernia HTN Hyperlipidemia Hyponatremia Osteopenia, Osteoporosis TIA (transient ischemic attack) Urinary retention sporadic Hemoccult + consulted Dr Bradford appreciate his monitoring Dysphagia Hypoglycemia due to starvation status since she refuses to eat Plan: IRF protocol Lovenox DC for DVT PPx since placed on Eliquis for CVA PPx due to new onset AF but now on hold due to profound anemia transfusion ordered but will restart OAC Eliquis soon Checked iron level ordered Venofer after midline placed and confirmed low level completed 4 doses before midline infiltrated Pain control Monitor for delirium Home meds Remeron 7.5mg dose at night started DC home Wed poor prognosis (1) Right femoral fracture (2) Fall (3) History of TIAs (4) Dementia (5) Hypertension (6) Anemia due to acute blood loss (7) Iron deficiency (8) Diverticulosis (9) Advanced age (10) History of UTI (11) DVT prophylaxis (12) Anxiety (13) Hyponatremia (14) GERD (gastroesophageal reflux disease) (15) Hiatal hernia (16) Hyperlipidemia (17) Atrial fibrillation with rapid ventricular response MARTIN LEAL DO Jun 01, 2019 10:21
--- NOTE | 2019-06-01 12:20 | Physical Therapy Daily Note ---
PT Daily Note-Current Subjective Pt sitting in recliner upon arrival. Pt agrees to PT bur reports feeling fatigued since she just had shower. Pain Location: No Pain Reported Mental Status Patient Orientation: Person, Situation Transfers SCALE: Activities may be completed with or without assistive devices. 3-Kimbqjnoai-xcwrteq completes the activity by him/herself with no assistance from a helper. 5-Set-up or Clean-up Assistance-helper sets up or cleans up; patient completes activity. [place] assists only prior to or following the activity. 4-Supervision or Touching Assistance-helper provides verbal cues and/or touching/steadying and/or contact guard assistance as patient completes activity. Assistance may be provided throughout the activity or intermittently. 3-Partial/Moderate Assistance-helper does LESS THAN HALF the effort. [place] lifts, holds or supports trunk or limbs, but provides less than half the effort. 2-Substantial/Maximal Assistance-helper does MORE THAN HALF the effort. [place] lifts or holds trunk or limbs and provides more than half the effort. 3-Mlfzdcpvk-qmkwxh does ALL the effort. Patient does none of the effort to complete the activity. Or, the assistance of 2 or more helpers is required for the patient to complete the activity. If activity was not attempted, code reason: 7-Patient Refused. 9-Not Applicable-not attempted and the patient did not perform the activity before the current illness, exacerbation or injury. 10-Not Attempted due to Environmental Limitations-(lack of equipment, weather restraints, etc.). 88-Not Attempted due to Medical Conditions or Safety Concerns. Roll Left & Right (QC): 5 Sit to Lying (QC): 4 Lying to Sitting/Side of Bed(Q: 4 Sit to Stand (QC): 4 Chair/Gow-ir-[place] Xfer(QC): 4 Toilet Transfer (QC): 4 Car Transfer (QC): 4 Weight Bearing Right Lower Extremity: Right Weight Bearing/Tolerated Left Lower Extremity: Left Full Weight Bearing Gait Training Does the Patient Walk?: Yes Distance: 15', 40', 20' Walk 10 feet (QC): 4 Walk 50 ft with 2 Turns(QC): 7 Walk 150 ft (QC): 7 Walking 10ft/uneven surface-QC: 4 Gait Persons Needed: 1 Gait Assistive Device: FWW Pt fatigues quickly and walks with antalgic gait pattern. SITE PHYSICIAN encourages WBAT while ambulating. Wheelchair Training Does the Pt Use a Wheelchair?: Yes Wheel 50 ft with 2 turns (QC): 4 Wheel 150 ft (QC): 88 Type of Wheelchair: Manual Pt needs VC due to confusion during sequencing. Balance Picking up an Object (QC): 88 Special Test Comments Pt has hip precautions so this is not performed. Pt has project program manager at home. Treatments Pt performs QC scoring items listed above. Pt returns to room to rest in bed after bed mobility. Pt has all needs met, call light in hand. Assessment Current Status: Good Progress Pt moves slowly and takes extended time to complete tasks. Pt has moments of confusion, needing redirection for sequencing. PT Care Home Goals Aviation Operations Specialist Goals PT Aviation Operations Specialist Goals Time Frame: Jun 09, 2019 Roll Left & Right (QC): 6 Sit to Lying (QC): 6 Lying-Sitting on Side/Bed(QC): 6 Sit to Stand (QC): 6 Chair/Eys-ns-Pezrn Xfer(QC): 6 Toilet Transfer (QC): 6 Car Transfer (QC): 6 Does the Patient Walk: Yes Walk 10 feet (QC): 6 Walk 50ft with 2 Turns (QC): 6 Walk 150 ft (QC): 6 Walking 10ft on Uneven Surface: 6 1 Step (curb) (QC): 4 4 Steps (QC): 4 12 Steps (QC): 4 Picking up an Object (QC): 4 Wheel 50 feet with 2 turns (QC: 9 Wheel 150 feet: 9 PT Plan Problem List Problem List: Activity Tolerance, Functional Strength, Gait, Transfer Treatment/Plan Treatment Plan: Continue Plan of Care Treatment Plan: Bed Mobility, Concurrent Therapy, Education, Functional Activity Deanne, Functional Strength, Group Therapy, Gait, Safety, Therapeutic Exercise, Transfers Treatment Duration: Jun 09, 2019 Frequency: At least 5 of 7 days/Wk (IRF) Estimated Hrs Per Day: 1.5 hours per day Patient and/or Family Agrees t: Yes Safety Risks/Education Patient Education: Gait Training, Transfer Techniques, W/C Management, Safety Issues Teaching Recipient: Patient Teaching Methods: Discussion Response to Teaching: Reinforcement Needed Time/GCodes Time In: 1025 Time Out: 1125 Total Billed Treatment Time: 60 Total Billed Treatment 1, GT (20m), [facility] (15m) & FA x2 (25m) TRINA DOWNEY SITE PHYSICIAN Jun 01, 2019 12:20
--- NOTE | 2019-06-01 13:09 | Physical Therapy Daily Note ---
PT Daily Note-Current Subjective Patient is in bed and agrees to PT. Pain Numeric Pain Scale: 5-Moderate Pain Location: Right Location Body Site: Hip Pain Description: Ache Mental Status Patient Orientation: Confused Transfers SCALE: Activities may be completed with or without assistive devices. 4-Xoejvkgyqf-efluzrq completes the activity by him/herself with no assistance from a helper. 5-Set-up or Clean-up Assistance-helper sets up or cleans up; patient completes activity. [place] assists only prior to or following the activity. 4-Supervision or Touching Assistance-helper provides verbal cues and/or touching/steadying and/or contact guard assistance as patient completes activity. Assistance may be provided throughout the activity or intermittently. 3-Partial/Moderate Assistance-helper does LESS THAN HALF the effort. [place] lifts, holds or supports trunk or limbs, but provides less than half the effort. 2-Substantial/Maximal Assistance-helper does MORE THAN HALF the effort. [place] lifts or holds trunk or limbs and provides more than half the effort. 9-Dvqqzbfhx-bgkkzg does ALL the effort. Patient does none of the effort to complete the activity. Or, the assistance of 2 or more helpers is required for the patient to complete the activity. If activity was not attempted, code reason: 7-Patient Refused. 9-Not Applicable-not attempted and the patient did not perform the activity before the current illness, exacerbation or injury. 10-Not Attempted due to Environmental Limitations-(lack of equipment, weather restraints, etc.). 88-Not Attempted due to Medical Conditions or Safety Concerns. Roll Left & Right (QC): 4 Lying to Sitting/Side of Bed(Q: 4 Sit to Stand (QC): 4 Chair/Pbq-mp-Drgji Xfer(QC): 4 Weight Bearing Right Lower Extremity: Right Weight Bearing/Tolerated Left Lower Extremity: Left Full Weight Bearing Gait Training Does the Patient Walk?: Yes Distance: 10' Walk 10 feet (QC): 4 Gait Assistive Device: FWW Exercises Supine Ex: Ankle pumps, Quad Set, Heel Slides, Short Arc Quads, Straight leg raise, Hip abd/add Supine Reps: 12 (AAROM right LE) Assessment Patient requires much encouragement to participate with therapy. Patient is currently up in recliner with lunch in situ and call light on tray. PT Heavy Lift Rigger Goals Senior Living Goals PT Heavy Lift Rigger Goals Time Frame: Jun 09, 2019 Roll Left & Right (QC): 6 Sit to Lying (QC): 6 Lying-Sitting on Side/Bed(QC): 6 Sit to Stand (QC): 6 Chair/Unv-gi-Dxldl Xfer(QC): 6 Toilet Transfer (QC): 6 Car Transfer (QC): 6 Does the Patient Walk: Yes Walk 10 feet (QC): 6 Walk 50ft with 2 Turns (QC): 6 Walk 150 ft (QC): 6 Walking 10ft on Uneven Surface: 6 1 Step (curb) (QC): 4 4 Steps (QC): 4 12 Steps (QC): 4 Picking up an Object (QC): 4 Wheel 50 feet with 2 turns (QC: 9 Wheel 150 feet: 9 PT Plan Treatment/Plan Treatment Plan: Continue Plan of Care Treatment Plan: Bed Mobility, Concurrent Therapy, Education, Functional Activity Deanne, Functional Strength, Group Therapy, Gait, Safety, Therapeutic Exercise, Transfers Treatment Duration: Jun 09, 2019 Frequency: At least 5 of 7 days/Wk (IRF) Estimated Hrs Per Day: 1.5 hours per day Patient and/or Family Agrees t: Yes Time/GCodes Time In: 1245 Time Out: 1303 Total Billed Treatment Time: 18 Total Billed Treatment 1 visit EX 18 min SUSSY GUY PT Jun 01, 2019 13:09
--- NOTE | 2019-06-01 13:16 | Speech Therapy Daily Note ---
Speech Daily Progress Note Subjective Date Seen by Provider: Jun 01, 2019 Time Seen by Provider: 00:30 Patient was resting in her bed following PT. She states she is tired. Objective Patient utilizes compensatory strategies for safe oral intake with 90% with verbal cuing. Assessment Assessment Current Status: Good Progress Treatment Plan Discontinue ST, Goals Met Speech Short Term Goals Short Term Goals Short Term Goals 1) The patient will complete memory tasks related to her daily needs at 90% or greater with minimal cues. 2) The patient will complete safety awareness tasks related to her daily needs at 90% or greater with minimal cues. 3) The patient will complete problem solving tasks related to her daily needs at 90% or greater with minimal cues. 4) The patient will tolerate least restrictive diet without s/s of aspiration at 80% or greater with minimal cues. 4) The patient/caregiver will utilize compensatory strategies as trained for safe oral intake with 90% or greater with minimal cues. Speech Half-Way Goals Metal Room Dental Technician Goals The patient will improve cognitive-communication necessary for safety and daily living tasks with minimal assist. The patient will maintain adequate nutrition/hydration via safe effective swallow function. Speech-Plan Patient/Family Goals Patient/Family Goals: Patient is discharging to home tomorrow where she will have family support. Treatment Plan Speech Therapy Treatment Plan: Discontinue ST, Goals Met Treatment Duration: May 28, 2019 Frequency: 5 times per week Estimated Hrs Per Day: .5 hour per day Rehab Potential: Fair Barriers to Learning: Patient's dementia Pt/Family Agrees to Plan: Yes Safety Risks/Education Teaching Recipient: Patient Teaching Methods: Demonstration, Discussion Response to Teaching: Verbalize Understanding, Return Demonstration Education Topics Provided: Continued safety with oral intake upon her return home Time Speech Therapy Time In: 11:30 Speech Therapy Time Out: 12:00 Total Billed Time: 30 Billed Treatment Time 1, DYST No QUALITY CODES: EXPRESSION OF IDEAS/WANTS: 4 UNDERSTANDING VERBAL CONTENT: 4 BRIEF INTERVIEW MENTAL STATUS: YES REPETITION OF 3 WORDS: 3 TEMPORAL ORIENTATION: YEAR: CORRECT, MONTH: CORRECT, DAY: CORRECT RECALL SOCK: YES WITH CUE, COLOR: YES WITH CUE, BED: YES WITH CUE MEMORY/RECALL ABILITY: YES, LOCATION OF ROOM: YES, THAT HE IS IN THE HOSPITAL: YES LAURA CONNOR Jun 01, 2019 13:16
[2019-06-01] MEDS ORDERED: SENN-20 PO (14:23)
[2019-06-01] MEDS ORDERED: FAMO20TA5 PO (14:23)
[2019-06-01] MEDS ORDERED: DILT180C85 PO (14:23)
[2019-06-01] MEDS ORDERED: ALPR0.25 PO (14:23)
[2019-06-01] MEDS ORDERED: PANT40TA3 PO (14:23)
[2019-06-01] MEDS ORDERED: HYDR-83 PO (14:23)
[2019-06-01] MEDS ORDERED: LOSA25TA41 PO (14:23)
[2019-06-01] MEDS ORDERED: MIRT15TA PO (14:23)
--- NOTE | 2019-06-01 14:26 | D/C HH Face to Face Order ---
D/C Face to Face Orders Reconcile Patient Problems Problems Reviewed?: Yes Instructions for Patient [facility] Patient Instructions/FollowUp: [facility] 1 week Physician to follow Patient: [facility] Discharge Diet for Home: No Restrictions Patient Problems: hip fracture fragile status malnutrition new onset AF Goals for Patient: Pershing and weight gain Patient Data-Allergies,Ht & Wt Patient Allergies: Coded Allergies: Sulfa (Sulfonamide Antibiotics) (Verified Allergy, Unknown, 05/15/19) adhesive tape (Verified Allergy, Unknown, 05/15/19) iodine (Verified Allergy, Unknown, 05/15/19) latex (Verified Allergy, Unknown, 05/15/19) Home Health Need/Face to Face Date of Face to Face: Jun 01, 2019 Clinical Findings: Generalized weakness and fatigue, Immune-compromised, Instability, Muscle weakness, Pain with ambulation, Unsteady gait I have seen Pt [id number]: Yes Discharged To: Home Diagnosis/Conditions: hip fracture fragile status malnutrition new onset AF Patient is Homebound due to: CognItive deficits, Rosa fall risk due to instabilty, Muscle weakness, Pain w/ambulation Homebound Status Due to the above stated illness, injury or surgical procedure (medical condition or diagnosis) and associated clinical findings, the patient is homebound because of his/her inability to leave home except with aid of a supportive device and/or person AND leaving the home requires a considerable and taxing effort or is medically contraindicated. Pt req the following assistanc: [facility] Nursing Orders Home Health Services Order: Nursing Services (weight loss monitoring), Core Filer-Evaluate & Treat, Physical Therapy-Evaluate & Treat Home Health Infusion Therapy Line Start Date: May 19, 2019 Certify Stmt I certify that this patient is under my care and that I, a nurse practitioner or a physician; a medical assistant supervisor working with me, had a face to face encounter that -m eets the physician face to face encounter requirements with this patient as dated. MARTIN LEAL DO Jun 01, 2019 14:25
--- NOTE | 2019-06-01 14:54 | NUR ---
SPOKE TO NURSE FROM [facility]. ORDERS TO REMOVE ISSA FROM RIGHT HIP INCISIONS TODAY. INCISIONS ARE WELL APPROXIMATED. NO REDNESS OR DRAINAGE NOTED. 17 ISSA REMOVED. MASTISOL APPLIED TO SURROUNDING TISSUE AND STERI STRIPS APPLIED. PATIENT TOLERATED WELL.
--- NOTE | 2019-06-01 15:10 | NUR ---
CM/SS FINAL DISCHARGE PLANNING Patient discharging tomorrow, finalizing plans. Daughter to flower picker at 1100, noted on communication board. C: Referral completed with [facility] after confirming they could schedule patient timely for services; it should be noted that is the only agency in her service area at the present time. [facility] did indicate they would get her on the schedule for Friday which is within CMS guidelines for 48 hour response. Orders are for RN/PT/OT/[facility]. DME: Daughter indicates no new DME needed. Will fax continuum of care information to PCP Dr. Cj Strange, [facility], once discharge is complete: FX: [phone] PH: [phone]
--- NOTE | 2019-06-01 15:30 | Progress Note - Cardiology ---
Cardiology SOAP Progress Note Subjective: Notes gen malaise, weakness and tiredness No cp Poor stamina No focal weakness No n/v/d Objective: I&O/Vital Signs 06/01/19 06/01/19 06/01/19 06:00 08:10 08:55 Temp 36.8 Pulse 67 75 Resp 20 B/P (MAP) 90/47 (61) 120/63 (82) Pulse Ox 94 95 O2 Delivery Room Air Room Air Room Air 06/01/19 00:00 Intake Total 200 ml Balance 200 ml Constitutional: AAO x 3, other (thin-appearing) Respiratory: No accessory muscle use; other (fair to good bilat air entry, diminished at the bases) Cardiovascular: irregularly irregular, S1 and S2, systolic murmur (soft OFELIA at card base) Gastrointestional: No tender; soft; No guarding, No rebound; audible bowel sounds Extremities: No clubbing, No cyanosis, No significant edema Neurologic/Psychiatric: oriented x 3, other (able to move all limbs equally) Skin: No rash on exposed areas, No ulcerations on exposed areas Results/Procedures: Labs Laboratory Tests 05/31/19 05:40 A/P: Assessment: Gen weakness Anemia, stool occult blood was positive, received one unit of packed RBCs, Dr. Bradford consulted - managed by [facility]. Worsening anemia (after apixaban was resumed on 05/25/19) CAD- history of PCI to RCA. Previously followed with Dr. Grey in [place]. Most recent stress test of September 2016 revealed no ischemia or infarct P.Atrial fibrillation Chronic LBBB Hypertension with recent episode of hypotension - improved following reduction in medications HLP- maintained on statin HTP- PA 50-55mmHg. Ex tobaccoism Plan: * Complex management due to multiple issues, including the opposing issues of needing OAC for stroke prophylaxis and holding OAC for GI bleed * H&H shows mild drop over the last 4 days. We recommend consideration of endoscopy. Dr Bradford following * We have discussed her CV issues with her * Outpt f/u is advised LILLIAN BUNN MD FACP FAC CCDS Jun 01, 2019 15:30
--- NOTE | 2019-06-01 15:38 | NUR ---
F/U APPOINTMENTS SCHEDULED: [facility] ON 06/25/19 AT 10:[address] BLANCAS ON 06/28/19 AT 2:[address] BUNN ON 06/09/19 AT 1:[address] ESPINOZA (PCP) ON 06/10/19 AT 10:00 AM. [facility] TO DRAW A CBC ON 06/08/19 AND FA[address] RESULTS TO DR. BUNN AND DR. BLANCAS.
[2019-06-01 16:06] VITALS: BP 129/79
[2019-06-01] MEDS: ACETAMINOPHEN 325 MG TABLET PO PRN (16:16)
[2019-06-01] MEDS: MIRTAZAPINE 15 MG (REMERON) TAB PO SCH (20:46)
[2019-06-01] MEDS: ROSUVASTATIN 20 MG (CRESTOR) TABLET PO SCH (20:46)
[2019-06-01] MEDS: OLANZapine 2.5 MG (ZyPREXA) TAB PO SCH (20:46)
[2019-06-01] MEDS: ALPRAZolam 0.25 MG (XANAX) TAB PO PRN (20:46)
[2019-06-02 05:58] VITALS: BP 130/76
[2019-06-02] MEDS: MULTIVIT W/MINERALS TAB (THERAGRAN M) PO SCH (06:13)
[2019-06-02] MEDS: SERTRALINE 100 MG (ZOLOFT) TAB PO SCH (08:38)
[2019-06-02] MEDS: ASPIRIN E.C. 81 MG (ECOTRIN) TAB PO SCH (08:38)
[2019-06-02] MEDS: CARVEDILOL 3.125 MG (COREG) TABLET PO SCH (08:38)
[2019-06-02] MEDS: LOSARTAN 25 MG (COZAAR) TAB PO SCH (08:38)
[2019-06-02] MEDS: CALCIUM CARB + VIT D 600 MG (CALCARB + D) TAB PO SCH (08:38)
[2019-06-02] MEDS: PANTOPRAZOLE 40 MG (PROTONIX) TAB PO SCH (08:38)
[2019-06-02] MEDS: SENNA W/DOCUSATE (SENOKOT S) TABLET PO SCH (08:39)
[2019-06-02] MEDS: LORATADINE (CLARITIN) 10 MG TAB PO SCH (08:39)
[2019-06-02] MEDS: FLUTICASONE NASAL SPRAY (FLONASE) 16 GM BTL NS SCH (08:40)
[2019-06-02] MEDS: polyethylene glycoL POWDER 17 GM (MIRALAX) PACK PO SCH (08:41)
--- NOTE | 2019-06-02 10:34 | Therapy Team Discharge Summary ---
Therapy Discharge Summary Discharge Recommendations Date of Discharge Occupational Therapy Pt admits to ARU with R femur fx, admitting QCs include: showering 3, UB dressing 5, LB dressing/ footwear/ toileting 2. Pt and OT work towards higher functional IND through ADLs, functional endurance and strength training, AE and safety training, etc. Pt limited by pain and memory. Pt d/c's home with family support with showering/LB dressing/ footwear/ toileting 4, UB dressing 6, pt makes gains in most ADL tasks but does not reach all LTGs by d/c. D/c OT at this time. Decreased Activ Tolerance, Decreased Safety Aware, Decreased UE Strength, Dependent Transfers, Edema, Impaired Cognition, Impaired Funct Balance, Impaired I ADL's, Impaired Self-Care Skills PT Assisted Goals It Auditor Goals PT Assisted Goals Time Frame: Jun 09, 2019 Roll Left to Right (QC): 6 Sit to Lying (QC): 6 Lying-Sitting on Side/Bed(QC): 6 Sit to Stand (QC): 6 Chair/Ugc-aw-Qllky Xfer(QC): 6 Car Transfer (QC): 6 Does the Patient Walk: Yes Walk 10 feet (QC): 6 Walk 10ft-Uneven Surface(QC): 6 Walk 50ft with 2 Turns (QC): 6 Walk 150 ft (QC): 6 Wheel 50 feet with 2 turns (QC: 9 1 Step (curb) (QC): 4 4 Steps (QC): 4 12 Steps (QC): 4 Picking up an Object (QC): 4 OT Assisted Goals It Auditor Goals Time Frame: Jun 02, 2019 Eating (QC): 6 (met) Oral Hygiene (QC): 6 (m et) Shower/Bathe Self (QC): 6 Upper Body Dressing (QC): 6 (met) Lower Body Dressing (QC): 6 On/Off Footwear (QC): 6 Toileting Hygiene (QC): 6 Toilet/Commode Transfer (QC): 6 Additional Goals: 1-Demonstrate ADL Tasks, 2-Verbalize Understanding, 3-Impro veStrength/Deanne 1=Demonstrate adherence to instructed precautions during ADL tasks. 2=Patient will verbalize/demonstrate understanding of assistive devices/modifications for ADL. 3=Patient will improve strength/tolerance for activity to enable patient to perform ADL's. Speech It Auditor Goals It Auditor Goals The patient will improve cognitive-communication necessary for safety and daily living tasks with minimal assist. The patient will maintain adequate nutrition/hydration via safe effective swallow function. DAVID AVILES OTR Jun 02, 2019 10:34
--- NOTE | 2019-06-02 10:45 | Discharge Summary ---
Diagnosis/Chief Complaint Date of Admission May 18, 2019 at 17:45 Date of Discharge Discharge Date: Jun 02, 2019 Discharge Diagnosis Assessment: Right femur fracture POD # 17 Acute blood loss anemia s/p 1 unit of blood transfusion 05/17/19 hgb low requiring holding ASA and Eliquis for now and 1 unit given in IRF and will restart on OAC if hgb remains stable per Cardiology New onset AF w/mild RVR dx by Dr Wells team appreciate their expertise now rate controlled on Coreg and telemetry DC Chronic angina Anxiety CAD (coronary artery disease) Colon polyps CVD (cerebrovascular disease) Dementia Depression Diverticulitis Diverticulosis Dyspnea on exertion GERD (gastroesophageal reflux disease) Heart disease Hiatal hernia HTN Hyperlipidemia Hyponatremia Osteopenia, Osteoporosis TIA (transient ischemic attack) Urinary retention sporadic Hemoccult + consulted Dr Bradford appreciate his monitoring Dysphagia Hypoglycemia due to starvation status since she refuses to eat Plan: IRF protocol Lovenox DC for DVT PPx since placed on Eliquis for CVA PPx due to new onset AF but now on hold due to profound anemia transfusion ordered but will restart OAC Eliquis soon Checked iron level ordered Venofer after midline placed and confirmed low level completed 4 doses before midline infiltrated Pain control Monitor for delirium Home meds Remeron 7.5mg dose at night started DC home Wed poor prognosis Discharge Summary Discharge Physical Examination Allergies: Coded Allergies: Sulfa (Sulfonamide Antibiotics) (Verified Allergy, Unknown, 05/15/19) adhesive tape (Verified Allergy, Unknown, 05/15/19) iodine (Verified Allergy, Unknown, 05/15/19) latex (Verified Allergy, Unknown, 05/15/19) Vitals & I&Os Vital Signs Date Time Temp Pulse Resp B/P (MAP) Pulse Ox O2 Delivery O2 Flow Rate FiO2 06/02/19 09:12 Room Air 06/02/19 05:58 36.5 86 18 130/76 (94) 95 General Appearance: Alert, Oriented X3, Cooperative Respiratory: Clear to Auscultation Cardiovascular: Regular Rate Psych/Mental Status: Mental Status NL Hospital Course Was the Problem List Reviewed?: Yes Hospital course: patient had a lengthy course for 15 days in IRF after transferring from [facility] after left femur fracture. Cardiology was consulted and they dx new onset AF. OAC started but required blood transfusion so that was help due to high risk for bleeding. Poor nutrition precludes anything other than a poor prognosis. BMI 18 but barely eats gave risk for hypoglycemia due to starvation. Labs remained stable otherwise and patient was deemed stable for DC home on HH with her family after able to participate in all therapies required but patient remains a fall risk and no other modification can minimize that risk. Labs (last 24 hrs) Laboratory Tests 05/19/19 05:15: White Blood Count 9.4, Red Blood Count 2.78L, Hemoglobin 8.1L, Hematocrit 25L, Mean Corpuscular Volume 88, Mean Corpuscular Hemoglobin 29, Mean Corpuscular Hemoglobin Concent 33, Red Cell Distribution Width 15.0H, Platelet Count 128L, Mean Platelet Volume 10.1, Neutrophils (%) (Auto) 77H, Lymphocytes (%) (Auto) 16, Monocytes (%) (Auto) 6, Eosinophils (%) (Auto) 1, Basophils (%) (Auto) 0, Neutrophils # (Auto) 7.3, Lymphocytes # (Auto) 1.5, Monocytes # (Auto) 0.6, Eosinophils # (Auto) 0.1, Basophils # (Auto) 0.0, Sodium Level 135, Potassium Level 4.4, Chloride Level 104, Carbon Dioxide Level 21, Anion Gap 10, Blood Urea Nitrogen 28H, Creatinine 0.81, Estimat Glomerular Filtration Rate > 60, BUN/Creatinine Ratio 35, Glucose Level 98, Calcium Level 8.4L, Corrected Calcium 9.0, Iron Level 14L, Total Bilirubin 0.7, Aspartate Amino Transf (AST/SGOT) 41H, Alanine Aminotransferase (ALT/SGPT) 19, Alkaline Phosphatase 77, Total Protein 5.9L, Albumin 3.2 05/20/19 05:20: White Blood Count 10.4, Red Blood Count 2.51L, Hemoglobin 7.3L, Hematocrit 22L, Mean Corpuscular Volume 89, Mean Corpuscular Hemoglobin 29, Mean Corpuscular Hemoglobin Concent 33, Red Cell Distribution Width 15.2H, Platelet Count 144, Mean Platelet Volume 9.8, Sodium Level 134L, Potassium Level 4.3, Chloride Level 103, Carbon Dioxide Level 22, Anion Gap 9, Blood Urea Nitrogen 33H, Creatinine 0.86, Estimat Glomerular Filtration Rate > 60, BUN/Creatinine Ratio 38, Glucose Level 93, Calcium Level 8.2L, Corrected Calcium 8.9, Total Bilirubin 0.6, Aspartate Amino Transf (AST/SGOT) 47H, Alanine Aminotransferase (ALT/SGPT) 23, Alkaline Phosphatase 70, Total Protein 5.7L, Albumin 3.1L 05/21/19 05:30: White Blood Count 8.8, Red Blood Count 2.17L, Hemoglobin 6.3*L, Hematocrit 20*L, Mean Corpuscular Volume 90, Mean Corpuscular Hemoglobin 29, Mean Corpuscular Hemoglobin Concent 32, Red Cell Distribution Width 14.9H, Platelet Count 171, Mean Platelet Volume 9.9, Neutrophils (%) (Auto) 71, Lymphocytes (%) (Auto) 19, Monocytes (%) (Auto) 7, Eosinophils (%) (Auto) 3, Basophils (%) (Auto) 0, Neutrophils # (Auto) 6.2, Lymphocytes # (Auto) 1.7, Monocytes # (Auto) 0.6, Eosinophils # (Auto) 0.3, Basophils # (Auto) 0.0, Sodium Level 135, Potassium Level 3.8, Chloride Level 104, Carbon Dioxide Level 22, Anion Gap 9, Blood Urea Nitrogen 30H, Creatinine 0.80, Estimat Glomerular Filtration Rate > 60, BUN/Creatinine Ratio 38, Glucose Level 90, Calcium Level 7.7L, Corrected Calcium 8.7, Total Bilirubin 0.6, Aspartate Amino Transf (AST/SGOT) 45H, Alanine Aminotransferase (ALT/SGPT) 23, Alkaline Phosphatase 66, Total Protein 5.0L, Albumin 2.7L 05/21/19 09:35: Stool Occult Blood Immunoassay POSITIVEH 05/22/19 08:13: White Blood Count 9.6, Red Blood Count 3.50L, Hemoglobin 9.7#L, Hematocrit 30L, Mean Corpuscular Volume 87, Mean Corpuscular Hemoglobin 28, Mean Corpuscular Hemoglobin Concent 32, Red Cell Distribution Width 19.5H, Platelet Count 254, Mean Platelet Volume 9.8, Neutrophils (%) (Auto) 76H, Lymphocytes (%) (Auto) 12, Monocytes (%) (Auto) 8, Eosinophils (%) (Auto) 3, Basophils (%) (Auto) 1, Neutrophils # (Auto) 7.3, Lymphocytes # (Auto) 1.2, Monocytes # (Auto) 0.7, Eosinophils # (Auto) 0.3, Basophils # (Auto) 0.1, Sodium Level 136, Potassium Level 4.2, Chloride Level 103, Carbon Dioxide Level 23, Anion Gap 10, Blood Urea Nitrogen 26H, Creatinine 0.79, Estimat Glomerular Filtration Rate > 60, BUN/Creatinine Ratio 33, Glucose Level 93, Calcium Level 8.5, Corrected Calcium 9.1, Total Bilirubin 1.1H, Aspartate Amino Transf (AST/SGOT) 49H, Alanine Aminotransferase (ALT/SGPT) 27, Alkaline Phosphatase 83, Total Protein 6.1L, Albumin 3.3 05/23/19 05:00: White Blood Count 10.5, Red Blood Count 3.21L, Hemoglobin 9.0L, Hematocrit 28L, Mean Corpuscular Volume 88, Mean Corpuscular Hemoglobin 28, Mean Corpuscular Hemoglobin Concent 32, Red Cell Distribution Width 18.9H, Platelet Count 262, Mean Platelet Volume 9.7 05/24/19 05:05: White Blood Count 12.2H, Red Blood Count 3.31L, Hemoglobin 9.2L, Hematocrit 29L, Mean Corpuscular Volume 89, Mean Corpuscular Hemoglobin 28, Mean Corpuscular Hemoglobin Concent 31L, Red Cell Distribution Width 19.0H, Platelet Count 289, Mean Platelet Volume 9.2, Sodium Level 139, Potassium Level 4.8, Chloride Level 105, Carbon Dioxide Level 24, Anion Gap 10, Blood Urea Nitrogen 33H, Creatinine 0.83, Estimat Glomerular Filtration Rate > 60, BUN/Creatinine Ratio 40, Glucose Level 91, Calcium Level 8.8, Corrected Calcium 9.5, Total Bilirubin 1.1H, Aspartate Amino Transf (AST/SGOT) 45H, Alanine Aminotransferase (ALT/SGPT) 26, Alkaline Phosphatase 96, Total Protein 5.8L, Albumin 3.1L 05/26/19 04:55: White Blood Count 11.7H, Red Blood Count 2.86L, Hemoglobin 8.0L, Hematocrit 26L, Mean Corpuscular Volume 90, Mean Corpuscular Hemoglobin 28, Mean Corpuscular Hemoglobin Concent 31L, Red Cell Distribution Width 18.9H, Platelet Count 306, Mean Platelet Volume 9.2 05/28/19 06:30: White Blood Count 10.4, Red Blood Count 3.21L, Hemoglobin 9.1L, Hematocrit 29L, Mean Corpuscular Volume 91, Mean Corpuscular Hemoglobin 28, Mean Corpuscular Hemoglobin Concent 31L, Red Cell Distribution Width 18.8H, Platelet Count 340, Mean Platelet Volume 9.2, Neutrophils (%) (Auto) 78H, Lymphocytes (%) (Auto) 14, Monocytes (%) (Auto) 5, Eosinophils (%) (Auto) 2, Basophils (%) (Auto) 1, Neutrophils # (Auto) 8.1H, Lymphocytes # (Auto) 1.5, Monocytes # (Auto) 0.6, Eosinophils # (Auto) 0.3, Basophils # (Auto) 0.1, Sodium Level 134L, Potassium Level 4.1, Chloride Level 102, Carbon Dioxide Level 23, Anion Gap 9, Blood Urea Nitrogen 24H, Creatinine 0.69, Estimat Glomerular Filtration Rate > 60, BUN/Creatinine Ratio 35, Glucose Level 73, Calcium Level 8.3L, Magnesium Level 1.6, Thyroid Stimulating Hormone (TSH) 0.42 05/30/19 06:10: White Blood Count 9.0, Red Blood Count 3.15L, Hemoglobin 9.0L, Hematocrit 29L, Mean Corpuscular Volume 91, Mean Corpuscular Hemoglobin 29, Mean Corpuscular Hemoglobin Concent 32, Red Cell Distribution Width 18.6H, Platelet Count 360, Mean Platelet Volume 9.5, Neutrophils (%) (Auto) 80H, Lymphocytes (%) (Auto) 12, Monocytes (%) (Auto) 5, Eosinophils (%) (Auto) 2, Basophils (%) (Auto) 1, Neutrophils # (Auto) 7.3, Lymphocytes # (Auto) 1.1, Monocytes # (Auto) 0.5, Eosinophils # (Auto) 0.2, Basophils # (Auto) 0.1 05/31/19 05:40: White Blood Count 6.8, Red Blood Count 3.13L, Hemoglobin 8.9L, Hematocrit 28L, Mean Corpuscular Volume 90, Mean Corpuscular Hemoglobin 28, Mean Corpuscular Hemoglobin Concent 31L, Red Cell Distribution Width 18.5H, Platelet Count 373, Mean Platelet Volume 9.8, Neutrophils (%) (Auto) 74, Lymphocytes (%) (Auto) 16, Monocytes (%) (Auto) 6, Eosinophils (%) (Auto) 3, Basophils (%) (Auto) 1, Neutrophils # (Auto) 5.1, Lymphocytes # (Auto) 1.1, Monocytes # (Auto) 0.4, Eosinophils # (Auto) 0.2, Basophils # (Auto) 0.1, Sodium Level 138, Potassium Level 3.9, Chloride Level 103, Carbon Dioxide Level 23, Anion Gap 12, Blood Urea Nitrogen 13, Creatinine 0.64, Estimat Glomerular Filtration Rate > 60, BUN/Creatinine Ratio 20, Glucose Level 51*L, Calcium Level 8.2L, Corrected Calcium 9.2, Total Bilirubin 0.6, Aspartate Amino Transf (AST/SGOT) 39H, Alanine Aminotransferase (ALT/SGPT) 32, Alkaline Phosphatase 136, Total Protein 5.5L, Albumin 2.7L 05/31/19 08:01: Glucometer 72 Pending Labs Laboratory Tests 05/19/19 05:15: White Blood Count 9.4, Red Blood Count 2.78, Hemoglobin 8.1, Hematocrit 25, Mean Corpuscular Volume 88, Mean Corpuscular Hemoglobin 29, Mean Corpuscular Hemoglobin Concent 33, Red Cell Distribution Width 15.0, Platelet Count 128, Mean Platelet Volume 10.1, Neutrophils (%) (Auto) 77, Lymphocytes (%) (Auto) 16, Monocytes (%) (Auto) 6, Eosinophils (%) (Auto) 1, Basophils (%) (Auto) 0, Ne utrophils # (Auto) 7.3, Lymphocytes # (Auto) 1.5, Monocytes # (Auto) 0.6, Eosinophils # (Auto) 0.1, Basophils # (Auto) 0.0, Sodium Level 135, Potassium Level 4.4, Chloride Level 104, Carbon Dioxide Level 21, Anion Gap 10, Blood Urea Nitrogen 28, Creatinine 0.81, Estimat Glomerular Filtration Rate > 60, BUN/Creatinine Ratio 35, Glucose Level 98, Calcium Level 8.4, Corrected Calcium 9.0, Iron Level 14, Total Bilirubin 0.7, Aspartate Amino Transf (AST/SGOT) 41, Alanine Aminotransferase (ALT/SGPT) 19, Alkaline Phosphatase 77, Total Protein 5.9, Albumin 3.2 05/20/19 05:20: White Blood Count 10.4, Red Blood Count 2.51, Hemoglobin 7.3, Hematocrit 22, Mean Corpuscular Volume 89, Mean Corpuscular Hemoglobin 29, Mean Corpuscular Hemoglobin Concent 33, Red Cell Distribution Width 15.2, Platelet Count 144, Mean Platelet Volume 9.8, Sodium Level 134, Potassium Level 4.3, Chloride Level 103, Carbon Dioxide Level 22, Anion Gap 9, Blood Urea Nitrogen 33, Creatinine 0.86, Estimat Glomerular Filtration Rate > 60, BUN/Creatinine Ratio 38, Glucose Level 93, Calcium Level 8.2, Corrected Calcium 8.9, Total Bilirubin 0.6, Aspartate Amino Transf (AST/SGOT) 47, Alanine Aminotransferase (ALT/SGPT) 23, Alkaline Phosphatase 70, Total Protein 5.7, Albumin 3.1 05/21/19 05:30: White Blood Count 8.8, Red Blood Count 2.17, Hemoglobin 6.3, Hematocrit 20, Mean Corpuscular Volume 90, Mean Corpuscular Hemoglobin 29, Mean Corpuscular Hemoglobin Concent 32, Red Cell Distribution Width 14.9, Platelet Count 171, Mean Platelet Volume 9.9, Neutrophils (%) (Auto) 71, Lymphocytes (%) (Auto) 19, Monocytes (%) (Auto) 7, Eosinophils (%) (Auto) 3, Basophils (%) (Auto) 0, Neutrophils # (Auto) 6.2, Lymphocytes # (Auto) 1.7, Monocytes # (Auto) 0.6, Eosinophils # (Auto) 0.3, Basophils # (Auto) 0.0, Sodium Level 135, Potassium Level 3.8, Chloride Level 104, Carbon Dioxide Level 22, Anion Gap 9, Blood Urea Nitrogen 30, Creatinine 0.80, Estimat Glomerular Filtration Rate > 60, BUN/Creatinine Ratio 38, Glucose Level 90, Calcium Level 7.7, Corrected Calcium 8.7, Total Bilirubin 0.6, Aspartate Amino Transf (AST/SGOT) 45, Alanine Aminotransferase (ALT/SGPT) 23, Alkaline Phosphatase 66, Total Protein 5.0, Albumin 2.7 05/21/19 09:35: Stool Occult Blood Immunoassay POSITIVE 05/22/19 08:13: White Blood Count 9.6, Red Blood Count 3.50, Hemoglobin 9.7, Hematocrit 30, Mean Corpuscular Volume 87, Mean Corpuscular Hemoglobin 28, Mean Corpuscular Hemoglobin Concent 32, Red Cell Distribution Width 19.5, Platelet Count 254, Mean Platelet Volume 9.8, Neutrophils (%) (Auto) 76, Lymphocytes (%) (Auto) 12, Monocytes (%) (Auto) 8, Eosinophils (%) (Auto) 3, Basophils (%) (Auto) 1, Neutrophils # (Auto) 7.3, Lymphocytes # (Auto) 1.2, Monocytes # (Auto) 0.7, Eosinophils # (Auto) 0.3, Basophils # (Auto) 0.1, Sodium Level 136, Potassium Level 4.2, Chloride Level 103, Carbon Dioxide Level 23, Anion Gap 10, Blood Urea Nitrogen 26, Creatinine 0.79, Estimat Glomerular Filtration Rate > 60, BUN/Creatinine Ratio 33, Glucose Level 93, Calcium Level 8.5, Corrected Calcium 9.1, Total Bilirubin 1.1, Aspartate Amino Transf (AST/SGOT) 49, Alanine Aminotransferase (ALT/SGPT) 27, Alkaline Phosphatase 83, Total Protein 6.1, Albumin 3.3 05/23/19 05:00: White Blood Count 10.5, Red Blood Count 3.21, Hemoglobin 9.0, Hematocrit 28, Mean Corpuscular Volume 88, Mean Corpuscular Hemoglobin 28, Mean Corpuscular Hemoglobin Concent 32, Red Cell Distribution Width 18.9, Platelet Count 262, Mean Platelet Volume 9.7 05/24/19 05:05: White Blood Count 12.2, Red Blood Count 3.31, Hemoglobin 9.2, Hematocrit 29, Mean Corpuscular Volume 89, Mean Corpuscular Hemoglobin 28, Mean Corpuscular Hemoglobin Concent 31, Red Cell Distribution Width 19.0, Platelet Count 289, Mean Platelet Volume 9.2, Sodium Level 139, Potassium Level 4.8, Chloride Level 105, Carbon Dioxide Level 24, Anion Gap 10, Blood Urea Nitrogen 33, Creatinine 0.83, Estimat Glomerular Filtration Rate > 60, BUN/Creatinine Ratio 40, Glucose Level 91, Calcium Level 8.8, Corrected Calcium 9.5, Total Bilirubin 1.1, Aspartate Amino Transf (AST/SGOT) 45, Alanine Aminotransferase (ALT/SGPT) 26, Alkaline Phosphatase 96, Total Protein 5.8, Albumin 3.1 05/26/19 04:55: White Blood Count 11.7, Red Blood Count 2.86, Hemoglobin 8.0, Hematocrit 26, Mean Corpuscular Volume 90, Mean Corpuscular Hemoglobin 28, Mean Corpuscular Hemoglobin Concent 31, Red Cell Distribution Width 18.9, Platelet Count 306, Mean Platelet Volume 9.2 05/28/19 06:30: White Blood Count 10.4, Red Blood Count 3.21, Hemoglobin 9.1, Hematocrit 29, Mean Corpuscular Volume 91, Mean Corpuscular Hemoglobin 28, Mean Corpuscular Hemoglobin Concent 31, Red Cell Distribution Width 18.8, Platelet Count 340, Mean Platelet Volume 9.2, Neutrophils (%) (Auto) 78, Lymphocytes (%) (Auto) 14, Monocytes (%) (Auto) 5, Eosinophils (%) (Auto) 2, Basophils (%) (Auto) 1, Neutrophils # (Auto) 8.1, Lymphocytes # (Auto) 1.5, Monocytes # (Auto) 0.6, Eosinophils # (Auto) 0.3, Basophils # (Auto) 0.1, Sodium Level 134, Potassium Level 4.1, Chloride Level 102, Carbon Dioxide Level 23, Anion Gap 9, Blood Urea Nitrogen 24, Creatinine 0.69, Estimat Glomerular Filtration Rate > 60, BUN/Creatinine Ratio 35, Glucose Level 73, Calcium Level 8.3, Magnesium Level 1.6, Thyroid Stimulating Hormone (TSH) 0.42 05/30/19 06:10: White Blood Count 9.0, Red Blood Count 3.15, Hemoglobin 9.0, Hematocrit 29, Mean Corpuscular Volume 91, Mean Corpuscular Hemoglobin 29, Mean Corpuscular Hemoglobin Concent 32, Red Cell Distribution Width 18.6, Platelet Count 360, Mean Platelet Volume 9.5, Neutrophils (%) (Auto) 80, Lymphocytes (%) (Auto) 12, Monocytes (%) (Auto) 5, Eosinophils (%) (Auto) 2, Basophils (%) (Auto) 1, Neutrophils # (Auto) 7.3, Lymphocytes # (Auto) 1.1, Monocytes # (Auto) 0.5, Eosinophils # (Auto) 0.2, Basophils # (Auto) 0.1 05/31/19 05:40: White Blood Count 6.8, Red Blood Count 3.13, Hemoglobin 8.9, Hematocrit 28, Mean Corpuscular Volume 90, Mean Corpuscular Hemoglobin 28, Mean Corpuscular Hemoglobin Concent 31, Red Cell Distribution Width 18.5, Platelet Count 373, Mean Platelet Volume 9.8, Neutrophils (%) (Auto) 74, Lymphocytes (%) (Auto) 16, Monocytes (%) (Auto) 6, Eosinophils (%) (Auto) 3, Basophils (%) (Auto) 1, Neutrophils # (Auto) 5.1, Lymphocytes # (Auto) 1.1, Monocytes # (Auto) 0.4, Eosinophils # (Auto) 0.2, Basophils # (Auto) 0.1, Sodium Level 138, Potassium Level 3.9, Chloride Level 103, Carbon Dioxide Level 23, Anion Gap 12, Blood Urea Nitrogen 13, Creatinine 0.64, Estimat Glomerular Filtration Rate > 60, BUN/Creatinine Ratio 20, Glucose Level 51, Calcium Level 8.2, Corrected Calcium 9.2, Total Bilirubin 0.6, Aspartate Amino Transf (AST/SGOT) 39, Alanine Aminotransferase (ALT/SGPT) 32, Alkaline Phosphatase 136, Total Protein 5.5, Albumin 2.7 05/31/19 08:01: Glucometer 72 Discharge Home Medications: Active Scripts Active Remeron (Mirtazapine) 15 Mg Tablet 15 Mg PO HS Pantoprazole Sodium 40 Mg Tablet.dr 40 Mg PO DAILY Famotidine 20 Mg Tablet 20 Mg PO Q24H PRN Senna-Time S Tablet (Sennosides/Docusate Sodium) 1 Each Tablet 1 Ea PO Q12H PRN Hydrocodone-Acetamin 5-325 mg (Hydrocodone/Acetaminophen) 1 Each Tablet 1 Tab PO Q4HR PRN Losartan Potassium 25 Mg Tablet 25 Mg PO DAILY Diltiazem 24Hr ER (Diltiazem HCl) 180 Mg Cap.er.24h 180 Mg PO DAILY@0900 Xanax (Alprazolam) 0.25 Mg Tablet 0.25 Mg PO HS PRN Reported Coreg (Carvedilol) 3.125 Mg Tablet 3.125 Mg PO BID Rosuvastatin Calcium 10 Mg Tablet 10 Mg PO HS Sertraline HCl 100 Mg Tablet 100 Mg PO DAILY Nasacort (Triamcinolone Acetonide) 10.8 Ml Grimes 1 Grimes NSEACH DAILY Papaya Enzyme (Papaya) 1 Each Tablet 1 Each PO DAILY Nitroglycerin 0.4 Mg Tab.subl 0.4 Mg SL UD PRN Daily Brian (Multivitamin) 1 Each Tablet 1 Each PO DAILY Flonase Allergy Relief (Fluticasone Propionate) 9.9 Ml Grimes.susp 2 Grimes NSEACH DAILY PRN Cetirizine HCl 10 Mg Tablet 10 Mg PO DAILY Calcium + Vit D & K Chew Tab (Ca Carbonate/Vitamin D3/Vit K) 1 Each Tab.chew 1 Each PO DAILY Proair Hfa (Albuterol Sulfate) 1 Puff Puff 2 Puff IH Q6H PRN 1 PUFF = 90 MCG Tylenol (Acetaminophen) 325 Mg Tablet 650 Mg PO Q6H PRN Potassium Gluconate 99 Mg Tablet.er 99 Mg PO DAILY Aspirin EC (Aspirin) 81 Mg Tablet.dr 81 Mg PO DAILY Olanzapine 2.5 Mg Tablet 5 Mg PO HS TAKES 2 (2.5MG) TABS Instructions to patient/family Please see electronic discharge instructions given to patient. Diagnosis/Problems Diagnosis/Problems (1) Right femoral fracture (2) Fall (3) History of TIAs (4) Dementia (5) Hypertension (6) Anemia due to acute blood loss (7) Iron deficiency (8) Diverticulosis (9) Advanced age (10) History of UTI (11) DVT prophylaxis (12) Anxiety (13) Hyponatremia (14) GERD (gastroesophageal reflux disease) (15) Hiatal hernia (16) Hyperlipidemia (17) Atrial fibrillation with rapid ventricular response Clinical Quality Measures DVT/VTE Risk/Contraindication: Risk Factor Score Per Nursin RFS Level Per Nursing on Admit: 4+=Very High MARTIN LEAL DO Jun 02, 2019 10:45
--- NOTE | 2019-06-02 11:06 | NUR ---
CM/SS DISCHARGE Patient discharged home via daughter transport today as planned. Family will monitor and support patient as needed. Alternative would be that patient could be referred from home to group home facility, likely [facility]. [facility]: Confirmed and finalized with Sana [facility]. Rep Kay has spoken with daughter Benoit regarding scheduling first visit. Unit RN updated, they have directed daughter to lemon picker at Registration entrance where they will go over discharge orders/instructions. IMM2 discussed with patient, documented as signed per Covid19 protocols, charted. Discharge has been planned over the past week, patient and daughter in agreement and without any verbalizations to appeal.
[2019-06-02 11:20] VITALS: BP 118/68
--- NOTE | 2019-06-02 14:50 | Therapy Team Discharge Summary ---
Therapy Discharge Summary Discharge Recommendations Date of Discharge 06/02/2019 Therapy D/C Recommendations: Physical Therapy Home Care Physical Therapy This patient admitted to ARU post acute hospital stay after a right hip fx. Prior to her hospital stay, she was mod indep with all mobiltiy and providing intermittent care for her . Upon evaluation by PT, pt was max assist with bed mobility and transfers and unable to ambulate. Treatment focused on functional strength and balance to progress transfers and gait to allow her increased indep with mobility. At last visit, pt was SBA-CGA with transfers and gait short distances. She is slow with mobility and requires encouragement to participate. She is walking short distances with a FWW. Pt to discharge home this date and recommended follow up by home PT. Goals not fully met at this time. Occupational Therapy Decreased Activ Tolerance, Decreased Safety Aware, Decreased UE Strength, Dependent Transfers, Edema, Impaired Cognition, Impaired Funct Balance, Impaired I ADL's, Impaired Self-Care Skills PT [employer] Goals Assisted Goals PT Assisted Goals Time Frame: Jun 09, 2019 Roll Left to Right (QC): 6 Sit to Lying (QC): 6 Lying-Sitting on Side/Bed(QC): 6 Sit to Stand (QC): 6 Chair/[id number] Xfer(QC): 6 Car Transfer (QC): 6 Does the Patient Walk: Yes Walk 10 feet (QC): 6 Walk 10ft-Uneven Surface(QC): 6 Walk 50ft with 2 Turns (QC): 6 Walk 150 ft (QC): 6 Wheel 50 feet with 2 turns (QC: 9 1 Step (curb) (QC): 4 4 Steps (QC): 4 12 Steps (QC): 4 Picking up an Object (QC): 4 Gaols not fully met, recommend [facility] PT to follow. OT Assisted Goals Assisted Goals Time Frame: Jun 02, 2019 Eating (QC): 6 (met) Oral Hygiene (QC): 6 (m et) Shower/Bathe Self (QC): 6 Upper Body Dressing (QC): 6 (met) Lower Body Dressing (QC): 6 On/Off Footwear (QC): 6 Toileting Hygiene (QC): 6 Toilet/Commode Transfer (QC): 6 Additional Goals: 1-Demonstrate ADL Tasks, 2-Verbalize Understanding, 3- ImproveStrength/Deanne 1=Demonstrate adherence to instructed precautions during ADL tasks. 2=Patient will verbalize/demonstrate understanding of assistive devices/modifications for ADL. 3=Patient will improve strength/tolerance for activity to enable patient to perform ADL's. Speech [employer] Goals Assisted Goals The patient will improve cognitive-communication necessary for safety and daily living tasks with minimal assist. The patient will maintain adequate nutrition/hydration via safe effective swallow function. JUAN CRUZ PT Jun 02, 2019 14:50
== END 2019-06-02 11:20 | disposition home health service (06) | DRG 560 ==
PROVIDERS: ADMIT Internal Medicine; ATTEND Internal Medicine
DX: S72.141D Displaced intertrochanteric fracture of right femur, subsequent encounter for closed fracture with routine healing (principal); N39.0 Urinary tract infection, site not specified; D62 Acute posthemorrhagic anemia; E87.1 Hypo-osmolality and hyponatremia; E46 Unspecified protein-calorie malnutrition; I25.119 Atherosclerotic heart disease of native coronary artery with unspecified angina pectoris; R33.9 Retention of urine, unspecified; I67.9 Cerebrovascular disease, unspecified; R19.5 Other fecal abnormalities; F03.90 Unspecified dementia, unspecified severity, without behavioral disturbance, psychotic disturbance, mood disturbance, and anxiety; F32.9 Major depressive disorder, single episode, unspecified; K57.90 Diverticulosis of intestine, part unspecified, without perforation or abscess without bleeding; K21.9 Gastro-esophageal reflux disease without esophagitis; K44.9 Diaphragmatic hernia without obstruction or gangrene; I10 Essential (primary) hypertension; E78.5 Hyperlipidemia, unspecified; M81.0 Age-related osteoporosis without current pathological fracture; F41.9 Anxiety disorder, unspecified; R63.0 Anorexia; I48.0 Paroxysmal atrial fibrillation; I44.7 Left bundle-branch block, unspecified; E16.2 Hypoglycemia, unspecified; R13.10 Dysphagia, unspecified; Z95.5 Presence of coronary angioplasty implant and graft; Z90.710 Acquired absence of both cervix and uterus; Z87.891 Personal history of nicotine dependence; Z79.01 Long term (current) use of anticoagulants; Z86.73 Personal history of transient ischemic attack (TIA), and cerebral infarction without residual deficits; W19.XXXD Unspecified fall, subsequent encounter; Y92.009 Unspecified place in unspecified non-institutional (private) residence as the place of occurrence of the external cause
CPT/HCPCS: 36415; 76937; 80048; 80053; 82274; 82962; 83540; 83735; 84443; 85025; 85027; 86850; 86900; 86901; 86920; 93005; 93306

== ENCOUNTER → 2019-06-08 | Outpatient (CLI) | payer MEDICARE ==
[~2019-06-08] MED LIST changes: +ACET325T38 PO; +ALPR0.25 PO; +ASPI-983 PO; +CA C1TAB66 PO; +CARV3.12 PO; +CETI10TA17 PO; +CIPR-225 PO; +DILT180C85 PO; +ENOX30DI4 SQ; +FAMO20TA5 PO; +FLUT9.9S NSEACH; +HYDR-4196 PO; +HYDR-83 PO; +LOSA25TA41 PO; +MIRT15TA PO; +MIRT30TA6 PO; +MULT1TAB65 PO; +NALO4SPR NS; +NEBI5TAB8 PO; +NITR0.4T39 SL; +OMEP20CA18 PO; +PANT40TA3 PO; +PAPA1TAB10 PO; +POLY17PO6 PO; +POTA99TA18 PO; +PROM25TA14 PO; +RANO500T3 PO; +ROSU10TA28 PO; +ROSU20TA32 PO; +RT-ALBUINH IH; +SENN-145 PO; +SENN-20 PO; +SERT100T8 PO; +SERT50TA9 PO; +TRIA10.8 NSEACH; +VANC250C5 PO
[2019-06-08 14:05] LABS: HEMATOCRIT 33 % (35-52); HEMOGLOBIN 9.9 G/DL (11.5-16.0); MEAN CORPUSCULAR HEMOGLOBIN 28 PG (25-34); WHITE BLOOD COUNT 5.6 10^3/uL (4.3-11.0)
[2019-06-08 14:06] LABS: BASOPHILS % (AUTO) 1 % (0-10); EOSINOPHILS % (AUTO) 3 % (0-10); LYMPHOCYTES % (AUTO) 25 % (12-44); MEAN CORPUSCULAR HGB CONC 30 G/DL (32-36); MEAN CORPUSCULAR VOLUME 93 FL (80-99); MONOCYTES % (AUTO) 8 % (0-12); NEUTROPHILS # (AUTO) 3.6 X 10^3 (1.8-7.8); NEUTROPHILS % (AUTO) 63 % (42-75); PLATELET COUNT 295 10^3/uL (130-400); RED CELL DISTRIBUTION WIDTH 18.1 % (10.0-14.5)
[2019-06-08 14:07] LABS: BASOPHILS # (AUTO) 0.1 10^3/uL (0.0-0.1); EOSINOPHILS # (AUTO) 0.1 10^3/uL (0.0-0.3); LYMPHOCYTES # (AUTO) 1.4 X 10^3 (1.0-4.0)
== END ==
LOC: LAB FS 13:12
PROVIDERS: ATTEND Surgery
DX: D64.9 Anemia, unspecified (principal)
CPT/HCPCS: 36415; 85025

== ENCOUNTER 2019-06-14 12:29 | Emergency (ER) | payer MEDICARE ==
--- NOTE | 2019-06-14 12:35 | NUR ---
[employer] removed by RASHAD Boone
--- OUTSIDE RECORDS SUMMARY | 2019-06-14 12:44 | XMS REPORT | Continuity of Care Document ---
Author Organization Unknown Address Unknown Phone Unavailable Allergies Active Description Code Type Severity Reaction Onset Reported/Identified Relationship to Patient Clinical Status Yes adhesive tape [id number] Antwan g Allergy Unknown N/A 05/15/2019 Yes iodine [id number] Drug Allergy Unknown N/A 05/15/2019 Yes latex [id number] Drug Allergy Unknown N/A 05/15/2019 Yes Sulfa (Sulfonamide Antibiotics) [id number] 0491 Drug Allergy Unknown N/A 020 Medications There is no data. 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 Ot G47.33 OBSTRUCTIVE SLEEP APNEA (ADULT) (PEDIATR 05/15/2019 ROVENSTINE DO, JUDI L Ot S72.141A DISPLACED INTERTROCHANTERIC FRACTURE OF 05/15/2019 ROVENSTINE DO, JUDI L Ot S79.911A UNSPECIFIED INJURY OF RIGHT HIP, INITIAL 05/15/2019 ROVENSTINE DO, JUDI L Ot W19.XXXA UNSPECIFIED FALL, INITIAL ENCOUNTER 05/20/2019 ROVENSTINE DO, JUDI L Ot S72.141A DISPLACED INTERTROCHANTERIC FRACTURE OF 05/20/2019 ROVENSTINE DO, JUDI L Ot S79.911A UNSPECIFIED INJURY OF RIGHT HIP, INITIAL 05/20/2019 ROVENSTINE DO, JUDI L Ot W19.XXXA UNSPECIFIED FALL, INITIAL ENCOUNTER 05/21/2019 LEAL DO, MARTIN Ot E78.5 HYPERLIPIDEMIA, UNSPECIFIED 05/21/2019 LEAL DO, MARTIN Ot E87.1 HYPO-OSMOLALITY AND HYPONATREMIA 05/21/2019 LEAL DO, MARTIN Ot F03.90 UNSPECIFIED DEMENTIA WITHOUT BEHAVIORAL 05/21/2019 ELVIS DO, MARTIN Ot F32.9 MAJOR DEPRESSIVE DISORDER, SINGLE EPISOD 05/21/2019 LEAL DO, MARTIN Ot F41.9 ANXIETY DISORDER, UNSPECIFIED 05/21/2019 LEAL DO, MARTIN Ot I10 ESSENTIAL (PRIMARY) HYPERTENSION 05/21/2019 LEAL DO, MARTIN Ot 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 05/21/2019 LEAL DO, MARTIN Ot 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, UNSPECIFIED 05/21/2019 LEAL DO, MARTIN Ot K21.9 GASTRO-ESOPHAGEAL REFLUX DISEASE WITHOUT 05/21/2019 LEAL DO, MARTIN Ot K44.9 DIAPHRAGMATIC HERNIA WITHOUT OBSTRUCTION 05/21/2019 LEAL DO, MARTIN Ot 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 INTEST, 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[facility], W/O PERF 05/21/2019 LEAL DO, MARTIN Ot M81.0 AGE-RELATED OSTEOPOROSIS W/O CURRENT PAT 05/21/2019 LEAL DO, MARTIN Ot N39.0 URINARY TRACT INFECTION, SITE NOT SPECIF 05/21/2019 LEAL DO, MARTIN Ot S72.14 1D DISPL INTERTROCH FX R FEMUR, SUBS FOR CL 05/21/2019 LEAL DO, MARTIN Ot W19.XX XD UNSPECIFIED FALL, SUBSEQUENT ENCOUNTER 05/21/2019 LEAL DO, MARTIN Ot Y92.[address] [facility] [address] IN [facility] NON-INST[facility] (PRIVATE 05/21/2019 LEAL DO, MARTIN Ot Z86.73 PRSNL HX OF TIA (TIA), AND CEREB INFRC W 05/21/2019 LEAL DO, MARTIN Ot 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 05/21/2019 LEAL DO, MARTIN Ot Z90.71 0 ACQUIRED ABSENCE OF BOTH CERVIX AND UTER 05/30/2019 LEAL DO, MARTIN Ot E78.5 HYPERLIPIDEMIA, UNSPECIFIED 05/30/2019 LEAL DO, MARTIN Ot E87.1 HYPO-OSMOLALITY AND HYPONATREMIA 05/30/2019 LEAL DO, MARTIN Ot F03.90 UNSPECIFIED DEMENTIA WITHOUT BEHAVIORAL 05/30/2019 LEAL DO, MARTIN Ot F32.9 MAJOR DEPRESSIVE DISORDER, SINGLE EPISOD 05/30/2019 LEAL DO, MARTIN Ot F41.9 ANXIETY DISORDER, UNSPECIFIED 05/30/2019 LEAL DO, MARTIN Ot I10 ESSENTIAL (PRIMARY) HYPERTENSION 05/30/2019 LEAL DO, MARTIN Ot 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 05/30/2019 LEAL DO, MARTIN Ot 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, UNSPECIFIED 05/30/2019 LEAL DO, MARTIN Ot K21.9 GASTRO-ESOPHAGEAL REFLUX DISEASE WITHOUT 05/30/2019 LEAL DO, MARTIN Ot K44.9 DIAPHRAGMATIC HERNIA WITHOUT OBSTRUCTION 05/30/2019 LEAL DO, MARTIN Ot 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 INTEST, 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[facility], W/O PERF 05/30/2019 LEAL DO, MARTIN Ot M81.0 AGE-RELATED OSTEOPOROSIS W/O CURRENT PAT 05/30/2019 LEAL DO, MARTIN Ot N39.0 URINARY TRACT INFECTION, SITE NOT SPECIF 05/30/2019 LEAL DO, MARTIN Ot S72.14 1D DISPL INTERTROCH FX R FEMUR, SUBS FOR CL 05/30/2019 LEAL DO, MARTIN Ot W19.XX XD UNSPECIFIED FALL, SUBSEQUENT ENCOUNTER 05/30/2019 LEAL DO, MARTIN Ot Y92.[address] [facility] [address] IN [facility] NON-[facility] (PRIVATE 05/30/2019 LEAL DO, MARTIN Ot Z86.73 PRSNL HX OF TIA (TIA), AND CEREB INFRC W 05/30/2019 LEAL DO, MARTIN Ot 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 05/30/2019 LEAL DO, MARTIN Ot Z90.71 0 ACQUIRED ABSENCE OF BOTH CERVIX AND UTER 05/30/2019 LEAL DO, MARTIN Ot E78.5 HYPERLIPIDEMIA, UNSPECIFIED 05/30/2019 LEAL DO, MARTIN Ot E87.1 HYPO-OSMOLALITY AND HYPONATREMIA 05/30/2019 LEAL DO, MARTIN Ot F03.90 UNSPECIFIED DEMENTIA WITHOUT BEHAVIORAL 05/30/2019 LEAL DO, MARTIN Ot F32.9 MAJOR DEPRESSIVE DISORDER, SINGLE EPISOD 05/30/2019 LEAL DO, MARTIN Ot F41.9 ANXIETY DISORDER, UNSPECIFIED 05/30/2019 LEAL DO, MARTIN Ot I10 ESSENTIAL (PRIMARY) HYPERTENSION 05/30/2019 LEAL DO, MARTIN Ot 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 05/30/2019 LEAL DO, MARTIN Ot 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, UNSPECIFIED 05/30/2019 LEAL DO, MARTIN Ot K21.9 GASTRO-ESOPHAGEAL REFLUX DISEASE WITHOUT 05/30/2019 LEAL DO, MARTIN Ot K44.9 DIAPHRAGMATIC HERNIA WITHOUT OBSTRUCTION 05/30/2019 LEAL DO, MARTIN Ot 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 INTEST, 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[facility], W/O PERF 05/30/2019 LEAL DO, MARTIN Ot M81.0 AGE-RELATED OSTEOPOROSIS W/O CURRENT PAT 05/30/2019 LEAL DO, MARTIN Ot N39.0 URINARY TRACT INFECTION, SITE NOT SPECIF 05/30/2019 LEAL DO, MARTIN Ot S72.14 1D DISPL INTERTROCH FX R FEMUR, SUBS FOR CL 05/30/2019 LEAL DO, MARTNI Ot W19.XX XD UNSPECIFIED FALL, SUBSEQUENT ENCOUNTER 05/30/2019 ELVIS DUDLEY, MARTIN Ot Y92.[address] [facility] [address] IN [facility] NON[facility] (PRIVATE 05/30/2019 LEAL DO, MARTIN Ot Z86.73 PRSNL HX OF TIA (TIA), AND CEREB INFRC W 05/30/2019 LEAL DO, MARTIN Ot 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 05/30/2019 ELVIS DO, MARTIN Ot Z90.71 0 ACQUIRED ABSENCE OF BOTH CERVIX AND UTER 06/01/2019 LEAL DO, MARTIN Ot E78.5 HYPERLIPIDEMIA, UNSPECIFIED 06/01/2019 LEAL DO, MARTIN Ot E87.1 HYPO-OSMOLALITY AND HYPONATREMIA 06/01/2019 LEAL DO, MARTIN Ot F03.90 UNSPECIFIED DEMENTIA WITHOUT BEHAVIORAL 06/01/2019 ELVIS DO, AMRTIN Ot F32.9 MAJOR DEPRESSIVE DISORDER, SINGLE EPISOD 06/01/2019 LEAL DO, MARTIN Ot F41.9 ANXIETY DISORDER, UNSPECIFIED 06/01/2019 LEAL DO, MARTIN Ot I10 ESSENTIAL (PRIMARY) HYPERTENSION 06/01/2019 ELVIS DO, MARTIN Ot 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 06/01/2019 ELVIS DO, MARTIN Ot 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, UNSPECIFIED 06/01/2019 LEAL DO, MARTIN Ot K21.9 GASTRO-ESOPHAGEAL REFLUX DISEASE WITHOUT 06/01/2019 LEAL DO, MARTIN Ot K44.9 DIAPHRAGMATIC HERNIA WITHOUT OBSTRUCTION 06/01/2019 LEAL DO, MARTIN Ot 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 INTES, PART [facility], W/O PERF 06/01/2019 LEAL DO, MARTIN Ot M81.0 AGE-RELATED OSTEOPOROSIS W/O CURRENT PAT 06/01/2019 LEAL DO, MARTIN Ot N39.0 URINARY TRACT INFECTION, SITE NOT SPECIF 06/01/2019 LEAL DO, MARTIN Ot S72.14 1D DISPL INTERTROCH FX R FEMUR, SUBS FOR CL 06/01/2019 LEAL DO, MARTIN Ot W19.XX XD UNSPECIFIED FALL, SUBSEQUENT ENCOUNTER 06/01/2019 LEAL DO, MARTIN Ot Y92.00 [address] [facility] [address] IN [facility] NON[facility] (PRIVATE 06/01/2019 LEAL DO, MARTIN Ot Z86.73 PRSNL HX OF TIA (TIA), AND CEREB INFRC W 06/01/2019 LEAL DO, MARTIN Ot 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 06/01/2019 LEAL DO, MARTIN Ot Z90.71 0 ACQUIRED ABSENCE OF BOTH CERVIX AND UTER 06/01/2019 LEAL DO, MARTIN Ot E78.5 HYPERLIPIDEMIA, UNSPECIFIED 06/01/2019 LEAL DO, MARTIN Ot E87.1 HYPO-OSMOLALITY AND HYPONATREMIA 06/01/2019 LEAL DO, MARTIN Ot F03.90 UNSPECIFIED DEMENTIA WITHOUT BEHAVIORAL 06/01/2019 LEAL DO, MARTIN Ot F32.9 MAJOR DEPRESSIVE DISORDER, SINGLE EPISOD 06/01/2019 LEAL DO, MARTIN Ot F41.9 ANXIETY DISORDER, UNSPECIFIED 06/01/2019 LEAL DO, MARTIN Ot I10 ESSENTIAL (PRIMARY) HYPERTENSION 06/01/2019 LEAL DO, MARTIN Ot 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 06/01/2019 LEAL DO, MARTIN Ot 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, UNSPECIFIED 06/01/2019 LEAL DO, MARTIN Ot K21.9 GASTRO-ESOPHAGEAL REFLUX DISEASE WITHOUT 06/01/2019 LEAL DO, MARTIN Ot K44.9 DIAPHRAGMATIC HERNIA WITHOUT OBSTRUCTION 06/01/2019 LEAL DO, MARTIN Ot 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 INTEST, PART [place], W/O PERF 06/01/2019 LEAL DO, MARTIN Ot M81.0 AGE-RELATED OSTEOPOROSIS W/O CURRENT PAT 06/01/2019 LEAL DO, MARTIN Ot N39.0 URINARY TRACT INFECTION, SITE NOT SPECIF 06/01/2019 LEAL DO, MARTIN Ot S72.14 1D DISPL INTERTROCH FX R FEMUR, SUBS FOR CL 06/01/2019 LEAL DO, MARTIN Ot W19.XX XD UNSPECIFIED FALL, SUBSEQUENT ENCOUNTER 06/01/2019 LEAL DO, MARTIN Ot Y92.[address] [facility] IN [facility] NON-[facility] (PRIVATE 06/01/2019 LEAL DO, MARTIN Ot Z86.73 PRSNL HX OF TIA (TIA), AND CEREB INFRC W 06/01/2019 LEAL DO, MARTIN Ot 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 06/01/2019 LEAL DO, MARTIN Ot Z90.71 0 ACQUIRED ABSENCE OF BOTH CERVIX AND UTER 06/02/2019 LEAL DO, MARTIN Ot D62 ACUTE POSTHEMORRHAGIC ANEMIA 06/02/2019 LEAL DO, MARTIN Ot E16.2 HYPOGLYCEMIA, UNSPECIFIED 06/02/2019 LEAL DO, MARTIN Ot E46 UNSPECIFIED PROTEIN-CALORIE MALNUTRITION 06/02/2019 LEAL DO, MARTIN Ot E78.5 HYPERLIPIDEMIA, UNSPECIFIED 06/02/2019 LEAL DO, MARTIN Ot E87.1 HYPO-OSMOLALITY AND HYPONATREMIA 06/02/2019 LEAL DO, MARTIN Ot F03.90 UNSPECIFIED DEMENTIA WITHOUT BEHAVIORAL 06/02/2019 LEAL DO, MARTIN Ot F32.9 MAJOR DEPRESSIVE DISORDER, SINGLE EPISOD 06/02/2019 LEAL DO, MARTIN Ot F41.9 ANXIETY DISORDER, UNSPECIFIED 06/02/2019 LEAL DO, MARTIN Ot I10 ESSENTIAL (PRIMARY) HYPERTENSION 06/02/2019 LEAL DO, MARTIN Ot 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 06/02/2019 LEAL DO, MARTIN Ot 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, UNSPECIFIED 06/02/2019 LEAL DO, MARTIN Ot I48.0 PAROXYSMAL ATRIAL FIBRILLATION 06/02/2019 LEAL DO, MARTIN Ot 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, UNSPECIFIED 06/02/2019 LEAL DO, MARTIN Ot K21.9 GASTRO-ESOPHAGEAL REFLUX DISEASE WITHOUT 06/02/2019 LEAL DO, MARTIN Ot K44.9 DIAPHRAGMATIC HERNIA WITHOUT OBSTRUCTION 06/02/2019 LEAL DO, MARTIN Ot 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 INTEST, 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[facility], W/O PERF 06/02/2019 LEAL DO, MARTIN Ot M81.0 AGE-RELATED OSTEOPOROSIS W/O CURRENT PAT 06/02/2019 ELVIS DO, MARTIN Ot N39.0 URINARY TRACT INFECTION, SITE NOT SPECIF 06/02/2019 ELVIS DO MARTIN Ot R13.10 DYSPHAGIA, UNSPECIFIED 06/02/2019 LEAL DO, MARTIN Ot R19.5 OTHER FECAL ABNORMALITIES 06/02/2019 LEAL DO, MARTIN Ot R33.9 RETENTION OF URINE, UNSPECIFIED 06/02/2019 LEAL DO, MARTIN Ot R63.0 ANOREXIA 06/02/2019 ELVIS DO, MARTIN Ot S72.14 1D DISPL INTERTROCH FX R FEMUR, SUBS FOR CL 06/02/2019 ELVIS DO, MARTIN Ot W19.XX XD UNSPECIFIED FALL, SUBSEQUENT ENCOUNTER 06/02/2019 ELVIS DUDLEY MARTIN Ot Y92.[address] [facility] [address] [facility] NON[facility] (PRIVATE 06/02/2019 ELVIS DO MARTIN Ot Z79.01 MACHINE SET UP (CURRENT) USE OF ANTICOAGULANT 06/02/2019 ELVIS DO, MARTIN Ot Z86.73 PRSNL HX OF TIA (TIA), AND CEREB INFRC W 06/02/2019 ELVIS DO MARTIN Ot 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 9 ANEMIA, UNSPECIFIED Procedures There is no data. Results Test [...] 7-25 CREATININE 0.89 mg/dL 0.60-0.88 eGFR NON-AFR. IRISH 58 mL/min/1.73m2 > OR = 60 eGFR [...] 7-25 CREATININE 0.87 mg/dL 0.60-0.88 eGFR NON-AFR. IRISH 59 mL/min/1.73m2 > OR = 60 eGFR [...] ADEQUATE ADEQUATE CBC MORPHOLOGY NORMAL COMMENT(S) NRG Complete blood count (CBC) with automate d white blood cell (WBC) differential - 05/19/19 05:15 Blood leukocytes automated count (number/volume) 9.4 10*3/uL 4.3-11.0 Blood erythrocytes automated count (number/volume) 2.78 10*6/uL 4.35-5.85 Venous blood hemoglobin measurement (mass/volume) 8.1 g/dL 11.5-16.0 Blood hematocrit (volume fraction) 25 % 35-52 Automated erythrocyte mean corpuscular volume 88 [ foz_us] 80-99 Automated erythrocyte mean corpuscular h emoglobin (mass per erythrocyte) 29 pg 25-34 Automated erythrocyte mean corpuscular h emoglobin concentration measurement (mass/volume) 33 g/dL 32-36 Automated erythrocyte distribution width ratio 15. 0 % 10.0- 14.5 Automated blood platelet count (count/volume) 128 10*3/uL 130-400 Automated blood platelet mean volume measurement 10.1 [foz_us] 7.4-10.4 Automated blood neutrophils/100 leukocytes 77 % 42-75 Automated blood lymphocytes/100 leukocytes 16 % 12-44 Blood monocytes/100 leukocytes 6 % 0-12 Automated blood eosinophils/100 leukocytes 1 % 0-10 Automated blood basophils/100 leukocytes 0 % 0-10 Blood neutrophils automated count (number/volume) 7.3 10*3 1.8-7.8 Blood lymphocytes automated count (number/volume) 1.5 10*3 1.0-4.0 Blood monocytes automated count (number/volume) 0. 6 10*3 0.0-1.0 Automated eosinophil count 0.1 10*3/uL 0 .0-0.3 Automated blood basophil count (count/volume) 0.0 10*3/uL 0.0-0.1 Comprehensive metabolic panel - 05/19/19 05:15 Serum or plasma sodium measurement (moles/volume) 135 mmol/L 135-145 Serum or plasma potassium measurement (moles/volume) 4.4 mmol/L 3.6-5.0 Serum or plasma chloride measurement (moles/volume) 104 mmol/L 98-107 Carbon dioxide 21 mmol/L 21-32 Serum or plasma anion gap determination (moles/volume) 10 mmol/L 5-14 Serum or plasma urea nitrogen measurement (mass/volume ) 28 mg/dL 7-18 Serum or plasma creatinine measurement (mass/volume) 0.81 mg/dL 0.60-1.30 Serum or plasma urea nitrogen/creatinine mass ratio 35 NRG Serum or plasma creatinine measurement w ith calculation of estimated glomerular filtration rate > NRG Serum or plasma glucose measurement (mass/volume) 98 mg/dL 70-105 Serum or plasma calcium measurement (mass/volume) 8.4 mg/dL 8.5-10.1 Serum or plasma total bilirubin measurement (mass/volu me) 0.7 mg/dL 0.1-1.0 Serum or plasma alkaline phosphatase ankur surement (enzymatic activity/volume) 77 U/L 40-136 Serum or plasma aspartate aminotransfera se measurement (enzymatic activity/volume) 41 U/L 5-34 Serum or plasma alanine aminotransferase measurement (enzymatic activity/volume) 19 U/L 0-55 Serum or plasma protein measurement (mass/volume) 5.9 g/dL 6.4-8.2 Serum or plasma albumin measurement (mass/volume) 3.2 g/dL 3.2-4.5 CALCIUM CORRECTED 9.0 mg/dL 8.5-10.1 IRON TEST - 05/19/19 05:15 Serum or plasma iron measurement (mass/volume) 14 % 35-180 Automated blood complete blood count (he mogram) panel - 05/20/19 05:20 Blood leukocytes automated count (number/volume) 10.4 10*3/uL 4.3-11.0 Blood erythrocytes automated count (number/volume) 2.51 10*6/uL 4.35-5.85 Venous blood hemoglobin measurement (mass/volume) 7.3 g/dL 11.5-16.0 Blood hematocrit (volume fraction) 22 % 35-52 Automated erythrocyte mean corpuscular volume 89 [ foz_us] 80-99 Automated erythrocyte mean corpuscular h emoglobin (mass per erythrocyte) 29 pg 25-34 Automated erythrocyte mean corpuscular h emoglobin concentration measurement (mass/volume) 33 g/dL 32-36 Automated erythrocyte distribution width ratio 15. 2 % 10.0- 14.5 Automated blood platelet count (count/volume) 144 10*3/uL 130-400 Automated blood platelet mean volume measurement 9.8 [foz_us] 7.4-10.4 Comprehensive metabolic panel - 05/20/19 05:20 Serum or plasma sodium measurement (moles/volume) 134 mmol/L 135-145 Serum or plasma potassium measurement (moles/volume) 4.3 mmol/L 3.6-5.0 Serum or plasma chloride measurement (moles/volume) 103 mmol/L 98-107 Carbon dioxide 22 mmol/L 21-32 Serum or plasma anion gap determination (moles/volume) 9 mmol/L 5-14 Serum or plasma urea nitrogen measurement (mass/volume ) 33 mg/dL 7-18 Serum or plasma creatinine measurement (mass/volume) 0.86 mg/dL 0.60-1.30 Serum or plasma urea nitrogen/creatinine mass ratio 38 NRG Serum or plasma creatinine measurement w ith calculation of estimated glomerular filtration rate > NRG Serum or plasma glucose measurement (mass/volume) 93 mg/dL 70-105 Serum or plasma calcium measurement (mass/volume) 8.2 mg/dL 8.5-10.1 Serum or plasma total bilirubin measurement (mass/volu me) 0.6 mg/dL 0.1-1.0 Serum or plasma alkaline phosphatase ankur surement (enzymatic activity/volume) 70 U/L 40-136 Serum or plasma aspartate aminotransfera se measurement (enzymatic activity/volume) 47 U/L 5-34 Serum or plasma alanine aminotransferase measurement (enzymatic activity/volume) 23 U/L 0-55 Serum or plasma protein measurement (mass/volume) 5.7 g/dL 6.4-8.2 Serum or plasma albumin measurement (mass/volume) 3.1 g/dL 3.2-4.5 CALCIUM CORRECTED 8.9 mg/dL 8.5-10.1 Complete blood count (CBC) with automate d white blood cell (WBC) differential - 05/21/19 05:30 Blood leukocytes automated count (number/volume) 8.8 10*3/uL 4.3-11.0 Blood erythrocytes automated count (number/volume) 2.17 10*6/uL 4.35-5.85 Venous blood hemoglobin measurement (mass/volume) 6.3 g/dL 11.5-16.0 Blood hematocrit (volume fraction) 20 % 35-52 Automated erythrocyte mean corpuscular volume 90 [ foz_us] 80-99 Automated erythrocyte mean corpuscular h emoglobin (mass per erythrocyte) 29 pg 25-34 Automated erythrocyte mean corpuscular h emoglobin concentration measurement (mass/volume) 32 g/dL 32-36 Automated erythrocyte distribution width ratio 14. 9 % 10.0- 14.5 Automated blood platelet count (count/volume) 171 10*3/uL 130-400 Automated blood platelet mean volume measurement 9.9 [foz_us] 7.4-10.4 Automated blood neutrophils/100 leukocytes 71 % 42-75 Automated blood lymphocytes/100 leukocytes 19 % 12-44 Blood monocytes/100 leukocytes 7 % 0-12 Automated blood eosinophils/100 leukocytes 3 % 0-10 Automated blood basophils/100 leukocytes 0 % 0-10 Blood neutrophils automated count (number/volume) 6.2 10*3 1.8-7.8 Blood lymphocytes automated count (number/volume) 1.7 10*3 1.0-4.0 Blood monocytes automated count (number/volume) 0. 6 10*3 0.0-1.0 Automated eosinophil count 0.3 10*3/uL 0 .0-0.3 Automated blood basophil count (count/volume) 0.0 10*3/uL 0.0-0.1 Comprehensive metabolic panel - 05/21/19 05:30 Serum or plasma sodium measurement (moles/volume) 135 mmol/L 135-145 Serum or plasma potassium measurement (moles/volume) 3.8 mmol/L 3.6-5.0 Serum or plasma chloride measurement (moles/volume) 104 mmol/L 98-107 Carbon dioxide 22 mmol/L 21-32 Serum or plasma anion gap determination (moles/volume) 9 mmol/L 5-14 Serum or plasma urea nitrogen measurement (mass/volume ) 30 mg/dL 7-18 Serum or plasma creatinine measurement (mass/volume) 0.80 mg/dL 0.60-1.30 Serum or plasma urea nitrogen/creatinine mass ratio 38 NRG Serum or plasma creatinine measurement w ith calculation of estimated glomerular filtration rate > NRG Serum or plasma glucose measurement (mass/volume) 90 mg/dL 70-105 Serum or plasma calcium measurement (mass/volume) 7.7 mg/dL 8.5-10.1 Serum or plasma total bilirubin measurement (mass/volu me) 0.6 mg/dL 0.1-1.0 Serum or plasma alkaline phosphatase ankur surement (enzymatic activity/volume) 66 U/L 40-136 Serum or plasma aspartate aminotransfera se measurement (enzymatic activity/volume) 45 U/L 5-34 Serum or plasma alanine aminotransferase measurement (enzymatic activity/volume) 23 U/L 0-55 Serum or plasma protein measurement (mass/volume) 5.0 g/dL 6.4-8.2 Serum or plasma albumin measurement (mass/volume) 2.7 g/dL 3.2-4.5 CALCIUM CORRECTED 8.7 mg/dL 8.5-10.1 RED CELLS LEUKO REDUCED AS1 - 05/21/19 0 6:25 RED CELLS LEUKO REDUCED AS1 T RANSFUSED 05/21/19 1143 NRG Blood type T Indirect antibody screen pa niru - 05/21/19 06:25 WRISTBAND NUMBER [id number] NRG ABO+Rh group AP NRG Blood group antibody screen NEGATIVE NR G OCCULT BLOOD STOOL - 05/21/19 09:35 Stool gastrointestinal hemoglobin detection POSITI VE NEGATIVE Complete blood count (CBC) with automate d white blood cell (WBC) differential - 05/22/19 08:13 Blood leukocytes automated count (number/volume) 9.6 10*3/uL 4.3-11.0 Blood erythrocytes automated count (number/volume) 3.50 10*6/uL 4.35-5.85 Venous blood hemoglobin measurement (mass/volume) 9.7 g/dL 11.5-16.0 Blood hematocrit (volume fraction) 30 % 35-52 Automated erythrocyte mean corpuscular volume 87 [ foz_us] 80-99 Automated erythrocyte mean corpuscular h emoglobin (mass per erythrocyte) 28 pg 25-34 Automated erythrocyte mean corpuscular h emoglobin concentration measurement (mass/volume) 32 g/dL 32-36 Automated erythrocyte distribution width ratio 19. 5 % 10.0- 14.5 Automated blood platelet count (count/volume) 254 10*3/uL 130-400 Automated blood platelet mean volume measurement 9.8 [foz_us] 7.4-10.4 Automated blood neutrophils/100 leukocytes 76 % 42-75 Automated blood lymphocytes/100 leukocytes 12 % 12-44 Blood monocytes/100 leukocytes 8 % 0-12 Automated blood eosinophils/100 leukocytes 3 % 0-10 Automated blood basophils/100 leukocytes 1 % 0-10 Blood neutrophils automated count (number/volume) 7.3 10*3 1.8-7.8 Blood lymphocytes automated count (number/volume) 1.2 10*3 1.0-4.0 Blood monocytes automated count (number/volume) 0. 7 10*3 0.0-1.0 Automated eosinophil count 0.3 10*3/uL 0 .0-0.3 Automated blood basophil count (count/volume) 0.1 10*3/uL 0.0-0.1 Comprehensive metabolic panel - 05/22/19 08:13 Serum or plasma sodium measurement (moles/volume) 136 mmol/L 135-145 Serum or plasma potassium measurement (moles/volume) 4.2 mmol/L 3.6-5.0 Serum or plasma chloride measurement (moles/volume) 103 mmol/L 98-107 Carbon dioxide 23 mmol/L 21-32 Serum or plasma anion gap determination (moles/volume) 10 mmol/L 5-14 Serum or plasma urea nitrogen measurement (mass/volume ) 26 mg/dL 7-18 Serum or plasma creatinine measurement (mass/volume) 0.79 mg/dL 0.60-1.30 Serum or plasma urea nitrogen/creatinine mass ratio 33 NRG Serum or plasma creatinine measurement w ith calculation of estimated glomerular filtration rate > NRG Serum or plasma glucose measurement (mass/volume) 93 mg/dL 70-105 Serum or plasma calcium measurement (mass/volume) 8.5 mg/dL 8.5-10.1 Serum or plasma total bilirubin measurement (mass/volu me) 1.1 mg/dL 0.1-1.0 Serum or plasma alkaline phosphatase ankur surement (enzymatic activity/volume) 83 U/L 40-136 Serum or plasma aspartate aminotransfera se measurement (enzymatic activity/volume) 49 U/L 5-34 Serum or plasma alanine aminotransferase measurement (enzymatic activity/volume) 27 U/L 0-55 Serum or plasma protein measurement (mass/volume) 6.1 g/dL 6.4-8.2 Serum or plasma albumin measurement (mass/volume) 3.3 g/dL 3.2-4.5 CALCIUM CORRECTED 9.1 mg/dL 8.5-10.1 Automated blood complete blood count (formerly [facility], [facility]) panel - 05/23/19 05:00 Blood leukocytes automated count (number/volume) 10.5 10*3/uL 4.3-11.0 Blood erythrocytes automated count (number/volume) 3.21 10*6/uL 4.35-5.85 Venous blood hemoglobin measurement (mass/volume) 9.0 g/dL 11.5-16.0 Blood hematocrit (volume fraction) 28 % 35-52 Automated erythrocyte mean corpuscular volume 88 [ foz_us] 80-99 Automated erythrocyte mean corpuscular h emoglobin (mass per erythrocyte) 28 pg 25-34 Automated erythrocyte mean corpuscular h emoglobin concentration measurement (mass/volume) 32 g/dL 32-36 Automated erythrocyte distribution width ratio 18. 9 % 10.0- 14.5 Automated blood platelet count (count/volume) 262 10*3/uL 130-400 Automated blood platelet mean volume measurement 9.7 [foz_us] 7.4-10.4 Automated blood complete blood count (he mogram) panel - 05/24/19 05:05 Blood leukocytes automated count (number/volume) 12.2 10*3/uL 4.3-11.0 Blood erythrocytes automated count (number/volume) 3.31 10*6/uL 4.35-5.85 Venous blood hemoglobin measurement (mass/volume) 9.2 g/dL 11.5-16.0 Blood hematocrit (volume fraction) 29 % 35-52 Automated erythrocyte mean corpuscular volume 89 [ foz_us] 80-99 Automated erythrocyte mean corpuscular h emoglobin (mass per erythrocyte) 28 pg 25-34 Automated erythrocyte mean corpuscular h emoglobin concentration measurement (mass/volume) 31 g/dL 32-36 Automated erythrocyte distribution width ratio 19. 0 % 10.0- 14.5 Automated blood platelet count (count/volume) 289 10*3/uL 130-400 Automated blood platelet mean volume measurement 9.2 [foz_us] 7.4-10.4 Comprehensive metabolic panel - 05/24/19 05:05 Serum or plasma sodium measurement (moles/volume) 139 mmol/L 135-145 Serum or plasma potassium measurement (moles/volume) 4.8 mmol/L 3.6-5.0 Serum or plasma chloride measurement (moles/volume) 105 mmol/L 98-107 Carbon dioxide 24 mmol/L 21-32 Serum or plasma anion gap determination (moles/volume) 10 mmol/L 5-14 Serum or plasma urea nitrogen measurement (mass/volume ) 33 mg/dL 7-18 Serum or plasma creatinine measurement (mass/volume) 0.83 mg/dL 0.60-1.30 Serum or plasma urea nitrogen/creatinine mass ratio 40 NRG Serum or plasma creatinine measurement w ith calculation of estimated glomerular filtration rate > NRG Serum or plasma glucose measurement (mass/volume) 91 mg/dL 70-105 Serum or plasma calcium measurement (mass/volume) 8.8 mg/dL 8.5-10.1 Serum or plasma total bilirubin measurement (mass/volu me) 1.1 mg/dL 0.1-1.0 Serum or plasma alkaline phosphatase ankur surement (enzymatic activity/volume) 96 U/L 40-136 Serum or plasma aspartate aminotransfera se measurement (enzymatic activity/volume) 45 U/L 5-34 Serum or plasma alanine aminotransferase measurement (enzymatic activity/volume) 26 U/L 0-55 Serum or plasma protein measurement (mass/volume) 5.8 g/dL 6.4-8.2 Serum or plasma albumin measurement (mass/volume) 3.1 g/dL 3.2-4.5 CALCIUM CORRECTED 9.5 mg/dL 8.5-10.1 Automated blood complete blood count (he mogram) panel - 05/26/19 04:55 Blood leukocytes automated count (number/volume) 11.7 10*3/uL 4.3-11.0 Blood erythrocytes automated count (number/volume) 2.86 10*6/uL 4.35-5.85 Venous blood hemoglobin measurement (mass/volume) 8.0 g/dL 11.5-16.0 Blood hematocrit (volume fraction) 26 % 35-52 Automated erythrocyte mean corpuscular volume 90 [ foz_us] 80-99 Automated erythrocyte mean corpuscular h emoglobin (mass per erythrocyte) 28 pg 25-34 Automated erythrocyte mean corpuscular h emoglobin concentration measurement (mass/volume) 31 g/dL 32-36 Automated erythrocyte distribution width ratio 18. 9 % 10.0- 14.5 Automated blood platelet count (count/volume) 306 10*3/uL 130-400 Automated blood platelet mean volume measurement 9.2 [foz_us] 7.4-10.4 Complete blood count (CBC) with automate d white blood cell (WBC) differential - 05/28/19 06:30 Blood leukocytes automated count (number/volume) 10.4 10*3/uL 4.3-11.0 Blood erythrocytes automated count (number/volume) 3.21 10*6/uL 4.35-5.85 Venous blood hemoglobin measurement (mass/volume) 9.1 g/dL 11.5-16.0 Blood hematocrit (volume fraction) 29 % 35-52 Automated erythrocyte mean corpuscular volume 91 [ foz_us] 80-99 Automated erythrocyte mean corpuscular h emoglobin (mass per erythrocyte) 28 pg 25-34 Automated erythrocyte mean corpuscular h emoglobin concentration measurement (mass/volume) 31 g/dL 32-36 Automated erythrocyte distribution width ratio 18. 8 % 10.0- 14.5 Automated blood platelet count (count/volume) 340 10*3/uL 130-400 Automated blood platelet mean volume measurement 9.2 [foz_us] 7.4-10.4 Automated blood neutrophils/100 leukocytes 78 % 42-75 Automated blood lymphocytes/100 leukocytes 14 % 12-44 Blood monocytes/100 leukocytes 5 % 0-12 Automated blood eosinophils/100 leukocytes 2 % 0-10 Automated blood basophils/100 leukocytes 1 % 0-10 Blood neutrophils automated count (number/volume) 8.1 10*3 1.8-7.8 Blood lymphocytes automated count (number/volume) 1.5 10*3 1.0-4.0 Blood monocytes automated count (number/volume) 0. 6 10*3 0.0-1.0 Automated eosinophil count 0.3 10*3/uL 0 .0-0.3 Automated blood basophil count (count/volume) 0.1 10*3/uL 0.0-0.1 Whole blood basic metabolic panel - 05/18 06:30 Serum or plasma sodium measurement (moles/volume) 134 mmol/L 135-145 Serum or plasma potassium measurement (moles/volume) 4.1 mmol/L 3.6-5.0 Serum or plasma chloride measurement (moles/volume) 102 mmol/L 98-107 Carbon dioxide 23 mmol/L 21-32 Serum or plasma anion gap determination (moles/volume) 9 mmol/L 5-14 Serum or plasma urea nitrogen measurement (mass/volume ) 24 mg/dL 7-18 Serum or plasma creatinine measurement (mass/volume) 0.69 mg/dL 0.60-1.30 Serum or plasma urea nitrogen/creatinine mass ratio 35 NRG Serum or plasma creatinine measurement w ith calculation of estimated glomerular filtration rate > NRG Serum or plasma glucose measurement (mass/volume) 73 mg/dL 70-105 Serum or plasma calcium measurement (mass/volume) 8.3 mg/dL 8.5-10.1 Magnesium - 05/28/19 06:30 Magnesium 1.6 mg/dL 1.6-2.4 THYROID STIMULATING HORMONE - 05/28/19 0 6:30 THYROID STIMULATING HORMONE 0.42 u[iU]/mL 0.35-4.94 Complete blood count (CBC) with automate d white blood cell (WBC) differential - 05/30/19 06:10 Blood leukocytes automated count (number/volume) 9.0 10*3/uL 4.3-11.0 Blood erythrocytes automated count (number/volume) 3.15 10*6/uL 4.35-5.85 Venous blood hemoglobin measurement (mass/volume) 9.0 g/dL 11.5-16.0 Blood hematocrit (volume fraction) 29 % 35-52 Automated erythrocyte mean corpuscular volume 91 [ foz_us] 80-99 Automated erythrocyte mean corpuscular h emoglobin (mass per erythrocyte) 29 pg 25-34 Automated erythrocyte mean corpuscular h emoglobin concentration measurement (mass/volume) 32 g/dL 32-36 Automated erythrocyte distribution width ratio 18. 6 % 10.0- 14.5 Automated blood platelet count (count/volume) 360 10*3/uL 130-400 Automated blood platelet mean volume measurement 9.5 [foz_us] 7.4-10.4 Automated blood neutrophils/100 leukocytes 80 % 42-75 Automated blood lymphocytes/100 leukocytes 12 % 12-44 Blood monocytes/100 leukocytes 5 % 0-12 Automated blood eosinophils/100 leukocytes 2 % 0-10 Automated blood basophils/100 leukocytes 1 % 0-10 Blood neutrophils automated count (number/volume) 7.3 10*3 1.8-7.8 Blood lymphocytes automated count (number/volume) 1.1 10*3 1.0-4.0 Blood monocytes automated count (number/volume) 0. 5 10*3 0.0-1.0 Automated eosinophil count 0.2 10*3/uL 0 .0-0.3 Automated blood basophil count (count/volume) 0.1 10*3/uL 0.0-0.1 Complete blood count (CBC) with automate d white blood cell (WBC) differential - 05/31/19 05:40 Blood leukocytes automated count (number/volume) 6.8 10*3/uL 4.3-11.0 Blood erythrocytes automated count (number/volume) 3.13 10*6/uL 4.35-5.85 Venous blood hemoglobin measurement (mass/volume) 8.9 g/dL 11.5-16.0 Blood hematocrit (volume fraction) 28 % 35-52 Automated erythrocyte mean corpuscular volume 90 [ foz_us] 80-99 Automated erythrocyte mean corpuscular h emoglobin (mass per erythrocyte) 28 pg 25-34 Automated erythrocyte mean corpuscular h emoglobin concentration measurement (mass/volume) 31 g/dL 32-36 Automated erythrocyte distribution width ratio 18. 5 % 10.0- 14.5 Automated blood platelet count (count/volume) 373 10*3/uL 130-400 Automated blood platelet mean volume measurement 9.8 [foz_us] 7.4-10.4 Automated blood neutrophils/100 leukocytes 74 % 42-75 Automated blood lymphocytes/100 leukocytes 16 % 12-44 Blood monocytes/100 leukocytes 6 % 0-12 Automated blood eosinophils/100 leukocytes 3 % 0-10 Automated blood basophils/100 leukocytes 1 % 0-10 Blood neutrophils automated count (number/volume) 5.1 10*3 1.8-7.8 Blood lymphocytes automated count (number/volume) 1.1 10*3 1.0-4.0 Blood monocytes automated count (number/volume) 0. 4 10*3 0.0-1.0 Automated eosinophil count 0.2 10*3/uL 0 .0-0.3 Automated blood basophil count (count/volume) 0.1 10*3/uL 0.0-0.1 Comprehensive metabolic panel - 05/31/19 05:40 Serum or plasma sodium measurement (moles/volume) 138 mmol/L 135-145 Serum or plasma potassium measurement (moles/volume) 3.9 mmol/L 3.6-5.0 Serum or plasma chloride measurement (moles/volume) 103 mmol/L 98-107 Carbon dioxide 23 mmol/L 21-32 Serum or plasma anion gap determination (moles/volume) 12 mmol/L 5-14 Serum or plasma urea nitrogen measurement (mass/volume ) 13 mg/dL 7-18 Serum or plasma creatinine measurement (mass/volume) 0.64 mg/dL 0.60-1.30 Serum or plasma urea nitrogen/creatinine mass ratio 20 NRG Serum or plasma creatinine measurement w ith calculation of estimated glomerular filtration rate > NRG Serum or plasma glucose measurement (mass/volume) 51 mg/dL 70-105 Serum or plasma calcium measurement (mass/volume) 8.2 mg/dL 8.5-10.1 Serum or plasma total bilirubin measurement (mass/volu me) 0.6 mg/dL 0.1-1.0 Serum or plasma alkaline phosphatase ankur surement (enzymatic activity/volume) 136 U/L 40-136 Serum or plasma aspartate aminotransfera se measurement (enzymatic activity/volume) 39 U/L 5-34 Serum or plasma alanine aminotransferase measurement (enzymatic activity/volume) 32 U/L 0-55 Serum or plasma protein measurement (mass/volume) 5.5 g/dL 6.4-8.2 Serum or plasma albumin measurement (mass/volume) 2.7 g/dL 3.2-4.5 CALCIUM CORRECTED 9.2 mg/dL 8.5-10.1 Capillary blood glucose measurement by g lucometer (mass/volume) - 05/31/19 08:01 Capillary blood glucose measurement by glucometer (mas s/volume) 72 mg/dL 70-110 Complete blood count (CBC) with automate d white blood cell (WBC) differential - 06/08/19 00:00 Blood leukocytes automated count (number/volume) 5.6 10*3/uL 4.3-11.0 Blood erythrocytes automated count (number/volume) 3.52 10*6/uL 4.35-5.85 Venous blood hemoglobin measurement (mass/volume) 9.9 g/dL 11.5-16.0 Blood hematocrit (volume fraction) 33 % 35-52 Automated erythrocyte mean corpuscular volume 93 [ foz_us] 80-99 Automated erythrocyte mean corpuscular h emoglobin (mass per erythrocyte) 28 pg 25-34 Automated erythrocyte mean corpuscular h emoglobin concentration measurement (mass/volume) 30 g/dL 32-36 Automated erythrocyte distribution width ratio 18. 1 % 10.0- 14.5 Automated blood platelet count (count/volume) 295 10*3/uL 130-400 Automated blood platelet mean volume measurement 10.0 [foz_us] 7.4-10.4 Automated blood neutrophils/100 leukocytes 63 % 42-75 Automated blood lymphocytes/100 leukocytes 25 % 12-44 Blood monocytes/100 leukocytes 8 % 0-12 Automated blood eosinophils/100 leukocytes 3 % 0-10 Automated blood basophils/100 leukocytes 1 % 0-10 Blood neutrophils automated count (number/volume) 3.6 10*3 1.8-7.8 Blood lymphocytes automated count (number/volume) 1.4 10*3 1.0-4.0 Blood monocytes automated count (number/volume) 47 .0 10*3 0.0-1.0 Automated eosinophil count 0.1 10*3/uL 0 .0-0.3 Automated blood basophil count (count/volume) 0.1 10*3/uL 0.0-0.1 Encounters ACCT No. Visit Date/Time Discharge Status Pt. Type Provider Facility Loc./Unit Complaint [id number] 01/15/2019 10:00:00 01/15/2019 23:59: 59 CLS Outpatient RONNIE ESPINOZA [facility] [id number] 04/02/2019 11:00:00 Document Registration [id number] 02/03/2019 09:20:00 Document Registration [id number] 12/21/2018 09:40:00 Document Registration [id number] 10/28/2018 10:40:00 Document Registration [id number] 07/29/2018 08:40:00 Document Registration [id number] 06/08/2019 13:12:00 23:59:59 CLS Outpatient MIGUE BLANCAS DO [facility] LAB FS ANEMIA [id number] 05/18/2019 17:45:00 11:20:00 DIS Outpatient MARTIN LEAL DO [facility] IRF R HIP FX [id number] 05/15/2019 09:01:00 11:48:00 DIS Emergency ROVENSTJUDI DE LA ROSA DO [facility] ER FS FALL - RT HIP P AIN [id number] 11/30/2018 20:00:00 23:59:59 CLS Preadmit MARIALUISA MARKHAM APRN [facility] SLEEP CLIVE G47.33
--- NOTE | 2019-06-14 17:19 | NUR ---
Marylin fuller in [facility] - 06/14/19 at 1719 by SHAHRZAD Michelle removed by RASHAD Boone
== END 2019-06-14 12:45 | disposition home or self-care (01) ==
LOC: EDUNIT# 12:29 → ER 12:30
DX: S71.011D Laceration without foreign body, right hip, subsequent encounter (principal); X58.XXXD Exposure to other specified factors, subsequent encounter
CPT/HCPCS: 99281